=== PATIENT | male | born 1955 | race Caucasian/White ===

== ENCOUNTER → 2017-08-02 | Outpatient (CLI) | payer OTHER ==
[2017-08-02 16:18] LABS: HEMATOCRIT 41.9 % (42.0-52.0); HEMOGLOBIN 14.1 g/dl (13.5-17.5); RED BLOOD COUNT 4.32 10^6/uL (4.30-6.10); WHITE BLOOD COUNT 8.6 10^3/uL (4.0-10.0)
[2017-08-02 16:19] LABS: BASO # 0.1 10^3/uL (0.0-0.2); EOS # 0.2 10^3/uL (0.0-0.50); EOS % 2.7 % (0.0-3.0); IMMATURE GRANULOCYTE % 0.7 % (0-3.0); LYMPH # 2.7 10^3/uL (1.5-4.5); LYMPH % 31.4 % (24.0-44.0); MEAN CORPUSCULAR HEMOGLOBIN 32.6 pg (27.0-33.0); MEAN CORPUSCULAR HGB CONC 33.7 g/dl (32.0-36.5); MONO # 0.6 10^3/uL (0.0-0.8); MONO % 7.2 % (0.0-5.0); NEUTROPHILS # 4.9 10^3/uL (1.8-7.7); PLATELET COUNT, AUTOMATED 350 10^3/uL (150-450)
[2017-08-02 16:52] LABS: ERYTHROCYTE SEDIMENTATION RATE 66 mm/hr (0-20)
[2017-08-02 21:08] LABS: ALBUMIN 3.4 GM/DL (3.2-5.2); ALBUMIN/GLOBULIN RATIO 0.79 (1.00-1.93); ALKALINE PHOSPHATASE 103 U/L (45-117); ALT/SGPT 19 U/L (12-78); ANION GAP 6 MEQ/L (8-16); AST/SGOT 15 U/L (7-37); BILIRUBIN,TOTAL 0.2 MG/DL (0.2-1.0); BLOOD UREA NITROGEN 13 MG/DL (7-18); C REACTIVE PROTEIN QUANTITATIV 2.18 MG/DL (0.00-0.30); CALCIUM LEVEL 8.6 MG/DL (8.8-10.2); CARBON DIOXIDE LEVEL 27 MEQ/L (21-32); CHLORIDE LEVEL 102 MEQ/L (98-107); CREATININE FOR GFR 0.78 MG/DL (0.70-1.30); GLOMERULAR FILTRATION RATE > 60.0 (>49); GLUCOSE, FASTING 121 MG/DL (70-100); POTASSIUM SERUM 4.1 MEQ/L (3.5-5.1); SODIUM LEVEL 135 MEQ/L (136-145); TOTAL PROTEIN 7.7 GM/DL (6.4-8.2)
== END ==
LOC: M LAB 15:26
DX: T84.7XXD Infection and inflammatory reaction due to other internal orthopedic prosthetic devices, implants and grafts, subsequent encounter (principal); Y83.1 Surgical operation with implant of artificial internal device as the cause of abnormal reaction of the patient, or of later complication, without mention of misadventure at the time of the procedure
CPT/HCPCS: 86140

== ENCOUNTER → 2017-08-02 | Outpatient (CLI) | payer OTHER ==
[2017-08-02 16:48] LABS: ALBUMIN 3.3 GM/DL (3.2-5.2); ALBUMIN/GLOBULIN RATIO 0.77 (1.00-1.93); ALKALINE PHOSPHATASE 100 U/L (45-117); ALT/SGPT 22 U/L (12-78); ANION GAP 6 MEQ/L (8-16); AST/SGOT 15 U/L (7-37); BILIRUBIN,TOTAL 0.2 MG/DL (0.2-1.0); BLOOD UREA NITROGEN 13 MG/DL (7-18); CALCIUM LEVEL 8.6 MG/DL (8.8-10.2); CARBON DIOXIDE LEVEL 29 MEQ/L (21-32); CHLORIDE LEVEL 102 MEQ/L (98-107); CREATININE FOR GFR 0.75 MG/DL (0.70-1.30); FREE T4 0.88 NG/DL (0.76-1.46); GLOMERULAR FILTRATION RATE > 60.0 (>49); GLUCOSE, FASTING 118 MG/DL (70-100); SODIUM LEVEL 137 MEQ/L (136-145); TOTAL PROTEIN 7.6 GM/DL (6.4-8.2)
[2017-08-04 14:14] LABS: PSA TOTAL 2.6 ng/mL (0.0-4.0)
== END ==
LOC: M LAB 15:20
DX: F33.1 Major depressive disorder, recurrent, moderate (principal); R39.12 Poor urinary stream
CPT/HCPCS: 84443

== ENCOUNTER → 2017-09-06 | Outpatient (CLI) | payer OTHER ==
[2017-09-06 14:28] LABS: BASO # 0.1 10^3/uL (0.0-0.2); BASO % 0.6 % (0.0-1.0); EOS # 0.2 10^3/uL (0.0-0.50); EOS % 2.4 % (0.0-3.0); HEMATOCRIT 41.5 % (42.0-52.0); IMMATURE GRANULOCYTE % 0.2 % (0-3.0); LYMPH # 2.3 10^3/uL (1.5-4.5); LYMPH % 24.8 % (24.0-44.0); MEAN CORPUSCULAR HEMOGLOBIN 32.5 pg (27.0-33.0); MEAN CORPUSCULAR HGB CONC 33.7 g/dl (32.0-36.5); MEAN CORPUSCULAR VOLUME 96.3 fl (80.0-96.0); MONO # 0.9 10^3/uL (0.0-0.8); MONO % 9.2 % (0.0-5.0); NEUTROPHILS # 5.8 10^3/uL (1.8-7.7); NEUTROPHILS % 62.8 % (36.0-66.0); PLATELET COUNT, AUTOMATED 371 10^3/uL (150-450); RED BLOOD COUNT 4.31 10^6/uL (4.30-6.10); RED CELL DISTRIBUTION WIDTH 13.2 % (11.5-14.5); WHITE BLOOD COUNT 9.3 10^3/uL (4.0-10.0)
[2017-09-06 14:46] LABS: ALBUMIN 3.3 GM/DL (3.2-5.2); ALKALINE PHOSPHATASE 101 U/L (45-117); ALT/SGPT 18 U/L (12-78); ANION GAP 6 MEQ/L (8-16); AST/SGOT 12 U/L (7-37); BILIRUBIN,TOTAL 0.3 MG/DL (0.2-1.0); BLOOD UREA NITROGEN 15 MG/DL (7-18); C REACTIVE PROTEIN QUANTITATIV 1.74 MG/DL (0.00-0.30); CALCIUM LEVEL 8.8 MG/DL (8.8-10.2); CARBON DIOXIDE LEVEL 26 MEQ/L (21-32); CHLORIDE LEVEL 106 MEQ/L (98-107); CREATININE FOR GFR 0.72 MG/DL (0.70-1.30); GLOMERULAR FILTRATION RATE > 60.0 (>49); GLUCOSE, FASTING 100 MG/DL (70-100); POTASSIUM SERUM 4.7 MEQ/L (3.5-5.1); SODIUM LEVEL 138 MEQ/L (136-145); TOTAL PROTEIN 7.4 GM/DL (6.4-8.2)
[2017-09-06 21:37] LABS: ERYTHROCYTE SEDIMENTATION RATE 45 mm/hr (0-20)
== END ==
LOC: M LAB 13:26
DX: T81.4XXS Infection following a procedure, sequela (principal)
CPT/HCPCS: 80053

== ENCOUNTER → 2017-10-17 | Outpatient (CLI) | payer OTHER ==
[2017-10-17 17:26] LABS: BASO # 0.1 10^3/uL (0.0-0.2); BASO % 1.2 % (0.0-1.0); EOS # 0.2 10^3/uL (0.0-0.50); EOS % 1.8 % (0.0-3.0); HEMATOCRIT 41.2 % (42.0-52.0); HEMOGLOBIN 13.7 g/dl (13.5-17.5); IMMATURE GRANULOCYTE % 0.3 % (0-3.0); LYMPH # 2.4 10^3/uL (1.5-4.5); LYMPH % 24.8 % (24.0-44.0); MEAN CORPUSCULAR HEMOGLOBIN 32.2 pg (27.0-33.0); MEAN CORPUSCULAR HGB CONC 33.3 g/dl (32.0-36.5); MEAN CORPUSCULAR VOLUME 96.9 fl (80.0-96.0); MONO # 0.8 10^3/uL (0.0-0.8); MONO % 8.9 % (0.0-5.0); PLATELET COUNT, AUTOMATED 379 10^3/uL (150-450); RED BLOOD COUNT 4.25 10^6/uL (4.30-6.10); RED CELL DISTRIBUTION WIDTH 13.3 % (11.5-14.5); WHITE BLOOD COUNT 9.5 10^3/uL (4.0-10.0)
[2017-10-17 17:53] LABS: ERYTHROCYTE SEDIMENTATION RATE 45 mm/hr (0-20)
[2017-10-17 18:09] LABS: ALBUMIN 3.5 GM/DL (3.2-5.2); ALBUMIN/GLOBULIN RATIO 0.92 (1.00-1.93); ALKALINE PHOSPHATASE 111 U/L (45-117); ALT/SGPT 20 U/L (12-78); ANION GAP 7 MEQ/L (8-16); AST/SGOT 19 U/L (7-37); BILIRUBIN,TOTAL 0.4 MG/DL (0.2-1.0); BLOOD UREA NITROGEN 14 MG/DL (7-18); C REACTIVE PROTEIN QUANTITATIV 4.42 MG/DL (0.00-0.30); CALCIUM LEVEL 8.4 MG/DL (8.8-10.2); CARBON DIOXIDE LEVEL 29 MEQ/L (21-32); CHLORIDE LEVEL 107 MEQ/L (98-107); CREATININE FOR GFR 0.76 MG/DL (0.70-1.30); GLOMERULAR FILTRATION RATE > 60.0 (>49); GLUCOSE, FASTING 96 MG/DL (70-100); POTASSIUM SERUM 4.5 MEQ/L (3.5-5.1); SODIUM LEVEL 143 MEQ/L (136-145); TOTAL PROTEIN 7.3 GM/DL (6.4-8.2)
== END ==
LOC: M LAB 15:40
DX: T81.4XXS Infection following a procedure, sequela (principal); Y83.9 Surgical procedure, unspecified as the cause of abnormal reaction of the patient, or of later complication, without mention of misadventure at the time of the procedure
CPT/HCPCS: 80053

== ENCOUNTER → 2017-10-25 | Outpatient (CLI) | payer OTHER ==
[2017-10-25 18:55] LABS: BASO # 0.1 10^3/uL (0.0-0.2); BASO % 0.5 % (0.0-1.0); CPK CREATINE PHOSPHOKINASE 213 U/L (39-308); EOS # 0.1 10^3/uL (0.0-0.50); HEMATOCRIT 39.3 % (42.0-52.0); HEMOGLOBIN 12.8 g/dl (13.5-17.5); IMMATURE GRANULOCYTE % 0.4 % (0-3.0); LYMPH # 1.5 10^3/uL (1.5-4.5); MEAN CORPUSCULAR HEMOGLOBIN 32.2 pg (27.0-33.0); MEAN CORPUSCULAR HGB CONC 32.6 g/dl (32.0-36.5); MEAN CORPUSCULAR VOLUME 98.7 fl (80.0-96.0); MONO # 1.3 10^3/uL (0.0-0.8); MONO % 11.5 % (0.0-5.0); NEUTROPHILS # 8.2 10^3/uL (1.8-7.7); NEUTROPHILS % 73.6 % (36.0-66.0); PLATELET COUNT, AUTOMATED 335 10^3/uL (150-450); RED BLOOD COUNT 3.98 10^6/uL (4.30-6.10); RED CELL DISTRIBUTION WIDTH 13.8 % (11.5-14.5); TROPONIN I < 0.02 NG/ML (< 0.10); WHITE BLOOD COUNT 11.2 10^3/uL (4.0-10.0)
[2017-10-25 18:56] LABS: CK-MB VALUE MASS 3.4 NG/ML (<3.6); MB/CK RELATIVE INDEX 1.59 (< OR =4)
[2017-10-25 19:04] LABS: D-DIMER QUANT 816.7 ng/ml (<500)
[2017-10-25 20:23] LABS: ERYTHROCYTE SEDIMENTATION RATE 56 mm/hr (0-20)
== END ==
LOC: M SMT 12:23
DX: R07.9 Chest pain, unspecified (principal)
CPT/HCPCS: 82553

== ENCOUNTER → 2017-11-16 | Outpatient (CLI) | payer OTHER ==
[2017-11-16 14:54] LABS: BASO # 0.1 10^3/uL (0.0-0.2); EOS # 0.2 10^3/uL (0.0-0.50); EOS % 2.3 % (0.0-3.0); HEMATOCRIT 42.3 % (42.0-52.0); HEMOGLOBIN 13.9 g/dl (13.5-17.5); IMMATURE GRANULOCYTE % 0.5 % (0-3.0); LYMPH # 2.3 10^3/uL (1.5-4.5); MEAN CORPUSCULAR HEMOGLOBIN 31.6 pg (27.0-33.0); MEAN CORPUSCULAR HGB CONC 32.9 g/dl (32.0-36.5); MEAN CORPUSCULAR VOLUME 96.1 fl (80.0-96.0); MONO # 0.8 10^3/uL (0.0-0.8); MONO % 9.2 % (0.0-5.0); NEUTROPHILS # 5.3 10^3/uL (1.8-7.7); PLATELET COUNT, AUTOMATED 419 10^3/uL (150-450); RED CELL DISTRIBUTION WIDTH 13.6 % (11.5-14.5); WHITE BLOOD COUNT 8.7 10^3/uL (4.0-10.0)
[2017-11-16 14:57] LABS: ALBUMIN 3.4 GM/DL (3.2-5.2); ALBUMIN/GLOBULIN RATIO 0.79 (1.00-1.93); ALKALINE PHOSPHATASE 115 U/L (45-117); ALT/SGPT 25 U/L (12-78); ANION GAP 5 MEQ/L (8-16); AST/SGOT 21 U/L (7-37); BILIRUBIN,TOTAL 0.3 MG/DL (0.2-1.0); BLOOD UREA NITROGEN 14 MG/DL (7-18); C REACTIVE PROTEIN QUANTITATIV 1.63 MG/DL (0.00-0.30); CALCIUM LEVEL 8.8 MG/DL (8.8-10.2); CARBON DIOXIDE LEVEL 30 MEQ/L (21-32); CHLORIDE LEVEL 105 MEQ/L (98-107); CREATININE FOR GFR 0.66 MG/DL (0.70-1.30); GLOMERULAR FILTRATION RATE > 60.0 (>49); GLUCOSE, FASTING 134 MG/DL (70-100); POTASSIUM SERUM 4.7 MEQ/L (3.5-5.1); SODIUM LEVEL 140 MEQ/L (136-145); TOTAL PROTEIN 7.7 GM/DL (6.4-8.2)
[2017-11-16 15:38] LABS: ERYTHROCYTE SEDIMENTATION RATE 47 mm/hr (0-20)
== END ==
LOC: M LAB 13:16
DX: T81.4XXS Infection following a procedure, sequela (principal); Y83.9 Surgical procedure, unspecified as the cause of abnormal reaction of the patient, or of later complication, without mention of misadventure at the time of the procedure
CPT/HCPCS: 80053

== ENCOUNTER → 2017-11-16 | Outpatient (CLI) | payer OTHER ==
[2017-11-16 14:54] LABS: ESTIMATED AVERAGE GLUCOSE 131 MG/DL (60-110); HEMOGLOBIN A1c 6.2 %
[2017-11-16 15:05] LABS: ALBUMIN 3.3 GM/DL (3.2-5.2); ALBUMIN/GLOBULIN RATIO 0.77 (1.00-1.93); ALKALINE PHOSPHATASE 116 U/L (45-117); ALT/SGPT 25 U/L (12-78); ANION GAP 6 MEQ/L (8-16); AST/SGOT 19 U/L (7-37); BILIRUBIN,TOTAL 0.3 MG/DL (0.2-1.0); BLOOD UREA NITROGEN 14 MG/DL (7-18); CALCIUM LEVEL 8.7 MG/DL (8.8-10.2); CARBON DIOXIDE LEVEL 30 MEQ/L (21-32); CHLORIDE LEVEL 105 MEQ/L (98-107); CHOLESTEROL LEVEL 179 MG/DL (<200); CHOLESTEROL RISK RATIO 4.068 (<5); CREATININE FOR GFR 0.71 MG/DL (0.70-1.30); FREE T4 1.06 NG/DL (0.76-1.46); GLOMERULAR FILTRATION RATE > 60.0 (>49); GLUCOSE, FASTING 131 MG/DL (70-100); HDL CHOLESTEROL 44 MG/DL (>40); LDL CHOLESTEROL 104.8 MG/DL (<100); NON-HDL-C 135 MG/DL; POTASSIUM SERUM 4.6 MEQ/L (3.5-5.1); SODIUM LEVEL 141 MEQ/L (136-145); TOTAL PROTEIN 7.6 GM/DL (6.4-8.2); TRIGLYCERIDES LEVEL 151 MG/DL (<150)
== END ==
LOC: M LAB 13:18
DX: Z13.220 Encounter for screening for lipoid disorders (principal)

== ENCOUNTER → 2017-11-23 | Outpatient (CLI) | payer OTHER | LOC: M RAD 15:00 | DX: M54.6 Pain in thoracic spine (principal); Z98.1 Arthrodesis status | CPT/HCPCS: 72072 ==

== ENCOUNTER → 2017-12-12 | Outpatient (CLI) | payer OTHER ==
[2017-12-12 15:34] LABS: BASO # 0.1 10^3/uL (0.0-0.2); BASO % 1.2 % (0.0-1.0); EOS # 0.2 10^3/uL (0.0-0.50); EOS % 2.3 % (0.0-3.0); HEMATOCRIT 41.1 % (42.0-52.0); HEMOGLOBIN 13.6 g/dl (13.5-17.5); IMMATURE GRANULOCYTE % 0.5 % (0-3.0); LYMPH # 2.9 10^3/uL (1.5-4.5); LYMPH % 31.1 % (24.0-44.0); MEAN CORPUSCULAR HEMOGLOBIN 31.8 pg (27.0-33.0); MEAN CORPUSCULAR HGB CONC 33.1 g/dl (32.0-36.5); MONO # 0.8 10^3/uL (0.0-0.8); MONO % 8.4 % (0.0-5.0); NEUTROPHILS # 5.2 10^3/uL (1.8-7.7); NEUTROPHILS % 56.5 % (36.0-66.0); PLATELET COUNT, AUTOMATED 350 10^3/uL (150-450); RED BLOOD COUNT 4.28 10^6/uL (4.30-6.10); RED CELL DISTRIBUTION WIDTH 14.7 % (11.5-14.5); WHITE BLOOD COUNT 9.2 10^3/uL (4.0-10.0)
[2017-12-12 16:01] LABS: ALBUMIN 3.5 GM/DL (3.2-5.2); ALBUMIN/GLOBULIN RATIO 0.88 (1.00-1.93); ALKALINE PHOSPHATASE 114 U/L (45-117); ALT/SGPT 25 U/L (12-78); ANION GAP 7 MEQ/L (8-16); AST/SGOT 20 U/L (7-37); BILIRUBIN,TOTAL 0.4 MG/DL (0.2-1.0); BLOOD UREA NITROGEN 11 MG/DL (7-18); C REACTIVE PROTEIN QUANTITATIV 0.89 MG/DL (0.00-0.30); CALCIUM LEVEL 8.4 MG/DL (8.8-10.2); CARBON DIOXIDE LEVEL 29 MEQ/L (21-32); CHLORIDE LEVEL 105 MEQ/L (98-107); CREATININE FOR GFR 0.72 MG/DL (0.70-1.30); GLOMERULAR FILTRATION RATE > 60.0 (>49); GLUCOSE, FASTING 123 MG/DL (70-100); POTASSIUM SERUM 4.2 MEQ/L (3.5-5.1); SODIUM LEVEL 141 MEQ/L (136-145); TOTAL PROTEIN 7.5 GM/DL (6.4-8.2)
[2017-12-12 17:19] LABS: ERYTHROCYTE SEDIMENTATION RATE 6 mm/hr (0-20)
== END ==
LOC: M LAB 15:17
DX: T81.4XXS Infection following a procedure, sequela (principal)
CPT/HCPCS: 80053

== ENCOUNTER → 2018-01-11 | Outpatient (CLI) | payer OTHER ==
[2018-01-11 15:18] LABS: BASO # 0.1 10^3/uL (0.0-0.2); BASO % 1.2 % (0.0-1.0); EOS # 0.2 10^3/uL (0.0-0.50); HEMATOCRIT 41.4 % (42.0-52.0); IMMATURE GRANULOCYTE % 0.3 % (0-3.0); LYMPH # 2.7 10^3/uL (1.5-4.5); LYMPH % 27.9 % (24.0-44.0); MEAN CORPUSCULAR HGB CONC 33.8 g/dl (32.0-36.5); MEAN CORPUSCULAR VOLUME 94.5 fl (80.0-96.0); MONO # 0.9 10^3/uL (0.0-0.8); MONO % 9.5 % (0.0-5.0); NEUTROPHILS # 5.6 10^3/uL (1.8-7.7); NEUTROPHILS % 59.1 % (36.0-66.0); PLATELET COUNT, AUTOMATED 334 10^3/uL (150-450); RED BLOOD COUNT 4.38 10^6/uL (4.30-6.10); RED CELL DISTRIBUTION WIDTH 14.4 % (11.5-14.5); WHITE BLOOD COUNT 9.5 10^3/uL (4.0-10.0)
[2018-01-11 15:42] LABS: ERYTHROCYTE SEDIMENTATION RATE 41 mm/hr (0-20)
[2018-01-11 15:59] LABS: ALBUMIN 3.5 GM/DL (3.2-5.2); ALBUMIN/GLOBULIN RATIO 0.81 (1.00-1.93); ALKALINE PHOSPHATASE 113 U/L (45-117); ALT/SGPT 44 U/L (12-78); ANION GAP 5 MEQ/L (8-16); AST/SGOT 42 U/L (7-37); BILIRUBIN,TOTAL 0.3 MG/DL (0.2-1.0); BLOOD UREA NITROGEN 11 MG/DL (7-18); C REACTIVE PROTEIN QUANTITATIV 2.62 MG/DL (0.00-0.30); CALCIUM LEVEL 8.8 MG/DL (8.8-10.2); CARBON DIOXIDE LEVEL 29 MEQ/L (21-32); CHLORIDE LEVEL 105 MEQ/L (98-107); CREATININE FOR GFR 0.72 MG/DL (0.70-1.30); GLOMERULAR FILTRATION RATE > 60.0 (>49); GLUCOSE, FASTING 116 MG/DL (70-100); POTASSIUM SERUM 4.3 MEQ/L (3.5-5.1); SODIUM LEVEL 139 MEQ/L (136-145); TOTAL PROTEIN 7.8 GM/DL (6.4-8.2)
== END ==
LOC: M LAB 14:45
DX: T81.4XXS Infection following a procedure, sequela (principal); Y83.9 Surgical procedure, unspecified as the cause of abnormal reaction of the patient, or of later complication, without mention of misadventure at the time of the procedure

== ENCOUNTER → 2018-01-29 | Outpatient (CLI) | payer OTHER ==
[2018-01-29 12:41] LABS: BASO # 0.1 10^3/uL (0.0-0.2); EOS # 0.2 10^3/uL (0.0-0.50); EOS % 2.6 % (0.0-3.0); HEMOGLOBIN 13.7 g/dl (13.5-17.5); IMMATURE GRANULOCYTE % 0.5 % (0-3.0); LYMPH # 2.3 10^3/uL (1.5-4.5); LYMPH % 24.4 % (24.0-44.0); MEAN CORPUSCULAR HEMOGLOBIN 32.5 pg (27.0-33.0); MEAN CORPUSCULAR HGB CONC 33.4 g/dl (32.0-36.5); MEAN CORPUSCULAR VOLUME 97.2 fl (80.0-96.0); MONO # 0.9 10^3/uL (0.0-0.8); MONO % 9.2 % (0.0-5.0); NEUTROPHILS # 5.9 10^3/uL (1.8-7.7); NEUTROPHILS % 62.3 % (36.0-66.0); PLATELET COUNT, AUTOMATED 371 10^3/uL (150-450); RED BLOOD COUNT 4.22 10^6/uL (4.30-6.10); RED CELL DISTRIBUTION WIDTH 14.9 % (11.5-14.5); WHITE BLOOD COUNT 9.4 10^3/uL (4.0-10.0)
[2018-01-29 13:31] LABS: ALBUMIN 3.4 GM/DL (3.2-5.2); ALBUMIN/GLOBULIN RATIO 0.77 (1.00-1.93); ALKALINE PHOSPHATASE 129 U/L (45-117); ALT/SGPT 31 U/L (12-78); ANION GAP 6 MEQ/L (8-16); AST/SGOT 20 U/L (7-37); BILIRUBIN,TOTAL 0.2 MG/DL (0.2-1.0); BLOOD UREA NITROGEN 7 MG/DL (7-18); C REACTIVE PROTEIN QUANTITATIV 1.87 MG/DL (0.00-0.30); CALCIUM LEVEL 8.2 MG/DL (8.8-10.2); CARBON DIOXIDE LEVEL 28 MEQ/L (21-32); CHLORIDE LEVEL 106 MEQ/L (98-107); CREATININE FOR GFR 0.67 MG/DL (0.70-1.30); GLOMERULAR FILTRATION RATE > 60.0 (>49); GLUCOSE, FASTING 119 MG/DL (70-100); POTASSIUM SERUM 4.9 MEQ/L (3.5-5.1); SODIUM LEVEL 140 MEQ/L (136-145); TOTAL PROTEIN 7.8 GM/DL (6.4-8.2)
[2018-01-29 13:41] LABS: ERYTHROCYTE SEDIMENTATION RATE 45 mm/hr (0-20)
== END ==
LOC: M LAB 12:08
DX: T81.40XA Infection following a procedure, unspecified, initial encounter (principal)

== ENCOUNTER → 2018-03-01 | Outpatient (CLI) | payer OTHER ==
[2018-03-01 17:57] LABS: CHOLESTEROL LEVEL 175 MG/DL (<200); CHOLESTEROL RISK RATIO 4.069 (<5); FREE T4 1.08 NG/DL (0.76-1.46); HDL CHOLESTEROL 43 MG/DL (>40); LDL CHOLESTEROL 109 MG/DL (<100); NON-HDL-C 132 MG/DL; TRIGLYCERIDES LEVEL 117 MG/DL (<150)
== END ==
LOC: M LAB 16:46
DX: Z13.220 Encounter for screening for lipoid disorders (principal)
CPT/HCPCS: 84443

== ENCOUNTER → 2018-03-01 | Outpatient (CLI) | payer OTHER ==
[2018-03-01 17:28] LABS: BASO # 0.1 10^3/uL (0.0-0.2); BASO % 0.8 % (0.0-1.0); EOS # 0.2 10^3/uL (0.0-0.50); EOS % 1.8 % (0.0-3.0); HEMATOCRIT 40.8 % (42.0-52.0); HEMOGLOBIN 13.7 g/dl (13.5-17.5); IMMATURE GRANULOCYTE % 0.3 % (0-3.0); LYMPH # 2.4 10^3/uL (1.5-4.5); LYMPH % 25.6 % (24.0-44.0); MEAN CORPUSCULAR HEMOGLOBIN 32.2 pg (27.0-33.0); MEAN CORPUSCULAR HGB CONC 33.6 g/dl (32.0-36.5); MONO # 0.8 10^3/uL (0.0-0.8); MONO % 8.1 % (0.0-5.0); NEUTROPHILS % 63.4 % (36.0-66.0); PLATELET COUNT, AUTOMATED 380 10^3/uL (150-450); RED BLOOD COUNT 4.25 10^6/uL (4.30-6.10); RED CELL DISTRIBUTION WIDTH 13.9 % (11.5-14.5); WHITE BLOOD COUNT 9.5 10^3/uL (4.0-10.0)
[2018-03-01 17:50] LABS: ALBUMIN 3.5 GM/DL (3.2-5.2); ALBUMIN/GLOBULIN RATIO 0.83 (1.00-1.93); ALKALINE PHOSPHATASE 113 U/L (45-117); ALT/SGPT 23 U/L (12-78); ANION GAP 3 MEQ/L (8-16); AST/SGOT 21 U/L (7-37); BILIRUBIN,TOTAL 0.3 MG/DL (0.2-1.0); BLOOD UREA NITROGEN 10 MG/DL (7-18); CALCIUM LEVEL 9.2 MG/DL (8.8-10.2); CARBON DIOXIDE LEVEL 30 MEQ/L (21-32); CHLORIDE LEVEL 103 MEQ/L (98-107); CREATININE FOR GFR 0.68 MG/DL (0.70-1.30); GLOMERULAR FILTRATION RATE > 60.0 (>49); GLUCOSE, FASTING 111 MG/DL (70-100); POTASSIUM SERUM 4.8 MEQ/L (3.5-5.1); SODIUM LEVEL 136 MEQ/L (136-145); TOTAL PROTEIN 7.7 GM/DL (6.4-8.2)
[2018-03-01 18:07] LABS: ERYTHROCYTE SEDIMENTATION RATE 53 mm/hr (0-20)
== END ==
LOC: M LAB 16:55
DX: Z13.220 Encounter for screening for lipoid disorders (principal); Z13.29 Encounter for screening for other suspected endocrine disorder
CPT/HCPCS: 80053

== ENCOUNTER → 2018-04-20 | Outpatient (CLI) | payer OTHER ==
[~2018-04-20] MED LIST: /WARF25TA OR; ACET650S RE; ACET65TA OR; ANEXIA OR; BABY81CH OR; OXYC10TA97 OR; PERC7.5T8 OR; XANA1TAB2 OR
[2018-04-20 16:39] LABS: BASO # 0.1 10^3/uL (0.0-0.2); BASO % 0.9 % (0.0-1.0); EOS # 0.2 10^3/uL (0.0-0.50); EOS % 2.2 % (0.0-3.0); HEMATOCRIT 39.8 % (42.0-52.0); HEMOGLOBIN 13.3 g/dl (13.5-17.5); LYMPH # 3.2 10^3/uL (1.5-4.5); MEAN CORPUSCULAR HEMOGLOBIN 32.8 pg (27.0-33.0); MEAN CORPUSCULAR HGB CONC 33.4 g/dl (32.0-36.5); MONO % 9.9 % (0.0-5.0); NEUTROPHILS # 5.3 10^3/uL (1.8-7.7); NEUTROPHILS % 53.5 % (36.0-66.0); PLATELET COUNT, AUTOMATED 316 10^3/uL (150-450); RED BLOOD COUNT 4.06 10^6/uL (4.30-6.10); WHITE BLOOD COUNT 9.8 10^3/uL (4.0-10.0)
[2018-04-20 17:02] LABS: ALBUMIN 3.5 GM/DL (3.2-5.2); ALT/SGPT 25 U/L (12-78); BILIRUBIN,TOTAL 0.3 MG/DL (0.2-1.0); BLOOD UREA NITROGEN 13 MG/DL (7-18); C REACTIVE PROTEIN QUANTITATIV 1.88 MG/DL (0.00-0.30); CALCIUM LEVEL 8.8 MG/DL (8.8-10.2); CARBON DIOXIDE LEVEL 31 MEQ/L (21-32); CHLORIDE LEVEL 103 MEQ/L (98-107); CREATININE FOR GFR 0.78 MG/DL (0.70-1.30); GLOMERULAR FILTRATION RATE > 60.0 (>49); GLUCOSE, FASTING 144 MG/DL (70-100); POTASSIUM SERUM 4.8 MEQ/L (3.5-5.1); SODIUM LEVEL 138 MEQ/L (136-145); TOTAL PROTEIN 7.1 GM/DL (6.4-8.2)
[2018-04-20 17:57] LABS: ERYTHROCYTE SEDIMENTATION RATE 36 mm/hr (0-20)
== END ==
LOC: M LAB 16:06
PROVIDERS: ATTEND Physician Assistant
DX: Z13.220 Encounter for screening for lipoid disorders (principal)

== ENCOUNTER → 2018-05-16 | Outpatient (CLI) | payer OTHER ==
[2018-05-16 16:39] LABS: BASO # 0.1 10^3/uL (0.0-0.2); BASO % 1.1 % (0.0-1.0); EOS # 0.2 10^3/uL (0.0-0.50); EOS % 2.2 % (0.0-3.0); HEMATOCRIT 43.1 % (42.0-52.0); HEMOGLOBIN 14.3 g/dl (13.5-17.5); LYMPH # 2.8 10^3/uL (1.5-4.5); MEAN CORPUSCULAR HEMOGLOBIN 32.4 pg (27.0-33.0); MEAN CORPUSCULAR HGB CONC 33.2 g/dl (32.0-36.5); MEAN CORPUSCULAR VOLUME 97.7 fl (80.0-96.0); MONO # 0.8 10^3/uL (0.0-0.8); MONO % 8.6 % (0.0-5.0); NEUTROPHILS # 5.1 10^3/uL (1.8-7.7); NEUTROPHILS % 56.7 % (36.0-66.0); PLATELET COUNT, AUTOMATED 340 10^3/uL (150-450); RED BLOOD COUNT 4.41 10^6/uL (4.30-6.10); WHITE BLOOD COUNT 9.1 10^3/uL (4.0-10.0)
[2018-05-16 16:58] LABS: ALBUMIN 3.5 GM/DL (3.2-5.2); ALT/SGPT 24 U/L (12-78); BILIRUBIN,TOTAL 0.3 MG/DL (0.2-1.0); BLOOD UREA NITROGEN 12 MG/DL (7-18); C REACTIVE PROTEIN QUANTITATIV 2.22 MG/DL (0.00-0.30); CALCIUM LEVEL 8.7 MG/DL (8.8-10.2); CARBON DIOXIDE LEVEL 32 MEQ/L (21-32); CHLORIDE LEVEL 103 MEQ/L (98-107); CREATININE FOR GFR 0.69 MG/DL (0.70-1.30); GLOMERULAR FILTRATION RATE > 60.0 (>49); GLUCOSE, FASTING 89 MG/DL (70-100); POTASSIUM SERUM 4.4 MEQ/L (3.5-5.1); SODIUM LEVEL 140 MEQ/L (136-145); TOTAL PROTEIN 7.5 GM/DL (6.4-8.2)
[2018-05-16 17:35] LABS: ERYTHROCYTE SEDIMENTATION RATE 37 mm/hr (0-20)
== END ==
LOC: M LAB 16:02
PROVIDERS: ATTEND Physician Assistant
DX: T81.49XS Infection following a procedure, other surgical site, sequela (principal)

== ENCOUNTER → 2018-06-22 | Outpatient (CLI) | payer OTHER ==
[2018-06-22 16:42] LABS: BASO # 0.1 10^3/uL (0.0-0.2); BASO % 1.1 % (0.0-1.0); EOS # 0.2 10^3/uL (0.0-0.50); EOS % 2.2 % (0.0-3.0); HEMATOCRIT 41.1 % (42.0-52.0); HEMOGLOBIN 13.7 g/dl (13.5-17.5); LYMPH # 3.2 10^3/uL (1.5-4.5); LYMPH % 33.3 % (24.0-44.0); MEAN CORPUSCULAR HEMOGLOBIN 32.2 pg (27.0-33.0); MEAN CORPUSCULAR HGB CONC 33.3 g/dl (32.0-36.5); MEAN CORPUSCULAR VOLUME 96.5 fl (80.0-96.0); MONO # 1.1 10^3/uL (0.0-0.8); MONO % 11.7 % (0.0-5.0); NEUTROPHILS # 4.8 10^3/uL (1.8-7.7); NEUTROPHILS % 50.7 % (36.0-66.0); PLATELET COUNT, AUTOMATED 362 10^3/uL (150-450); RED BLOOD COUNT 4.26 10^6/uL (4.30-6.10); WHITE BLOOD COUNT 9.5 10^3/uL (4.0-10.0)
[2018-06-22 17:03] LABS: ERYTHROCYTE SEDIMENTATION RATE 45 mm/hr (0-20)
[2018-06-22 17:07] LABS: ALBUMIN 3.6 GM/DL (3.2-5.2); ALT/SGPT 27 U/L (12-78); BILIRUBIN,TOTAL 0.4 MG/DL (0.2-1.0); BLOOD UREA NITROGEN 16 MG/DL (7-18); C REACTIVE PROTEIN QUANTITATIV 1.03 MG/DL (0.00-0.30); CALCIUM LEVEL 8.6 MG/DL (8.8-10.2); CARBON DIOXIDE LEVEL 28 MEQ/L (21-32); CHLORIDE LEVEL 105 MEQ/L (98-107); CREATININE FOR GFR 0.68 MG/DL (0.70-1.30); GLOMERULAR FILTRATION RATE > 60.0 (>49); GLUCOSE, FASTING 89 MG/DL (70-100); POTASSIUM SERUM 4.6 MEQ/L (3.5-5.1); SODIUM LEVEL 140 MEQ/L (136-145); TOTAL PROTEIN 7.8 GM/DL (6.4-8.2)
== END ==
LOC: M LAB 16:02
PROVIDERS: ATTEND Physician Assistant
DX: T81.40XA Infection following a procedure, unspecified, initial encounter (principal); X58.XXXA Exposure to other specified factors, initial encounter; Y92.89 Other specified places as the place of occurrence of the external cause

== ENCOUNTER → 2018-06-29 | Outpatient (CLI) | payer OTHER ==
--- NOTE | 2018-06-29 16:20 | REP ---
Clinical: Subacute left shoulder pain. Technique: Internal rotation, external rotation, and Y view of the left shoulder. Findings: Moderate cortical irregularity and spurring along the inferior margin of the acromioclavicular joint is appreciated along with mild blunting to the ossified glenoid rim. No acute fracture dislocation. Proximal humerus is intact and normal. Surrounding soft tissues are unremarkable. Subacromial space is normal. No periarticular calcifications or loose bodies identified. Impression: Mild arthritic changes primarily involving the acromioclavicular joint. Electronically Signed by Joseph Gant MD 06/29/2018 04:12 P
== END ==
LOC: M RAD 15:36
PROVIDERS: ATTEND Physician Assistant
DX: M25.512 Pain in left shoulder (principal); M19.012 Primary osteoarthritis, left shoulder

== ENCOUNTER → 2018-08-09 | Outpatient (CLI) | payer OTHER ==
[~2018-08-09] MED LIST changes: -/WARF25TA OR; +COUM1TAB18 OR
[2018-08-09 15:07] LABS: BASO # 0.1 10^3/uL (0.0-0.2); BASO % 1.1 % (0.0-1.0); EOS # 0.1 10^3/uL (0.0-0.50); HEMATOCRIT 40.9 % (42.0-52.0); HEMOGLOBIN 13.8 g/dl (13.5-17.5); LYMPH # 2.7 10^3/uL (1.5-4.5); LYMPH % 26.4 % (24.0-44.0); MEAN CORPUSCULAR HEMOGLOBIN 32.5 pg (27.0-33.0); MEAN CORPUSCULAR HGB CONC 33.7 g/dl (32.0-36.5); MEAN CORPUSCULAR VOLUME 96.5 fl (80.0-96.0); MONO # 0.9 10^3/uL (0.0-0.8); MONO % 8.3 % (0.0-5.0); NEUTROPHILS # 6.4 10^3/uL (1.8-7.7); NEUTROPHILS % 62.8 % (36.0-66.0); PLATELET COUNT, AUTOMATED 373 10^3/uL (150-450); RED BLOOD COUNT 4.24 10^6/uL (4.30-6.10); WHITE BLOOD COUNT 10.2 10^3/uL (4.0-10.0)
[2018-08-09 15:28] LABS: ALBUMIN 3.6 GM/DL (3.2-5.2); ALT/SGPT 22 U/L (12-78); BILIRUBIN,TOTAL 0.3 MG/DL (0.2-1.0); BLOOD UREA NITROGEN 14 MG/DL (7-18); C REACTIVE PROTEIN QUANTITATIV 1.67 MG/DL (0.00-0.30); CALCIUM LEVEL 8.7 MG/DL (8.8-10.2); CARBON DIOXIDE LEVEL 26 MEQ/L (21-32); CHLORIDE LEVEL 106 MEQ/L (98-107); CREATININE FOR GFR 0.66 MG/DL (0.70-1.30); GLOMERULAR FILTRATION RATE > 60.0 (>49); GLUCOSE, FASTING 131 MG/DL (70-100); POTASSIUM SERUM 4.2 MEQ/L (3.5-5.1); SODIUM LEVEL 137 MEQ/L (136-145); TOTAL PROTEIN 7.5 GM/DL (6.4-8.2)
[2018-08-09 16:01] LABS: ERYTHROCYTE SEDIMENTATION RATE 41 mm/hr (0-20)
== END ==
LOC: M LAB 14:34
PROVIDERS: ATTEND Physician Assistant
DX: T81.40XS Infection following a procedure, unspecified, sequela (principal); Y83.8 Other surgical procedures as the cause of abnormal reaction of the patient, or of later complication, without mention of misadventure at the time of the procedure

== ENCOUNTER → 2018-11-06 | Outpatient (CLI) | payer OTHER ==
[2018-11-06 18:49] LABS: BASO # 0.1 10^3/uL (0.0-0.2); BASO % 1.1 % (0.0-1.0); EOS # 0.2 10^3/uL (0.0-0.50); EOS % 2.5 % (0.0-3.0); HEMATOCRIT 39.3 % (42.0-52.0); HEMOGLOBIN 13.2 g/dl (13.5-17.5); LYMPH # 2.7 10^3/uL (1.5-4.5); LYMPH % 30.9 % (24.0-44.0); MEAN CORPUSCULAR HEMOGLOBIN 33.5 pg (27.0-33.0); MEAN CORPUSCULAR HGB CONC 33.6 g/dl (32.0-36.5); MEAN CORPUSCULAR VOLUME 99.7 fl (80.0-96.0); MONO # 0.9 10^3/uL (0.0-0.8); MONO % 10.5 % (0.0-5.0); NEUTROPHILS # 4.7 10^3/uL (1.8-7.7); NEUTROPHILS % 54.4 % (36.0-66.0); PLATELET COUNT, AUTOMATED 351 10^3/uL (150-450); RED BLOOD COUNT 3.94 10^6/uL (4.30-6.10); WHITE BLOOD COUNT 8.7 10^3/uL (4.0-10.0)
[2018-11-06 19:01] LABS: ALBUMIN 3.6 GM/DL (3.2-5.2); ALT/SGPT 31 U/L (12-78); BILIRUBIN,TOTAL 0.2 MG/DL (0.2-1.0); BLOOD UREA NITROGEN 13 MG/DL (7-18); C REACTIVE PROTEIN QUANTITATIV 1.82 MG/DL (0.00-0.30); CALCIUM LEVEL 8.9 MG/DL (8.8-10.2); CARBON DIOXIDE LEVEL 31 MEQ/L (21-32); CHLORIDE LEVEL 104 MEQ/L (98-107); CREATININE FOR GFR 0.89 MG/DL (0.70-1.30); GLOMERULAR FILTRATION RATE > 60.0 (>49); GLUCOSE, FASTING 79 MG/DL (70-100); POTASSIUM SERUM 4.3 MEQ/L (3.5-5.1); SODIUM LEVEL 142 MEQ/L (136-145); TOTAL PROTEIN 7.5 GM/DL (6.4-8.2)
[2018-11-06 19:21] LABS: ERYTHROCYTE SEDIMENTATION RATE 39 mm/hr (0-20)
== END ==
LOC: M LAB 16:02
PROVIDERS: ATTEND Internal Medicine
DX: Z98.890 Other specified postprocedural states (principal); T14.8XXD Other injury of unspecified body region, subsequent encounter; Z79.2 Long term (current) use of antibiotics; Z96.9 Presence of functional implant, unspecified; A49.01 Methicillin susceptible Staphylococcus aureus infection, unspecified site

== ENCOUNTER → 2019-03-06 | Outpatient (CLI) | payer OTHER ==
[2019-03-06 16:30] LABS: BASO # 0.1 10^3/uL (0.0-0.2); BASO % 0.9 % (0.0-1.0); EOS # 0.3 10^3/uL (0.0-0.5); EOS % 2.7 % (0.0-3.0); HEMATOCRIT 44.6 % (42.0-52.0); HEMOGLOBIN 14.9 g/dl (13.5-17.5); LYMPH # 2.7 10^3/uL (1.5-5.0); LYMPH % 26.7 % (24.0-44.0); MEAN CORPUSCULAR HEMOGLOBIN 34.1 pg (27.0-33.0); MEAN CORPUSCULAR HGB CONC 33.4 g/dl (32.0-36.5); MEAN CORPUSCULAR VOLUME 102.1 fl (80.0-96.0); MONO # 1.1 10^3/uL (0.0-0.8); MONO % 10.7 % (0.0-5.0); NEUTROPHILS % 58.6 % (36.0-66.0); PLATELET COUNT, AUTOMATED 353 10^3/uL (150-450); RED BLOOD COUNT 4.37 10^6/uL (4.30-6.10); WHITE BLOOD COUNT 10.3 10^3/uL (4.0-10.0)
[2019-03-06 16:52] LABS: ERYTHROCYTE SEDIMENTATION RATE 21 mm/hr (0-20)
[2019-03-06 16:54] LABS: ALBUMIN 3.8 GM/DL (3.2-5.2); ALT/SGPT 36 U/L (12-78); BILIRUBIN,TOTAL 0.5 MG/DL (0.2-1.0); BLOOD UREA NITROGEN 18 MG/DL (7-18); C REACTIVE PROTEIN QUANTITATIV 1.29 MG/DL (0.00-0.30); CALCIUM LEVEL 9.2 MG/DL (8.8-10.2); CARBON DIOXIDE LEVEL 31 MEQ/L (21-32); CHLORIDE LEVEL 103 MEQ/L (98-107); CREATININE FOR GFR 0.89 MG/DL (0.70-1.30); GLOMERULAR FILTRATION RATE > 60.0 (>49); GLUCOSE, FASTING 97 MG/DL (70-100); POTASSIUM SERUM 4.2 MEQ/L (3.5-5.1); SODIUM LEVEL 138 MEQ/L (136-145); TOTAL PROTEIN 8.2 GM/DL (6.4-8.2)
== END ==
LOC: M LAB 15:37
PROVIDERS: ATTEND Internal Medicine
DX: A49.01 Methicillin susceptible Staphylococcus aureus infection, unspecified site (principal); T14.8XXA Other injury of unspecified body region, initial encounter; Z98.890 Other specified postprocedural states; Z79.2 Long term (current) use of antibiotics; Z96.9 Presence of functional implant, unspecified

== ENCOUNTER → 2019-06-18 | Outpatient (CLI) | payer OTHER ==
[2019-06-18 17:33] LABS: BASO # 0.1 10^3/uL (0.0-0.2); BASO % 1.1 % (0.0-1.0); EOS # 0.2 10^3/uL (0.0-0.5); EOS % 2.4 % (0.0-3.0); HEMATOCRIT 41.9 % (42.0-52.0); HEMOGLOBIN 13.7 g/dl (13.5-17.5); LYMPH # 2.3 10^3/uL (1.5-5.0); LYMPH % 26.9 % (24.0-44.0); MEAN CORPUSCULAR HEMOGLOBIN 33.3 pg (27.0-33.0); MEAN CORPUSCULAR HGB CONC 32.7 g/dl (32.0-36.5); MEAN CORPUSCULAR VOLUME 101.9 fl (80.0-96.0); MONO # 0.9 10^3/uL (0.0-0.8); MONO % 10.9 % (0.0-5.0); NEUTROPHILS # 4.9 10^3/uL (1.5-8.5); NEUTROPHILS % 58.3 % (36.0-66.0); PLATELET COUNT, AUTOMATED 341 10^3/uL (150-450); RED BLOOD COUNT 4.11 10^6/uL (4.30-6.10); WHITE BLOOD COUNT 8.5 10^3/uL (4.0-10.0)
[2019-06-18 17:52] LABS: ALBUMIN 3.5 GM/DL (3.2-5.2); ALT/SGPT 28 U/L (12-78); BILIRUBIN,TOTAL 0.2 MG/DL (0.2-1.0); BLOOD UREA NITROGEN 14 MG/DL (7-18); C REACTIVE PROTEIN QUANTITATIV 4.52 MG/DL (0.00-0.30); CALCIUM LEVEL 8.7 MG/DL (8.8-10.2); CARBON DIOXIDE LEVEL 30 MEQ/L (21-32); CHLORIDE LEVEL 104 MEQ/L (98-107); CREATININE FOR GFR 0.75 MG/DL (0.70-1.30); GLOMERULAR FILTRATION RATE > 60.0 (>49); GLUCOSE, FASTING 125 MG/DL (70-100); POTASSIUM SERUM 3.9 MEQ/L (3.5-5.1); SODIUM LEVEL 139 MEQ/L (136-145); TOTAL PROTEIN 7.4 GM/DL (6.4-8.2)
[2019-06-18 20:51] LABS: ERYTHROCYTE SEDIMENTATION RATE 32 mm/hr (0-20)
== END ==
LOC: M LAB 16:40
PROVIDERS: ATTEND Internal Medicine
DX: T14.8XXA Other injury of unspecified body region, initial encounter (principal); Z79.2 Long term (current) use of antibiotics; Z96.9 Presence of functional implant, unspecified; A49.01 Methicillin susceptible Staphylococcus aureus infection, unspecified site; Z98.890 Other specified postprocedural states

== ENCOUNTER → 2019-09-11 | Outpatient (CLI) | payer OTHER ==
[2019-09-11 13:17] LABS: BASO # 0.1 10^3/uL (0.0-0.2); BASO % 1.1 % (0.0-1.0); EOS # 0.2 10^3/uL (0.0-0.5); EOS % 1.9 % (0.0-3.0); HEMATOCRIT 42.5 % (42.0-52.0); HEMOGLOBIN 14.1 g/dl (13.5-17.5); LYMPH # 2.4 10^3/uL (1.5-5.0); LYMPH % 28.1 % (24.0-44.0); MEAN CORPUSCULAR HEMOGLOBIN 33.5 pg (27.0-33.0); MEAN CORPUSCULAR HGB CONC 33.2 g/dl (32.0-36.5); MONO # 0.9 10^3/uL (0.0-0.8); MONO % 11.1 % (0.0-5.0); NEUTROPHILS # 4.9 10^3/uL (1.5-8.5); NEUTROPHILS % 57.4 % (36.0-66.0); PLATELET COUNT, AUTOMATED 353 10^3/uL (150-450); RED BLOOD COUNT 4.21 10^6/uL (4.30-6.10); WHITE BLOOD COUNT 8.5 10^3/uL (4.0-10.0)
[2019-09-11 13:44] LABS: ALBUMIN 3.7 GM/DL (3.2-5.2); ALT/SGPT 47 U/L (12-78); BILIRUBIN,TOTAL 0.5 MG/DL (0.2-1.0); BLOOD UREA NITROGEN 14 MG/DL (7-18); C REACTIVE PROTEIN QUANTITATIV 0.57 MG/DL (0.00-0.30); CALCIUM LEVEL 9.4 MG/DL (8.8-10.2); CARBON DIOXIDE LEVEL 30 MEQ/L (21-32); CHLORIDE LEVEL 102 MEQ/L (98-107); CREATININE FOR GFR 0.84 MG/DL (0.70-1.30); GLOMERULAR FILTRATION RATE > 60.0 (>49); GLUCOSE, FASTING 136 MG/DL (70-100); POTASSIUM SERUM 4.2 MEQ/L (3.5-5.1); SODIUM LEVEL 137 MEQ/L (136-145); TOTAL PROTEIN 7.5 GM/DL (6.4-8.2)
[2019-09-11 14:05] LABS: ERYTHROCYTE SEDIMENTATION RATE 4 mm/hr (0-20)
== END ==
LOC: M LAB 12:33
PROVIDERS: ATTEND Internal Medicine
DX: T14.8XXA Other injury of unspecified body region, initial encounter (principal); Y92.89 Other specified places as the place of occurrence of the external cause; Z98.890 Other specified postprocedural states; Z79.2 Long term (current) use of antibiotics; Z96.9 Presence of functional implant, unspecified; A49.01 Methicillin susceptible Staphylococcus aureus infection, unspecified site

== ENCOUNTER → 2019-11-27 | Outpatient (CLI) | payer OTHER ==
[2019-12-23 16:05] LABS: BASO # 0.1 10^3/uL (0.0-0.2); EOS # 0.2 10^3/uL (0.0-0.5); EOS % 2.6 % (0.0-3.0); HEMATOCRIT 42.3 % (42.0-52.0); HEMOGLOBIN 14.4 g/dl (13.5-17.5); LYMPH # 1.8 10^3/uL (1.5-5.0); LYMPH % 28.7 % (24.0-44.0); MEAN CORPUSCULAR HEMOGLOBIN 34.1 pg (27.0-33.0); MEAN CORPUSCULAR VOLUME 100.2 fl (80.0-96.0); MONO # 0.7 10^3/uL (0.0-0.8); MONO % 11.2 % (0.0-5.0); NEUTROPHILS # 3.5 10^3/uL (1.5-8.5); PLATELET COUNT, AUTOMATED 314 10^3/uL (150-450); RED BLOOD COUNT 4.22 10^6/uL (4.30-6.10); WHITE BLOOD COUNT 6.2 10^3/uL (4.0-10.0)
[2019-12-23 16:06] LABS: ERYTHROCYTE SEDIMENTATION RATE 23 mm/hr (0-20)
== END ==
LOC: M LAB 13:02
PROVIDERS: ATTEND Internal Medicine
DX: Z98.890 Other specified postprocedural states (principal); A49.01 Methicillin susceptible Staphylococcus aureus infection, unspecified site; Z96.9 Presence of functional implant, unspecified; Z79.2 Long term (current) use of antibiotics; T14.8XXA Other injury of unspecified body region, initial encounter

== ENCOUNTER → 2020-03-16 | Outpatient (CLI) | payer OTHER ==
[2020-03-16 16:15] LABS: BASO # 0.1 10^3/uL (0.0-0.2); EOS # 0.1 10^3/uL (0.0-0.5); EOS % 1.7 % (0.0-3.0); HEMATOCRIT 43.6 % (42.0-52.0); HEMOGLOBIN 14.1 g/dl (13.5-17.5); LYMPH % 27.9 % (24.0-44.0); MEAN CORPUSCULAR HEMOGLOBIN 32.6 pg (27.0-33.0); MEAN CORPUSCULAR HGB CONC 32.3 g/dl (32.0-36.5); MEAN CORPUSCULAR VOLUME 100.7 fl (80.0-96.0); MONO # 0.6 10^3/uL (0.0-0.8); MONO % 8.9 % (0.0-5.0); NEUTROPHILS # 4.3 10^3/uL (1.5-8.5); NEUTROPHILS % 59.8 % (36.0-66.0); PLATELET COUNT, AUTOMATED 351 10^3/uL (150-450); RED BLOOD COUNT 4.33 10^6/uL (4.30-6.10); WHITE BLOOD COUNT 7.2 10^3/uL (4.0-10.0)
[2020-03-16 16:37] LABS: ALBUMIN 3.7 GM/DL (3.2-5.2); ALT/SGPT 33 U/L (12-78); BILIRUBIN,TOTAL 0.4 MG/DL (0.2-1.0); BLOOD UREA NITROGEN 7 MG/DL (7-18); C REACTIVE PROTEIN QUANTITATIV 1.07 MG/DL (0.00-0.30); CARBON DIOXIDE LEVEL 29 MEQ/L (21-32); CHLORIDE LEVEL 106 MEQ/L (98-107); CREATININE FOR GFR 0.79 MG/DL (0.70-1.30); GLOMERULAR FILTRATION RATE > 60.0 (>49); GLUCOSE, FASTING 117 MG/DL (70-100); POTASSIUM SERUM 3.9 MEQ/L (3.5-5.1); SODIUM LEVEL 140 MEQ/L (136-145); TOTAL PROTEIN 7.9 GM/DL (6.4-8.2)
[2020-03-16 17:24] LABS: ERYTHROCYTE SEDIMENTATION RATE 30 mm/hr (0-20)
== END ==
LOC: M LAB 15:43
PROVIDERS: ATTEND Internal Medicine
DX: T14.8XXA Other injury of unspecified body region, initial encounter (principal); Y92.89 Other specified places as the place of occurrence of the external cause; A49.01 Methicillin susceptible Staphylococcus aureus infection, unspecified site; Z98.890 Other specified postprocedural states; Z79.2 Long term (current) use of antibiotics; Z96.9 Presence of functional implant, unspecified

== ENCOUNTER → 2020-06-15 | Outpatient (CLI) | payer MEDICARE, OTHER ==
[2020-06-15 18:25] LABS: ALBUMIN 3.5 GM/DL (3.2-5.2); ALT/SGPT 27 U/L (12-78); BILIRUBIN,TOTAL 0.3 MG/DL (0.2-1.0); BLOOD UREA NITROGEN 19 MG/DL (7-18); C REACTIVE PROTEIN QUANTITATIV 1.63 MG/DL (0.00-0.30); CARBON DIOXIDE LEVEL 29 MEQ/L (21-32); CHLORIDE LEVEL 105 MEQ/L (98-107); CREATININE FOR GFR 0.82 MG/DL (0.70-1.30); GLOMERULAR FILTRATION RATE > 60.0 (>49); GLUCOSE, FASTING 113 MG/DL (70-100); POTASSIUM SERUM 4.7 MEQ/L (3.5-5.1); SODIUM LEVEL 140 MEQ/L (136-145); TOTAL PROTEIN 7.2 GM/DL (6.4-8.2)
[2020-06-15 18:45] LABS: BASO # 0.1 10^3/uL (0.0-0.2); BASO % 0.9 % (0.0-1.0); EOS # 0.1 10^3/uL (0.0-0.5); EOS % 1.6 % (0.0-3.0); HEMATOCRIT 41.6 % (42.0-52.0); HEMOGLOBIN 13.8 g/dl (13.5-17.5); LYMPH # 2.5 10^3/uL (1.5-5.0); LYMPH % 32.2 % (24.0-44.0); MEAN CORPUSCULAR HEMOGLOBIN 34.1 pg (27.0-33.0); MEAN CORPUSCULAR HGB CONC 33.2 g/dl (32.0-36.5); MEAN CORPUSCULAR VOLUME 102.7 fl (80.0-96.0); MONO # 0.8 10^3/uL (0.0-0.8); MONO % 10.7 % (0.0-8.0); NEUTROPHILS # 4.2 10^3/uL (1.5-8.5); NEUTROPHILS % 54.3 % (36.0-66.0); PLATELET COUNT, AUTOMATED 283 10^3/uL (150-450); RED BLOOD COUNT 4.05 10^6/uL (4.30-6.10); WHITE BLOOD COUNT 7.7 10^3/uL (4.0-10.0)
[2020-06-15 20:05] LABS: ERYTHROCYTE SEDIMENTATION RATE 25 mm/hr (0-20)
== END ==
LOC: M LAB 16:16
PROVIDERS: ATTEND Internal Medicine
DX: A49.01 Methicillin susceptible Staphylococcus aureus infection, unspecified site (principal); Z98.890 Other specified postprocedural states; Z79.2 Long term (current) use of antibiotics; Z95.9 Presence of cardiac and vascular implant and graft, unspecified

== ENCOUNTER → 2020-09-03 | Outpatient (CLI) | payer MEDICARE, OTHER ==
[2020-09-03 16:26] LABS: BASO # 0.1 10^3/uL (0.0-0.2); BASO % 1.1 % (0.0-1.0); EOS # 0.1 10^3/uL (0.0-0.5); EOS % 1.3 % (0.0-3.0); HEMATOCRIT 41.6 % (42.0-52.0); HEMOGLOBIN 13.8 g/dl (13.5-17.5); LYMPH % 23.5 % (24.0-44.0); MEAN CORPUSCULAR HEMOGLOBIN 33.8 pg (27.0-33.0); MEAN CORPUSCULAR HGB CONC 33.2 g/dl (32.0-36.5); MONO # 0.7 10^3/uL (0.0-0.8); MONO % 8.2 % (2.0-8.0); NEUTROPHILS # 5.5 10^3/uL (1.5-8.5); NEUTROPHILS % 65.5 % (36.0-66.0); PLATELET COUNT, AUTOMATED 317 10^3/uL (150-450); RED BLOOD COUNT 4.08 10^6/uL (4.30-6.10); WHITE BLOOD COUNT 8.4 10^3/uL (4.0-10.0)
[2020-09-03 16:59] LABS: ALBUMIN 3.7 GM/DL (3.2-5.2); ALT/SGPT 29 U/L (12-78); BILIRUBIN,TOTAL 0.5 MG/DL (0.2-1.0); BLOOD UREA NITROGEN 13 MG/DL (7-18); C REACTIVE PROTEIN QUANTITATIV 1.09 MG/DL (0.00-0.30); CALCIUM LEVEL 9.2 MG/DL (8.8-10.2); CARBON DIOXIDE LEVEL 31 MEQ/L (21-32); CHLORIDE LEVEL 103 MEQ/L (98-107); CREATININE FOR GFR 0.63 MG/DL (0.70-1.30); GLOMERULAR FILTRATION RATE > 60.0 (>49); GLUCOSE, FASTING 105 MG/DL (70-100); POTASSIUM SERUM 4.5 MEQ/L (3.5-5.1); SODIUM LEVEL 137 MEQ/L (136-145); TOTAL PROTEIN 7.5 GM/DL (6.4-8.2)
== END ==
LOC: M LAB 15:24
PROVIDERS: ATTEND Internal Medicine
DX: T14.8XXA Other injury of unspecified body region, initial encounter (principal); A49.01 Methicillin susceptible Staphylococcus aureus infection, unspecified site; Z98.890 Other specified postprocedural states; Z79.2 Long term (current) use of antibiotics; Z96.9 Presence of functional implant, unspecified

== ENCOUNTER → 2020-09-03 | Outpatient (CLI) | payer MEDICARE, OTHER ==
[2020-09-03 17:03] LABS: CHOLESTEROL RISK RATIO 3.214 (<5); FREE T4 1.07 NG/DL (0.76-1.46); THYROID STIMULATING HORMONE 1.07 uIU/ML (0.358-3.740)
[2020-09-03 17:04] LABS: TOTAL 25(OH) VITAMIN D 9.5 NG/ML (30.0-100.0)
[2020-09-06 07:09] LABS: PSA TOTAL 0.9 ng/mL (0.0-4.0)
== END ==
LOC: M LAB 15:18
PROVIDERS: ATTEND Physician Assistant
DX: E78.5 Hyperlipidemia, unspecified (principal); F33.1 Major depressive disorder, recurrent, moderate; Z12.5 Encounter for screening for malignant neoplasm of prostate; T14.8XXA Other injury of unspecified body region, initial encounter; A49.01 Methicillin susceptible Staphylococcus aureus infection, unspecified site; Z98.890 Other specified postprocedural states; Z79.2 Long term (current) use of antibiotics; Z96.9 Presence of functional implant, unspecified; Z79.899 Other long term (current) drug therapy

== ENCOUNTER → 2020-12-03 | Outpatient (CLI) | payer MEDICARE, OTHER ==
[2020-12-03 16:10] LABS: BASO # 0.1 10^3/uL (0.0-0.2); BASO % 1.1 % (0.0-1.0); EOS # 0.1 10^3/uL (0.0-0.5); HEMATOCRIT 42.4 % (42.0-52.0); HEMOGLOBIN 14.1 g/dl (13.5-17.5); LYMPH % 24.9 % (24.0-44.0); MEAN CORPUSCULAR HEMOGLOBIN 33.1 pg (27.0-33.0); MEAN CORPUSCULAR HGB CONC 33.3 g/dl (32.0-36.5); MEAN CORPUSCULAR VOLUME 99.5 fl (80.0-96.0); MONO # 0.8 10^3/uL (0.0-0.8); MONO % 9.8 % (2.0-8.0); NEUTROPHILS # 5.1 10^3/uL (1.5-8.5); NEUTROPHILS % 62.8 % (36.0-66.0); PLATELET COUNT, AUTOMATED 326 10^3/uL (150-450); RED BLOOD COUNT 4.26 10^6/uL (4.30-6.10); WHITE BLOOD COUNT 8.1 10^3/uL (4.0-10.0)
[2020-12-03 16:29] LABS: ALBUMIN 3.5 GM/DL (3.2-5.2); ALT/SGPT 30 U/L (12-78); BILIRUBIN,TOTAL 0.5 MG/DL (0.2-1.0); BLOOD UREA NITROGEN 11 MG/DL (7-18); CALCIUM LEVEL 8.7 MG/DL (8.8-10.2); CARBON DIOXIDE LEVEL 28 MEQ/L (21-32); CHLORIDE LEVEL 104 MEQ/L (98-107); CREATININE FOR GFR 0.68 MG/DL (0.70-1.30); GLOMERULAR FILTRATION RATE > 60.0 (>49); GLUCOSE, FASTING 97 MG/DL (70-100); POTASSIUM SERUM 4.8 MEQ/L (3.5-5.1); SODIUM LEVEL 137 MEQ/L (136-145); TOTAL PROTEIN 7.6 GM/DL (6.4-8.2)
[2020-12-03 16:33] LABS: ERYTHROCYTE SEDIMENTATION RATE 31 mm/hr (0-20)
== END ==
LOC: M LAB 14:17
PROVIDERS: ATTEND Physician Assistant
DX: A49.01 Methicillin susceptible Staphylococcus aureus infection, unspecified site (principal); Z96.9 Presence of functional implant, unspecified

== ENCOUNTER → 2021-01-06 | Outpatient (CLI) | payer MEDICARE, OTHER ==
[2021-01-06 17:56] LABS: BASO # 0.1 10^3/uL (0.0-0.2); BASO % 0.8 % (0.0-1.0); EOS # 0.2 10^3/uL (0.0-0.5); EOS % 2.1 % (0.0-3.0); HEMATOCRIT 40.6 % (42.0-52.0); HEMOGLOBIN 13.5 g/dl (13.5-17.5); LYMPH # 2.2 10^3/uL (1.5-5.0); LYMPH % 31.2 % (24.0-44.0); MEAN CORPUSCULAR HEMOGLOBIN 33.2 pg (27.0-33.0); MEAN CORPUSCULAR HGB CONC 33.3 g/dl (32.0-36.5); MEAN CORPUSCULAR VOLUME 99.8 fl (80.0-96.0); MONO # 0.6 10^3/uL (0.0-0.8); MONO % 9.1 % (2.0-8.0); NEUTROPHILS % 56.4 % (36.0-66.0); PLATELET COUNT, AUTOMATED 283 10^3/uL (150-450); RED BLOOD COUNT 4.07 10^6/uL (4.30-6.10); WHITE BLOOD COUNT 7.1 10^3/uL (4.0-10.0)
[2021-01-06 18:26] LABS: ALBUMIN 3.4 GM/DL (3.2-5.2); ALT/SGPT 43 U/L (12-78); BILIRUBIN,TOTAL 0.4 MG/DL (0.2-1.0); BLOOD UREA NITROGEN 12 MG/DL (7-18); C REACTIVE PROTEIN QUANTITATIV 1.45 MG/DL (0.00-0.30); CARBON DIOXIDE LEVEL 30 MEQ/L (21-32); CHLORIDE LEVEL 106 MEQ/L (98-107); CREATININE FOR GFR 0.66 MG/DL (0.70-1.30); ERYTHROCYTE SEDIMENTATION RATE 35 mm/hr (0-20); GLOMERULAR FILTRATION RATE > 60.0 (>49); GLUCOSE, FASTING 127 MG/DL (70-100); POTASSIUM SERUM 4.3 MEQ/L (3.5-5.1); SODIUM LEVEL 140 MEQ/L (136-145); TOTAL PROTEIN 7.2 GM/DL (6.4-8.2)
== END ==
LOC: M LAB 16:22
PROVIDERS: ATTEND Physician Assistant
DX: A49.01 Methicillin susceptible Staphylococcus aureus infection, unspecified site (principal); Z96.9 Presence of functional implant, unspecified

== ENCOUNTER → 2021-01-23 | Outpatient (CLI) | payer MEDICARE, OTHER ==
[2021-01-23 12:11] LABS: BASO # 0.1 10^3/uL (0.0-0.2); BASO % 1.1 % (0.0-1.0); EOS # 0.3 10^3/uL (0.0-0.5); EOS % 3.3 % (0.0-3.0); HEMATOCRIT 42.2 % (42.0-52.0); HEMOGLOBIN 13.9 g/dl (13.5-17.5); LYMPH # 1.9 10^3/uL (1.5-5.0); LYMPH % 24.5 % (24.0-44.0); MEAN CORPUSCULAR HEMOGLOBIN 32.9 pg (27.0-33.0); MEAN CORPUSCULAR HGB CONC 32.9 g/dl (32.0-36.5); MONO # 0.7 10^3/uL (0.0-0.8); MONO % 9.7 % (2.0-8.0); NEUTROPHILS # 4.6 10^3/uL (1.5-8.5); NEUTROPHILS % 60.7 % (36.0-66.0); PLATELET COUNT, AUTOMATED 303 10^3/uL (150-450); RED BLOOD COUNT 4.22 10^6/uL (4.30-6.10); WHITE BLOOD COUNT 7.6 10^3/uL (4.0-10.0)
[2021-01-23 12:32] LABS: ERYTHROCYTE SEDIMENTATION RATE 19 mm/hr (0-20)
[2021-01-23 12:44] LABS: ALBUMIN 3.3 GM/DL (3.2-5.2); ALT/SGPT 28 U/L (12-78); BILIRUBIN,TOTAL 0.3 MG/DL (0.2-1.0); BLOOD UREA NITROGEN 12 MG/DL (7-18); C REACTIVE PROTEIN QUANTITATIV 0.63 MG/DL (0.00-0.30); CARBON DIOXIDE LEVEL 30 MEQ/L (21-32); CHLORIDE LEVEL 105 MEQ/L (98-107); CREATININE FOR GFR 0.77 MG/DL (0.70-1.30); GLOMERULAR FILTRATION RATE > 60.0 (>49); GLUCOSE, FASTING 92 MG/DL (70-100); POTASSIUM SERUM 4.3 MEQ/L (3.5-5.1); SODIUM LEVEL 139 MEQ/L (136-145); TOTAL PROTEIN 7.4 GM/DL (6.4-8.2)
== END ==
LOC: M LAB 11:51
PROVIDERS: ATTEND Physician Assistant
DX: Z96.9 Presence of functional implant, unspecified (principal); Z86.14 Personal history of Methicillin resistant Staphylococcus aureus infection

== ENCOUNTER → 2021-02-10 | Outpatient (CLI) | payer MEDICARE, OTHER ==
[2021-02-10 16:22] LABS: BASO # 0.1 10^3/uL (0.0-0.2); BASO % 0.7 % (0.0-1.0); EOS # 0.2 10^3/uL (0.0-0.5); EOS % 2.5 % (0.0-3.0); HEMATOCRIT 41.5 % (42.0-52.0); HEMOGLOBIN 13.8 g/dl (13.5-17.5); LYMPH # 2.3 10^3/uL (1.5-5.0); LYMPH % 28.2 % (24.0-44.0); MEAN CORPUSCULAR HEMOGLOBIN 33.6 pg (27.0-33.0); MEAN CORPUSCULAR HGB CONC 33.3 g/dl (32.0-36.5); MONO # 0.7 10^3/uL (0.0-0.8); MONO % 8.9 % (2.0-8.0); NEUTROPHILS # 4.8 10^3/uL (1.5-8.5); NEUTROPHILS % 59.2 % (36.0-66.0); PLATELET COUNT, AUTOMATED 306 10^3/uL (150-450); RED BLOOD COUNT 4.11 10^6/uL (4.30-6.10); WHITE BLOOD COUNT 8.1 10^3/uL (4.0-10.0)
[2021-02-10 16:45] LABS: ALBUMIN 3.4 GM/DL (3.2-5.2); ALT/SGPT 34 U/L (12-78); BILIRUBIN,TOTAL 0.3 MG/DL (0.2-1.0); BLOOD UREA NITROGEN 12 MG/DL (7-18); CALCIUM LEVEL 9.1 MG/DL (8.8-10.2); CARBON DIOXIDE LEVEL 34 MEQ/L (21-32); CHLORIDE LEVEL 102 MEQ/L (98-107); CREATININE FOR GFR 0.78 MG/DL (0.70-1.30); GLOMERULAR FILTRATION RATE > 60.0 (>49); GLUCOSE, FASTING 158 MG/DL (70-100); POTASSIUM SERUM 4.3 MEQ/L (3.5-5.1); SODIUM LEVEL 138 MEQ/L (136-145); TOTAL PROTEIN 7.3 GM/DL (6.4-8.2)
[2021-02-10 17:21] LABS: ERYTHROCYTE SEDIMENTATION RATE 29 mm/hr (0-20)
== END ==
LOC: M LAB 15:48
PROVIDERS: ATTEND Physician Assistant
DX: A49.01 Methicillin susceptible Staphylococcus aureus infection, unspecified site (principal); Z96.9 Presence of functional implant, unspecified

== ENCOUNTER 2021-02-27 00:06 | Emergency (ER) | payer MEDICARE, OTHER ==
[~2021-02-27] VITALS: Ht 190.5 cm; Wt 91.0 kg
[2021-02-27 00:08] VITALS: BP 154/83
--- OUTSIDE RECORDS SUMMARY | 2021-02-27 00:15 | CCD | Continuity of Care Document ---
Author Author Joseph CORREA Organization Unknown Address [address] [place] [address] Phone [phone] Care Team Providers Care Product Safety Compliance Leader Name Role Phone Adrianna Correa D.O. [facility] [phone] Problems Active Problems Provider Date Generalized anxiety disorder [place]N [place]l Onset: Osteomyelitis SEBASTI[place]N [place]l Onset: 07/21/2016 Attention deficit hyperactivity disorder Nancy Chilel Onset: 07/21/2016 Moderate recurrent major depression Michael Shi Onset: 03/28/2017 Poor stream of urine Adrianna Correa D.O. Onset: 03/28 Cervical disc disorder Adrianna Correa D.O. Onset: Vitamin D deficiency [place]STI[place]N [place]l Onset: 09/06/2020 Social History Type Date Description Comments Sex Unknown Tobacco Use Start: Unknown Light tobacco smoker (10 or fewe r cigarettes/day) ETOH Use Denies alcohol use Recreational Drug Use Denies Drug Use Tobacco Use Start: Unknown End: Patient is a former smoker Smoking Status Reviewed: 11/11/20 Patient is a former smoker Exercise Type/Frequency Does not exercise Sun Exposure Does not use sunscreen Seat Belt/Car Seat Always uses seat belt Allergies and adverse reactions Description No Known Drug Allergies Medications Active Medications SIG Qnty Indications Ordering Provide r Date Vitamin D (Ergocalciferol) 1.25mg (55896 Ut) Capsules 1 capsule weekly for 12 weeks 12caps Adrianna Delgado D.O. 09/06/[address] H[address] Villalba 1 by mouth every day with 60mg dose to equal 90mg 90caps F33.1 Michael ShiOCarlin 08/25/2020 Duloxetine HCL 60mg Caps DR Villalba take 1 capsule daily 90caps F33.1 Josefina Shi.O. 02/17 Amphetamine-Dextroamphetamine 30mg Tablets take one tablet by mouth every morning a nd 1 tablet in the afternoon istop: [id number] 60tabs F90.1 Michael ShiOCarlin 12/25 Fentanyl 12mcg/HR Patches 72HR patch transdermally with 25mcg patch to 37mcg q72 hours istop: [id number] 10units M46.20 Michael ShiOCarlin 07/17/2019 Cyclobenzaprine HCL 5mg Tablets 1 tab by mouth every 12 hours as needed 60tabs Michael OrellanaOCarlin 07/26/2017 Fentanyl 25mcg/HR Patches 72HR 1 patch transdermally with 12 mcg to equal 37 mcg every 3 days pain istop: [id number] 10units M46.20 Michael ShiOCarlin 08/10/2016 Meloxicam 15mg Tablets take one table by mouth daily as needed 30tabs Michael ShiOCarlin 08/02/2016 Alprazolam 1mg Tablets one tablet by mouth twice daily as needed istop: reference #: [id number] 60tabs F41.1 Michael GrahamOCarlin 07/21/2016 Lidocaine 5% Patches apply 1 patch topically once daily leave on for 12 hours off for 12 h 30units Adrianna Pelaez D.O. Keflex 250mg Capsules 1 tab by mouth bid Unknown Tamsulosin HCL 0.4mg Capsules 1 by mouth every day 90caps Michael ShiOCarlin Immunizations Description No Information Available Vital Signs Date Vital Result Comment 11/11/2020 11:10am BP Systolic 126 mmHg BP Diastolic 72 mmHg Height 71.6 inches 5'11.60" Weight 195.38 lb BMI (Body Mass Index) 26.8 kg/m2 Heart Rate 113 /min Respiratory Rate 18 /min Body Temperature 99.1 F O2 % BldC Oximetry 96 % [place] Body Weight 172 lb 08/25/2020 11:11am BP Systolic 130 mmHg BP Diastolic 70 mmHg Height 71.6 inches 5'11.60" Weight 201.00 lb BMI (Body Mass Index) 27.6 kg/m2 Heart Rate 83 /min Respiratory Rate 14 /min Body Temperature 97.8 F O2 % BldC Oximetry 97 % [place] Body Weight 172 lb Results Test Acquired Date Facility Test Result H/L Range Note Comprehensive Metabolic Profil 02/10/2021 [facility] Outpa tient Testing (Registration) [address] [place] [address] [phone] Glucose, Fasting 158 mg/dL High 70-100 Blood Urea Nitrogen 12 mg/dL Normal 7-18 Creatinine For GFR 0.78 mg/dL Normal 0.70-1.30 Glomerular Filtration Rate > 60.0 Normal >49 1 Sodium Level 138 mEq/L Normal 136-145 Potassium Serum 4.3 mEq/L Normal 3.5-5.1 Chloride Level 102 mEq/L Normal 98-107 Carbon Dioxide Level 34 mEq/L High 21-32 Anion Gap 2 mEq/L Low 8-16 Calcium Level 9.1 mg/dL Normal 8.8-10.2 Ast/Sgot 30 U/L Normal 7-37 Alt/SGPT 34 U/L Normal 12-78 Alkaline Phosphatase 122 U/L High 45-117 Bilirubin,Total 0.3 mg/dL Normal 0.2-1.0 Total Protein 7.3 GM/DL Normal 6.4-8.2 Albumin 3.4 GM/DL Normal 3.2-5.2 Albumin/Globulin Ratio 0.9 Normal Laboratory test finding 02/10/2021 [facility] Outpatient T esting (Registration) [address] [place] [address] [phone] C Reactive Protein Quantitativ 0.70 mg/dL High 0 .00-0.30 CBC With Differential 02/10/2021 [facility] Outpatient Maricarmen ting (Registration) [address] [place] [address] [phone] White Blood Count 8.1 10 Normal 4.0-10.0 Red Blood Count 4.11 10 Low 4.30-6.10 Hemoglobin 13.8 g/dL Normal 13.5-17.5 Hematocrit 41.5 % Low 42.0-52.0 Mean Corpuscular Volume 101.0 fl High 80.0-96.0 Mean Corpuscular Hemoglobin 33.6 pg High 27.0-33.0 Mean Corpuscular HGB Conc 33.3 g/dL Normal 32.0-36.5 Red Cell Distribution Width 13.3 % Normal 11.5-14.5 Platelet Count, Automated 306 10 Normal 150-450 Neutrophils % 59.2 % Normal 36.0-66.0 Lymph % 28.2 % Normal 24.0-44.0 [place] % 8.9 % High 2.0-8.0 Eos % 2.5 % Normal 0.0-3.0 Baso % 0.7 % Normal 0.0-1.0 Immature Granulocyte % 0.5 % Normal 0-3.0 Nucleated Red Blood Cell % 0.0 % Normal 0-0 Neutrophils # 4.8 10 Normal 1.5-8.5 Lymph # 2.3 10 Normal 1.5-5.0 [place] # 0.7 10 Normal 0.0-0.8 Eos # 0.2 10 Normal 0.0-0.5 Baso # 0.1 10 Normal 0.0-0.2 Laboratory test finding 02/10/2021 [facility] Outpatient T esting (Registration) [address] [place] [address] [phone] Erythrocyte Sedimentation Rate 29 mm/hr High 0 -20 Comprehensive Metabolic Profil 01/06/2021 [facility] Outpa tient Testing (Registration) [address] [place] [address] [phone] Glucose, Fasting 127 mg/dL High 70-100 Blood Urea Nitrogen 12 mg/dL Normal 7-18 Creatinine For GFR 0.66 mg/dL Low 0.70-1.30 Glomerular Filtration Rate > 60.0 Normal >49 2 Sodium Level 140 mEq/L Normal 136-145 Potassium Serum 4.3 mEq/L Normal 3.5-5.1 Chloride Level 106 mEq/L Normal 98-107 Carbon Dioxide Level 30 mEq/L Normal 21-32 Anion Gap 4 mEq/L Low 8-16 Calcium Level 9.0 mg/dL Normal 8.8-10.2 Ast/Sgot 32 U/L Normal 7-37 Alt/SGPT 43 U/L Normal 12-78 Alkaline Phosphatase 110 U/L Normal 45-117 Bilirubin,Total 0.4 mg/dL Normal 0.2-1.0 Total Protein 7.2 GM/DL Normal 6.4-8.2 Albumin 3.4 GM/DL Normal 3.2-5.2 Albumin/Globulin Ratio 0.9 Normal Laboratory test finding 01/06/2021 [facility] Outpatient T bonging (Registration) [address] [place] [address] [phone] C Reactive Protein Quantitativ 1.45 mg/dL High 0 .00-0.30 CBC With Differential 01/06/2021 [facility] Outpatient Maricarmen eve (Registration) [address] [place] [address] [phone] White Blood Count 7.1 10 Normal 4.0-10.0 Red Blood Count 4.07 10 Low 4.30-6.10 Hemoglobin 13.5 g/dL Normal 13.5-17.5 Hematocrit 40.6 % Low 42.0-52.0 Mean Corpuscular Volume 99.8 fl High 80.0-96.0 Mean Corpuscular Hemoglobin 33.2 pg High 27.0-33.0 Mean Corpuscular HGB Conc 33.3 g/dL Normal 32.0-36.5 Red Cell Distribution Width 13.2 % Normal 11.5-14.5 Platelet Count, Automated 283 10 Normal 150-450 Neutrophils % 56.4 % Normal 36.0-66.0 Lymph % 31.2 % Normal 24.0-44.0 [place] % 9.1 % High 2.0-8.0 Eos % 2.1 % Normal 0.0-3.0 Baso % 0.8 % Normal 0.0-1.0 Immature Granulocyte % 0.4 % Normal 0-3.0 Nucleated Red Blood Cell % 0.0 % Normal 0-0 Neutrophils # 4.0 10 Normal 1.5-8.5 Lymph # 2.2 10 Normal 1.5-5.0 [place] # 0.6 10 Normal 0.0-0.8 Eos # 0.2 10 Normal 0.0-0.5 Baso # 0.1 10 Normal 0.0-0.2 Laboratory test finding 01/06/2021 [facility] Outpatient T esting (Registration) [address] [place] [address] [phone] Erythrocyte Sedimentation Rate 35 mm/hr High 0 -20 Order 11/11/2020 In House Orders EKG see results CBC With Differential 09/03/2020 [facility] Outpatient Maricarmen ting (Registration) [address] [place] [address] [phone] White Blood Count 8.4 10 Normal 4.0-10.0 Red Blood Count 4.08 10 Low 4.30-6.10 Hemoglobin 13.8 g/dL Normal 13.5-17.5 Hematocrit 41.6 % Low 42.0-52.0 Mean Corpuscular Volume 102.0 fl High 80.0-96.0 Mean Corpuscular Hemoglobin 33.8 pg High 27.0-33.0 Mean Corpuscular HGB Conc 33.2 g/dL Normal 32.0-36.5 Red Cell Distribution Width 13.3 % Normal 11.5-14.5 Platelet Count, Automated 317 10 Normal 150-450 Neutrophils % 65.5 % Normal 36.0-66.0 Lymph % 23.5 % Low 24.0-44.0 [place] % 8.2 % High 2.0-8.0 Eos % 1.3 % Normal 0.0-3.0 Baso % 1.1 % High 0.0-1.0 Immature Granulocyte % 0.4 % Normal 0-3.0 Nucleated Red Blood Cell % 0.0 % Normal 0-0 Neutrophils # 5.5 10 Normal 1.5-8.5 Lymph # 2.0 10 Normal 1.5-5.0 [place] # 0.7 10 Normal 0.0-0.8 Eos # 0.1 10 Normal 0.0-0.5 Baso # 0.1 10 Normal 0.0-0.2 Comprehensive Metabolic Profil 09/03/2020 [facility] Outpa tient Testing (Registration) [address] [place] [address] [phone] Glucose, Fasting 105 mg/dL High 70-100 Blood Urea Nitrogen 13 mg/dL Normal 7-18 Creatinine For GFR 0.63 mg/dL Low 0.70-1.30 Glomerular Filtration Rate > 60.0 Normal >49 3 Sodium Level 137 mEq/L Normal 136-145 Potassium Serum 4.5 mEq/L Normal 3.5-5.1 Chloride Level 103 mEq/L Normal 98-107 Carbon Dioxide Level 31 mEq/L Normal 21-32 Anion Gap 3 mEq/L Low 8-16 Calcium Level 9.2 mg/dL Normal 8.8-10.2 Ast/Sgot 22 U/L Normal 7-37 Alt/SGPT 29 U/L Normal 12-78 Alkaline Phosphatase 101 U/L Normal 45-117 Bilirubin,Total 0.5 mg/dL Normal 0.2-1.0 Total Protein 7.5 GM/DL Normal 6.4-8.2 Albumin 3.7 GM/DL Normal 3.2-5.2 Albumin/Globulin Ratio 1.0 Normal Laboratory test finding 09/03/2020 [facility] Outpatient T esting (Registration) [address] [place] [address] [phone] C Reactive Protein Quantitativ 1.09 mg/dL High 0 .00-0.30 Lipid Panel 09/03/2020 [facility] Outpatient Testi ng (Registration) [address] [place] [address] [phone] Triglycerides Level 179 mg/dL High <150 Cholesterol Level 180 mg/dL Normal <200 HDL Cholesterol 56 mg/dL Normal >40 LDL Cholesterol 88 mg/dL Normal <100 Non-HDL-C 124 mg/dL Normal Cholesterol Risk Ratio 3.214 Normal <5 FT4&TSH Panel 09/03/2020 [facility] Outpatient Testi ng (Registration) [address] [place] [address] [phone] Thyroid Stimulating Hormone 1.070 uIU/ML Normal 0. 358-3.740 Free T4 1.07 ng/dL Normal 0.76-1.46 PSA Free & Total 09/03/2020 [facility] Outpatient Testi ng (Registration) [address] [place] [address] [phone] PSA Total 0.9 ng/mL Normal 0.0-4.0 4 PSA Comment (SEE NOTE) Normal . 5 Laboratory test finding 09/03/2020 [facility] Outpatient T esting (Registration) [address] [place] [address] [phone] Total 25(Oh) Vitamin D 9.5 NG/ML Low 30.0-100. 0 1 Units are mL/min/1.73 m2 Chronic Kidney Disease Staging per NKF: Stage I & II GFR >=60 Normal to Mildly Decreased Stage III GFR 30-59 Moderately Decreased Stage IV GFR 15-29 Severely Decreased Stage V GFR <15 Very Little GFR Left ESRD GFR <15 on SEALER DRY CELL 2 Units are mL/min/1.73 m2 Chronic Kidney Disease Staging per NKF: Stage I & II GFR >=60 Normal to Mildly Decreased Stage III GFR 30-59 Moderately Decreased Stage IV GFR 15-29 Severely Decreased Stage V GFR <15 Very Little GFR Left ESRD GFR <15 on SEALER DRY CELL 3 Units are mL/min/1.73 m2 Chronic Kidney Disease Staging per NKF: Stage I & II GFR >=60 Normal to Mildly Decreased Stage III GFR 30-59 Moderately Decreased Stage IV GFR 15-29 Severely Decreased Stage V GFR <15 Very Little GFR Left ESRD GFR <15 on SEALER DRY CELL 4 Mel ECLIA methodology. . According to the [place] [employer], Serum PSA should decrease and remain at undetectable levels after radical prostatectomy. The AUA defines biochemical recurrence as an initial PSA value 0.2 ng/mL or greater followed by a subsequent confirmatory PSA value 0.2 ng/mL or greater. Values obtained with different assay methods or kits cannot be used interchangeably. Results cannot be interpreted as absolute evidence of the presence or absence of malignant disease. 5 . The percent free PSA is performed on a reflex basis only when the total PSA is between 4.0 and 10.0 ng/mL. Performed at: RN - [facility] [address] [id number] [employer] Developer: Erika Van MD, Phone: [phone] Procedures Date Code Description Status 11/11/2020 42712 Brief Emotional/Beha v Assessment W/ Scoring Doc Per Standard Inst Completed 08/25/2020 81463 Office/Outpatient Established Mo d MDM 30-39 Min Completed Medical Devices Description No Information Available Encounters Type Date Location Provider Dx Diagnosis Office Visit 11/11/2020 11:00a [facility] SE[place]STI[place]N Vallecillo Z00.00 Encntr for general adult med ical exam w/o abnormal findings F33.1 Major depressive disorder, r ecurrent, moderate M46.20 Osteomyelitis of vertebra, s ite unspecified F90.1 Attn-defct hyperactivity dis order, predom hyperactive type M50.90 Cervical disc disorder, unsp , unspecified cervical region R01.1 Cardiac murmur, unspecified Office Visit 08/25/2020 11:00a [facility] [place]BASTI[place]N [place]l R45.4 Irritability and anger F33.1 Major depressive disorder, r ecurrent, moderate M46.20 Osteomyelitis of vertebra, s ite unspecified E78.5 Hyperlipidemia, unspecified F90.1 Attn-defct hyperactivity dis order, predom hyperactive type R01.1 Cardiac murmur, unspecified M50.90 Cervical disc disorder, unsp , unspecified cervical region Assessments Date Code Description Provider 11/11/2020 Z00.00 Encounter for genera l adult medical examination without abnormal findings SEBASTI[place]N [place]l 11/11/2020 F33.1 Major depressive disorder, recur rent, moderate Sánchez Sen, [place]N 11/11/2020 M46.20 Osteomyelitis of vertebra, site unspecified [place]STI[place]N [place]l 11/11/2020 F90.1 Attention-deficit hy peractivity disorder, predominantly hyperactive type [place]STI[place]N [place]l 11/11/2020 M50.90 Cervical disc disorder, unspecif ied, unspecified cervical re Sánchez Sen, [place]N 11/11/2020 R01.1 Cardiac murmur, unspecified Royer Sen, PA 08/25/2020 R45.4 Irritability and anger [place]BASTI[place]N [place]l 08/25/2020 F33.1 Major depressive disorder, recur rent, moderate Sánchez Sen, SEBASTI[place]N 08/25/2020 M46.20 Osteomyelitis of vertebra, site unspecified Sánchez Sen, SEBASTIÁN 08/25/2020 E78.5 Hyperlipidemia, unspecified Royer Sen, PA 08/25/2020 F90.1 Attention-deficit hy peractivity disorder, predominantly hyperactive type [place]STI[place]N [place]l 08/25/2020 R01.1 Cardiac murmur, unspecified SEBASTIÁN Miller 08/25/2020 M50.90 Cervical disc disorder, unspecif ied, unspecified cervical re [place]STI[place]N [place]l Plan of Treatment Future Appointment(s):* 02/15/2021 11:00 am - [place]l at [facility] Functional Status Description No Information Available Mental Status Description No Information Available Referrals Description No Information Available
--- OUTSIDE RECORDS SUMMARY | 2021-02-27 00:15 | CCD | Continuity of Care Document ---
Author Author Joseph CORREA Organization Unknown Address [id number] [place] [address] Phone [phone] Care Team Providers Care Bilingual Operator Name Role Phone Adrianna Correa D.O. [facility] [phone] Problems Active Problems Provider Date Generalized anxiety [...] Seat Belt/Car Seat Always uses seat belt Allergies, Adverse Reactions, Alerts Description No Known Drug Allergies Medications Active Medications SIG Qnty Indications Ordering Provide r Date Vitamin D (Ergocalciferol) 1.25mg (32691 Ut) Capsules 1 capsule weekly for 12 weeks 12caps Michael RichardsonOCarlin 09/06/2020 Dulox[address] HCL 30mg C[address] DR Villalba 1 by mouth every day with 60mg dose to equal 90mg 90caps F33.1 Michael ShiOCarlin 08/25/2020 Duloxetine HCL 60mg Caps DR Villalba take 1 capsule daily 90caps F33.1 Michael ShiO. 02/17 Amphetamine-Dextroamphetamine 30mg Tablets take one tablet by mouth every morning a nd 1 tablet in the afternoon istop: [id number] 60tabs F90.1 Michael ShiOCarlin 12/25 Fentanyl 12mcg/HR Patches 72HR patch transdermally with 25mcg patch to 37mcg q72 hours istop: [id number] 10units M46.20 Michael ShiOCarlin 07/17/2019 Cyclobenzaprine HCL 5mg Tablets 1 tab by mouth every 12 hours as needed 60tabs Michael OrellanaOCarlin 07/26/2017 Fentanyl 25mcg/HR Patches 72HR 1 patch transdermally with 12 mcg to equal 37 mcg every 3 days pain istop: [id number] 10units M46.20 Adrianna Correa D.O. 08/10/2016 Meloxicam 15mg Tablets take one table by mouth daily as needed 30tabs Michael ShiOCarlin 08/02/2016 Alprazolam 1mg Tablets one tablet by mouth twice daily as needed istop: reference #: [id number] 60tabs F41.1 Michael GrahamOCarlin 07/21/2016 Lidocaine 5% Patches apply 1 patch topically once daily leave on for 12 hours off for 12 h 30units Michael GrahamOCarlin Keflex 250mg Capsules 1 tab by mouth [...] F O2 % BldC Oximetry 96 % [place] Body Weight 172 lb 08/25/2020 11:11am BP Systolic 130 mmHg BP Diastolic 70 mmHg Height 71.6 inches 5'11.60" Weight 201.00 lb BMI (Body Mass Index) 27.6 kg/m2 Heart Rate 83 /min Respiratory Rate 14 /min Body Temperature 97.8 F O2 % BldC Oximetry 97 % [place] Body Weight 172 lb Results Test Acquired Date Facility Test Result H/L Range Note Comprehensive Metabolic Profil 01/06/2021 [facility] Outpa tient Testing (Registration) [address] [place] [address] [phone] Glucose, Fasting 127 mg/dL High 70-100 Blood Urea Nitrogen 12 mg/dL Normal 7-18 Creatinine For GFR 0.66 mg/dL Low 0.70-1.30 Glomerular Filtration Rate > 60.0 Normal >49 1 Sodium Level 140 mEq/L Normal 136-145 Potassium [...] Ratio 0.9 Normal Laboratory test finding 01/06/2021 [facility] Outpatient T esting (Registration) [address] [place] [address] [phone] C Reactive Protein Quantitativ 1.45 mg/dL High 0 .00-0.30 CBC With Differential 01/06/2021 [facility] Outpatient Maricarmen ting (Registration) [address] [place] [address] [phone] White Blood Count 7.1 10 Normal 4.0-10.0 [...] 36.0-66.0 Lymph % 31.2 % Normal 24.0-44.0 [place] % 9.1 % High 2.0-8.0 Eos % 2.1 % Normal 0.0-3.0 Baso % 0.8 % Normal 0.0-1.0 Immature Granulocyte % 0.4 % Normal 0-3.0 Nucleated Red Blood Cell % 0.0 % Normal 0-0 Neutrophils # 4.0 10 Normal 1.5-8.5 Lymph # 2.2 10 Normal 1.5-5.0 [place] # 0.6 10 Normal 0.0-0.8 Eos # 0.2 10 Normal 0.0-0.5 Baso # 0.1 10 Normal 0.0-0.2 Laboratory test finding 01/06/2021 [facility] Outpatient T esting (Registration) [address] [place] [address] [phone] Erythrocyte Sedimentation Rate 35 mm/hr High 0 -20 Order 11/11/2020 In House Orders EKG see results CBC With Differential 09/03/2020 [facility] Outpatient Maricarmen ting (Registration) [address] [place] [address] [phone] White Blood Count 8.4 10 Normal 4.0-10.0 [...] 36.0-66.0 Lymph % 23.5 % Low 24.0-44.0 [place] % 8.2 % High 2.0-8.0 Eos % 1.3 % Normal 0.0-3.0 Baso % 1.1 % High 0.0-1.0 Immature Granulocyte % 0.4 % Normal 0-3.0 Nucleated Red Blood Cell % 0.0 % Normal 0-0 Neutrophils # 5.5 10 Normal 1.5-8.5 Lymph # 2.0 10 Normal 1.5-5.0 [place] # 0.7 10 Normal 0.0-0.8 Eos # 0.1 10 Normal 0.0-0.5 Baso # 0.1 10 Normal 0.0-0.2 Comprehensive Metabolic Profil 09/03/2020 [facility] Outpa tient Testing (Registration) [address] [place] [address] [phone] Glucose, Fasting 105 mg/dL High 70-100 Blood Urea Nitrogen 13 mg/dL Normal 7-18 Creatinine For GFR 0.63 mg/dL Low 0.70-1.30 Glomerular Filtration Rate > 60.0 Normal >49 2 Sodium Level 137 mEq/L Normal 136-145 Potassium [...] Ratio 1.0 Normal Laboratory test finding 09/03/2020 [facility] Outpatient T esting (Registration) [address] [place] [address] [phone] C Reactive Protein Quantitativ 1.09 mg/dL High 0 .00-0.30 Lipid Panel 09/03/2020 [facility] Outpatient Testi ng (Registration) [address] [place] [address] [phone] Triglycerides Level 179 mg/dL High <150 Cholesterol Level 180 mg/dL Normal <200 HDL Cholesterol 56 mg/dL Normal >40 LDL Cholesterol 88 mg/dL Normal <100 Non-HDL-C 124 mg/dL Normal Cholesterol Risk Ratio 3.214 Normal <5 FT4&TSH Panel 09/03/2020 [facility] Outpatient Testi ng (Registration) [address] [place] [address] [phone] Thyroid Stimulating Hormone 1.070 uIU/ML Normal 0. 358-3.740 Free T4 1.07 ng/dL Normal 0.76-1.46 PSA Free & Total 09/03/2020 [facility] Outpatient Testi ng (Registration) [address] [place] [address] [phone] PSA Total 0.9 ng/mL Normal 0.0-4.0 3 PSA Comment (SEE NOTE) Normal . 4 Laboratory test finding 09/03/2020 [facility] Outpatient T esting (Registration) [address] [place] [address] [phone] Total 25(Oh) Vitamin D 9.5 NG/ML Low 30.0-100. 0 1 Units are mL/min/1.73 m2 Chronic Kidney Disease Staging per NKF: Stage I & II GFR >=60 Normal to Mildly Decreased Stage III GFR 30-59 Moderately Decreased Stage IV GFR 15-29 Severely Decreased Stage V GFR <15 Very Little GFR Left ESRD GFR <15 on DIGITAL MARKETING CONSULTANT 2 Units are mL/min/1.73 m2 Chronic Kidney Disease Staging per NKF: Stage I & II GFR >=60 Normal to Mildly Decreased Stage III GFR 30-59 Moderately Decreased Stage IV GFR 15-29 Severely Decreased Stage V GFR <15 Very Little GFR Left ESRD GFR <15 on DIGITAL MARKETING CONSULTANT 3 Mel ECLIA methodology. . According to the [place] [employer], Serum PSA should decrease and [...] the presence or absence of malignant disease. 4 . The percent free PSA is performed on a reflex basis only when the total PSA is between 4.0 and 10.0 ng/mL. Performed at: RN - [facility] [address] [id number] Cosmetic Assembler: Erika Van MD, Phone: [phone] Procedures Date Code Description Status 11/11/2020 12721 Brief Emotional/Beha v Assessment W/ Scoring Doc Per Standard Inst Completed 08/25/2020 39350 Office/Outpatient Established Mo d MDM 30-39 Min Completed Medical Devices Description No Information Available Encounters Type Date Location Provider Dx Diagnosis Office Visit 11/11/2020 11:00a [facility] [place]N Vallecillo Z00.00 Encntr for general adult med ical exam w/o abnormal findings F33.1 Major depressive disorder, r ecurrent, moderate M46.20 Osteomyelitis of vertebra, s ite unspecified F90.1 Attn-defct hyperactivity dis order, predom hyperactive type M50.90 Cervical disc disorder, unsp , unspecified cervical region R01.1 Cardiac murmur, unspecified Office Visit 08/25/2020 11:00a [facility] [place]N Vallecillo R45.4 Irritability and anger F33.1 Major depressive [...] F33.1 Major depressive disorder, recur rent, moderate [place] 11/11/2020 M46.20 Osteomyelitis of vertebra, site unspecified [place] 11/11/2020 F90.1 Attention-deficit hy peractivity disorder, predominantly hyperactive type [place] 11/11/2020 M50.90 Cervical disc disorder, unspecif ied, unspecified cervical re [place] 11/11/2020 R01.1 Cardiac murmur, unspecified [place] 08/25/2020 R45.4 Irritability and anger [place] 08/25/2020 F33.1 Major depressive disorder, recur rent, moderate [place] 08/25/2020 M46.20 Osteomyelitis of vertebra, site unspecified [place] 08/25/2020 E78.5 Hyperlipidemia, unspecified [place] 08/25/2020 F90.1 Attention-deficit hy peractivity disorder, predominantly hyperactive type [place] 08/25/2020 R01.1 Cardiac murmur, unspecified [place] 08/25/2020 M50.90 Cervical disc disorder, unspecif ied, unspecified cervical re [place] Plan of Treatment Future Appointment(s):* 02/15/2021 11:00 am - [place] at [facility] Functional Status Description No Information Available Mental Status Description No Information Available Referrals Description No Information Available
--- OUTSIDE RECORDS SUMMARY | 2021-02-27 00:15 | CCD | Summary of Care ---
Author Author [facility] Organization 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 Name Role Phone RoshanDannyKobeneel BRIGHT PCP Reason for Visit * Reason Comments Follow-up Encounter Details Care Team Description Date Type Department Benito Gracia PA [address] [place] [address] Retained orthopedic hardware (Primary Dx ); MSSA (methicillin susceptible Staphylococcus aureus) infection 11/30/2020 Office Visit [facility] [address] [place] [address] Allergies No Known Active Allergiesdocumented as of this encounter (statuses as of 11/30/2020) Medications End Date Status Medication Sig Dispensed Refills Start Date Active alprazolam (XANAX) 1 MG Take 1 mg by 0 tablet mouth Three times daily as needed for Sleep. Active amphetamine-dextroampheta Take 20 mg by 0 mine (ADDERALL XR) 10 MG mouth every 24 hr capsule morning. Active gabapentin (NEURONTIN) Take 1 90 capsule 3 300 MG capsule capsule by 6 mouth Three times daily. Active buPROPion (WELLBUTRIN SR) TAKE ONE 0 01/29 150 MG 12 hr tablet TABLET BY 6 MOUTH TWICE A DAY Active fentaNYL (DURAGESIC) 25 APPLY 1 PATCH 0 MCG/HR TOPICALLY 7 EVERY 72 HOURS MAX OF 1 PATCH EVERY 3 DAYS Active cyclobenzaprine TAKE ONE 0 (FLEXERIL) 10 MG tablet TABLET BY 7 MOUTH EVERY 6 HOURS NEEDED FOR SPASMS Active meloxicam (MOBIC) 15 MG TAKE ONE 3 tablet TABLET BY 7 MOUTH EVERY DAY NEEDED Active amphetamine-dextroampheta TAKE ONE 0 01/29 mine (ADDERALL) 20 MG TABLET BY 8 tablet MOUTH EVERY MORNING AND 1 TABLET IN THE AFTERNOON MAXIMUM DAILY DOSE 2 Active DULoxetine (CYMBALTA) 60 Take 60 mg by 5 10/02 MG capsule mouth daily 8 Active tamsulosin (FLOMAX) 0.4 Take 0.4 mg 1 MG capsule by mouth 8 daily Active CHANTIX STARTING MONTH See Admin 0 01 JAMIN 0.5 MG X 11 & 1 MG X Instructions 9 42 tablet Active Lidocaine 5 % External 0 Patch (LIDODERM) 9 02/28/2021 Active Cefadroxil 500 MG Oral Take 1 180 capsule 0 Capsule (DURICEF) capsule by 1 mouth Two Times Daily 02/28/2021 Active Cefadroxil 500 MG Oral Take 1 180 capsule 1 Capsule (DURICEF) capsule by 1 mouth Two Times Daily 11/30/2020 Discontinued (Therapy comple jack) rifAMPin (RIFADIN) 300 MG Take 1 60 capsule 5 capsule capsule by 7 mouth Two Times Daily 11/30/2020 Discontinued (Therapy comple jack) Doxycycline Hyclate 100 0 MG Oral Capsule 0 (VIBRAMYCIN) 11/30/2020 Discontinued (Reorder) Cefadroxil 500 MG Oral Take 1 180 capsule 1 Capsule (DURICEF) capsule by 1 mouth Two Times Daily documented as of this encounter (statuses as of 11/30/2020) Active Problems Problem Noted Date Cervical radiculopathy at C5 08/01/2014 Alcohol abuse 07/31/2014 Polyneuropathy 07/31/2014 Vitamin B12 deficiency 07/31/2014 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 documented as of this encounter Last Filed Vital Signs Reading Time Taken Comments Vital Sign 131/74 11/30/2020 2:06 PM EDT Blood Pressure 118 11/30/2020 2:06 PM EDT Pulse 36.6 C (97.9 F) 11/30/2020 2:06 PM EDT Temperature 16 11/30/2020 2:06 PM EDT Respiratory Rate 97% 11/30/2020 2:06 PM EDT Oxygen Saturation - - Inhaled Oxygen Concentration 87.5 kg (193 lb) 11/30/2020 2:06 PM EDT Weight 182.9 cm (6') 11/30/2020 2:06 PM EDT Height 26.18 11/30/2020 2:06 PM EDT Body Mass Index documented in this encounter Patient Instructions * Patient Instructions* Benito Gracia PA - 11/30/2020 2:00 PM EDT [facility] [address] [place] [id number] Claudia Lucero [id number] 65 y.o. year old male :30 PM Summary of Office Visit with Benito Gracia MSABDIELC: Lines: No lines Follow-up Labs or imaging: Cbc crp esr cmp q3mo and prn Additional Instructions: Antibiotics: stop po keflex, begin PO Cefadroxil 500 mg bid F/u 6 months with an attending, pt was supposed to see attending last 3 visits a nd per his request wants to see attending documented in this encounter Progress Notes * Benito Gracia PA - 11/30/2020 2:00 PM EDT [facility] Claudia Lucero [facility] [id number] [facility] [address] [place] [address] 64 y.o.years old [address] [place], [facility] History of Present Illness: 65 year old man with history of s/p decompression and fusion with hardware place ment to lowercervical and upper thoracic spine for cervical spinal stenosis. Zeynep hicks's post operative course was complicated by MSSA bacteremia and endocarditis of MV. Patient had completed 6 week course of parental antibiotic therapy follo wed by chronic oral suppressive therapy. Patient remains of oral suppressive the rapy consisting of Doxycycline 100 mg bid. since 08/02/16. Pt denies that he ever had IE. Abx changed on 07/12/19 to low dose Keflex for suppression therapy which he state s he stopped taking 3 month ago as it was "causing excessive sweating". REVIEW OF SYSTEMS: Review of Systems All other systems reviewed and are negative. Patient Active Problem List Diagnosis Ataxia Alcohol abuse Polyneuropathy Vitamin B12 deficiency Neurologic gait dysfunction Cervical radiculopathy at C5 ALLERGIES: No Known Allergies Home Medications: Home Medications Medication Sig alprazolam (XANAX) 1 MG tablet Take 1 mg by mouth Three times daily as needed fo r Sleep. amphetamine-dextroamphetamine (ADDERALL XR) 10 MG 24 hr capsule Take 20 mg by mo uth every morning. amphetamine-dextroamphetamine (ADDERALL) 20 MG tablet TAKE ONE TABLET BY MOUTH E VERY MORNING AND 1 TABLET IN THE AFTERNOON MAXIMUM DAILY DOSE 2 buPROPion (WELLBUTRIN SR) 150 MG 12 hr tablet TAKE ONE TABLET BY MOUTH TWICE A D AY CHANTIX STARTING MONTH JAMIN 0.5 MG X 11 & 1 MG X 42 tablet See Admin Instructions cyclobenzaprine (FLEXERIL) 10 MG tablet TAKE ONE TABLET BY MOUTH EVERY 6 HOURS A S NEEDED FOR SPASMS Doxycycline Hyclate 100 MG Oral Capsule (VIBRAMYCIN) DULoxetine (CYMBALTA) 60 MG capsule Take 60 mg by mouth daily fentaNYL (DURAGESIC) 25 MCG/HR APPLY 1 PATCH TOPICALLY EVERY 72 HOURS MAX OF 1 PATCH EVERY 3 DAYS gabapentin (NEURONTIN) 300 MG capsule Take 1 capsule by mouth Three times daily. Lidocaine 5 % External Patch (LIDODERM) meloxicam (MOBIC) 15 MG tablet TAKE ONE TABLET BY MOUTH EVERY DAY NEEDED rifAMPin (RIFADIN) 300 MG capsule Take 1 capsule by mouth Two Times Daily Patient not taking: Reported on 07/12/2019 tamsulosin (FLOMAX) 0.4 MG capsule Take 0.4 mg by mouth daily PERTINENT LABS: CBC: Lab Results Component Value Date WBC 8.40 09/03/2020 RBC 4.50 (L) 02/08/2017 HGB 13.8 09/03/2020 HCT 41.6 09/03/2020 PLT 317 09/03/2020 CMP: Lab Results Component Value Date NA 137 09/03/2020 K 4.5 09/03/2020 CL 99 02/08/2017 BICARBONATE 26 02/08/2017 CALCIUM 8.9 02/08/2017 GLUCOSE 117 (H) 02/08/2017 BUN 13 09/03/2020 BCR 17 02/08/2017 PROT 7.5 02/08/2017 ALBUMIN 4.3 02/08/2017 TBILI 0.3 02/08/2017 ALKPHOS 101 09/03/2020 AST 22 09/03/2020 ALT 29 09/03/2020 AGRATIO 1.3 02/08/2017 GFRAA >90 02/08/2017 GFRNONAA >90 02/08/2017 Results for CLAUDIA LUCERO ( ) as of 11/30/2020 14:06 Ref. Range 03/16/2020 00:00 06/15/2020 00:00 09/03/2020 00:00 Sed Rate - ESR Unknown 30 25 C Reactive Protein Unknown 1.07 1.63 1.09 Vital signs: Vitals - 1 value per visit 09/11/2018 07/12/2019 10/11/2019 SYSTOLIC 142 147 128 DIASTOLIC 90 87 79 PULSE 98 108 110 TEMPERATURE 98 97.4 97.5 RESPIRATIONS 17 16 16 Weight (kg) 89.812 kg 97.977 kg 94.348 kg HEIGHT 188 cm 188 cm 190.5 cm SPO2 96 97 98 BODY MASS INDEX 25.42 kg/m2 27.73 kg/m2 26 kg/m2 PAIN SCALE - SCORE - - 5 PAIN SCALE - LOCATION - - NECK PHYSICAL EXAMINATION Physical Exam Constitutional: He isoriented to person, place, and time.No distress. HENT: Head:Normocephalicand atraumatic. Eyes:Pupils are equal, round, and reactive to light.Conjunctivaeand EOMare normal. Neck:Normal range of motion.Neck supple. Cardiovascular:Normal rateand regular rhythm. Pulmonary/Chest:Effort normaland breath sounds normal. Nostridor. No respiratory distress. Abdominal:Soft. He exhibitsno distension. Musculoskeletal: General: Deformity(well healed thoracic wound, no open wounds, d rainage, fluctuance)present. Neurological: He isalertand oriented to person, place, and time. Skin: Skin iswarmand dry. He isnot diaphoretic. Noerythema. Psychiatric: Some flight if ideas, tangential thoughts, hard to keep on track Nursing noteand vitalsreviewed. IMPRESSION/PLAN: 65 year old male with MSSA spinal hardware infection, pt not tolerating Keflex, willing to try cefadroxil. Cbc crp esr cmp q3mo and prn. F/u 6 mos Patient seen. Plan of care discussed with patient, verbalized understanding. Rojelio masterson spent preparing to see pt including reviewing pertinent labs, tests and imagin g, obtaining and/or reviewing separately obtained history including chart review , performing medically appropriate examination and/or evaluation, counseling and educating pt, ordering medications/appropriate testing, communicating with other health patient centered care specialist lasted 40 minutes. Benito Gracia MS, PA-C documented in this encounter Nursing Notes * Orin Kelly - 11/30/2020 2:00 PM EDT Pt denies fever, chills, night sweats, NV and diarrhea. documented in this encounter Plan of Treatment Care Team Description Date Type Specialty Onel Mondragon MD [address] [facility] [address] [place] [address] 06/02/2021 Office Visit Infectious Diseases Order Schedule Name Type Priority Associated Diag noses 12 Occurrences starting 11/30/2020 until 06/02/2021 CBC and Differential Lab Routine Retained orthopedic hardware MSSA (methicillin susceptible Staphylococcus aureus) infection 12 Occurrences starting 11/30/2020 until 06/02/2021 Inflammatory C-Reactive Lab Routine Retain ed orthopedic Protein (CRP) hardware MSSA (methicillin susceptible Staphylococcus aureus) infection 12 Occurrences starting 11/30/2020 until 06/02/2021 Comprehensive Metabolic Lab Routine Retain ed orthopedic Panel hardware MSSA (methicillin susceptible Staphylococcus aureus) infection 12 Occurrences starting 11/30/2020 until 06/02/2021 Sedimentation rate, Lab Routine Retained o rthopedic automated hardware MSSA (methicillin susceptible Staphylococcus aureus) infection Health Maintenance Due Date Last Done Comments Hepatitis C Screening (B. 1955 3080-9342) MMR Vaccines (1 of 1 - 11/25/1956 Standard series) Varicella Vaccines (1 of 11/25/1956 2 - 2-dose childhood series) Pneumococcal Vaccine: 65+ 1960 Years (1 of 2 - PPSV23) Pneumococcal Vaccine: 1961 Pediatrics (0 to 5 Years) and At-Risk Patients (6 to 64 Years) (1 of 2 - PPSV23) Colon Cancer Screening 10 2004 yrs Zoster Vaccines (1 of 2) 2004 DTaP,Tdap,and Td Vaccines 05/26/2011 04/28/2011 (2 - Td or Tdap) Influenza Vaccine 01/29/2021 HIB Vaccines Aged Out No longer eligible based on patient's age to complete this topic Hepatitis A Vaccines Aged Out No longer eligibl e based on patient's age to complete this topic Hepatitis B Vaccines Aged Out No longer eligibl e based on patient's age to complete this topic IPV Vaccines Aged Out No longer eligible based on patient's age to complete this topic documented as of this encounter Results Not on filedocumented in this encounter Visit Diagnoses Diagnosis Retained orthopedic hardware - Primary MSSA (methicillin susceptible Staphyloc occus aureus) infection Methicillin susceptible Staphylococcus aureus in conditions classified elsewhere and of unspecified site documented in this encounter
[2021-02-27] MEDS ORDERED: FENT1DIS34 TOP (00:16)
--- OUTSIDE RECORDS SUMMARY | 2021-02-27 00:16 | CCD ---
Author Author [facility] Organization [facility] Address Unknown Phone Unavailable Care Team Providers Care Recycling Tech Name Role Phone MIKAEL TAMAYO PA-C Unavailable Unavailable BELKISMIKAELC Unavailable Unavailable BELKISMIKAELC Unavailable Unavailable BELKIS, MIKAEL MEADOWSC Unavailable Unavailable BELKISMIKAEL-C Unavailable Unavailable BELKISMIKAELC Unavailable Unavailable BELKISMIKAELC Unavailable Unavailable BELKISMIKAEL-C Unavailable Unavailable BELKISMIKAEL-C Unavailable Unavailable BELKIS, MIKAEL PA-C Unavailable Unavailable BELKIS, MIKAEL PA-C Unavailable Unavailable BELKIS, MIKAEL PA-C Unavailable Unavailable BELKIS, MIKAEL LOWERY-C Unavailable Unavailable BELKISMIKAEL PA-C Unavailable Unavailable BELKIS, MIKAEL PA-C Unavailable Unavailable BELKIS, MIKAEL PA-C Unavailable Unavailable BELKIS, MIKAEL PA-C Unavailable Unavailable BELKIS, MIKAEL PA-C Unavailable Unavailable BELKIS, MIKAEL PA-C Unavailable Unavailable BELKIS, MIKAEL PA-C Unavailable Unavailable BELKIS, MIKAEL PA-C Unavailable Unavailable BELKIS, MIKAEL PA-C Unavailable Unavailable BELKIS, MIKAEL PA-C Unavailable Unavailable BELKIS, MIKAEL PA-C Unavailable Unavailable BELKIS, MIKAEL PA-C Unavailable Unavailable BELKIS, MIKAEL PA-C Unavailable Unavailable BELKIS, MIKAEL PA-C Unavailable Unavailable BELKIS, MIKAEL PA-C Unavailable Unavailable BELKIS, MIKAEL PA-C Unavailable Unavailable BELKIS, MIKAEL PA-C Unavailable Unavailable BELKIS, MIKAEL PA-C Unavailable Unavailable BELKIS, MIKAEL PA-C Unavailable Unavailable BELKIS, MIKAEL PA-C Unavailable Unavailable BELKIS, MIKAEL PA-C Unavailable Unavailable BELKIS, MIKAEL PA-C Unavailable Unavailable Cayward, Rena PA Unavailable Unavailable Cayward, Rena PA Unavailable Unavailable Cayward, Rena PA Unavailable Unavailable Cayward, Rena PA Unavailable Unavailable Cayward, Rena PA Unavailable Unavailable Cayward, Rena PA Unavailable Unavailable Cayward, Rena PA Unavailable Unavailable Cayward, Rena PA Unavailable Unavailable Cayward, Rena PA Unavailable Unavailable Cayward, Rena PA Unavailable Unavailable Cayward, Rena PA Unavailable Unavailable Cayward, Rena PA Unavailable Unavailable Cayward, Rena PA Unavailable Unavailable Cayward, Rena PA Unavailable Unavailable Cayward, Rena PA Unavailable Unavailable Cayward, Rena PA Unavailable Unavailable Cayward, Rena PA Unavailable Unavailable Cayward, Rena PA Unavailable Unavailable Cayward, Rena PA Unavailable Unavailable Cayward, Rena PA Unavailable Unavailable Cayward, Rena PA Unavailable Unavailable Cayward, Rena PA Unavailable Unavailable Cayward, Rena PA Unavailable Unavailable Cayward, Rena PA Unavailable Unavailable Cayward, Rena PA Unavailable Unavailable Cayward, Rena PA Unavailable Unavailable Cayward, Rena PA Unavailable Unavailable Cayward, Rena PA Unavailable Unavailable Cayward, Rena PA Unavailable Unavailable Cayward, Rena PA Unavailable Unavailable Cayward, Rena PA Unavailable Unavailable Cayward, Rena PA Unavailable Unavailable Cayward, Rena PA Unavailable Unavailable Cayward, Rena PA Unavailable Unavailable Cayward, Rena PA Unavailable Unavailable Cayward, Rena PA Unavailable Unavailable Cayward, Rena PA Unavailable Unavailable Cayward, Rena PA Unavailable Unavailable Cayward, Rena PA Unavailable Unavailable Mckinley, Sánchez PA Unavailable Unavailable Mckinley, Sánchez PA Unavailable Unavailable Mckinley, Sánchez PA Unavailable Unavailable Mckinley, Sánchez PA Unavailable Unavailable Mckinley, Sánchez PA Unavailable Unavailable Mckinley, Sánchez PA Unavailable Unavailable Mckinley, Sánchez PA Unavailable Unavailable Mckinley, Sánchez PA Unavailable Unavailable Mckinley, Sánchez PA Unavailable Unavailable Mckinley, Sánchez PA Unavailable Unavailable Mckinley, Sánchez PA Unavailable Unavailable Mckinley, Sánchez PA Unavailable Unavailable Mckinley, Sánchez PA Unavailable Unavailable Mckinley, Sánchez PA Unavailable Unavailable Mckinley, Sánchez PA Unavailable Unavailable Mckinley, Sánchez PA Unavailable Unavailable Mckinley, Sánchez PA Unavailable Unavailable Mckinley, Sánchez PA Unavailable Unavailable Mckinley, Sánchez PA Unavailable Unavailable Mckinley, Sánchez PA Unavailable Unavailable Mckinley, Sánchez PA Unavailable Unavailable Mckinley, Sánchez PA Unavailable Unavailable Mckinley, Sánchez PA Unavailable Unavailable Mckinley, Sánchez PA Unavailable Unavailable Mckinley, Sánchez PA Unavailable Unavailable Mckinley, Sánchez PA Unavailable Unavailable Mckinley, Sánchez PA Unavailable Unavailable Mckinley, Sánchez PA Unavailable Unavailable Mckinley, Sánchez PA Unavailable Unavailable Mckinley, Sánchez PA Unavailable Unavailable Mckinley, Sánchez PA Unavailable Unavailable Mckinley, Sánchez PA Unavailable Unavailable Mckinley, Sánchez PA Unavailable Unavailable Mckinley, Sánchez PA Unavailable Unavailable Mckinley, Sánchez PA Unavailable Unavailable Mckinley, Sánchez PA Unavailable Unavailable Mckinley, Sánchez PA Unavailable Unavailable Mckinley, Sánchez PA Unavailable Unavailable Mckinley, Sánchez PA Unavailable Unavailable Mckinley, Sánchez PA Unavailable Unavailable Mckinley, Sánchez PA Unavailable Unavailable Mckinley, Sánchez PA Unavailable Unavailable Mckinley, Sánchez PA Unavailable Unavailable Mckinley, Sánchez PA Unavailable Unavailable Mckinley, Sánchez PA Unavailable Unavailable Mckinley, Sánchez PA Unavailable Unavailable Mckinley, Sánchez PA Unavailable Unavailable Mckinley, Sánchez PA Unavailable Unavailable Mckinley, Sánchez PA Unavailable Unavailable Mckinley, Sánchez PA Unavailable Unavailable Mckinley, Sánchez PA Unavailable Unavailable Mckinley, Sánchez PA Unavailable Unavailable Mckinley, Sánchez PA Unavailable Unavailable Mckinley, Sánchez PA Unavailable Unavailable Aditya, L Ave AGER TENDER Unavailable Unavailable Aditya, L Ave AGER TENDER Unavailable Unavailable Aditya, L Ave AGER TENDER Unavailable Unavailable Aditya, L Ave AGER TENDER Unavailable Unavailable Aditya, L Ave AGER TENDER Unavailable Unavailable Aditya, L Ave AGER TENDER Unavailable Unavailable Aditya, L Ave AGER TENDER Unavailable Unavailable Aditya, L Ave AGER TENDER Unavailable Unavailable Aditya, L Ave AGER TENDER Unavailable Unavailable Aditya, L Ave AGER TENDER Unavailable Unavailable Aditya, L Ave AGER TENDER Unavailable Unavailable Aditya, L Ave AGER TENDER Unavailable Unavailable Aditya, L Ave AGER TENDER Unavailable Unavailable Aditya, L Ave AGER TENDER Unavailable Unavailable Aditya, L Ave AGER TENDER Unavailable Unavailable Aditya, L Ave AGER TENDER Unavailable Unavailable Aditya, L Ave AGER TENDER Unavailable Unavailable Aditya, L Ave AGER TENDER Unavailable Unavailable Aditya, L Ave AGER TENDER Unavailable Unavailable Aditya, L Ave AGER TENDER Unavailable Unavailable Aditya, L Ave AGER TENDER Unavailable Unavailable Aditya, L Ave AGER TENDER Unavailable Unavailable Aditya, L Ave AGER TENDER Unavailable Unavailable Aditya, L Ave AGER TENDER Unavailable Unavailable Aditya, L Ave AGER TENDER Unavailable Unavailable Aditya, L Ave AGER TENDER Unavailable Unavailable Aditya, L Ave AGER TENDER Unavailable Unavailable Aditya, L Ave AGER TENDER Unavailable Unavailable Aditya, L Ave AGER TENDER Unavailable Unavailable Aditya, L Ave AGER TENDER Unavailable Unavailable Aditya, L Ave AGER TENDER Unavailable Unavailable Aditya, L Ave AGER TENDER Unavailable Unavailable Aditya, L Ave AGER TENDER Unavailable Unavailable Aditya, L Ave AGER TENDER Unavailable Unavailable Aditya, L Ave AGER TENDER Unavailable Unavailable Aditya, L Ave AGER TENDER Unavailable Unavailable Aditya, L Ave AGER TENDER Unavailable Unavailable Aditya, L Ave AGER TENDER Unavailable Unavailable Aditya, L Ave AGER TENDER Unavailable Unavailable Aditya, L Ave AGER TENDER Unavailable Unavailable Aditya, L Ave AGER TENDER Unavailable Unavailable Aditya, L Ave AGER TENDER Unavailable Unavailable Chauncey Barker MD Unavailable Unavailable Chauncey Barker MD Unavailable Unavailable Chauncey Barker MD Unavailable Unavailable Chauncey Barker MD Unavailable Unavailable Chauncey Barker MD Unavailable Unavailable Chauncey Barker MD Unavailable Unavailable Chauncey Barker MD Unavailable Unavailable Chauncey Barker MD Unavailable Unavailable Chauncey Barker MD Unavailable Unavailable Chauncey Barker MD Unavailable Unavailable Chauncey Barker MD Unavailable Unavailable Chuancey Barker MD Unavailable Unavailable Chauncey Barker MD Unavailable Unavailable ERIN DIAZ MD Unavailable Unavailable ERIN DIAZ MD Unavailable Unavailable ERIN DIAZ MD Unavailable Unavailable ERIN DIAZ MD Unavailable Unavailable JOE, KHAN MD Unavailable Unavailable JOE, KHAN MD Unavailable Unavailable JOE, KHAN MD Unavailable Unavailable JOE, KHAN MD Unavailable Unavailable JOE, KHAN MD Unavailable Unavailable JOE, KHAN MD Unavailable Unavailable JOE, KHAN MD Unavailable Unavailable JOE, KHAN MD Unavailable Unavailable JOE, KHAN MD Unavailable Unavailable JOE, KHAN MD Unavailable Unavailable JOE, KHAN MD Unavailable Unavailable JOE, KHAN MD Unavailable Unavailable JOE, KHAN MD Unavailable Unavailable JOE, KHAN MD Unavailable Unavailable JOE, KHAN MD Unavailable Unavailable JOE, KHAN MD Unavailable Unavailable JOE, KHAN MD Unavailable Unavailable JOE, KHAN MD Unavailable Unavailable JOE, KHAN MD Unavailable Unavailable JOE, KHAN MD Unavailable Unavailable JOE, KHAN MD Unavailable Unavailable JOE, KHAN MD Unavailable Unavailable JOE, KHAN MD Unavailable Unavailable JOE, KHAN MD Unavailable Unavailable Re-disclosure Warning The records that you are about to access may contain information from federally-assisted alcohol or drug abuse programs. If such information is present, then the following federally mandated warning applies: This information has been disclosed to you from records protected by federal confidentiality rules (42 CFR part 2). The federal rules prohibit you from making any further disclosure of this information unless further disclosure is expressly permitted by the written consent of the person to whom it pertains or as otherwise permitted by 42 CFR part 2. A general authorization for the release of medical or other information is NOT sufficient for this purpose. The Federal rules restrict any use of the information to criminally investigate or prosecute any alcohol or drug abuse patient.The records that you are about to access may contain highly sensitive health information, the redisclosure of which is protected by Article 27-F of the [facility] Public Health law. If you continue you may have access to information: Regarding HIV / AIDS; Provided by facilities licensed or operated by the [facility] Office of Mental Health; or Provided by the [facility] Office for People With Developmental Disabilities. If such information is present, then the following [facility] mandated warning applies: This information has been disclosed to you from confidential records which are protected by state law. State law prohibits you from making any further disclosure of this information without the specific written consent of the person to whom it pertains, or as otherwise permitted by law. Any unauthorized further disclosure in violation of state law may result in a fine or alf sentence or both. A general authorization for the release of medical or other information is NOT sufficient authorization for further disc losure. Family History Family Member Name Family Member Gender Family Member Status Date o f Status Description Data Source(s) Unknown Male Problem [facility] ([facility]) Unknown Male Problem [facility] [place] Female Problem [facility] ([facility]) Unknown Female Problem MEDENT ([facility]) Encounters Encounter Providers Location Date Indications Data Source(s ) Outpatient Attender: ERIN DIAZ MD 06/02/2021 12:00:00 AM [facility] Outpatient Attender: MIKAEL Charltonferrer: Marin mccrary MD [id number] 11/30/2020 12:00:00 AM EDT - 11/30/2020 02:39:56 PM [facility] Outpatient Attender: MIKAEL TAMAYO PA-C 11/27/2020 12:00 :00 AM [facility] Office Visit Attender: Sánchez LOWERY [facility] 11/11/2020 11:00:00 AM EDT [facility] ([facility]) Outpatient Attender: Sánchez LOWERY [facility] 08/25/2020 11:00:00 AM EDT [facility] ([facility]) Outpatient Attender: MIKAEL TAMAYO PA-C 06/26/2020 12:00 :00 AM [facility] Outpatient Attender: Sánchez LOWERY [facility] 05/06/2020 09:20:00 AM EST [facility] ([facility]) Outpatient Attender: Ave Burgess NPReferrer: Marin najera MD 04/14/2020 12:00:00 AM [facility] Outpatient Attender: MIKAEL Charltonferrer: Marin mccrary MD 02/07/2020 12:00:00 AM [facility] Outpatient Attender: Sánchez LOWERY [facility] 01/29/2020 11:00:00 AM EDT MED[facility] ([facility]) Outpatient Attender: Rena LOWERY 10/02/2015 12:00:0 0 AM EDT [facility] Immunizations Vaccine Date Status Description Data Source(s) COVID-19 VACCINE [facility] 09/16/2020 12:00:00 AM EDT completed [facility] Complete: YESThis Data wa s Submitted to [facility] Via [facility]. COVID-19 VACCINE Pfizer 08/26/2020 12:00:00 AM EDT completed [facility] Vaccine Series Complete: NOThis Data was Submitted to [facility] Via [employer]. Medications Medication Brand Name Start Date Product Form Dose Route Admi nistrative Instructions Pharmacy Instructions Status Indications Reaction Description Data Source(s) 72 HR Fentanyl 0.025 MG/HR Transdermal System FENTANYL 02/10/2021 12:00:00 AM EDT patch 72 hour 10 APPLY ONE PATCH EVERY 72 HOURS ALONG WITH A 12 MCG PATCH TO EQUAL 37MCG EVERY 3 DAYS - MAXIMUM DAILY DOSE = 1 PATCH/3DAYS APPLY ONE PATCH EVERY 72 HOURS ALONG WITH A 12 MCG PATCH TO EQUAL 37MCG EVERY 3 DAYS - MAXIMUM DAILY DOSE = 1 PATCH/3DAYS SOLD: 02/10/2021 [facility] Amphetamine aspartate 7.5 MG / Amphetami ne Sulfate 7.5 MG / Dextroamphetamine saccharate 7.5 MG / Dextroamphetamine Sulfate 7.5 MG Oral Tablet 30 mg DEXTROAMPHETAMINE/AMPHETAMINE 02/10/2021 12:00:00 AM EDT tablet 60 TAKE ONE TABLET BY MOUTH TWICE A DAY - EVERY MORNING AND EVERY AFTERNOON MAXIMUM DAILY DOSE = 2 TAKE ONE TABLET BY MOUTH TWICE A DAY - E VERY MORNING AND EVERY AFTERNOON MAXIMUM DAILY DOSE = 2 SOLD: 02/10/2021 [facility] 12 mcg/hr 02/10/2021 12:00:00 AM EDT patch 72 hour 10 APPLY ONE PATCH EVERY 72 HOURS ALONG WITH A 25MCG PATCH - MAXIMUM DAILY DOSE = 1 EVERY 3 DAYS APPLY ONE PATCH EVERY 72 HOURS ALONG WITH A 25MCG PATCH - MAXIMUM DAILY DOSE = 1 EVERY 3 DAYS SOLD: 02/10/2021 [facility] 1 mg 02/10/2021 12:00:00 AM EDT tablet 60 TAKE ONE TABLET BY MOUTH TWICE A DAY NEEDED - MAXIMUM DAILY DOSE = 2 TABLETS TAKE ONE TABLET BY MOUTH TWICE A DAY NEEDED - MAXIMUM DAILY DOSE = 2 TABLETS SOLD: 02/10/2021 [facility] 72 HR Fentanyl 0.025 MG/HR Transdermal System FENTANYL 01/08/2021 12:00:00 AM EDT patch 72 hour 10 APPLY ONE PATCH TO THE SKIN EVERY 3 DAYS WITH 12 MCG PATCH MAXIMUM DAILY DOSE = 1 PATCH EVERY 3 DAYS APPLY ONE PATCH TO THE SKIN EVERY 3 DAYS WITH 12 MCG PATCH MAXIMUM DAILY DOSE = 1 PATCH EVERY 3 DAYS SOLD: 01/08/2021 [facility] Amphetamine aspartate 7.5 MG / Amphetami ne Sulfate 7.5 MG / Dextroamphetamine saccharate 7.5 MG / Dextroamphetamine Sulfate 7.5 MG Oral Tablet 30 mg DEXTROAMPHETAMINE/AMPHETAMINE 01/08/2021 12:00:00 AM EDT tablet 60 TAKE ONE TABLET BY MOUTH EVERY MORNING AND ONE TABLET IN THE AFTERNOON MAXIMUM DAILY DOSE = 2 TAKE ONE TABLET BY MOUTH EVERY MORNING A ND ONE TABLET IN THE AFTERNOON MAXIMUM DAILY DOSE = 2 SOLD: 01/08/2021 [facility] 30 mg 01/08/2021 12:00:00 AM EDT capsule,delayed release (DR/EC) 30 TAKE ONE CAPSULE BY MOUTH EVERY DAY WITH 60MG DOSE TAKE ONE CAPSULE BY MOUTH EVERY DAY WITH 60MG DOSE SOLD: 01/08/2021 [facility] 15 mg 01/08/2021 12:00:00 AM EDT tablet 30 TAKE ONE TABLET BY MOUTH EVERY DAY NEEDED TAKE ONE TABLET BY MOUTH EVERY DAY NEEDED SOLD: 02/10/2021 [facility] 12 mcg/hr 01/08/2021 12:00:00 AM EDT patch 72 hour 10 APPLY ONE PATCH TO THE SKIN EVERY 72 HOURS WITH 25 MCG PATCH MAXIMUM DAILY DOSE = 1 PATCH EVERY 3 DAYS APPLY ONE PATCH TO THE SKIN EVERY 72 HOURS WITH 25 MCG PATCH MAXIMUM DAILY DOSE = 1 PATCH EVERY 3 DAYS SOLD: 01/08/2021 [facility] 1 mg 01/08/2021 12:00:00 AM EDT tablet 60 TAKE ONE TABLET BY MOUTH TWICE A DAY NEEDED MAXIMUM DAILY DOSE = 2 TAKE ONE TABLET BY MOUTH TWICE A DAY NEEDED MAXIMUM DAILY DOSE = 2 SOLD: 01/08/2021 [facility] 15 mg 01/08/2021 12:00:00 AM EDT tablet 30 TAKE ONE TABLET BY MOUTH EVERY DAY NEEDED TAKE ONE TABLET BY MOUTH EVERY DAY NEEDED SOLD: 01/08/2021 [facility] 30 mg 12/04/2020 12:00:00 AM EDT capsule,delayed release (DR/EC) 30 TAKE ONE CAPSULE BY MOUTH EVERY DAY WITH 60MG CAPSULE TAKE ONE CAPSULE BY MOUTH EVERY DAY WITH 60MG CAPSULE SOLD: 12/04/2020 [facility] 12 mcg/hr 12/04/2020 12:00:00 AM EDT patch 72 hour 10 APPLY 1 PATCH WITH 25MCG EVERY 72 HOURS, MAXIMUM DAILY DOSE = 37MCG EVERY 3 DAYS APPLY 1 PATCH WITH 25MCG EVERY 72 HOURS, MAXIMUM DAILY DOSE = 37MCG EVERY 3 DAYS SOLD: 12/04/2020 [facility] Cefadroxil 500 MG Oral Capsule Cefadroxil 500 MG Oral Capsule (DURICEF) Cefadroxil 500 MG Oral Capsule (DURICEF) 11/30/2020 12:00:00 AM EDT 500 mg Oral active Take [address] [facility] Two Times Daily [facility] Cefadroxil 500 MG Oral Capsule Cefadroxil 500 MG Oral Capsule (DURICEF) Cefadroxil 500 MG Oral Capsule (DURICEF) 11/30/2020 12:00:00 AM EDT 500 mg Oral active Take [address] [facility] Two Times Daily [facility] Cefadroxil 500 MG Oral Capsule Cefadroxil 500 MG Oral Capsule (DURICEF) Cefadroxil 500 MG Oral Capsule (DURICEF) 11/30/2020 12:00:00 AM EDT 500 mg Oral aborted Take [address] [facility] Two Times Daily [facility] 25 mcg/hr 11/27/2020 12:00:00 AM EDT patch 72 hour 10 APPLY 1 PATCH WITH 12MCG EVERY 72 HOURS, MAXIMUM DAILY DOSE = 37MCG EVERY 3 DAYS APPLY 1 PATCH WITH 12MCG EVERY 72 HOURS, MAXIMUM DAILY DOSE = 37MCG EVERY 3 DAYS SOLD: 11/28/2020 [facility] 1 mg 11/27/2020 12:00:00 AM EDT tablet 60 TAKE ONE TABLET BY MOUTH TWICE A DAY NEEDED, MAXIMUM DAILY DOSE = 2 TAKE ONE TABLET BY MOUTH TWICE A DAY NEEDED, MAXIMUM DAILY DOSE = 2 SOLD: 11/28/2020 [facility] 30 mg 11/27/2020 12:00:00 AM EDT tablet 60 TAKE ONE TABLET BY MOUTH EVERY MORNING AND ONE IN THE AFTERNOON, MAXIMUM DAILY DOSE = 2 TAKE ONE TABLET BY MOUTH EVERY MORNING AND ONE IN THE AFTERNOON, MAXIMUM DAILY DOSE = 2 SOLD: 11/28/2020 [facility] 1,250 mcg (50,000 unit) 11/11/2020 12:00:00 AM EDT capsule 4 TAKE ONE CAPSULE BY MOUTH EVERY WEEK FOR 12 WEEKS TAKE ONE CAPSULE BY MOUTH EVERY WEEK FOR 12 WEEKS SOLD: 11/17/2020 [facility] 25 mcg/hr 10/30/2020 12:00:00 AM EDT patch 72 hour 10 APPLY 1 PATCH TO CLEAN, DRY SKIN FOR 72 HOURS THEN REMOVE, DISPOSE OF PROPERLY AND APPLY A NEW PATCH ON A DIFFERENT, CLEAN DRY SKIN SITE MAXIMUM DAILY DOSE = 1 PATCH EVERY 3 DAYS APPLY 1 PATCH TO CLEAN, DRY SKIN FOR 72 HOURS THEN REMOVE, DISPOSE OF PROPERLY AND APPLY A NEW PATCH ON A DIFFERENT, CLEAN DRY SKIN SITE MAXIMUM DAILY DOSE = 1 PATCH EVERY 3 DAYS SOLD: 11/06/2020 [facility] 1 mg 10/23/2020 12:00:00 AM EDT tablet 60 TAKE ONE TABLET BY MOUTH TWICE A DAY NEEDED MAXIMUM DAILY DOSE = 2 TAKE ONE TABLET BY MOUTH TWICE A DAY NEEDED MAXIMUM DAILY DOSE = 2 SOLD: 11/06/2020 [facility] 30 mg 10/21/2020 12:00:00 AM EDT tablet 60 TAKE ONE TABLET BY MOUTH EVERY MORNING AND 1 EVERY AFTERNOON MAXIMUM DAILY DOSE = 2 TAKE ONE TABLET BY MOUTH EVERY MORNING AND 1 EVERY AFTERNOON MAXIMUM DAILY DOSE = 2 SOLD: 10/21/2020 [facility] 12 mcg/hr 10/21/2020 12:00:00 AM EDT patch 72 hour 10 APPLY 1 PATCH TO CLEAN, DRY SKIN FOR 72 HOURS THEN REMOVE, DISPOSE OF PROPERLY AND APPLY A NEW PATCH ON A DIFFERENT, CLEAN DRY SKIN SITE MAXIMUM DAILY DOSE = 1 PATCH EVERY 3 DAYS APPLY 1 PATCH TO CLEAN, DRY SKIN FOR 72 HOURS THEN REMOVE, DISPOSE OF PROPERLY AND APPLY A NEW PATCH ON A DIFFERENT, CLEAN DRY SKIN SITE MAXIMUM DAILY DOSE = 1 PATCH EVERY 3 DAYS SOLD: 10/21/2020 [facility] 25 mcg/hr 09/30/2020 12:00:00 AM EDT patch 72 hour 10 APPLY 1 PATCH TO CLEAN, DRY SKIN FOR 72 HOURS THEN REMOVE, DISPOSE OF PROPERLY AND APPLY A NEW PATCH ON A DIFFERENT, CLEAN DRY SKIN SITE MAXIMUM DAILY DOSE = 1 PATCH EVERY 3 DAYS APPLY 1 PATCH TO CLEAN, DRY SKIN FOR 72 HOURS THEN REMOVE, DISPOSE OF PROPERLY AND APPLY A NEW PATCH ON A DIFFERENT, CLEAN DRY SKIN SITE MAXIMUM DAILY DOSE = 1 PATCH EVERY 3 DAYS SOLD: 10/01/2020 [facility] 12 mcg/hr 09/21/2020 12:00:00 AM EDT patch 72 hour 10 APPLY 1 PATCH TO CLEAN, DRY SKIN FOR 72 HOURS THEN REMOVE, DISPOSE OF PROPERLY AND APPLY A NEW PATCH ON A DIFFERENT, CLEAN DRY SKIN SITE MAXIMUM DAILY DOSE = 1 PATCH EVERY 3 DAYS APPLY 1 PATCH TO CLEAN, DRY SKIN FOR 72 HOURS THEN REMOVE, DISPOSE OF PROPERLY AND APPLY A NEW PATCH ON A DIFFERENT, CLEAN DRY SKIN SITE MAXIMUM DAILY DOSE = 1 PATCH EVERY 3 DAYS SOLD: 09/21/2020 [facility] 30 mg 09/18/2020 12:00:00 AM EDT tablet 60 TAKE ONE TABLET BY MOUTH EVERY MORNING AND 1 EVERY AFTERNOON MAXIMUM DAILY DOSE = 2 TAKE ONE TABLET BY MOUTH EVERY MORNING AND 1 EVERY AFTERNOON MAXIMUM DAILY DOSE = 2 SOLD: 09/19/2020 [facility] 1 mg 09/18/2020 12:00:00 AM EDT tablet 60 TAKE ONE TABLET BY MOUTH TWICE A DAY MAXIMUM DAILY DOSE = 2 TAKE ONE TABLET BY MOUTH TWICE A DAY MAX IMUM DAILY DOSE = 2 SOLD: 09/19/2020 [facility] 1,250 mcg (50,000 unit) 09/07/2020 12:00:00 AM EDT capsule 4 TAKE 1 CAPSULE BY MOUTH ONCE EACH WEEK TAKE 1 CAPSULE BY MOUTH ONCE EACH WEEK SOLD: 09/08/2020 [facility] Ergocalciferol 97757 UNT Oral Capsule Vitamin D (Ergocalcife rol) 09/06/2020 12:00:00 AM EDT active M EDENT ([facility]) 12 mcg/hr 08/26/2020 12:00:00 AM EDT patch 72 hour 10 APPLY 1 PATCH TOPICALLY AND CHANGE EVERY 72 HOURS MAXIMUM DAILY DOSE = 1 PATCH PER 3 DAYS APPLY 1 PATCH TOPICALLY AND CHANGE EVERY 72 HOURS MAXIMUM DAILY DOSE = 1 PATCH PER 3 DAYS SOLD: 08/27/2020 [facility] duloxetine 30 MG Delayed Release Oral Capsule Duloxetine HCL 08/25/2020 12:00:00 AM EDT ORAL active MED[facility] ([facility]) 30 mg 08/25/2020 12:00:00 AM EDT capsule,delayed release (DR/EC) 30 TAKE ONE CAPSULE BY MOUTH EVERY DAY WITH 60 MG DOSE TAKE ONE CAPSULE BY MOUTH EVERY DAY WITH 60 MG DOSE SOLD: 08/27/2020 [facility] 30 mg 08/17/2020 12:00:00 AM EDT tablet 60 TAKE ONE TABLET BY MOUTH EVERY MORNING AND 1 EVERY AFTERNOON MAXIMUM DAILY DOSE = 2 TAKE ONE TABLET BY MOUTH EVERY MORNING AND 1 EVERY AFTERNOON MAXIMUM DAILY DOSE = 2 SOLD: 08/18/2020 [facility] 1 mg 08/17/2020 12:00:00 AM EDT tablet 60 TAKE ONE TABLET BY MOUTH TWICE A DAY NEEDED MAXIMUM DAILY DOSE = 2 TAKE ONE TABLET BY MOUTH TWICE A DAY NEEDED MAXIMUM DAILY DOSE = 2 SOLD: 08/18/2020 [facility] 25 mcg/hr 08/17/2020 12:00:00 AM EDT patch 72 hour 10 APPLY 1 PATCH TOPICALLY AND CHANGE EVERY 72 HOURS MAXIMUM DAILY DOSE = 1 PATCH PER 3 DAYS APPLY 1 PATCH TOPICALLY AND CHANGE EVERY 72 HOURS MAXIMUM DAILY DOSE = 1 PATCH PER 3 DAYS SOLD: 08/18/2020 [facility] 12 mcg/hr 07/17/2020 12:00:00 AM EDT patch 72 hour 10 APPLY 1 PATCH TO CLEAN, DRY SKIN FOR 72 HOURS THEN REMOVE, DISPOSE OF PROPERLY AND APPLY A NEW PATCH ON A DIFFERENT, CLEAN DRY SKIN SITE MAXIMUM DAILY DOSE = 1 PATCH EVERY 3 DAYS APPLY 1 PATCH TO CLEAN, DRY SKIN FOR 72 HOURS THEN REMOVE, DISPOSE OF PROPERLY AND APPLY A NEW PATCH ON A DIFFERENT, CLEAN DRY SKIN SITE MAXIMUM DAILY DOSE = 1 PATCH EVERY 3 DAYS SOLD: 07/27/2020 [facility] 1 mg 07/08/2020 12:00:00 AM EST tablet 60 TAKE ONE TABLET BY MOUTH TWICE A DAY MAXIMUM DAILY DOSE = 2 TAKE ONE TABLET BY MOUTH TWICE A DAY MAX IMUM DAILY DOSE = 2 SOLD: 07/15/2020 [facility] 25 mcg/hr 07/08/2020 12:00:00 AM EST patch 72 hour 10 APPLY 1 PATCH TOPICALLY EVERY 3 DAYS WITH 12 MCG PATCH FOR PAIN MAXIMUM DAILY DOSE = 1 PATCH EVERY 3 DAYS APPLY 1 PATCH TOPICALLY EVERY 3 DAYS WIT H 12 MCG PATCH FOR PAIN MAXIMUM DAILY DOSE = 1 PATCH EVERY 3 DAYS SOLD: 07/15/2020 [facility] 30 mg 07/08/2020 12:00:00 AM EST tablet 60 TAKE ONE TABLET BY MOUTH EVERY MORNING AND 1 EVERY AFTERNOON MAXIMUM DAILY DOSE = 2 TAKE ONE TABLET BY MOUTH EVERY MORNING AND 1 EVERY AFTERNOON MAXIMUM DAILY DOSE = 2 SOLD: 07/15/2020 [facility] 12 mcg/hr 06/22/2020 12:00:00 AM EST patch 72 hour 10 APPLY ONE PATCH TO THE SKIN WITH 25 MCG PATCH TO EQUAL 37 MCG EVERY 72 HOURS MAXIMUM DAILY DOSE = 37 MCG APPLY ONE PATCH TO THE SKIN WITH 25 MCG PATCH TO EQUAL 37 MCG EVERY 72 HOURS MAXIMUM DAILY DOSE = 37 MCG SOLD: 07/03/2020 [facility] 25 mcg/hr 06/12/2020 12:00:00 AM EST patch 72 hour 10 APPLY ONE PATCH TO THE SKIN WITH 12 MCG TO EQUAL 37 MCG EVERY 3 DAYS MAXIMUM DAILY DOSE = 25 MCG APPLY ONE PATCH TO THE SKIN WITH 12 MCG TO EQUAL 37 MCG EVERY 3 DAYS MAXIMUM DAILY DOSE = 25 MCG SOLD: 06/12/2020 [facility] 1 mg 06/06/2020 12:00:00 AM EST tablet 60 TAKE ONE TABLET BY MOUTH TWICE A DAY NEEDED MAXIMUM DAILY DOSE = 2 TAKE ONE TABLET BY MOUTH TWICE A DAY NEEDED MAXIMUM DAILY DOSE = 2 SOLD: 06/12/2020 [facility] 30 mg 06/06/2020 12:00:00 AM EST tablet 60 TAKE ONE TABLET BY MOUTH EVERY MORNING AND TAKE ONE TABLET BY MOUTH EVERYAFTERNOON MAXIMUM DAILY DOSE = 2 TAKE ONE TABLET BY MOUTH EVERY MORNING AND TAKE ONE TABLET BY MOUTH EVERYAFTERNOON MAXIMUM DAILY DOSE = 2 SOLD: 06/12/2020 [facility] 12 mcg/hr 05/18/2020 12:00:00 AM EST patch 72 hour 10 APPLY 1 PATCH TO CLEAN, DRY SKIN FOR 72 HOURS THEN REMOVE, DISPOSE OF PROPERLY AND APPLY A NEW PATCH ON A DIFFERENT, CLEAN DRY SKIN SITE MAXIMUM DAILY DOSE = 1 PATCH EVERY 3 DAYS APPLY 1 PATCH TO CLEAN, DRY SKIN FOR 72 HOURS THEN REMOVE, DISPOSE OF PROPERLY AND APPLY A NEW PATCH ON A DIFFERENT, CLEAN DRY SKIN SITE MAXIMUM DAILY DOSE = 1 PATCH EVERY 3 DAYS SOLD: 05/24/2020 [facility] 15 mg 05/06/2020 12:00:00 AM EST tablet 30 TAKE ONE TABLET BY MOUTH EVERY DAY NEEDED TAKE ONE TABLET BY MOUTH EVERY DAY NEEDED SOLD: 11/28/2020 [facility] 15 mg 05/06/2020 12:00:00 AM EST tablet 30 TAKE ONE TABLET BY MOUTH EVERY DAY NEEDED TAKE ONE TABLET BY MOUTH EVERY DAY NEEDED SOLD: 10/21/2020 [facility] 15 mg 05/06/2020 12:00:00 AM EST tablet 30 TAKE ONE TABLET BY MOUTH EVERY DAY NEEDED TAKE ONE TABLET BY MOUTH EVERY DAY NEEDED SOLD: 05/08/2020 [facility] 15 mg 05/06/2020 12:00:00 AM EST tablet 30 TAKE ONE TABLET BY MOUTH EVERY DAY NEEDED TAKE ONE TABLET BY MOUTH EVERY DAY NEEDED SOLD: 08/27/2020 [facility] 25 mcg/hr 04/30/2020 12:00:00 AM EST patch 72 hour 10 APPLY 1 PATCH EVERY 3 DAYS WITH 12MCG PATCH MAXIMUM DAILY DOSE = 1 PATCH EVERY 3 DAYS APPLY 1 PATCH EVERY 3 DAYS WITH 12MCG PATCH MAXIMUM DAILY DOSE = 1 PATCH EVERY 3 DAYS SOLD: 05/08/2020 [facility] 1 mg 04/30/2020 12:00:00 AM EST tablet 60 TAKE ONE TABLET BY MOUTH TWICE A DAY NEEDED MAXIMUM DAILY DOSE = 2 TAKE ONE TABLET BY MOUTH TWICE A DAY NEEDED MAXIMUM DAILY DOSE = 2 SOLD: 05/08/2020 [facility] 30 mg 04/30/2020 12:00:00 AM EST tablet 60 TAKE ONE TABLET BY MOUTH EVERY MORNING AND 1 IN THE AFTERNOON MAXIMUM DAILY DOSE = 2 TAKE ONE TABLET BY MOUTH EVERY MORNING AND 1 IN THE AFTERNOON MAXIMUM DAILY DOSE = 2 SOLD: 05/08/2020 [facility] 12 mcg/hr 04/01/2020 12:00:00 AM EST patch 72 hour 10 APPLY ONE PATCH TO THE SKIN EVERY 72 HOURS WITH 25MCG PATCH MAXIMUM DAILY DOSE = 1 EVERY 3 DAYS APPLY ONE PATCH TO THE SKIN EVERY 72 HOURS WITH 25MCG PATCH MAXIMUM DAILY DOSE = 1 EVERY 3 DAYS SOLD: 04/02/2020 [facility] 30 mg 04/01/2020 12:00:00 AM EST tablet 60 TAKE ONE TABLET BY MOUTH EVERY MORNING AND ONE TABLET IN THE AFTERNOON MAXIMUM DAILY DOSE = 2 TAKE ONE TABLET BY MOUTH EVERY MORNING AND ONE TABLET IN THE AFTERNOON MAXIMUM DAILY DOSE = 2 SOLD: 04/02/2020 [facility] 5 % 04/01/2020 12:00:00 AM EST adhesive patch,medicate d 30 APPLY ONE PATCH TO THE SKIN ONCE DAILY - ON FOR 12 HOURS, OFF FOR 12 HOURS APPLY ONE PATCH TO THE SKIN ONCE DAILY - ON FOR 12 HOURS, OFF FOR 12 HOURS SOLD: 04/02/2020 [facility] 1 mg 04/01/2020 12:00:00 AM EST tablet 60 TAKE ONE TABLET BY MOUTH TWICE A DAY NEEDED MAXIMUM DAILY DOSE = 2 TAKE ONE TABLET BY MOUTH TWICE A DAY NEEDED MAXIMUM DAILY DOSE = 2 SOLD: 04/02/2020 [facility] 25 mcg/hr 04/01/2020 12:00:00 AM EST patch 72 hour 10 APPLY ONE PATCH TO THE SKIN EVERY 72 HOUR WITH 12 MCG PATCH MAXIMUM DAILY DOSE = 1 EVERY 3 DAYS APPLY ONE PATCH TO THE SKIN EVERY 72 HOUR WITH 12 MCG PATCH MAXIMUM DAILY DOSE = 1 EVERY 3 DAYS SOLD: 04/02/2020 [facility] 250 mg 03/18/2020 12:00:00 AM EST capsule 60 TAKE ONE CAPSULE BY MOUTH TWICE A DAY TAKE ONE CAPSULE BY MOUTH TWICE A DAY SOLD: 03/19/2020 [facility] duloxetine 60 MG Delayed Release Oral Capsule Duloxetine HCL 02/18/2020 12:00:00 AM EDT active [facility] ([facility]) 25 mcg/hr 01/31/2020 12:00:00 AM EDT patch 72 hour 10 APPLY TOPICALLY ONE PATCH WITH 12MCG PATCH EVERY 3 DAYS MAXIMUM DAILY DOSE = 25 MCG APPLY TOPICALLY ONE PATCH WITH 12MCG PATCH EVERY 3 DAYS MAXIMUM DAILY DOSE = 25 MCG SOLD: 02/03/2020 [facility] 30 mg 01/29/2020 12:00:00 AM EDT tablet 60 TAKE ONE TABLET BY MOUTH EVERY MORNING AND TAKE ONE TABLET BY MOUTH IN THE AFTERNOON MAXIMUM DAILY DOSE = 2 TAKE ONE TABLET BY MOUTH EVERY MORNING AND TAKE ONE TABLET BY MOUTH IN THE AFTERNOON MAXIMUM DAILY DOSE = 2 SOLD: 02/03/2020 [facility] 12 mcg/hr 01/29/2020 12:00:00 AM EDT patch 72 hour 10 APPLY ONE PATCH TOPICALLY WITH 25MCG PATCH EVERY 72 HOURS MAXIMUM DAILY DOSE = 37 MCG APPLY ONE PATCH TOPICALLY WITH 25MCG PATCH EVERY 72 HOURS MAXIMUM DAILY DOSE = 37 MCG SOLD: 02/03/2020 [facility] 1 mg 01/29/2020 12:00:00 AM EDT tablet 60 TAKE ONE TABLET BY MOUTH TWICE A DAY NEEDED MAXIMUM DAILY DOSE = 2 TAKE ONE TABLET BY MOUTH TWICE A DAY NEEDED MAXIMUM DAILY DOSE = 2 SOLD: 02/03/2020 [facility] 12 mcg/hr 12/31/2019 12:00:00 AM EDT patch 72 hour 10 APPLY 1 PATCH TOPICALLY WITH 25 MCG PATCH EVERY 72 HOURS MAXIMUM DAILY DOSE = 1 PATCH EVERY 72 HOURS APPLY 1 PATCH TOPICALLY WITH 25 MCG PATC H EVERY 72 HOURS MAXIMUM DAILY DOSE = 1 PATCH EVERY 72 HOURS SOLD: 12/31/2019 [facility] 25 mcg/hr 12/31/2019 12:00:00 AM EDT patch 72 hour 10 APPLY 1 PATCH TOPICALLY WITH 12 MCG PATCH EVERY 3 DAYS MAXIMUM DAILY DOSE = 1 PATCH EVERY 3 DAYS APPLY 1 PATCH TOPICALLY WITH 12 MCG PATC H EVERY 3 DAYS MAXIMUM DAILY DOSE = 1 PATCH EVERY 3 DAYS SOLD: 12/31/2019 [facility] 1 mg 12/28/2019 12:00:00 AM EDT tablet 60 TAKE ONE TABLET BY MOUTH TWICE A DAY NEEDED MAXIMUM DAILY DOSE = 2 TAKE ONE TABLET BY MOUTH TWICE A DAY NEEDED MAXIMUM DAILY DOSE = 2 SOLD: 12/31/2019 [facility] 15 mg 12/27/2019 12:00:00 AM EDT tablet 30 TAKE ONE TABLET BY MOUTH EVERY DAY NEEDED TAKE ONE TABLET BY MOUTH EVERY DAY NEEDED SOLD: 12/31/2019 [facility] 30 mg 12/26/2019 12:00:00 AM EDT tablet 60 TAKE ONE TABLET BY MOUTH EVERY MORNING AND 1 EVERY AFTERNOON MAXIMUM DAILY DOSE = 2 TAKE ONE TABLET BY MOUTH EVERY MORNING AND 1 EVERY AFTERNOON MAXIMUM DAILY DOSE = 2 SOLD: 12/31/2019 [facility] duloxetine 60 MG Delayed Release Oral Capsule [Cymbalta] [facility] 11/28/2019 12:00:00 AM EDT ORAL completed [facility] ([facility]) doxycycline hyclate 100 MG Oral Capsule Doxycycline Hyclate 100 MG Oral Capsule (VIBRAMYCIN) Doxycycline Hyclate 100 MG Oral Capsule (VIBRAMYCIN) 0 06/20/2019 12:00:00 AM EST aborted [facility] Rifampin 300 MG Oral Capsule rifAMPin (RIFADIN) 300 MG capsule rifAMPin (RIFADIN) 300 MG capsule 02/08/2017 12:00:00 AM EDT 300 mg Oral aborted Take 1 capsule by mouth Two Times Daily [facility] Insurance Providers Payer name Policy type / Coverage type Policy ID Covered constitution party ID Covered constitution party's relationship to waldrop Policy [employer] Plan Information Special Funds Workers Compensation [id number] Self MVP Preferred (Hmo) Health Maintenance Organization (HMO) [id number] Self [id number] [facility] Health Plan Commercial [id number] Self [facility] () Workers Compensation [id number] Self [id number] [facility] () Workers Compensation [id number] Self [id number] [facility] [id number] SP [id number] [facility] H [id number] Self [id number] [employer] [id number] SP [id number] [facility] HEALTH CARE [id number] SP [id number] [employer] () Workers Compensation [id number] Self [id number] [employer] () Workers Compensation [id number] Self 0 [id number] [employer] () Workers Compensation [id number] Self [id number] [employer] () Workers Compensation [id number] Self 0 [id number] [employer] () Workers Compensation [id number] Self [id number] [facility] () Workers Compensation [id number] Self 0 [id number] [place] [employer] () Workers Compensation [id number] Self 0 [id number] [place] [employer] () Workers Compensation [id number] Self [id number] [employer] () Workers Compensation [id number] Self [id number] [employer] () Workers Compensation [id number] Self [id number] [employer] () Workers Compensation [id number] Self [id number] MVP (pr) Commercial [id number] Self [id number] MVP SELECT [id number] SP [id number] [employer] Healthcare F [id number] SELF [id number] [facility] HEALTH CARE [id number] SP [id number] SELF PAY MVP SELECT [id number] SP [id number] MVP HEALTH PLAN O [id number] S [id number] MVP HEALTH PLAN O [id number] S [id number] MVP SELECT [id number] SP [id number] MVP SELECT UNAVAILABLE UNAVAIL ABLE SULA CLAIM SERVICES P [id number] S [id number] MEDICARE [id number] SP [id number] SELF PAY UNAVAILABLE UNAVAILA BLE NO FAULT NAHOMI [id number] P HEALTH CARE HEA [id number] S [id number] MVP Commercial [id number] Self [id number] [employer] () Workers Compensation [id number] Self [id number] [employer] () Workers Compensation [id number] Self [id number] MVP Commercial [id number] Self [id number] MVP Commercial [id number] Self [id number] [facility] HEALTH CARE O [id number] S [id number] MVP Commercial [id number] Self [id number] MVP Commercial [id number] [id number] Self [id number] MVP/Preferred Care Commercial [id number] Self [id number] MVP Commercial [id number] Self [id number] MVP Commercial [id number] Self [id number] MVP Commercial [id number] Self [id number] MVP Commercial [id number] [id number] Self [id number] MVP SELECT [id number] SP [id number] MVP Commercial [id number] Self [id number] MVP/Preferred Care Commercial [id number] Self VALUE OPTIONS [id number] SP [id number] VAL[employer] OPTIONS [id number] SP [id number] MVP SELECT [id number] SP [id number] MVP HEALTH PLAN O [id number] S [id number] Problems, Conditions, and Diagnoses Code Display Name Description Problem Type Effective Dates Data Source(s) [id number] Vitamin D deficiency Vitamin D deficiency Problem 09/06/2020 12:00:00 AM EDT [facility] ([facility]) Surgeries/Procedures Procedure Description Date Indications Data Source(s) Brief Emotional/Behav Assessment W/ Scoring Doc Per Standard Inst 11/11/2020 12:00:00 AM EDT [facility] ([facility]) OFFICE OUTPATIENT VISIT 25 MINUTES 08/25/2020 12:00:00 AM EDT [facility] ([facility]) Results ID Date Data Source [id number] 02/10/2021 04:02:00 PM EDT [facility] ([facility]) Name Value Range Interpretation Code Description Data Roseanne rce(s) Supporting Document(s) Erythrocyte sedimentation rate by Westergren method 29 mm/hr 0-20 Above high normal [facility] ([facility]) ID Date Data Source [id number] 02/10/2021 04:02:00 PM EDT [facility] ([facility]) Name Value Range Interpretation Code Description Data Roseanne rce(s) Supporting Document(s) White Blood Count 8.1 10 4.0-10.0 Normal (applies to non-numeri c results) [facility] ([facility]) Hematocrit 41.5 % 42.0-52.0 Below low normal [facility] ( [facility]) Red Blood Count 4.11 10 4.30-6.10 Below low normal [facility] ([facility]) Hemoglobin 13.8 g/dL 13.5-17.5 Normal (applies to non-numeric resul ts) [facility] ([facility]) Mean Corpuscular Hemoglobin 33.6 pg 27.0-33.0 Above high normal [facility] ([facility]) Mean Corpuscular Volume 101.0 fl 80.0-96.0 Above high normal [facility] Mean Corpuscular HGB Conc 33.3 g/dL 32.0-36.5 Normal (applies to non-numeric results) [facility] ([facility]) Red Cell Distribution Width 13.3 % 11.5-14.5 Norm al (applies to non-numeric results) [facility] ([facility]) Neutrophils % 59.2 % 36.0-66.0 Normal (applies to non-numeric re sults) [facility] ([facility]) Platelet Count, Automated 306 10 150-450 Normal (applies to non-numeric results) [facility] ([facility]) Lymph % 28.2 % 24.0-44.0 Normal (applies to non-numeric resul ts) [facility] ([facility]) [facility] % 8.9 % 2.0-8.0 Above high normal [facility] ([facility]) Eos % 2.5 % 0.0-3.0 Normal (applies to non-numeric resul ts) [facility] ([facility]) Baso % 0.7 % 0.0-1.0 Normal (applies to non-numeric resul ts) [facility] ([facility]) Immature Granulocyte % 0.5 % 0-3.0 Normal (applies to non-n umeric results) [facility] ([facility]) Neutrophils # 4.8 10 1.5-8.5 Normal (applies to non-numeric re sults) [facility] ([facility]) Nucleated Red Blood Cell % 0.0 % 0-0 Normal (applies to n on-numeric results) [facility] ([facility]) Lymph # 2.3 10 1.5-5.0 Normal (applies to non-numeric resul ts) [facility] ([facility]) Eos # 0.2 10 0.0-0.5 Normal (applies to non-numeric resul ts) [facility] ([facility]) [facility] # 0.7 10 0.0-0.8 Normal (applies to non-numeric resul ts) [facility] ([facility]) Baso # 0.1 10 0.0-0.2 Normal (applies to non-numeric resul ts) [facility] ([facility]) ID Date Data Source [id number] 02/10/2021 04:02:00 PM EDT [facility]) Name Value Range Interpretation Code Description Data Roseanne rce(s) Supporting Document(s) C reactive protein [Mass/volume] in Serum or Plasma by High sensitivity method 0.70 mg/dL 0.00-0.30 Above high normal [facility] ([facility]) ID Date Data Source [id number] 02/10/2021 04:02:00 PM EDT [facility] ([facility]) Name Value Range Interpretation Code Description Data Roseanne rce(s) Supporting Document(s) Blood Urea Nitrogen 12 mg/dL 7-18 Normal (applies to non-nume eleno results) [facility] ([facility]) Glucose, Fasting 158 mg/dL 70-100 Above high normal [facility] ([facility]) Sodium Level 138 meq/L 136-145 Normal (applies to non-numeric res ults) [facility] ([facility]) Creatinine For GFR 0.78 mg/dL 0.70-1.30 Normal (applies to non -numeric results) [facility] ([facility]) Glomerular Filtration Rate Laboratory test result Normal (applies to non- numeric results) [facility] ([facility]) <content>Units are mL/min/1.73 m2</content>
<content></content>
<content>Chronic Kidney Disease Staging per NKF:</content>
<content></content>
<content>Stage I & II GFR >=60 Normal to Mildly Decreased</content>
<content>Stage III GFR 30- 59 Moderately Decreased</content>
<content>Stage IV GFR 15-29 Severely Decreased</content>
<content>Stage V GFR <15 Very Little GFR Left</content>
<content>ESRD GFR <15 on DIRECTOR OF SCOUT WORK</content>
<content></content> Chloride Level 102 meq/L 98-107 Normal (applies to non-numeric r esults) [facility] ([facility]) Potassium Serum 4.3 meq/L 3.5-5.1 Normal (applies to non-numeric results) [facility] ([facility]) Anion Gap 2 meq/L 8-16 Below low normal [facility] ( [facility]) Calcium Level 9.1 mg/dL 8.8-10.2 Normal (applies to non-numeric re sults) [facility] ([facility]) Carbon Dioxide Level 34 meq/L 21-32 Above high normal [facility] Ast/Sgot 30 U/L 7-37 Normal (applies to non-numeric resul ts) [facility] ([facility]) Alt/SGPT 34 U/L 12-78 Normal (applies to non-numeric resul ts) [facility] ([facility]) Bilirubin,Total 0.3 mg/dL 0.2-1.0 Normal (applies to non-numeric results) [facility] ([facility]) Alkaline Phosphatase 122 U/L 45-117 Above high normal [facility] ([facility]) Total Protein 7.3 GM/DL 6.4-8.2 Normal (applies to non-numeric re sults) [facility] ([facility]) Albumin 3.4 GM/DL 3.2-5.2 Normal (applies to non-numeric resul ts) [facility] ([facility]) Albumin/Globulin Ratio 0.9 Normal (applies to non-n umeric results) [facility] ([facility]) ID Date Data Source [id number] 01/06/2021 04:49:00 PM EDT [facility] ([facility]) Name Value Range Interpretation Code Description Data Roseanne rce(s) Supporting Document(s) Erythrocyte sedimentation rate by Westergren method 35 mm/hr 0-20 Above high normal [facility] ([facility]) ID Date Data Source [id number] 01/06/2021 04:49:00 PM EDT [facility] ([facility]) Name Value Range Interpretation Code Description Data Roseanne rce(s) Supporting Document(s) White Blood Count 7.1 10 4.0-10.0 Normal (applies to non-numeri c results) [facility] ([facility]) Red Blood Count 4.07 10 4.30-6.10 Below low normal [facility] ([facility]) Hemoglobin 13.5 g/dL 13.5-17.5 Normal (applies to non-numeric resul ts) [facility] ([facility]) Mean Corpuscular Volume 99.8 fl 80.0-96.0 Above high normal [facility] Hematocrit 40.6 % 42.0-52.0 Below low normal [facility] ( [facility]) Mean Corpuscular HGB Conc 33.3 g/dL 32.0-36.5 Normal (applies to non-numeric results) [facility] ([facility]) Mean Corpuscular Hemoglobin 33.2 pg 27.0-33.0 Above high normal [facility] ([facility]) Red Cell Distribution Width 13.2 % 11.5-14.5 Norm al (applies to non-numeric results) [facility] ([facility]) Platelet Count, Automated 283 10 150-450 Normal (applies to non-numeric results) [facility] ([facility]) Neutrophils % 56.4 % 36.0-66.0 Normal (applies to non-numeric re sults) [facility] ([facility]) Lymph % 31.2 % 24.0-44.0 Normal (applies to non-numeric resul ts) [facility] ([facility]) [facility] % 9.1 % 2.0-8.0 Above high normal [facility] ([facility]) Eos % 2.1 % 0.0-3.0 Normal (applies to non-numeric resul ts) [facility] ([facility]) Baso % 0.8 % 0.0-1.0 Normal (applies to non-numeric resul ts) [facility] ([facility]) Immature Granulocyte % 0.4 % 0-3.0 Normal (applies to non-n umeric results) [facility] ([facility]) Nucleated Red Blood Cell % 0.0 % 0-0 Normal (applies to n on-numeric results) [facility] ([facility]) Lymph # 2.2 10 1.5-5.0 Normal (applies to non-numeric resul ts) [facility] ([facility]) Neutrophils # 4.0 10 1.5-8.5 Normal (applies to non-numeric re sults) [facility] ([facility]) Eos # 0.2 10 0.0-0.5 Normal (applies to non-numeric resul ts) [facility] ([facility]) [facility] # 0.6 10 0.0-0.8 Normal (applies to non-numeric resul ts) [facility] ([facility]) Baso # 0.1 10 0.0-0.2 Normal (applies to non-numeric resul ts) [facility] ([facility]) ID Date Data Source [id number] 01/06/2021 04:49:00 PM EDT [facility] [place] [place] Name Value Range Interpretation Code Description Data Roseanne rce(s) Supporting Document(s) C reactive protein [Mass/volume] in Serum or Plasma by High sensitivity method 1.45 mg/dL 0.00-0.30 Above high normal [facility] ([facility]) ID Date Data Source [id number] 01/06/2021 04:49:00 PM EDT [facility] ([facility]) Name Value Range Interpretation Code Description Data Roseanne rce(s) Supporting Document(s) Blood Urea Nitrogen 12 mg/dL 7-18 Normal (applies to non-nume eleno results) [facility] ([facility]) Glucose, Fasting 127 mg/dL 70-100 Above high normal [facility] ([facility]) Glomerular Filtration Rate Laboratory test result Normal (applies to non- numeric results) [facility] ([facility]) <content>Units are mL/min/1.73 m2</content>
<content></content>
<content>Chronic Kidney Disease Staging per NKF:</content>
<content></content>
<content>Stage I & II GFR >=60 Normal to Mildly Decreased</content>
<content>Stage III GFR 30- 59 Moderately Decreased</content>
<content>Stage IV GFR 15-29 Severely Decreased</content>
<content>Stage V GFR <15 Very Little GFR Left</content>
<content>ESRD GFR <15 on DIRECTOR OF SCOUT WORK</content>
<content></content> Creatinine For GFR 0.66 mg/dL 0.70-1.30 Below low normal [facility] Sodium Level 140 meq/L 136-145 Normal (applies to non-numeric res ults) [facility] ([facility]) Potassium Serum 4.3 meq/L 3.5-5.1 Normal (applies to non-numeric results) [facility] ([facility]) Carbon Dioxide Level 30 meq/L 21-32 Normal (applies to non-num antonette results) [facility] ([facility]) Chloride Level 106 meq/L 98-107 Normal (applies to non-numeric r esults) [facility] ([facility]) Ast/Sgot 32 U/L 7-37 Normal (applies to non-numeric resul ts) [facility] ([facility]) Anion Gap 4 meq/L 8-16 Below low normal [facility] ( [facility]) Calcium Level 9.0 mg/dL 8.8-10.2 Normal (applies to non-numeric re sults) [facility] ([facility]) Alt/SGPT 43 U/L 12-78 Normal (applies to non-numeric resul ts) [facility] ([facility]) Alkaline Phosphatase 110 U/L 45-117 Normal (applies to non-num [place] results) [facility] ([facility]) Albumin 3.4 GM/DL 3.2-5.2 Normal (applies to non-numeric resul ts) [facility] ([facility]) Bilirubin,Total 0.4 mg/dL 0.2-1.0 Normal (applies to non-numeric results) [facility] ([facility]) Total Protein 7.2 GM/DL 6.4-8.2 Normal (applies to non-numeric re sults) [facility] ([facility]) Albumin/Globulin Ratio 0.9 Normal (applies to non-n umeric results) [facility] ([facility]) ID Date Data Source [id number] 11/30/2020 02:45:27 PM EDT [facility] Name Value Range Interpretation Code Description Data Roseanne rce(s) Supporting Document(s) Progress Note [facility] KDLKWf2gBxHWKmQq88/SVTrgQDOwl2ZeGMfnXPf9PNolVVChJ7OyQIE4wM9fRRL7XPnTQrEhMaOmARJz lbm [file] ICAgICAgICAgICAgICAgICAgICAgICAgICAgICAgIC AgICAgICAgICAgICAgICAgICAgICAgICAgICAgICAgICANCiAgICAgICAgICAgICAgICAgICAgICAgIC AgICAgICAgICAgICAgICAgICAgICAgICAgICAgICAgICAgICAgICAgICAgICAgICAgICAgICAgICAgIC AgICAgICAgICAgICAgICANCiAgICAgICAgICAgICAg ICAgICAgICAgICAgICAgICAgICAgICAgICAgICAgICAgICAgICAgICAgICAgICAgICAgICAgICAgICAg ICAgICAgICAgICAgICAgICAgICAgICAgICANCiAgICAgICAgICAgICAgICAgICAgICAgICAgICAgICAg ICAgICAgICAgICAgICAgICAgICAgICAgICAgICAgIC AgICAgICAgICAgICAgICAgICAgICAgICAgICAgICAgICAgICANCiAgICAgICAgICAgICAgICAgICAgIC AgICAgICAgICAgICAgICAgICAgICAgICAgICAgICAgICAgICAgICAgICAgICAgICAgICAgICAgICAgIC AgICAgICAgICAgICAgICAgICANCiAgICAgICAgICAg ICAgICAgICAgICAgICAgICAgICAgICAgICAgICAgICAgICAgICAgICAgICAgICAgICAgICAgICAgICAg ICAgICAgICAgICAgICAgICAgICAgICAgICAgICANCiAgICAgICAgICAgICAgICAgICAgICAgICAgICAg ICAgICAgICAgICAgICAgICAgICAgICAgICAgICAgIC AgICAgICAgICAgICAgICAgICAgICAgICAgICAgICAgICAgICAgICANCiAgICAgICAgICAgICAgICAgIC AgICAgICAgICAgICAgICAgICAgICAgICAgICAgICAgICAgICAgICAgICAgICAgICAgICAgICAgICAgIC AgICAgICAgICAgICAgICAgICAgICANCiAgICAgICAg ICAgICAgICAgICAgICAgICAgICAgICAgICAgICAgICAgICAgICAgICAgICAgICAgICAgICAgICAgICAg ICAgICAgICAgICAgICAgICAgICAgICAgICAgICAgICANCiAgICAgICAgICAgICAgICAgICAgICAgICAg ICAgICAgICAgICAgICAgICAgICAgICAgICAgICAgIC AgICAgICAgICAgICAgICAgICAgICAgICAgICAgICAgICAgICAgICAgICANCjw/kSVwL2hpcZIcosE5X7 uzRi4OWt0WBE2sm4XsNVDsYPjukfYsUfbEUePiDHJzEveBFur1PFivRN5NaMMqK7VfE4YwRVmqLL9MYL KqHNOgpFYgFHKhICXuTkV9CQFqDYveCO7JyJOvSVyc FJBsXAMrPuDqTNIbCNOkLMSvNTLlOLXNSA4WRkFrI2ZqaQ85CIORJr2+XFjcdoXzXqqNUxU2QOQhi9Za OVg3PZ2FJYCyKdwvf4EaHlnnLQNBHMeiUA6GHBB4TLN5DKPlFc8LASAwK241uvFfKE8GFl0OTgHfNZ4q fz0NZroeGNPlHjvHGdm5JZahOS9BxLLrZBfKfz6rsz YitlUKa4TlsyPhhTSTr92zpIwisvQOBUQxfdwcplbnHFDjEZJcZT0sWhWpUyUcLDQ7RWXqVV7wJIpgMK 5AXEQ3MQglGMIbYGTdD7oDJcIpNAUaESChuKtgCK0CNcLpG0JbhfEjhSSlDPOzEZJCJq9+DQplbmRvYm nXGgSlMGSxc0KhLYb3WE7LJDJhTTgfFH9AYFOblC1s SDioQL5BEdMwZoOqQRVNEfQjG53wlSTnOYp5Z3BkJxUlRBSnTfvqTWAiDJlyJcUkQKUdVyYaRFmgIL1+ ID4+FOxaBT4AROlaxnKnVRQzNb3GMMThUPPgFC1cPPWjOJTmH0S5nMyeNSKWEaUqI4xqzcjfHP2nIPPh J212tHhiuyCxCBU4BVOsVh6NFJKbWWN1IULbdRLtAg mmTUAKPAxbRW9NwXOvIIP6mX9wJZeeSRTtXCGkR5tMRcAzyKmrXX04lHakgwZyaEUnNZq+Dr4ASV6sc2 SuODa2cjNeJJdqFCBlXRwsEXDlFUHxAFBkSLN5BVO0YWWCGvSvFOLpYHBqRMqaUQJeSGZake3RDEFvRK TdGpT8EKLyWAPaDSYcQAazNBZsPPO8TBTuYAPsWWDa KG9CAxJpQOKxPPEsTNlaJTSlTJJcux8OQPVcVMIjXpK0ZOPhMIMeNYOzXUckFYBpUXAuDnsbSVTgZDCp SC9HRzNaCINuSWI8ZgffOFQmBWLosl3RFFWtICBaKDv5UdFlUCYkKVBlHSofKYFeKKB0QYZjQTYjYXRz DL4PUhZdJEMnRAzlHYBgVWVcGFWoor3GLBVoWIXaRL aiOAWpTVGrSSNaOWdiAPTnHKOtOTRrPFCvBDSyEB3EWnCjUSXsXSG6DZClERMzPLJcmy3PGUEgQVXcWr P6CTMlTHXqXBWfNJsmVJTqOBYgDlBrZUVvJYIqTG9QSyTpJAHmTPByWdZaTHXfPFYtxt1LHMKyCMByRj BmSgPfGIRbQAPcJAtgSPGhHXGiSlItRBVmXDDwDQ5N ZzUcIVOsVpQmDLIlWMLeRRAqhc4ZHKWbSNNnYVR7VVXbKMRmZFXsLUfqOGGxZBB0THr6VNKeNDTiRO1E SiBrXKEbRhB6PaPuNLLcZWCmdb1IVKAuDDLrFTa3WTMyCBCrPBWrOXkqCQCgFMH0HVR2YYAjIWEgJE5N ClVrZKDqLomlAVBtPHWjFBJgau4PITHuCUPlVfC5Ph ZsRRXhTACpHJqaLMAeVKV1KlxgELNmLIVxPI4MUrFpZIQpFvsgTOYqPAKcVGUsyo2OEIToCKClGKMvNV BrGZJxBBIoVPviSGApICP5MrQbBTYwTDEmDU0KIcFdKXviIWHKLvw9NTrgZ8n6AUJtQL2UI9Yow6HdJb JuFVXDWTdcRL7xezJtOFUhEr8VX5sIYjusU9BnLZXq MuXqCXW0HWTfABS4ZcSfLFBhOjIjGwR7Sg1zPOF9VhM7VyWgFLVlSexlUiJaPRbeKaHpBPUuJHRdPDOe BqYhRS5BGk8LEtY0AIW3yTEiTe6PHth6KPECDjErDP1EMTu= ID Date Data Source [id number] 11/11/2020 12:51:00 PM EDT [facility] ([facility]) Name Value Range Interpretation Code Description Data Roseanne rce(s) Supporting Document(s) EKG Laboratory test result [facility] ([facility]) ID Date Data Source [id number] 09/03/2020 03:43:00 PM EDT [facility] ([facility]) Name Value Range Interpretation Code Description Data Roseanne rce(s) Supporting Document(s) C reactive protein [Mass/volume] in Serum or Plasma by High sensitivity method 1.09 mg/dL 0.00-0.30 Above high normal [facility] ([facility]) ID Date Data Source [id number] 09/03/2020 03:43:00 PM EDT [facility] ([facility]) Name Value Range Interpretation Code Description Data Roseanne rce(s) Supporting Document(s) Glucose, Fasting 105 mg/dL 70-100 Above high normal [facility]) Blood Urea Nitrogen 13 mg/dL 7-18 Normal (applies to non-nume eleno results) [facility] ([facility]) Glomerular Filtration Rate Laboratory test result Normal (applies to non- numeric results) [facility] ([facility]) <content>Units are mL/min/1.73 m2</content>
<content></content>
<content>Chronic Kidney Disease Staging per NKF:</content>
<content></content>
<content>Stage I & II GFR >=60 Normal to Mildly Decreased</content>
<content>Stage III GFR 30- 59 Moderately Decreased</content>
<content>Stage IV GFR 15-29 Severely Decreased</content>
<content>Stage V GFR <15 Very Little GFR Left</content>
<content>ESRD GFR <15 on DIRECTOR OF SCOUT WORK</content>
<content></content> Creatinine For GFR 0.63 mg/dL 0.70-1.30 Below low normal [facility] ([facility]) Sodium Level 137 meq/L 136-145 Normal (applies to non-numeric res ults) [facility] ([facility]) Potassium Serum 4.5 meq/L 3.5-5.1 Normal (applies to non-numeric results) [facility] ([facility]) Chloride Level 103 meq/L 98-107 Normal (applies to non-numeric r esults) [facility] ([facility]) Carbon Dioxide Level 31 meq/L 21-32 Normal (applies to non-num [place] results) [facility] ([facility]) Anion Gap 3 meq/L 8-16 Below low [facility] Ast/Sgot 22 U/L 7-37 Normal (applies to non-numeric resul ts) [facility] ([facility]) Calcium Level 9.2 mg/dL 8.8-10.2 Normal (applies to non-numeric re sults) [facility] ([facility]) Alt/SGPT 29 U/L 12-78 Normal (applies to non-numeric resul ts) [facility] ([facility]) Alkaline Phosphatase 101 U/L 45-117 Normal (applies to non-num [place] results) [facility] ([facility]) Bilirubin,Total 0.5 mg/dL 0.2-1.0 Normal (applies to non-numeric results) [facility] ([facility]) Total Protein 7.5 GM/DL 6.4-8.2 Normal (applies to non-numeric re sults) [facility] ([facility]) Albumin 3.7 GM/DL 3.2-5.2 Normal (applies to non-numeric resul ts) [facility] ([facility]) Albumin/Globulin Ratio 1.0 Normal (applies to non-n umeric results) [facility] ([facility]) ID Date Data Source [id number] 09/03/2020 03:43:00 PM EDT [facility] ([facility]) Name Value Range Interpretation Code Description Data Roseanne rce(s) Supporting Document(s) White Blood Count 8.4 10 4.0-10.0 Normal (applies to non-numeri c results) [facility] ([facility]) Red Blood Count 4.08 10 4.30-6.10 Below low normal [facility] ([facility]) Hemoglobin 13.8 g/dL 13.5-17.5 Normal (applies to non-numeric resul ts) [facility] ([facility]) Hematocrit 41.6 % 42.0-52.0 Below low normal [facility] ( [facility]) Mean Corpuscular Volume 102.0 fl 80.0-96.0 Above high normal [facility] ([facility]) Mean Corpuscular Hemoglobin 33.8 pg 27.0-33.0 Above high normal [facility] ([facility]) Red Cell Distribution Width 13.3 % 11.5-14.5 Norm al (applies to non-numeric results) [facility] ([facility]) Mean Corpuscular HGB Conc 33.2 g/dL 32.0-36.5 Normal (applies to non-numeric results) [facility] ([facility]) Lymph % 23.5 % 24.0-44.0 Below low normal [facility] ( [facility]) Platelet Count, Automated 317 10 150-450 Normal (applies to non-numeric results) [facility] ([facility]) Neutrophils % 65.5 % 36.0-66.0 Normal (applies to non-numeric re sults) [facility] ([facility]) Eos % 1.3 % 0.0-3.0 Normal (applies to non-numeric resul ts) [facility] ([facility]) [facility] % 8.2 % 2.0-8.0 Above high normal [facility] ([facility]) Immature Granulocyte % 0.4 % 0-3.0 Normal (applies to non-n umeric results) [facility] ([facility]) Baso % 1.1 % 0.0-1.0 Above high normal [facility] ([facility]) Lymph # 2.0 10 1.5-5.0 Normal (applies to non-numeric resul ts) [facility] ([facility]) Nucleated Red Blood Cell % 0.0 % 0-0 Normal (applies to n on-numeric results) [facility] ([facility]) Neutrophils # 5.5 10 1.5-8.5 Normal (applies to non-numeric re sults) [facility] ([facility]) Eos # 0.1 10 0.0-0.5 Normal (applies to non-numeric resul ts) [facility] ([facility]) [facility] # 0.7 10 0.0-0.8 Normal (applies to non-numeric resul ts) [facility] ([facility]) Baso # 0.1 10 0.0-0.2 Normal (applies to non-numeric resul ts) [facility] ([facility]) ID Date Data Source [id number] 09/03/2020 03:40:00 PM EDT [facility] ([facility]) Name Value Range Interpretation Code Description Data Roseanne rce(s) Supporting Document(s) Calcidiol [Mass/volume] in Serum or Plasma 9.5 ng/mL 30.0- 100.0 Below low normal [facility] ([facility]) ID Date Data Source [id number] 09/03/2020 03:40:00 PM EDT [facility] ([facility]) Name Value Range Interpretation Code Description Data Roseanne rce(s) Supporting Document(s) PSA Total 0.9 ng/mL 0.0-4.0 Normal (applies to non-numeric resul ts) [facility] ([facility]) Mel ECLIA methodology. . According to the [employer] [employer], Serum PSA should decrease and [...] the presence or absence of malignant disease. PSA Comment Laboratory test result Normal (applies to non- numeric results) [facility] ([facility]) . The percent free PSA is performed on a reflex basis only when the total PSA is between 4.0 and 10.0 ng/mL. Performed at: RN - [facility] [address] [id number] Carburetor Expert: Erika Van MD, Phone: [phone] ID Date Data Source [id number] 09/03/2020 03:40:00 PM EDT [facility] ([facility]) Name Value Range Interpretation Code Description Data Roseanne rce(s) Supporting Document(s) Free T4 1.07 ng/dL 0.76-1.46 Normal (applies to non-numeric resul ts) [facility] ([facility]) Thyroid Stimulating Hormone 1.070 uIU/ML 0.358-3.740 Norm al (applies to non- numeric results) [facility] ([facility]) ID Date Data Source [id number] 09/03/2020 03:40:00 PM EDT [facility] ([facility]) Name Value Range Interpretation Code Description Data Roseanne rce(s) Supporting Document(s) Triglycerides Level 179 mg/dL Above high normal [facility] ([facility]) Cholesterol Level 180 mg/dL Normal (applies to non-numeri c results) [facility] ([facility]) LDL Cholesterol 88 mg/dL Normal (applies to non-numeric results) [facility] ([facility]) Non-HDL-C 124 mg/dL Normal (applies to non-numeric resul ts) [facility] ([facility]) HDL Cholesterol 56 mg/dL Normal (applies to non-numeric results) [facility] ([facility]) Cholesterol Risk Ratio 3.214 Normal (applies to non-n umeric results) [facility] ([facility]) ID Date Data Source [id number] 06/15/2020 04:39:00 PM EST [facility] ([facility]) Name Value Range Interpretation Code Description Data Roseanne rce(s) Supporting Document(s) Erythrocyte sedimentation rate by Westergren method 25 mm/hr 0-20 Above high normal [facility] ([facility]) ID Date Data Source [id number] 06/15/2020 04:39:00 PM EST [facility] ([facility]) Name Value Range Interpretation Code Description Data Roseanne rce(s) Supporting Document(s) White Blood Count 7.7 10 4.0-10.0 Normal (applies to non-numeri c results) [facility] ([facility]) Red Blood Count 4.05 10 4.30-6.10 Below low normal [facility] ([facility]) Hemoglobin 13.8 g/dL 13.5-17.5 Normal (applies to non-numeric resul ts) [facility] ([facility]) Mean Corpuscular Volume 102.7 fl 80.0-96.0 Above high normal [facility] ([facility]) Hematocrit 41.6 % 42.0-52.0 Below low normal [facility] ( [facility]) Mean Corpuscular Hemoglobin 34.1 pg 27.0-33.0 Above high normal [facility] ([facility]) Red Cell Distribution Width 13.3 % 11.5-14.5 Norm al (applies to non-numeric results) [facility] ([facility]) Mean Corpuscular HGB Conc 33.2 g/dL 32.0-36.5 Normal (applies to non-numeric results) [facility] ([facility]) Lymph % 32.2 % 24.0-44.0 Normal (applies to non-numeric resul ts) [facility] ([facility]) Platelet Count, Automated 283 10 150-450 Normal (applies to non-numeric results) [facility] ([facility]) Neutrophils % 54.3 % 36.0-66.0 Normal (applies to non-numeric re sults) [facility] ([facility]) Eos % 1.6 % 0.0-3.0 Normal (applies to non-numeric resul ts) [facility] ([facility]) [facility] % 10.7 % 0.0-8.0 Above high normal [facility] ([facility]) Nucleated Red Blood Cell % 0.0 % 0-0 Normal (applies to n on-numeric results) [facility] ([facility]) Immature Granulocyte % 0.3 % 0-3.0 Normal (applies to non-n umeric results) [facility] ([facility]) Baso % 0.9 % 0.0-1.0 Normal (applies to non-numeric resul ts) [facility] ([facility]) Neutrophils # 4.2 10 1.5-8.5 Normal (applies to non-numeric re sults) [facility] ([facility]) Lymph # 2.5 10 1.5-5.0 Normal (applies to non-numeric resul ts) [facility] ([facility]) Eos # 0.1 10 0.0-0.5 Normal (applies to non-numeric resul ts) [facility] ([facility]) [facility] # 0.8 10 0.0-0.8 Normal (applies to non-numeric resul ts) [facility] ([facility]) Baso # 0.1 10 0.0-0.2 Normal (applies to non-numeric resul ts) [facility] ([facility]) ID Date Data Source [id number] 06/15/2020 04:39:00 PM EST [facility] ([facility]) Name Value Range Interpretation Code Description Data Roseanne rce(s) Supporting Document(s) C reactive protein [Mass/volume] in Serum or Plasma by High sensitivity method 1.63 mg/dL 0.00-0.30 Above high normal [facility] ([facility]) ID Date Data Source [id number] 06/15/2020 04:39:00 PM EST [facility] ([facility]) Name Value Range Interpretation Code Description Data Roseanne rce(s) Supporting Document(s) Glucose, Fasting 113 mg/dL 70-100 Above high normal [facility] ([facility]) Creatinine For GFR 0.82 mg/dL 0.70-1.30 Normal (applies to non -numeric results) [facility] ([facility]) Blood Urea Nitrogen 19 mg/dL 7-18 Above high normal [facility] Glomerular Filtration Rate Laboratory test result Normal (applies to non- numeric results) [facility] ([facility]) <content>Units are mL/min/1.73 m2</content>
<content></content>
<content>Chronic Kidney Disease Staging per NKF:</content>
<content></content>
<content>Stage I & II GFR >=60 Normal to Mildly Decreased</content>
<content>Stage III GFR 30- 59 Moderately Decreased</content>
<content>Stage IV GFR 15-29 Severely Decreased</content>
<content>Stage V GFR <15 Very Little GFR Left</content>
<content>ESRD GFR <15 on DIRECTOR OF SCOUT WORK</content>
<content></content> Sodium Level 140 meq/L 136-145 Normal (applies to non-numeric res ults) [facility] ([facility]) Chloride Level 105 meq/L 98-107 Normal (applies to non-numeric r esults) [facility] ([facility]) Potassium Serum 4.7 meq/L 3.5-5.1 Normal (applies to non-numeric results) [facility] ([facility]) Carbon Dioxide Level 29 meq/L 21-32 Normal (applies to non-num [place] results) [facility] Anion Gap 6 meq/L 8-16 Below low normal [facility]) Alt/SGPT 27 U/L 12-78 Normal (applies to non-numeric resul ts) [facility] ([facility]) Ast/Sgot 22 U/L 7-37 Normal (applies to non-numeric resul ts) [facility] ([facility]) Calcium Level 9.0 mg/dL 8.8-10.2 Normal (applies to non-numeric re sults) [facility] ([facility]) Bilirubin,Total 0.3 mg/dL 0.2-1.0 Normal (applies to non-numeric results) [facility] Alkaline Phosphatase 105 U/L 45-117 Normal (applies to non-num [place] results) [facility] ([facility]) Total Protein 7.2 GM/DL 6.4-8.2 Normal (applies to non-numeric re sults) [facility] ([facility]) Albumin/Globulin Ratio 0.9 Normal (applies to non-n umeric results) [facility] ([facility]) Albumin 3.5 GM/DL 3.2-5.2 Normal (applies to non-numeric resul ts) [facility] ([facility]) ID Date Data Source [id number] 03/16/2020 03:56:00 PM EST [facility] ([facility]) Name Value Range Interpretation Code Description Data Roseanne rce(s) Supporting Document(s) Erythrocyte sedimentation rate by Westergren method 30 mm/hr 0-20 Above high normal [facility] ([facility]) ID Date Data Source [id number] 03/16/2020 03:56:00 PM EST [facility] ([facility]) Name Value Range Interpretation Code Description Data Roseanne rce(s) Supporting Document(s) White Blood Count 7.2 10 4.0-10.0 Normal (applies to non-numeri c results) [facility] ([facility]) Red Blood Count 4.33 10 4.30-6.10 Normal (applies to non-numeric results) [facility] ([facility]) Hemoglobin 14.1 g/dL 13.5-17.5 Normal (applies to non-numeric resul ts) [facility] ([facility]) Hematocrit 43.6 % 42.0-52.0 Normal (applies to non-numeric resul ts) [facility] ([facility]) Mean Corpuscular Volume 100.7 fl 80.0-96.0 Above high normal [facility] ([facility]) Mean Corpuscular HGB Conc 32.3 g/dL 32.0-36.5 Normal (applies to non-numeric results) [facility] ([facility]) Mean Corpuscular Hemoglobin 32.6 pg 27.0-33.0 Norm al (applies to non-numeric results) [facility] ([facility]) Platelet Count, Automated 351 10 150-450 Normal (applies to non-numeric results) [facility] ([facility]) Red Cell Distribution Width 13.7 % 11.5-14.5 Norm al (applies to non-numeric results) [facility] ([facility]) Lymph % 27.9 % 24.0-44.0 Normal (applies to non-numeric resul ts) [facility] ([facility]) Neutrophils % 59.8 % 36.0-66.0 Normal (applies to non-numeric re sults) [facility] ([facility]) Eos % 1.7 % 0.0-3.0 Normal (applies to non-numeric resul ts) [facility] ([facility]) [facility] % 8.9 % 0.0-5.0 Above high normal [facility] ([facility]) Baso % 1.0 % 0.0-1.0 Normal (applies to non-numeric resul ts) [facility] ([facility]) Immature Granulocyte % 0.7 % 0-3.0 Normal (applies to non-n umeric results) [facility] ([facility]) Nucleated Red Blood Cell % 0.0 % 0-0 Normal (applies to n on-numeric results) [facility] ([facility]) Neutrophils # 4.3 10 1.5-8.5 Normal (applies to non-numeric re sults) [facility] ([facility]) [facility] # 0.6 10 0.0-0.8 Normal (applies to non-numeric resul ts) [facility] ([facility]) Lymph # 2.0 10 1.5-5.0 Normal (applies to non-numeric resul ts) [facility] ([facility]) Baso # 0.1 10 0.0-0.2 Normal (applies to non-numeric resul ts) [facility] ([facility]) Eos # 0.1 10 0.0-0.5 Normal (applies to non-numeric resul ts) [facility] ([facility]) ID Date Data Source [id number] 03/16/2020 03:56:00 PM EST [facility] [place] Name Value Range Interpretation Code Description Data Roseanne rce(s) Supporting Document(s) C reactive protein [Mass/volume] in Serum or Plasma by High sensitivity method 1.07 mg/dL 0.00-0.30 Above high normal [facility] ([facility]) ID Date Data Source [id number] 03/16/2020 03:56:00 PM EST [facility] [place] [place] Name Value Range Interpretation Code Description Data Roseanne rce(s) Supporting Document(s) Glucose, Fasting 117 mg/dL 70-100 Above high normal [facility] ([facility]) Creatinine For GFR 0.79 mg/dL 0.70-1.30 Normal (applies to non -numeric results) [facility] ([facility]) Blood Urea Nitrogen 7 mg/dL 7-18 Normal (applies to non-nume eleno results) [facility] ([facility]) Sodium Level 140 meq/L 136-145 Normal (applies to non-numeric res ults) [facility] ([facility]) Glomerular Filtration Rate Laboratory test result Normal (applies to non- numeric results) [facility] ([facility]) <content>Units are mL/min/1.73 m2</content>
<content></content>
<content>Chronic Kidney Disease Staging per NKF:</content>
<content></content>
<content>Stage I & II GFR >=60 Normal to Mildly Decreased</content>
<content>Stage III GFR 30- 59 Moderately Decreased</content>
<content>Stage IV GFR 15-29 Severely Decreased</content>
<content>Stage V GFR <15 Very Little GFR Left</content>
<content>ESRD GFR <15 on DIRECTOR OF SCOUT WORK</content>
<content></content> Chloride Level 106 meq/L 98-107 Normal (applies to non-numeric r esults) [facility] ([facility]) Potassium Serum 3.9 meq/L 3.5-5.1 Normal (applies to non-numeric results) [facility] ([facility]) Anion Gap 5 meq/L 8-16 Below low normal [facility] ( [facility]) Carbon Dioxide Level 29 meq/L 21-32 Normal (applies to non-num [place] results) [facility] ([facility]) Calcium Level 9.0 mg/dL 8.8-10.2 Normal (applies to non-numeric re sults) [facility] ([facility]) Ast/Sgot 27 U/L 7-37 Normal (applies to non-numeric resul ts) [facility] ([facility]) Alt/SGPT 33 U/L 12-78 Normal (applies to non-numeric resul ts) [facility] ([facility]) Alkaline Phosphatase 123 U/L 45-117 Above high normal [facility] ([facility]) Bilirubin,Total 0.4 mg/dL 0.2-1.0 Normal (applies to non-numeric results) [facility] ([facility]) Albumin 3.7 GM/DL 3.2-5.2 Normal (applies to non-numeric resul ts) [facility] ([facility]) Total Protein 7.9 GM/DL 6.4-8.2 Normal (applies to non-numeric re sults) [facility] ([facility]) Albumin/Globulin Ratio 0.9 Normal (applies to non-n umeric results) [facility] ([facility]) Procedure Social History Code Duration Value Status Description Data Source(s ) Alcohol intake 11/30/2020 12:00:00 AM EDT Current drinker of al cohol (finding) completed Current drinker of alcohol (finding) [facility] Tobacco use and exposure 11/30/2020 12:00:00 AM EDT Never used co mpleted Never used [place] [facility] C[facility]-years 11/30/2020 12:00:00 AM EDT UNK [facility] Cigarettes smoked current (pack per day) - Reported 12/01/19 12:00:00 AM EDT UNK completed [facility] Smoking 11/30/2020 12:00:00 AM EDT Former smoker completed Former smoker [facility] Smoking 11/11/2020 12:00:00 AM EDT - 09/30/2018 12:00:00 AM EDT Patient is a former smoker completed Patient is a former smoker [facility] ([facility]) Vital Signs ID Date Data Source UNK Name Value Range Interpretation Code Description Data Source(s) Diastolic blood pressure 72 mm[Hg] 72 mm[Hg] [facility]) Systolic blood pressure 126 mm[Hg] 126 mm[Hg] M [facility] ([facility]) Body mass index (BMI) [Ratio] 26.8 kg/m2 26.8 k g/m2 [facility] ([facility]) Heart rate 113 /min 113 /min [facility] ([facility]) Respiratory rate 18 /min 18 /min [facility] ( [facility]) Body temperature 99.1 [degF] 99.1 [degF] [facility] ([facility]) Body height 71.6 [in_i] 71.6 [in_i] [facility] ([facility]) " Body weight 195.38 [lb_av] 195.38 [lb_av] [facility] T ([facility]) Oxygen saturation in Arterial blood by Pulse oximetry 96 % 96 % [facility] ([facility]) [place] body weight 172 [lb_av] 172 [lb_av] [facility] T ([facility]) Body temperature 97.8 [degF] 97.8 [degF] [facility] ([facility]) Systolic blood pressure 130 mm[Hg] 130 mm[Hg] [facility] ([facility]) Diastolic blood pressure 70 mm[Hg] 70 mm[Hg] [facility] ([facility]) Body height 71.6 [in_i] 71.6 [in_i] [facility] ([facility]) " Body weight 201.00 [lb_av] 201.00 [lb_av] [facility] T ([facility]) Heart rate 83 /min 83 /min [facility] ([facility]) Respiratory rate 14 /min 14 /min [facility] ( [facility]) Oxygen saturation in Arterial blood by Pulse oximetry 97 % 97 % [facility]) [place] body weight 172 [lb_av] 172 [lb_av] [facility] ([facility]) Body mass index (BMI) [Ratio] 27.6 kg/m2 27.6 k g/m2 [facility] ([facility]) Systolic blood pressure 132 mm[Hg] 132 mm[Hg] M [facility] ([facility]) Diastolic blood pressure 74 mm[Hg] 74 mm[Hg] [facility] ([facility]) Body temperature 96.5 [degF] 96.5 [degF] [facility] ([facility]) Oxygen saturation in Arterial blood by Pulse oximetry 99 % 99 % [facility] ([facility]) [place] body weight 172 [lb_av] 172 [lb_av] [facility] T ([facility]) Body height 71.6 [in_i] 71.6 [in_i] [facility] ([facility]) 5'11.60" Body weight 216.12 [lb_av] 216.12 [lb_av] [facility] ([facility]) Body mass index (BMI) [Ratio] 29.6 kg/m2 29.6 k g/m2 [facility] ([facility]) Heart rate 95 /min 95 /min [facility] ([facility]) Respiratory rate 20 /min 20 /min [facility] ( [facility]) Respiratory rate 16 /min 16 /min [facility] ( [facility]) Body weight 200.38 [lb_av] 200.38 [lb_av] [facility] T ([facility]) Systolic blood pressure 118 mm[Hg] 118 mm[Hg] M [facility] ([facility]) Body temperature 96.7 [degF] 96.7 [degF] [facility] ([facility]) Diastolic blood pressure 78 mm[Hg] 78 mm[Hg] [facility]) Body height 71.6 [in_i] 71.6 [in_i] [facility] ([facility]) 5'11.60" Heart rate 104 /min 104 /min [facility] ([facility]) Body mass index (BMI) [Ratio] 27.5 kg/m2 27.5 k g/m2 [facility] ([facility]) Oxygen saturation in Arterial blood by Pulse oximetry 97 % 97 % [facility] ([facility]) [place] body weight 172 [lb_av] 172 [lb_av] [facility] T ([facility]) Patient Treatment Plan of Care Planned Activity Planned Date Details Description Data Source (s) Cefadroxil 500 MG Oral Capsule 11/30/2020 12:00:00 AM [facility] Cefadroxil 500 MG Oral Capsule 11/30/2020 12:00:00 AM [facility] Cefadroxil 500 MG Oral Capsule 11/30/2020 12:00:00 AM [facility] doxycycline hyclate 100 MG Oral Capsule 06/20/2019 12:00:00 AM [facility] Rifampin 300 MG Oral Capsule 02/08/2017 12:00:00 AM [facility]
--- OUTSIDE RECORDS SUMMARY | 2021-02-27 02:26 | CCD ---
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 Name Role Phone MIKAEL TAMAYOC Unavailable Unavailable BELKISMIKAEL-C Unavailable Unavailable BELKIS, MIKAEL LOWERY-C Unavailable Unavailable BELKIS, MIKAEL LOWERY-C Unavailable Unavailable BELKISMIKAEL-C Unavailable Unavailable BELKIS, MIKAEL LOWERY-C Unavailable Unavailable BELKISMIKAEL-C Unavailable Unavailable BELKIS, MIKAEL [...] Sánchez PA Unavailable Unavailable Aditya, L Ave RADIO DIRECTOR Unavailable Unavailable Aditya, L Ave RADIO DIRECTOR Unavailable Unavailable Aditya, L Ave RADIO DIRECTOR Unavailable Unavailable Aditya, L Ave RADIO DIRECTOR Unavailable Unavailable Aditya, L Ave RADIO DIRECTOR Unavailable Unavailable Aditya, L Ave RADIO DIRECTOR Unavailable Unavailable Aditya, L Ave RADIO DIRECTOR Unavailable Unavailable Aditya, L Ave RADIO DIRECTOR Unavailable Unavailable Aditya, L Ave RADIO DIRECTOR Unavailable Unavailable Aditya, L Ave RADIO DIRECTOR Unavailable Unavailable Aditya, L Ave RADIO DIRECTOR Unavailable Unavailable Aditya, L Ave RADIO DIRECTOR Unavailable Unavailable Aditya, L Ave RADIO DIRECTOR Unavailable Unavailable Aditya, L Ave RADIO DIRECTOR Unavailable Unavailable Aditya, L Ave RADIO DIRECTOR Unavailable Unavailable Aditya, L Ave RADIO DIRECTOR Unavailable Unavailable Aditya, L Ave RADIO DIRECTOR Unavailable Unavailable Aditya, L Ave RADIO DIRECTOR Unavailable Unavailable Aditya, L Ave RADIO DIRECTOR Unavailable Unavailable Aditya, L Ave RADIO DIRECTOR Unavailable Unavailable Aditya, L Ave RADIO DIRECTOR Unavailable Unavailable Aditya, L Ave RADIO DIRECTOR Unavailable Unavailable Aditya, L Ave RADIO DIRECTOR Unavailable Unavailable Aditya, L Ave RADIO DIRECTOR Unavailable Unavailable Aditya, L Ave RADIO DIRECTOR Unavailable Unavailable Aditya, L Ave RADIO DIRECTOR Unavailable Unavailable Aditya, L Ave RADIO DIRECTOR Unavailable Unavailable Aditya, L Ave RADIO DIRECTOR Unavailable Unavailable Aditya, L Ave RADIO DIRECTOR Unavailable Unavailable Aditya, L Ave RADIO DIRECTOR Unavailable Unavailable Aditya, L Ave RADIO DIRECTOR Unavailable Unavailable Aditya, L Ave RADIO DIRECTOR Unavailable Unavailable Aditya, L Ave RADIO DIRECTOR Unavailable Unavailable Aditya, L Ave RADIO DIRECTOR Unavailable Unavailable Aditya, L Ave RADIO DIRECTOR Unavailable Unavailable Aditya, L Ave RADIO DIRECTOR Unavailable Unavailable Aditya, L Ave RADIO DIRECTOR Unavailable Unavailable Aditya, L Ave RADIO DIRECTOR Unavailable Unavailable Aditya, L Ave RADIO DIRECTOR Unavailable Unavailable Aditya, L Ave RADIO DIRECTOR Unavailable Unavailable Aditya, L Ave RADIO DIRECTOR Unavailable Unavailable Aditya, L Ave RADIO DIRECTOR Unavailable Unavailable Chauncey Barker MD Unavailable Unavailable [...] is protected by Article 27-F of the [facility] Public Health law. If you continue you may have access to information: Regarding HIV / AIDS; Provided by facilities licensed or operated by the [facility] Office of Mental Health; or Provided by the [facility] Office for People With Developmental Disabilities. If such information is present, then the following [facility] mandated warning applies: This information has been [...] law may result in a fine or nursing home sentence or both. A general authorization for the release of medical or other information is NOT sufficient authorization for further disc losure. Family History Family Member Name Family Member Gender Family Member Status Date o f Status Description Data Source(s) Unknown Male Problem [facility] ([facility]) Unknown Male Problem [facility] ([facility]) Unknown Female Problem [facility] ([facility]) Unknown Female Problem [facility] ([facility]) Encounters Encounter Providers Location Date Indications Data Source(s ) Outpatient Attender: ERIN DIAZ MD 06/02/2021 12:00:00 AM [facility] Outpatient Attender: MIKAEL Charltonferrer: Marin mccrary MD [id number] 11/30/2020 12:00:00 AM EDT - 11/30/2020 02:39:56 PM [facility] Outpatient Attender: MIKAEL TAMAYO PA-C 11/27/2020 12:00 :00 AM [facility] Office Visit Attender: Sánchez LOWERY [facility] 11/11/2020 11:00:00 AM [facility] Outpatient Attender: Sánchez LOWERY [facility] 08/25/2020 11:00:00 AM EDT [facility] Outpatient Attender: MIKAEL TAMAYO PA-C 06/26/2020 12:00 :00 AM [facility] Outpatient Attender: Sánchez LOWERY [facility] 05/06/2020 09:20:00 AM EST [facility] Outpatient Attender: Ave Burgess NPReferrer: Marin najera MD 04/14/2020 12:00:00 AM [facility] Outpatient Attender: MIKAEL Charltonferrer: Marin mccrary MD 02/07/2020 12:00:00 AM [facility] Outpatient Attender: Sánchez LOWERY [facility] 01/29/2020 11:00:00 AM EDT [facility] ([facility]) Outpatient Attender: Rena LOWERY 10/02/2015 12:00:0 0 AM EDT [facility] Immunizations Vaccine Date Status Description Data Source(s) COVID-19 VACCINE B[facility] 09/16/2020 12:00:00 AM EDT completed MOSIIS Vaccine Series Complete: YESThis Data wa s Submitted to [facility] Via [facility]. COVID-19 VACCINE Pfizer 08/26/2020 12:00:00 AM EDT completed NYSIIS Vaccine Series Complete: NOThis Data was Submitted to [facility] [employer]. Medications Medication Brand Name Start Date Product [...] DAILY DOSE = 1 PATCH/3DAYS SOLD: 02/10/2021 [facility] Amphetamine aspartate 7.5 MG / Amphetami [...] = 1 EVERY 3 DAYS SOLD: 02/10/2021 [facility] 1 mg 02/10/2021 12:00:00 AM EDT tablet 60 TAKE ONE TABLET BY MOUTH TWICE A DAY NEEDED - MAXIMUM DAILY DOSE = 2 TABLETS TAKE ONE TABLET BY MOUTH TWICE A DAY NEEDED - MAXIMUM DAILY DOSE = 2 TABLETS SOLD: 02/10/2021 [facility] 72 HR Fentanyl 0.025 MG/HR Transdermal System [...] mg Oral active Take 1 capsule by [facility] [employer] [facility] Cefadroxil 500 MG Oral Capsule Cefadroxil 500 MG Oral Capsule (DURICEF) Cefadroxil 500 MG Oral Capsule (DURICEF) 11/30/2020 12:00:00 AM EDT 500 mg Oral active Take 1 capsule by [facility] Cefadroxil 500 MG Oral Capsule Cefadroxil 500 MG Oral Capsule (DURICEF) Cefadroxil 500 MG Oral Capsule (DURICEF) 11/30/2020 12:00:00 AM EDT 500 mg Oral aborted Take 1 capsule by [facility] [employer] [facility] 25 mcg/hr 11/27/2020 12:00:00 AM EDT patch [...] 1 PATCH EVERY 3 DAYS SOLD: 09/21/2020 [facility] 30 mg 09/18/2020 12:00:00 AM EDT tablet 60 TAKE ONE TABLET BY MOUTH EVERY MORNING AND 1 EVERY AFTERNOON MAXIMUM DAILY DOSE = 2 TAKE ONE TABLET BY MOUTH EVERY MORNING AND 1 EVERY AFTERNOON MAXIMUM DAILY DOSE = 2 SOLD: 09/19/2020 [facility] 1 mg 09/18/2020 12:00:00 AM EDT tablet 60 TAKE ONE TABLET BY MOUTH TWICE A DAY MAXIMUM DAILY DOSE = 2 TAKE ONE TABLET BY MOUTH TWICE A DAY MAX IMUM DAILY DOSE = 2 SOLD: 09/19/2020 [facility] 1,250 mcg (50,000 unit) 09/07/2020 12:00:00 AM EDT capsule 4 TAKE 1 CAPSULE BY MOUTH ONCE EACH WEEK TAKE 1 CAPSULE BY MOUTH ONCE EACH WEEK SOLD: 09/08/2020 [facility] Ergocalciferol 85327 UNT Oral Capsule Vitamin D (Ergocalcife rol) 09/06/2020 12:00:00 AM EDT active M [facility] ([facility]) 12 mcg/hr 08/26/2020 12:00:00 AM EDT patch 72 hour 10 APPLY 1 PATCH TOPICALLY AND CHANGE EVERY 72 HOURS MAXIMUM DAILY DOSE = 1 PATCH PER 3 DAYS APPLY 1 PATCH TOPICALLY AND CHANGE EVERY 72 HOURS MAXIMUM DAILY DOSE = 1 PATCH PER 3 DAYS SOLD: 08/27/2020 [facility] duloxetine 30 MG Delayed Release Oral Capsule Duloxetine HCL 08/25/2020 12:00:00 AM EDT ORAL active [facility] ([facility]) 30 mg 08/25/2020 12:00:00 AM EDT capsule,delayed release (DR/EC) 30 TAKE ONE CAPSULE BY MOUTH EVERY DAY WITH 60 MG DOSE TAKE ONE CAPSULE BY MOUTH EVERY DAY WITH 60 MG DOSE SOLD: 08/27/2020 [facility] 30 mg 08/17/2020 12:00:00 AM [...] MAXIMUM DAILY DOSE = 2 SOLD: 06/12/2020 [facility] 30 mg 06/06/2020 12:00:00 AM EST [...] HCL 02/18/2020 12:00:00 AM EDT active [facility] ([facility]) 25 mcg/hr 01/31/2020 12:00:00 AM EDT patch [...] 11/28/2019 12:00:00 AM EDT ORAL completed [facility] ([facility]) doxycycline hyclate 100 MG Oral Capsule Doxycycline Hyclate 100 MG Oral Capsule (VIBRAMYCIN) Doxycycline Hyclate 100 MG Oral Capsule (VIBRAMYCIN) 0 06/20/2019 12:00:00 AM EST aborted [facility] Rifampin 300 MG Oral Capsule rifAMPin (RIFADIN) 300 MG capsule rifAMPin (RIFADIN) 300 MG capsule 02/08/2017 12:00:00 AM EDT 300 mg Oral aborted Take 1 capsule by mouth Two Times Daily [facility] Insurance Providers Payer name Policy type / Coverage type Policy ID Covered green party ID Covered green party's relationship to waldrop Policy [employer] Plan Information Special Funds Workers Compensation [id number] Self MVP Preferred (Hmo) Health Maintenance Organization (HMO) [id number] Self [id number] [facility] Health Plan Commercial [id number] Self [facility] () Workers Compensation [id number] Self [id number] [employer] () Workers Compensation [id number] Self [id number] [facility] [id number] SP [id number] [facility] H [id number] Self [id number] 200 [employer]UE OPTIONS [id number] SP [id number] [facility] HEALTH CARE [id number] SP [id number] [employer] () Workers Compensation [id number] Self [id number] [employer] [facility]) Workers Compensation [id number] Self [id number] [employer] () Workers Compensation [id number] Self [id number] [employer] () Workers Compensation [id number] Self 0 [id number] [employer] () Workers Compensation [id number] Self [id number] [facility] () Workers Compensation [id number] Self 0 [id number] [employer] () Workers Compensation [id number] Self 0 [id number] [employer] () Workers Compensation [id number] Self [id number] [employer] () Workers Compensation [id number] Self [id number] [employer] () Workers Compensation [id number] Self [id number] [employer] () Workers Compensation [id number] Self [id number] MVP (pr) Commercial [id number] Self [id number] MVP SELECT [id number] SP [id number] MVP Healthcare F [id number] SELF [id number] MVP HEALTH CARE [id number] SP [id number] SELF PAY MVP SELECT [id number] SP [id number] MVP HEALTH PLAN O [id number] S [id number] MVP HEALTH PLAN O [id number] S [id number] MVP SELECT [id number] SP [id number] MVP SELECT UNAVAILABLE UNAVAIL ABLE JENN[employer]ER CLAIM SERVICES P [id number] S [id number] MEDICARE [id number] SP [id number] SELF PAY UNAVAILABLE UNAVAILA BLE NO FAULT NAHOMI [id number] MVP HEALTH CARE HEA [id number] S [id number] MVP Commercial [id number] Self [id number] [employer] () Workers Compensation [id number] Self [id number] [employer] () Workers Compensation [id number] Self [id number] MVP Commercial [id number] Self [id number] MVP Commercial [id number] [id number] Self [id number] [facility] HE[facility] CARE O [id number] S [id number] MVP Commercial [id number] [id number] Self [id number] MVP Commercial [id number] [id number] Self [id number] MVP/Preferred Care Commercial [id number] [id number] Self [id number] MVP Commercial [id number] [id number] Self [id number] MVP Commercial [id number] Self [id number] MVP Commercial [id number] [id number] Self [id number] MVP Commercial [id number] Self [id number] MVP SELECT [id number] SP [id number] MVP Commercial [id number] Self [id number] MVP/Preferred Care Commercial [id number] Self VALUE OPTIONS [id number] SP [id number] VALUE OPTIONS [id number] SP [id number] MVP SELECT [id number] SP [id number] MVP HEALTH PLAN O [id number] S [id number] Problems, Conditions, and Diagnoses Code Display Name Description Problem Type Effective Dates Data Source(s) 00630312 Vitamin D deficiency Vitamin D deficiency Problem 09/06/2020 12:00:00 AM EDT [facility] Surgeries/Procedures Procedure Description Date Indications Data Source(s) Brief Emotional/Behav Assessment W/ Scoring Doc Per Standard Inst 11/11/2020 12:00:00 AM EDT [facility] ([facility]) OFFICE OUTPATIENT VISIT 25 MINUTES 08/25/2020 12:00:00 AM EDT [facility] ([facility]) Results ID Date Data Source [id number] 02/10/2021 04:02:00 PM EDT [facility] ([facility]) Name Value Range Interpretation Code Description Data Roseanne rce(s) Supporting Document(s) Erythrocyte sedimentation rate by Westergren method 29 mm/hr 0-20 Above high normal [facility] ([facility]) ID Date Data Source [id number] 02/10/2021 04:02:00 PM EDT [facility] ([facility]) Name Value Range Interpretation Code Description Data Roseanne rce(s) Supporting Document(s) White Blood Count 8.1 10 4.0-10.0 Normal (applies to non-numeri c results) [facility] ([facility]) Hematocrit 41.5 % 42.0-52.0 Below low normal [facility] ( [facility]) Red Blood Count 4.11 10 4.30-6.10 Below low normal [facility] ([facility]) Hemoglobin 13.8 g/dL 13.5-17.5 Normal (applies to non-numeric resul ts) [facility] ([facility]) Mean Corpuscular Hemoglobin 33.6 pg 27.0-33.0 Above high normal [facility] ([facility]) Mean Corpuscular Volume 101.0 fl 80.0-96.0 Above high normal [facility] Mean Corpuscular HGB Conc 33.3 g/dL 32.0-36.5 Normal (applies to non-numeric results) [facility] ([facility]) Red Cell Distribution Width 13.3 % 11.5-14.5 Norm al (applies to non-numeric results) [facility] ([facility]) Neutrophils % 59.2 % 36.0-66.0 Normal (applies to non-numeric re sults) [facility] ([facility]) Platelet Count, Automated 306 10 150-450 Normal (applies to non-numeric results) [facility] ([facility]) Lymph % 28.2 % 24.0-44.0 Normal (applies to non-numeric resul ts) [facility] ([facility]) Weld % 8.9 % 2.0-8.0 Above high normal [facility] ([facility]) Eos % 2.5 % 0.0-3.0 Normal (applies to non-numeric resul ts) [facility] ([facility]) Baso % 0.7 % 0.0-1.0 Normal (applies to non-numeric resul ts) [facility] ([facility]) Immature Granulocyte % 0.5 % 0-3.0 Normal (applies to non-n umeric results) [facility] ([facility]) Neutrophils # 4.8 10 1.5-8.5 Normal (applies to non-numeric re sults) [facility] ([facility]) Nucleated Red Blood Cell % 0.0 % 0-0 Normal (applies to n on-numeric results) [facility] ([facility]) Lymph # 2.3 10 1.5-5.0 Normal (applies to non-numeric resul ts) [facility] ([facility]) Eos # 0.2 10 0.0-0.5 Normal (applies to non-numeric resul ts) [facility] ([facility]) Weld # 0.7 10 0.0-0.8 Normal (applies to non-numeric resul ts) [facility] ([facility]) Baso # 0.1 10 0.0-0.2 Normal (applies to non-numeric resul ts) [facility] ([facility]) ID Date Data Source [id number] 02/10/2021 04:02:00 PM EDT [facility] Name Value Range Interpretation Code Description Data Roseanne rce(s) Supporting Document(s) C reactive protein [Mass/volume] in Serum or Plasma by High sensitivity method 0.70 mg/dL 0.00-0.30 Above high normal [facility] ([facility]) ID Date Data Source [id number] 02/10/2021 04:02:00 PM EDT [facility] ([facility]) Name Value Range Interpretation Code Description Data Roseanne rce(s) Supporting Document(s) Blood Urea Nitrogen 12 mg/dL 7-18 Normal (applies to non-nume eleno results) [facility] ([facility]) Glucose, Fasting 158 mg/dL 70-100 Above high normal [facility] ([facility]) Sodium Level 138 meq/L 136-145 Normal (applies to non-numeric res ults) [facility] Creatinine For GFR 0.78 mg/dL 0.70-1.30 Normal (applies to non -numeric results) [facility] Glomerular Filtration Rate Laboratory test result Normal (applies to non- numeric results) [facility] ([facility]) <content>Units are mL/min/1.73 m2</content>
<content></content>
<content>Chronic Kidney Disease Staging per NKF:</content>
<content></content>
<content>Stage I & II GFR >=60 Normal to Mildly Decreased</content>
<content>Stage III GFR 30- 59 Moderately Decreased</content>
<content>Stage IV GFR 15-29 Severely Decreased</content>
<content>Stage V GFR <15 Very Little GFR Left</content>
<content>ESRD GFR <15 on ASSURANCE ASSISTANT</content>
<content></content> Chloride Level 102 meq/L 98-107 Normal (applies to non-numeric r esults) [facility] ([facility]) Potassium Serum 4.3 meq/L 3.5-5.1 Normal (applies to non-numeric results) [facility] ([facility]) Anion Gap 2 meq/L 8-16 Below low normal [facility] ( [facility]) Calcium Level 9.1 mg/dL 8.8-10.2 Normal (applies to non-numeric re sults) [facility] ([facility]) Carbon Dioxide Level 34 meq/L 21-32 Above high normal [facility] ([facility]) Ast/Sgot 30 U/L 7-37 Normal (applies to non-numeric resul ts) [facility] ([facility]) Alt/SGPT 34 U/L 12-78 Normal (applies to non-numeric resul ts) [facility] ([facility]) Bilirubin,Total 0.3 mg/dL 0.2-1.0 Normal (applies to non-numeric results) [facility] ([facility]) Alkaline Phosphatase 122 U/L 45-117 Above high normal [facility] ([facility]) Total Protein 7.3 GM/DL 6.4-8.2 Normal (applies to non-numeric re sults) [facility] ([facility]) Albumin 3.4 GM/DL 3.2-5.2 Normal (applies to non-numeric resul ts) [facility] ([facility]) Albumin/Globulin Ratio 0.9 Normal (applies to non-n umeric results) [facility] ([facility]) ID Date Data Source [id number] 01/06/2021 04:49:00 PM EDT [facility] ([facility]) Name Value Range Interpretation Code Description Data Roseanne rce(s) Supporting Document(s) Erythrocyte sedimentation rate by Westergren method 35 mm/hr 0-20 Above high normal [facility] ID Date Data Source [id number] 01/06/2021 04:49:00 PM EDT [facility] ([facility]) Name Value Range Interpretation Code Description Data Roseanne rce(s) Supporting Document(s) White Blood Count 7.1 10 4.0-10.0 Normal (applies to non-numeri c results) [facility] ([facility]) Red Blood Count 4.07 10 4.30-6.10 Below low normal [facility] ([facility]) Hemoglobin 13.5 g/dL 13.5-17.5 Normal (applies to non-numeric resul ts) [facility] ([facility]) Mean Corpuscular Volume 99.8 fl 80.0-96.0 Above high normal [facility] ([facility]) Hematocrit 40.6 % 42.0-52.0 Below low normal [facility] ( [facility]) Mean Corpuscular HGB Conc 33.3 g/dL 32.0-36.5 Normal (applies to non-numeric results) [facility] ([facility]) Mean Corpuscular Hemoglobin 33.2 pg 27.0-33.0 Above high normal [facility] ([facility]) Red Cell Distribution Width 13.2 % 11.5-14.5 Norm al (applies to non-numeric results) [facility] Platelet Count, Automated 283 10 150-450 Normal (applies to non-numeric results) [facility] Neutrophils % 56.4 % 36.0-66.0 Normal (applies to non-numeric re sults) [facility] ([facility]) Lymph % 31.2 % 24.0-44.0 Normal (applies to non-numeric resul ts) [facility] ([facility]) Weld % 9.1 % 2.0-8.0 Above high normal [facility] ([facility]) Eos % 2.1 % 0.0-3.0 Normal (applies to non-numeric resul ts) [facility] ([facility]) Baso % 0.8 % 0.0-1.0 Normal (applies to non-numeric resul ts) [facility] ([facility]) Immature Granulocyte % 0.4 % 0-3.0 Normal (applies to non-n umeric results) [facility] ([facility]) Nucleated Red Blood Cell % 0.0 % 0-0 Normal (applies to n on-numeric results) [facility] ([facility]) Lymph # 2.2 10 1.5-5.0 Normal (applies to non-numeric resul ts) [facility] ([facility]) Neutrophils # 4.0 10 1.5-8.5 Normal (applies to non-numeric re sults) [facility] ([facility]) Eos # 0.2 10 0.0-0.5 Normal (applies to non-numeric resul ts) [facility] ([facility]) Weld # 0.6 10 0.0-0.8 Normal (applies to non-numeric resul ts) [facility] ([facility]) Baso # 0.1 10 0.0-0.2 Normal (applies to non-numeric resul ts) [facility] ([facility]) ID Date Data Source [id number] 01/06/2021 04:49:00 PM EDT [facility] Name Value Range Interpretation Code Description Data Roseanne rce(s) Supporting Document(s) C reactive protein [Mass/volume] in Serum or Plasma by High sensitivity method 1.45 mg/dL 0.00-0.30 Above high normal [facility] ([facility]) ID Date Data Source [id number] 01/06/2021 04:49:00 PM EDT [facility] ([facility]) Name Value Range Interpretation Code Description Data Roseanne rce(s) Supporting Document(s) Blood Urea Nitrogen 12 mg/dL 7-18 Normal (applies to non-nume eleno results) [facility] ([facility]) Glucose, Fasting 127 mg/dL 70-100 Above high normal [facility] Glomerular Filtration Rate Laboratory test result Normal (applies to non- numeric results) [facility] ([facility]) <content>Units are mL/min/1.73 m2</content>
<content></content>
<content>Chronic Kidney Disease Staging per NKF:</content>
<content></content>
<content>Stage I & II GFR >=60 Normal to Mildly Decreased</content>
<content>Stage III GFR 30- 59 Moderately Decreased</content>
<content>Stage IV GFR 15-29 Severely Decreased</content>
<content>Stage V GFR <15 Very Little GFR Left</content>
<content>ESRD GFR <15 on ASSURANCE ASSISTANT</content>
<content></content> Creatinine For GFR 0.66 mg/dL 0.70-1.30 Below low normal [facility] Sodium Level 140 meq/L 136-145 Normal (applies to non-numeric res ults) [facility] ([facility]) Potassium Serum 4.3 meq/L 3.5-5.1 Normal (applies to non-numeric results) [facility] ([facility]) Carbon Dioxide Level 30 meq/L 21-32 Normal (applies to non-num antonette results) [facility] ([facility]) Chloride Level 106 meq/L 98-107 Normal (applies to non-numeric r esults) [facility] ([facility]) Ast/Sgot 32 U/L 7-37 Normal (applies to non-numeric resul ts) [facility] Anion Gap 4 meq/L 8-16 Below low normal [facility] ( [facility]) Calcium Level 9.0 mg/dL 8.8-10.2 Normal (applies to non-numeric re sults) [facility] ([facility]) Alt/SGPT 43 U/L 12-78 Normal (applies to non-numeric resul ts) [facility] ([facility]) Alkaline Phosphatase 110 U/L 45-117 Normal (applies to non-num antonette results) [facility] ([facility]) Albumin 3.4 GM/DL 3.2-5.2 Normal (applies to non-numeric resul ts) [facility] ([facility]) Bilirubin,Total 0.4 mg/dL 0.2-1.0 Normal (applies to non-numeric results) [facility] ([facility]) Total Protein 7.2 GM/DL 6.4-8.2 Normal (applies to non-numeric re sults) [facility] ([facility]) Albumin/Globulin Ratio 0.9 Normal (applies to non-n umeric results) [facility] ([facility]) ID Date Data Source [id number] 11/30/2020 02:45:27 PM EDT [facility] Name Value Range Interpretation Code Description Data Roseanne rce(s) Supporting Document(s) Progress Note [facility] TJEZXt2qUqLZNiHb22/FBAfnKPMkc4EmGTqaQUs7FYpbDXZbV3PgVQM6nQ4vVHS0CXzUSfAjMdCmLEIb lbm [file] ICAgICAgICAgICAgICAgICAgICAgICAgICAgICAgIC AgICAgICAgICAgICAgICAgICAgICAgICAgICAgICAgICANCiAgICAgICAgICAgICAgICAgICAgICAgIC AgICAgICAgICAgICAgICAgICAgICAgICAgICAgICAgICAgICAgICAgICAgICAgICAgICAgICAgICAgIC AgICAgICAgICAgICAgICANCiAgICAgICAgICAgICAg ICAgICAgICAgICAgICAgICAgICAgICAgICAgICAgICAgICAgICAgICAgICAgICAgICAgICAgICAgICAg ICAgICAgICAgICAgICAgICAgICAgICAgICANCiAgICAgICAgICAgICAgICAgICAgICAgICAgICAgICAg ICAgICAgICAgICAgICAgICAgICAgICAgICAgICAgIC AgICAgICAgICAgICAgICAgICAgICAgICAgICAgICAgICAgICANCiAgICAgICAgICAgICAgICAgICAgIC AgICAgICAgICAgICAgICAgICAgICAgICAgICAgICAgICAgICAgICAgICAgICAgICAgICAgICAgICAgIC AgICAgICAgICAgICAgICAgICANCiAgICAgICAgICAg ICAgICAgICAgICAgICAgICAgICAgICAgICAgICAgICAgICAgICAgICAgICAgICAgICAgICAgICAgICAg ICAgICAgICAgICAgICAgICAgICAgICAgICAgICANCiAgICAgICAgICAgICAgICAgICAgICAgICAgICAg ICAgICAgICAgICAgICAgICAgICAgICAgICAgICAgIC AgICAgICAgICAgICAgICAgICAgICAgICAgICAgICAgICAgICAgICANCiAgICAgICAgICAgICAgICAgIC AgICAgICAgICAgICAgICAgICAgICAgICAgICAgICAgICAgICAgICAgICAgICAgICAgICAgICAgICAgIC AgICAgICAgICAgICAgICAgICAgICANCiAgICAgICAg ICAgICAgICAgICAgICAgICAgICAgICAgICAgICAgICAgICAgICAgICAgICAgICAgICAgICAgICAgICAg ICAgICAgICAgICAgICAgICAgICAgICAgICAgICAgICANCiAgICAgICAgICAgICAgICAgICAgICAgICAg ICAgICAgICAgICAgICAgICAgICAgICAgICAgICAgIC AgICAgICAgICAgICAgICAgICAgICAgICAgICAgICAgICAgICAgICAgICANCjw/hBIjQ3ndhJUmxxN5I3 chBh4MIv4LGN2zn3RyZYSsJHznthBwYagSYlYfEWWbAwgHWnu3NTbjLB7OeQSgB7IrC2QxOGuxHJ8LKS YuBLDxrKKqVZYpBMVwBtH7ROKfIUoaBO8EhIBwOBrq TNCoEUKbDvNgIWEmDUNgNCSfCRAuMIGPQL9JEbMqI7EniZ52PJOOTj5+ZXwwfsOlKqdEHpT1OVMhp4Ib IKq2PZ6QZIXrSdpqz5DcMyyrTODMXNzyAQ5SDGZ8FXS0NPWeKv7DKDCjV249inMnBI8AEc8KJkIhNO1h ly2CZwozGDQbDxqVDpu2SOwfNR2UkBYuHQzHvb6aeu ZhaoEFu8LejxTorZYYz71klJibzxVSJDSmtuyscpteNENzMRAsZV1oXzZuXkCnONS3OZTxTJ4uUQemFX 9FJPP2AGipNYHxETMvQ3iCNfHeHFCrNHMewDheLL2ADwGrD5MjpeZrvGWbASVpVNRPZb5+DQplbmRvYm iJUdErTQYfo1SkXXz1ZP1PMBAjNGpbVZ6WDSJelC2k QQuoVJ8DRiLzRfWpBRQWCoReK35zfAHhFEu1K4QoJoZrLNVjKflxGXCsKOwaXdIwYCXoWfYnVTzkEG8+ ID4+FFqeXZ5EHLcizyMyAPSfDh3VUGRgLJVjYB3jKVHwSRUjI8S1gKozBNXSZbSwF4oqkbeyDV0sXQEd E926zEldhyUlFFR5PSMnIj1AMXFrYRI1JOIcaZEdPl pqJBZHWBtsFC9TaJGzWMK8qO3tCDsoPHIcXWRmI0oXImFwzNhjNV29qYvuhsQwgJGuVCv+Ox8CAL8dr1 UtJNb0iyKpAOflKWXkVCoaGHNnGJPnLFBrSQY1VEO1RECEBvRtKUZySHHfYKqvNIJgGRDnpu1HQRAbKU CcZuY0NEHwTKRkTBWgIDfpOUBhAPS8YHTmMSUaTGBf QW4TEtPpMZRfBDFiHHyqCIAyRZMmxu9JAVUyVNNxLzZ6LGBfDOVlIYTpRZvqGEHsHSYuAaxvJVCjSYLv UZ6NOlYwVVTbUUJ7ZmvrBUYoSHDhbr3LQMJkOMRsZLs2TcNbHCMdKRXiHXgqZNBvEHF9OAHaKNVqZLMl FJ7XLdJzJFDhBLlbYIHsDFRkZWYskl4XQPBaSHXwJU idIFYdEXNgBIEtQGtyLMYlCDItTHFeJUOzYDPvSN3ADnKdWHXeVNK9WRYgOESaXKHzdi7WOEXbMIQmCj I5FHLyYRTwMJHgQGetRVOtJRKmLfWaHSZrYXZeOR8RShFgRGWjOYLeIeBdXHVfNINiog2OUDFpKGNgYr FvKjHpXOBoUAIkWIpkYUYtOQQvQmKrYIRsYWRqHP8X MrEbYCNkXqTtSSYkDBGuSQVbgh3DJDDqFWRwCFR6YPQoBCLjDEQhEQcuDUMnXKC5CKp6NDImIEEhPE7U UaHmKOZlWfB8DdIiEXAfPDKyfu0WYFWrKBZhKZw0KQKoROEoNFWcPBibXKXyOKZ6CVQ9OWRlZERrOG8A NrSiEZZbVitaYBImHKMsLFAqlu0RQSBpJIWnXaE8Te FsLODwVIJiXVhhEJJoPNO4ZlllVROxLWRzEL1OTcCsSEGyTkkvKZXyYINyEASxop1EJVYmEQCgDXRgCW XeXAScSJRtPTxjCTQlJMD6ZpNjHDHfBKKeHW2PTmQaAYxbZSYMUjy0SZbpY7m3DZLpSP6IP0Smw9KxFi ItWEUVDPtiQN5wurWpYEOtPx3ZR4fAXqadZ1SmHBMo WoFpUVI4PMCeCIY9PxRtHZGfMfHwUuR1Gx9fWTO4GjA5MeNvGMGlOpkrVcAkRQdqDpHpMPCnPEXqKNJc TeAtLJ9HDh9GXiC0ETD8xHIuLp6NBha8IZINEaKvXA9SNCs= ID Date Data Source [id number] 11/11/2020 12:51:00 PM EDT [facility] ([facility]) Name Value Range Interpretation Code Description Data Roseanne rce(s) Supporting Document(s) EKG Laboratory test result [facility] ([facility]) ID Date Data Source [id number] 09/03/2020 03:43:00 PM EDT [facility] ([facility]) Name Value Range Interpretation Code Description Data Roseanne rce(s) Supporting Document(s) C reactive protein [Mass/volume] in Serum or Plasma by High sensitivity method 1.09 mg/dL 0.00-0.30 Above high normal [facility] ([facility]) ID Date Data Source [id number] 09/03/2020 03:43:00 PM EDT [facility] Name Value Range Interpretation Code Description Data Roseanne rce(s) Supporting Document(s) Glucose, Fasting 105 mg/dL 70-100 Above high normal [facility] Blood Urea Nitrogen 13 mg/dL 7-18 Normal (applies to non-nume eleno results) [facility] ([facility]) Glomerular Filtration Rate Laboratory test result Normal (applies to non- numeric results) [facility] ([facility]) <content>Units are mL/min/1.73 m2</content>
<content></content>
<content>Chronic Kidney Disease Staging per NKF:</content>
<content></content>
<content>Stage I & II GFR >=60 Normal to Mildly Decreased</content>
<content>Stage III GFR 30- 59 Moderately Decreased</content>
<content>Stage IV GFR 15-29 Severely Decreased</content>
<content>Stage V GFR <15 Very Little GFR Left</content>
<content>ESRD GFR <15 on ASSURANCE ASSISTANT</content>
<content></content> Creatinine For GFR 0.63 mg/dL 0.70-1.30 Below low normal [facility] ([facility]) Sodium Level 137 meq/L 136-145 Normal (applies to non-numeric res ults) [facility] ([facility]) Potassium Serum 4.5 meq/L 3.5-5.1 Normal (applies to non-numeric results) [facility] ([facility]) Chloride Level 103 meq/L 98-107 Normal (applies to non-numeric r esults) [facility] ([facility]) Carbon Dioxide Level 31 meq/L 21-32 Normal (applies to non-num antonette results) [facility] ([facility]) Anion Gap 3 meq/L 8-16 Below low normal [facility] Ast/Sgot 22 U/L 7-37 Normal (applies to non-numeric resul ts) [facility] Calcium Level 9.2 mg/dL 8.8-10.2 Normal (applies to non-numeric re sults) [facility] Alt/SGPT 29 U/L 12-78 Normal (applies to non-numeric resul ts) [facility] ([facility]) Alkaline Phosphatase 101 U/L 45-117 Normal (applies to non-num antonette results) [facility] ([facility]) Bilirubin,Total 0.5 mg/dL 0.2-1.0 Normal (applies to non-numeric results) [facility] ([facility]) Total Protein 7.5 GM/DL 6.4-8.2 Normal (applies to non-numeric re sults) [facility] Albumin 3.7 GM/DL 3.2-5.2 Normal (applies to non-numeric resul ts) [facility] ([facility]) Albumin/Globulin Ratio 1.0 Normal (applies to non-n umeric results) [facility] ([facility]) ID Date Data Source [id number] 09/03/2020 03:43:00 PM EDT [facility] ([facility]) Name Value Range Interpretation Code Description Data Roseanne rce(s) Supporting Document(s) White Blood Count 8.4 10 4.0-10.0 Normal (applies to non-numeri c results) [facility] ([facility]) Red Blood Count 4.08 10 4.30-6.10 Below low normal [facility] ([facility]) Hemoglobin 13.8 g/dL 13.5-17.5 Normal (applies to non-numeric resul ts) [facility] ([facility]) Hematocrit 41.6 % 42.0-52.0 Below low normal [facility] ( [facility]) Mean Corpuscular Volume 102.0 fl 80.0-96.0 Above high normal [facility] ([facility]) Mean Corpuscular Hemoglobin 33.8 pg 27.0-33.0 Above high normal [facility] ([facility]) Red Cell Distribution Width 13.3 % 11.5-14.5 Norm al (applies to non-numeric results) [facility] ([facility]) Mean Corpuscular HGB Conc 33.2 g/dL 32.0-36.5 Normal (applies to non-numeric results) [facility] ([facility]) Lymph % 23.5 % 24.0-44.0 Below low normal [facility] ( [facility]) Platelet Count, Automated 317 10 150-450 Normal (applies to non-numeric results) [facility] ([facility]) Neutrophils % 65.5 % 36.0-66.0 Normal (applies to non-numeric re sults) [facility] ([facility]) Eos % 1.3 % 0.0-3.0 Normal (applies to non-numeric resul ts) [facility] ([facility]) Weld % 8.2 % 2.0-8.0 Above high normal [facility] ([facility]) Immature Granulocyte % 0.4 % 0-3.0 Normal (applies to non-n umeric results) [facility] ([facility]) Baso % 1.1 % 0.0-1.0 Above high normal [facility] ([facility]) Lymph # 2.0 10 1.5-5.0 Normal (applies to non-numeric resul ts) [facility] ([facility]) Nucleated Red Blood Cell % 0.0 % 0-0 Normal (applies to n on-numeric results) [facility] ([facility]) Neutrophils # 5.5 10 1.5-8.5 Normal (applies to non-numeric re sults) [facility] ([facility]) Eos # 0.1 10 0.0-0.5 Normal (applies to non-numeric resul ts) [facility] ([facility]) Weld # 0.7 10 0.0-0.8 Normal (applies to non-numeric resul ts) [facility] ([facility]) Baso # 0.1 10 0.0-0.2 Normal (applies to non-numeric resul ts) [facility] ([facility]) ID Date Data Source [id number] 09/03/2020 03:40:00 PM EDT [facility] ([facility]) Name Value Range Interpretation Code Description Data Roseanne rce(s) Supporting Document(s) Calcidiol [Mass/volume] in Serum or Plasma 9.5 ng/mL 30.0- 100.0 Below low normal [facility] ([facility]) ID Date Data Source [id number] 09/03/2020 03:40:00 PM EDT [facility] ([facility]) Name Value Range Interpretation Code Description Data Roseanne rce(s) Supporting Document(s) PSA Total 0.9 ng/mL 0.0-4.0 Normal (applies to non-numeric resul ts) [facility] ([facility]) Mel ECLIA methodology. . According to the [place] [employer], Serum PSA should decrease and [...] result Normal (applies to non- numeric results) [facility]) . The percent free PSA is performed on a reflex basis only when the total PSA is between 4.0 and 10.0 ng/mL. Performed at: - [facility] [address] [id number] Coil Strapper: Erika Van MD, Phone: [phone] ID Date Data Source [id number] 09/03/2020 03:40:00 PM EDT [facility] ([facility]) Name Value Range Interpretation Code Description Data Roseanne rce(s) Supporting Document(s) Free T4 1.07 ng/dL 0.76-1.46 Normal (applies to non-numeric resul ts) [facility] ([facility]) Thyroid Stimulating Hormone 1.070 uIU/ML 0.358-3.740 Norm al (applies to non- numeric results) [facility] ([facility]) ID Date Data Source [id number] 09/03/2020 03:40:00 PM EDT [facility] ([facility]) Name Value Range Interpretation Code Description Data Roseanne rce(s) Supporting Document(s) Triglycerides Level 179 mg/dL Above high normal [facility] ([facility]) Cholesterol Level 180 mg/dL Normal (applies to non-numeri c results) [facility] LDL Cholesterol 88 mg/dL Normal (applies to non-numeric results) [facility] Non-HDL-C 124 mg/dL Normal (applies to non-numeric resul ts) [facility] HDL Cholesterol 56 mg/dL Normal (applies to non-numeric results) [facility] ([facility]) Cholesterol Risk Ratio 3.214 Normal (applies to non-n umeric results) [facility] ([facility]) ID Date Data Source [id number] 06/15/2020 04:39:00 PM EST [facility] ([facility]) Name Value Range Interpretation Code Description Data Roseanne rce(s) Supporting Document(s) Erythrocyte sedimentation rate by Westergren method 25 mm/hr 0-20 Above high normal [facility] ([facility]) ID Date Data Source [id number] 06/15/2020 04:39:00 PM EST [facility] ([facility]) Name Value Range Interpretation Code Description Data Roseanne rce(s) Supporting Document(s) White Blood Count 7.7 10 4.0-10.0 Normal (applies to non-numeri c results) [facility] ([facility]) Red Blood Count 4.05 10 4.30-6.10 Below low normal [facility] ([facility]) Hemoglobin 13.8 g/dL 13.5-17.5 Normal (applies to non-numeric resul ts) [facility] ([facility]) Mean Corpuscular Volume 102.7 fl 80.0-96.0 Above high normal [facility] ([facility]) Hematocrit 41.6 % 42.0-52.0 Below low normal [facility] ( [facility]) Mean Corpuscular Hemoglobin 34.1 pg 27.0-33.0 Above high normal [facility] ([facility]) Red Cell Distribution Width 13.3 % 11.5-14.5 Norm al (applies to non-numeric results) [facility] ([facility]) Mean Corpuscular HGB Conc 33.2 g/dL 32.0-36.5 Normal (applies to non-numeric results) [facility] ([facility]) Lymph % 32.2 % 24.0-44.0 Normal (applies to non-numeric resul ts) [facility] ([facility]) Platelet Count, Automated 283 10 150-450 Normal (applies to non-numeric results) [facility] ([facility]) Neutrophils % 54.3 % 36.0-66.0 Normal (applies to non-numeric re sults) [facility] ([facility]) Eos % 1.6 % 0.0-3.0 Normal (applies to non-numeric resul ts) [facility] ([facility]) Weld % 10.7 % 0.0-8.0 Above high normal [facility] ([facility]) Nucleated Red Blood Cell % 0.0 % 0-0 Normal (applies to n on-numeric results) [facility] ([facility]) Immature Granulocyte % 0.3 % 0-3.0 Normal (applies to non-n umeric results) [facility] ([facility]) Baso % 0.9 % 0.0-1.0 Normal (applies to non-numeric resul ts) [facility] ([facility]) Neutrophils # 4.2 10 1.5-8.5 Normal (applies to non-numeric re sults) [facility] ([facility]) Lymph # 2.5 10 1.5-5.0 Normal (applies to non-numeric resul ts) [facility] ([facility]) Eos # 0.1 10 0.0-0.5 Normal (applies to non-numeric resul ts) [facility] ([facility]) Weld # 0.8 10 0.0-0.8 Normal (applies to non-numeric resul ts) [facility] ([facility]) Baso # 0.1 10 0.0-0.2 Normal (applies to non-numeric resul ts) [facility] ([facility]) ID Date Data Source [id number] 06/15/2020 04:39:00 PM EST [facility] ([facility]) Name Value Range Interpretation Code Description Data Roseanne rce(s) Supporting Document(s) C reactive protein [Mass/volume] in Serum or Plasma by High sensitivity method 1.63 mg/dL 0.00-0.30 Above high normal [facility] ([facility]) ID Date Data Source [id number] 06/15/2020 04:39:00 PM EST [facility] ([facility]) Name Value Range Interpretation Code Description Data Roseanne rce(s) Supporting Document(s) Glucose, Fasting 113 mg/dL 70-100 Above high normal [facility] ([facility]) Creatinine For GFR 0.82 mg/dL 0.70-1.30 Normal (applies to non -numeric results) [facility] Blood Urea Nitrogen 19 mg/dL 7-18 Above high normal [facility] Glomerular Filtration Rate Laboratory test result Normal (applies to non- numeric results) [facility] ([facility]) <content>Units are mL/min/1.73 m2</content>
<content></content>
<content>Chronic Kidney Disease Staging per NKF:</content>
<content></content>
<content>Stage I & II GFR >=60 Normal to Mildly Decreased</content>
<content>Stage III GFR 30- 59 Moderately Decreased</content>
<content>Stage IV GFR 15-29 Severely Decreased</content>
<content>Stage V GFR <15 Very Little GFR Left</content>
<content>ESRD GFR <15 on ASSURANCE ASSISTANT</content>
<content></content> Sodium Level 140 meq/L 136-145 Normal (applies to non-numeric res ults) [facility] ([facility]) Chloride Level 105 meq/L 98-107 Normal (applies to non-numeric r esults) [facility] Potassium Serum 4.7 meq/L 3.5-5.1 Normal (applies to non-numeric results) [facility] ([facility]) Carbon Dioxide Level 29 meq/L 21-32 Normal (applies to non-num antonette results) [facility] Anion Gap 6 meq/L 8-16 Below low normal [facility] Alt/SGPT 27 U/L 12-78 Normal (applies to non-numeric resul ts) [facility] ([facility]) Ast/Sgot 22 U/L 7-37 Normal (applies to non-numeric resul ts) [facility] ([facility]) Calcium Level 9.0 mg/dL 8.8-10.2 Normal (applies to non-numeric re sults) [facility] Bilirubin,Total 0.3 mg/dL 0.2-1.0 Normal (applies to non-numeric results) [facility] ([facility]) Alkaline Phosphatase 105 U/L 45-117 Normal (applies to non-num antonette results) [facility] ([facility]) Total Protein 7.2 GM/DL 6.4-8.2 Normal (applies to non-numeric re sults) [facility] ([facility]) Albumin/Globulin Ratio 0.9 Normal (applies to non-n umeric results) [facility] ([facility]) Albumin 3.5 GM/DL 3.2-5.2 Normal (applies to non-numeric resul ts) [facility] ([facility]) ID Date Data Source [id number] 03/16/2020 03:56:00 PM EST [facility] ([facility]) Name Value Range Interpretation Code Description Data Roseanne rce(s) Supporting Document(s) Erythrocyte sedimentation rate by Westergren method 30 mm/hr 0-20 Above high normal [facility] ([facility]) ID Date Data Source [id number] 03/16/2020 03:56:00 PM EST [facility] ([facility]) Name Value Range Interpretation Code Description Data Roseanne rce(s) Supporting Document(s) White Blood Count 7.2 10 4.0-10.0 Normal (applies to non-numeri c results) [facility] ([facility]) Red Blood Count 4.33 10 4.30-6.10 Normal (applies to non-numeric results) [facility] ([facility]) Hemoglobin 14.1 g/dL 13.5-17.5 Normal (applies to non-numeric resul ts) [facility] ([facility]) Hematocrit 43.6 % 42.0-52.0 Normal (applies to non-numeric resul ts) [facility] Mean Corpuscular Volume 100.7 fl 80.0-96.0 Above high normal [facility] ([facility]) Mean Corpuscular HGB Conc 32.3 g/dL 32.0-36.5 Normal (applies to non-numeric results) [facility] ([facility]) Mean Corpuscular Hemoglobin 32.6 pg 27.0-33.0 Norm al (applies to non-numeric results) [facility] ([facility]) Platelet Count, Automated 351 10 150-450 Normal (applies to non-numeric results) [facility]) Red Cell Distribution Width 13.7 % 11.5-14.5 Norm al (applies to non-numeric results) [facility] ([facility]) Lymph % 27.9 % 24.0-44.0 Normal (applies to non-numeric resul ts) [facility] ([facility]) Neutrophils % 59.8 % 36.0-66.0 Normal (applies to non-numeric re sults) [facility] ([facility]) Eos % 1.7 % 0.0-3.0 Normal (applies to non-numeric resul ts) [facility] ([facility]) Weld % 8.9 % 0.0-5.0 Above high normal [facility] ([facility]) Baso % 1.0 % 0.0-1.0 Normal (applies to non-numeric resul ts) [facility] ([facility]) Immature Granulocyte % 0.7 % 0-3.0 Normal (applies to non-n umeric results) [facility] ([facility]) Nucleated Red Blood Cell % 0.0 % 0-0 Normal (applies to n on-numeric results) [facility] ([facility]) Neutrophils # 4.3 10 1.5-8.5 Normal (applies to non-numeric re sults) [facility] ([facility]) Weld # 0.6 10 0.0-0.8 Normal (applies to non-numeric resul ts) [facility] ([facility]) Lymph # 2.0 10 1.5-5.0 Normal (applies to non-numeric resul ts) [facility] ([facility]) Baso # 0.1 10 0.0-0.2 Normal (applies to non-numeric resul ts) [facility] ([facility]) Eos # 0.1 10 0.0-0.5 Normal (applies to non-numeric resul ts) [facility] ([facility]) ID Date Data Source [id number] 03/16/2020 03:56:00 PM EST [facility] ([facility]) Name Value Range Interpretation Code Description Data Roseanne rce(s) Supporting Document(s) C reactive protein [Mass/volume] in Serum or Plasma by High sensitivity method 1.07 mg/dL 0.00-0.30 Above high normal [facility] ([facility]) ID Date Data Source [id number] 03/16/2020 03:56:00 PM EST [facility] ([facility]) Name Value Range Interpretation Code Description Data Roseanne rce(s) Supporting Document(s) Glucose, Fasting 117 mg/dL 70-100 Above high normal [facility] ([facility]) Creatinine For GFR 0.79 mg/dL 0.70-1.30 Normal (applies to non -numeric results) [facility] ([facility]) Blood Urea Nitrogen 7 mg/dL 7-18 Normal (applies to non-nume eleno results) [facility] ([facility]) Sodium Level 140 meq/L 136-145 Normal (applies to non-numeric res ults) [facility] ([facility]) Glomerular Filtration Rate Laboratory test result Normal (applies to non- numeric results) [facility] ([facility]) <content>Units are mL/min/1.73 m2</content>
<content></content>
<content>Chronic Kidney Disease Staging per NKF:</content>
<content></content>
<content>Stage I & II GFR >=60 Normal to Mildly Decreased</content>
<content>Stage III GFR 30- 59 Moderately Decreased</content>
<content>Stage IV GFR 15-29 Severely Decreased</content>
<content>Stage V GFR <15 Very Little GFR Left</content>
<content>ESRD GFR <15 on ASSURANCE ASSISTANT</content>
<content></content> Chloride Level 106 meq/L 98-107 Normal (applies to non-numeric r esults) [facility] ([facility]) Potassium Serum 3.9 meq/L 3.5-5.1 Normal (applies to non-numeric results) [facility] ([facility]) Anion Gap 5 meq/L 8-16 Below low normal [facility] Carbon Dioxide Level 29 meq/L 21-32 Normal (applies to non-num [place] results) [facility] ([facility]) Calcium Level 9.0 mg/dL 8.8-10.2 Normal (applies to non-numeric re sults) [facility] ([facility]) Ast/Sgot 27 U/L 7-37 Normal (applies to non-numeric resul ts) [facility] ([facility]) Alt/SGPT 33 U/L 12-78 Normal (applies to non-numeric resul ts) [facility] ([facility]) Alkaline Phosphatase 123 U/L 45-117 Above high normal [facility] ([facility]) Bilirubin,Total 0.4 mg/dL 0.2-1.0 Normal (applies to non-numeric results) [facility] ([facility]) Albumin 3.7 GM/DL 3.2-5.2 Normal (applies to non-numeric resul ts) [facility] ([facility]) Total Protein 7.9 GM/DL 6.4-8.2 Normal (applies to non-numeric re sults) [facility] ([facility]) Albumin/Globulin Ratio 0.9 Normal (applies to non-n umeric results) [facility]) Procedure Social History Code Duration Value Status Description Data Source(s ) Alcohol intake 11/30/2020 12:00:00 AM EDT Current drinker of al cohol (finding) completed Current drinker of alcohol (finding) [facility] Tobacco use and exposure 11/30/2020 12:00:00 AM EDT Never used co mpleted Never used [facility] Cigarette pack-years 11/30/2020 12:00:00 AM EDT UNK [facility] Cigarettes smoked current (pack per day) - Reported 12/01/19 12:00:00 AM EDT UNK [facility] Smoking 11/30/2020 12:00:00 AM EDT Former smoker completed Former smoker [facility] Smoking 11/11/2020 12:00:00 AM EDT - 09/30/2018 12:00:00 AM EDT Patient is a former smoker completed Patient is a former smoker [facility] ([facility]) Vital Signs ID Date Data Source UNK Name Value Range Interpretation Code Description Data Source(s) Diastolic blood pressure 72 mm[Hg] 72 mm[Hg] [facility] ([facility]) Systolic blood pressure 126 mm[Hg] 126 mm[Hg] [facility] ([facility]) Heart rate 113 /min 113 /min [facility] ([facility]) Body mass index (BMI) [Ratio] 26.8 kg/m2 26.8 k g/m2 [facility] ([facility]) Respiratory rate 18 /min 18 /min [facility] ( [facility]) Body temperature 99.1 [degF] 99.1 [degF] [facility] ([facility]) Body height 71.6 [in_i] 71.6 [in_i] [facility] ([facility]) " Body weight 195.38 [lb_av] 195.38 [lb_av] [facility] ([facility]) Oxygen saturation in Arterial blood by Pulse oximetry 96 % 96 % [facility] ([facility]) [place] body weight 172 [lb_av] 172 [lb_av] [facility] ([facility]) Body temperature 97.8 [degF] 97.8 [degF] [facility] ([facility]) Systolic blood pressure 130 mm[Hg] 130 mm[Hg] [facility] ([facility]) Diastolic blood pressure 70 mm[Hg] 70 mm[Hg] [facility] ([facility]) Body height 71.6 [in_i] 71.6 [in_i] [facility] ([facility]) " Body weight 201.00 [lb_av] 201.00 [lb_av] [facility] ([facility]) Heart rate 83 /min 83 /min [facility] ([facility]) Respiratory rate 14 /min 14 /min [facility] ( [facility]) Oxygen saturation in Arterial blood by Pulse oximetry 97 % 97 % [facility] ([facility]) [place] body weight 172 [lb_av] 172 [lb_av] [facility] ([facility]) Body mass index (BMI) [Ratio] 27.6 kg/m2 27.6 k g/m2 [facility] ([facility]) Systolic blood pressure 132 mm[Hg] 132 mm[Hg] [facility] ([facility]) Diastolic blood pressure 74 mm[Hg] 74 mm[Hg] [facility] ([facility]) Body height 71.6 [in_i] 71.6 [in_i] [facility] ([facility]) 5'11.60" Body weight 216.12 [lb_av] 216.12 [lb_av] [facility] ([facility]) Body mass index (BMI) [Ratio] 29.6 kg/m2 29.6 k g/m2 [facility] ([facility]) Heart rate 95 /min 95 /min [facility] ([facility]) Respiratory rate 20 /min 20 /min [facility] ( [facility]) Body temperature 96.5 [degF] 96.5 [degF] [facility] ([facility]) Oxygen saturation in Arterial blood by Pulse oximetry 99 % 99 % [facility] ([facility]) [place] body weight 172 [lb_av] 172 [lb_av] [facility] ([facility]) Systolic blood pressure 118 mm[Hg] 118 mm[Hg] [facility] ([facility]) Respiratory rate 16 /min 16 /min [facility] ( [facility]) Body weight 200.38 [lb_av] 200.38 [lb_av] [facility] ([facility]) Body mass index (BMI) [Ratio] 27.5 kg/m2 27.5 k g/m2 [facility] ([facility]) Diastolic blood pressure 78 mm[Hg] 78 mm[Hg] [facility] ([facility]) Body temperature 96.7 [degF] 96.7 [degF] [facility] ([facility]) Oxygen saturation in Arterial blood by Pulse oximetry 97 % 97 % [facility] ([facility]) [place] body weight 172 [lb_av] 172 [lb_av] [facility] ([facility]) Body height 71.6 [in_i] 71.6 [in_i] [facility] ([facility]) 5'11.60" Heart rate 104 /min 104 /min [facility] ([facility]) Patient Treatment Plan of Care Planned Activity Planned Date Details Description Data Source (s) Cefadroxil 500 MG Oral Capsule 11/30/2020 12:00:00 AM [facility] Cefadroxil 500 MG Oral Capsule 11/30/2020 12:00:00 AM [facility] Cefadroxil 500 MG Oral Capsule 11/30/2020 12:00:00 AM [facility] doxycycline hyclate 100 MG Oral Capsule 06/20/2019 12:00:00 AM [facility] Rifampin 300 MG Oral Capsule 02/08/2017 12:00:00 AM [facility]
[2021-02-27] MEDS ORDERED: ADDE30CA3 PO (11:44)
== END 2021-02-27 02:30 | disposition left against medical advice (07) ==
LOC: M ED 00:06
DX: Z53.29 Procedure and treatment not carried out because of patient's decision for other reasons (principal)

== ENCOUNTER 2021-02-27 11:34 | Emergency (ER) | payer MEDICARE, OTHER ==
[~2021-02-27] VITALS: Ht 190.5 cm; Wt 90.0 kg
[~2021-02-27 11:34] MED LIST changes: +FENT1DIS34 TOP
[2021-02-27 11:35] VITALS: BP 135/67
[2021-02-27] MEDS ORDERED: ADDE30CA3 PO (11:44)
--- OUTSIDE RECORDS SUMMARY | 2021-02-27 11:44 | CCD ---
Author Author [facility] Address Unknown Phone Unavailable Care Team Providers Care Chemical Handler Name Role Phone MIKAEL TAMAYO PA-C Unavailable Unavailable BELKISMIKAELC Unavailable Unavailable BELKISMIKAEL-C Unavailable Unavailable BELKIS, MIKAEL LOWERY-C Unavailable Unavailable BELKIS, MIKAEL LOWERY-C Unavailable Unavailable BELKIS, MIKAEL MEADOWSC Unavailable Unavailable BELKIS, MIKAEL LOWERY-C Unavailable Unavailable BELKIS, MIKAEL PA-C Unavailable Unavailable [...] Unavailable Unavailable Mckinley, Sánchez PA Unavailable Unavailable Mkcinley, Sánchez PA Unavailable Unavailable Mckinley, Sánchez PA [...] Sánchez PA Unavailable Unavailable Aditya, L Ave ACTIVITIES MANAGER Unavailable Unavailable Aditya, L Ave ACTIVITIES MANAGER Unavailable Unavailable Aditya, L Ave ACTIVITIES MANAGER Unavailable Unavailable Aditya, L Ave ACTIVITIES MANAGER Unavailable Unavailable Aditya, L Ave ACTIVITIES MANAGER Unavailable Unavailable Aditya, L Ave ACTIVITIES MANAGER Unavailable Unavailable Aditya, L Ave ACTIVITIES MANAGER Unavailable Unavailable Aditya, L Ave ACTIVITIES MANAGER Unavailable Unavailable Aditya, L Ave ACTIVITIES MANAGER Unavailable Unavailable Aditya, L Ave ACTIVITIES MANAGER Unavailable Unavailable Aditya, L Ave ACTIVITIES MANAGER Unavailable Unavailable Aditya, L Ave ACTIVITIES MANAGER Unavailable Unavailable Aditya, L Ave ACTIVITIES MANAGER Unavailable Unavailable Aditya, L Ave ACTIVITIES MANAGER Unavailable Unavailable Aditya, L Ave ACTIVITIES MANAGER Unavailable Unavailable Aditya, L Ave ACTIVITIES MANAGER Unavailable Unavailable Aditya, L Ave ACTIVITIES MANAGER Unavailable Unavailable Aditya, L Ave ACTIVITIES MANAGER Unavailable Unavailable Aditya, L Ave ACTIVITIES MANAGER Unavailable Unavailable Aditya, L Ave ACTIVITIES MANAGER Unavailable Unavailable Aditya, L Ave ACTIVITIES MANAGER Unavailable Unavailable Aditya, L Ave ACTIVITIES MANAGER Unavailable Unavailable Aditya, L Ave ACTIVITIES MANAGER Unavailable Unavailable Aditya, L Ave ACTIVITIES MANAGER Unavailable Unavailable Aditya, L Ave ACTIVITIES MANAGER Unavailable Unavailable Aditya, L Ave ACTIVITIES MANAGER Unavailable Unavailable Aditya, L Ave ACTIVITIES MANAGER Unavailable Unavailable Aditya, L Ave ACTIVITIES MANAGER Unavailable Unavailable Aditya, L Ave ACTIVITIES MANAGER Unavailable Unavailable Aditya, L Ave ACTIVITIES MANAGER Unavailable Unavailable Aditya, L Ave ACTIVITIES MANAGER Unavailable Unavailable Aditya, L Ave ACTIVITIES MANAGER Unavailable Unavailable Aditya, L Ave ACTIVITIES MANAGER Unavailable Unavailable Aditya, L Ave ACTIVITIES MANAGER Unavailable Unavailable Aditya, L Ave ACTIVITIES MANAGER Unavailable Unavailable Aditya, L Ave ACTIVITIES MANAGER Unavailable Unavailable Aditya, L Ave ACTIVITIES MANAGER Unavailable Unavailable Aditya, L Ave ACTIVITIES MANAGER Unavailable Unavailable Aditya, L Ave ACTIVITIES MANAGER Unavailable Unavailable Aditya, L Ave ACTIVITIES MANAGER Unavailable Unavailable Aditya, L Ave ACTIVITIES MANAGER Unavailable Unavailable Aditya, L Ave ACTIVITIES MANAGER Unavailable Unavailable Chauncey Barker MD Unavailable Unavailable Chauncey Barker MD Unavailable Unavailable Chauncey Barker MD Unavailable Unavailable Chauncey Barker MD Unavailable Unavailable Chauncey Barker MD Unavailable Unavailable Chaunecy Barker MD Unavailable Unavailable Chauncey Barker MD [...] Unavailable Unavailable JOE, KHAN MD Unavailable Unavailable OJE, KHAN MD Unavailable Unavailable JOE, KHAN MD [...] is protected by Article 27-F of the [facility] Public Health law. If you continue you may have access to information: Regarding HIV / AIDS; Provided by facilities licensed or operated by the [facility] Office of Mental Health; or Provided by the [facility] Office for People With Developmental Disabilities. If such information is present, then the following [facility] mandated warning applies: This information has [...] law may result in a fine or halfway sentence or both. A general authorization for the release of medical or other information is NOT sufficient authorization for further disc losure. Family History Family Member Name Family Member Gender Family Member Status Date o f Status Description Data Source(s) Unknown Male Problem [facility] ([facility]) Unknown Male Problem [facility] ([facility]) Unknown Female Problem [facility] ([facility]) Unknown Female Problem [facility] ([facility]) Encounters Encounter Providers Location Date Indications Data Source(s ) Outpatient Attender: ERIN DIAZ MD 06/02/2021 12:00:00 AM [facility] Outpatient Attender: MIKAEL Charltonferrer: Marin mccrary MD [id number] 11/30/2020 12:00:00 AM EDT - 11/30/2020 02:39:56 PM [facility] Outpatient Attender: MIKAEL TAMAYO PA-C 11/27/2020 12:00 :00 AM [facility] Office Visit Attender: Sánchez LOWERY [facility] 11/11/2020 11:00:00 AM EDT [facility] ([facility]) Outpatient Attender: Sánchez LOWERY [facility] 08/25/2020 11:00:00 AM EDT [facility] ([facility]) Outpatient Attender: MIKAEL TAMAYO PA-C 06/26/2020 12:00 :00 AM [facility] Outpatient Attender: Sánchez LOWERY [facility] 05/06/2020 09:20:00 AM EST [facility] ([facility]) Outpatient Attender: Ave Burgess NPReferrer: Marin najera MD 04/14/2020 12:00:00 AM [facility] Outpatient Attender: MIKAEL Charltonferrer: Marin mccrary MD 02/07/2020 12:00:00 AM [facility] Outpatient Attender: Sánchez LOWERY [facility] 01/29/2020 11:00:00 AM EDT [facility] ([facility]) Outpatient Attender: Rena LOWERY 10/02/2015 12:00:0 0 AM EDT [facility] Immunizations Vaccine Date Status Description Data Source(s) COVID-19 VACCINE Pfizer 09/16/2020 12:00:00 AM EDT completed [facility] Vaccine Series Complete: YESThis Data wa s Submitted to [facility] Via Robert Applebaum MD. COVID-19 VACCINE Pfizer 08/26/2020 12:00:00 AM EDT completed [facility] Vaccine Series Complete: NOThis Data was Submitted to [facility] Via Robert Applebaum MD. Medications Medication Brand Name Start Date Product [...] DAILY DOSE = 1 PATCH/3DAYS SOLD: 02/10/2021 [facility] Amphetamine aspartate 7.5 MG / Amphetami [...] = 1 EVERY 3 DAYS SOLD: 02/10/2021 [facility] 1 mg 02/10/2021 12:00:00 AM EDT tablet 60 TAKE ONE TABLET BY MOUTH TWICE A DAY NEEDED - MAXIMUM DAILY DOSE = 2 TABLETS TAKE ONE TABLET BY MOUTH TWICE A DAY NEEDED - MAXIMUM DAILY DOSE = 2 TABLETS SOLD: 02/10/2021 [facility] 72 HR Fentanyl 0.025 MG/HR Transdermal [...] DAILY DOSE = 2 SOLD: 01/08/2021 [facility] 30 mg 01/08/2021 12:00:00 AM EDT capsule,delayed release (DR/EC) 30 TAKE ONE CAPSULE BY MOUTH EVERY DAY WITH 60MG DOSE TAKE ONE CAPSULE BY MOUTH EVERY DAY WITH 60MG DOSE SOLD: 01/08/[address] [facility] 15 mg 01/08/2021 12:00:00 AM EDT [...] DAILY DOSE = 2 SOLD: 01/08/2021 [facility] 15 mg 01/08/2021 12:00:00 AM EDT tablet 30 TAKE ONE TABLET BY MOUTH EVERY DAY NEEDED TAKE ONE TABLET BY MOUTH EVERY DAY NEEDED SOLD: 01/08/2021 [facility] 30 mg 12/04/2020 12:00:00 AM EDT capsule,delayed [...] mg Oral active Take 1 capsule by [facility] Cefadroxil 500 MG Oral Capsule Cefadroxil 500 MG Oral Capsule (DURICEF) Cefadroxil 500 MG Oral Capsule (DURICEF) 11/30/2020 12:00:00 AM EDT 500 mg Oral active Take 1 capsule by [facility] Two Times Daily [facility] Cefadroxil 500 MG Oral Capsule Cefadroxil 500 MG Oral Capsule (DURICEF) Cefadroxil 500 MG Oral Capsule (DURICEF) 11/30/2020 12:00:00 AM EDT 500 mg Oral aborted Take 1 capsule by [facility] Two Times Daily [facility] 25 mcg/hr 11/27/2020 12:00:00 AM EDT [...] 1 PATCH EVERY 3 DAYS SOLD: 09/21/2020 [facility] 30 mg 09/18/2020 12:00:00 AM EDT tablet 60 TAKE ONE TABLET BY MOUTH EVERY MORNING AND 1 EVERY AFTERNOON MAXIMUM DAILY DOSE = 2 TAKE ONE TABLET BY MOUTH EVERY MORNING AND 1 EVERY AFTERNOON MAXIMUM DAILY DOSE = 2 SOLD: 09/19/2020 [facility] 1 mg 09/18/2020 12:00:00 AM EDT tablet 60 TAKE ONE TABLET BY MOUTH TWICE A DAY MAXIMUM DAILY DOSE = 2 TAKE ONE TABLET BY MOUTH TWICE A DAY MAX IMUM DAILY DOSE = 2 SOLD: 09/19/2020 [facility] 1,250 mcg (50,000 unit) 09/07/2020 12:00:00 AM EDT capsule 4 TAKE 1 CAPSULE BY MOUTH ONCE EACH WEEK TAKE 1 CAPSULE BY MOUTH ONCE EACH WEEK SOLD: 09/08/2020 [facility] Ergocalciferol 13102 UNT Oral Capsule Vitamin D (Ergocalcife rol) 09/06/2020 12:00:00 AM EDT active M EDENT ([facility]) 12 mcg/hr 08/26/2020 12:00:00 AM EDT patch [...] 08/25/2020 12:00:00 AM EDT ORAL active [facility] ([facility] 30 mg 08/25/2020 12:00:00 AM EDT capsule,delayed [...] DOSE = 25 MCG SOLD: 06/12/2020 [facility] 1 mg 06/06/2020 12:00:00 AM EST [...] MAXIMUM DAILY DOSE = 2 SOLD: 06/12/2020 [facility] 12 mcg/hr 05/18/2020 12:00:00 AM EST [...] HCL 02/18/2020 12:00:00 AM EDT active [facility] ([facility] 25 mcg/hr 01/31/2020 12:00:00 AM EDT patch [...] 11/28/2019 12:00:00 AM EDT ORAL completed [facility] ([facility]) doxycycline hyclate 100 MG Oral Capsule Doxycycline Hyclate 100 MG Oral Capsule (VIBRAMYCIN) Doxycycline Hyclate 100 MG Oral Capsule (VIBRAMYCIN) 0 06/20/2019 12:00:00 AM EST aborted [facility] Rifampin 300 MG Oral Capsule rifAMPin (RIFADIN) 300 MG capsule rifAMPin (RIFADIN) 300 MG capsule 02/08/2017 12:00:00 AM EDT 300 mg Oral aborted Take 1 capsule by mouth Two Times Daily [facility] Insurance Providers Payer name Policy type / Coverage type Policy ID Covered alliance party ID Covered alliance party's relationship to waldrop Policy [employer] Plan Information Special Funds Workers Compensation [id number] Self MVP Preferred (Hmo) Health Maintenance Organization (HMO) [id number] Self [id number] [facility] Health Plan Commercial [id number] Self [facility] Workers Compensation [id number] Self [id number] [facility] Workers Compensation [id number] Self [id number] [facility] [id number] SP [id number] [facility] H [id number] Self [id number] 200 VALUE OPTIONS [id number] SP [id number] [facility] HEALTH CARE [id number] SP [id number] [employer] () Workers Compensation [id number] Self [id number] [employer] () Workers Compensation [id number] Self 0 [id number] [employer] () Workers Compensation [id number] Self [id number] [employer] () Workers Compensation [id number] Self 0 [id number] [employer] () Workers Compensation [id number] Self [id number] [facility] () Workers Compensation [id number] Self 0 [id number] [place] [employer] () Workers Compensation [id number] Self 0 [id number] [employer] () Workers Compensation [id number] Self [id number] [facility] () Workers Compensation [id number] Self [id number] [place] [employer] () Workers Compensation [id number] Self [id number] [employer] () Workers Compensation [id number] Self [id number] MVP (pr) Commercial [id number] Self [id number] MVP SELECT [id number] SP [id number] MVP Healthcare F [id number] SELF [id number] MVP HEALTH CARE [id number] SP [id number] SELF PAY MVP SELECT [id number] SP [id number] MVP HEALTH PLAN O [id number] S [id number] MVP HEALTH PLAN O [id number] S [id number] MVP SELECT [id number] SP [id number] MVP SELECT UNAVAILABLE UNAVAIL ABLE TOWNSEND CLAIM SERVICES P [id number] S [id number] MEDICARE [id number] SP [id number] SELF PAY UNAVAILABLE UNAVAILA BLE NO FAULT NAHOMI [id number] MVP HEALTH CARE HEA [id number] S [id number] MVP Commercial [id number] Self [id number] [employer] () Workers Compensation [id number] Self [id number] [employer] () Workers Compensation [id number] Self [id number] MVP Commercial [id number] [id number] Self [id number] MVP Commercial [id number] [id number] Self [id number] [facility] HEALTH CARE O [id number] S [id number] MVP Commercial [id number] [id number] Self [id number] MVP Commercial [id number] [id number] Self [id number] MVP/Preferred Care Commercial [id number] [id number] Self [id number] MVP Commercial [id number] [id number] Self [id number] MVP Commercial [id number] [id number] Self [id number] MVP Commercial [id number] [id number] Self [id number] MVP Commercial [id number] [id number] Self [id number] MVP SELECT [id number] SP [id number] MVP Commercial [id number] Self [id number] MVP/Preferred Care Commercial [id number] Self VALUE OPTIONS [id number] SP [id number] VALUE OPTIONS [id number] SP [id number] MVP SELECT [id number] SP [id number] MVP HEALTH PLAN O [id number] S [id number] Problems, Conditions, and Diagnoses Code Display Name Description Problem Type Effective Dates Data Source(s) [id number] Vitamin D deficiency Vitamin D deficiency Problem 09/06/2020 12:00:00 AM [facility]/Procedures Procedure Description Date Indications Data Source(s) Brief Emotional/Behav Assessment W/ Scoring Doc Per Standard Inst 11/11/2020 12:00:00 AM EDT [facility] OFFICE OUTPATIENT VISIT 25 MINUTES 08/25/2020 12:00:00 AM EDT [facility] Results ID Date Data Source [id number] 02/10/2021 04:02:00 PM EDT [facility] Name Value Range Interpretation Code Description Data Roseanne rce(s) Supporting Document(s) Erythrocyte sedimentation rate by Westergren method 29 mm/hr 0-20 Above high normal [facility] ID Date Data Source [id number] 02/10/2021 04:02:00 PM EDT [facility] ([facility]) Name Value Range Interpretation Code Description Data Roseanne rce(s) Supporting Document(s) White Blood Count 8.1 10 4.0-10.0 Normal (applies to non-numeri c results) [facility] ([facility]) Hematocrit 41.5 % 42.0-52.0 Below low normal [facility] ( [facility]) Red Blood Count 4.11 10 4.30-6.10 Below low normal [facility] ([facility]) Hemoglobin 13.8 g/dL 13.5-17.5 Normal (applies to non-numeric resul ts) [facility] ([facility]) Mean Corpuscular Hemoglobin 33.6 pg 27.0-33.0 Above high normal [facility] ([facility]) Mean Corpuscular Volume 101.0 fl 80.0-96.0 Above high [facility] Mean Corpuscular HGB Conc 33.3 g/dL 32.0-36.5 Normal (applies to non-numeric results) [facility] ([facility]) Red Cell Distribution Width 13.3 % 11.5-14.5 Norm al (applies to non-numeric results) [facility] ([facility]) Neutrophils % 59.2 % 36.0-66.0 Normal (applies to non-numeric re sults) [facility] ([facility]) Platelet Count, Automated 306 10 150-450 Normal (applies to non-numeric results) [facility] ([facility]) Lymph % 28.2 % 24.0-44.0 Normal (applies to non-numeric resul ts) [facility] ([facility]) Todd % 8.9 % 2.0-8.0 Above high normal [facility] ([facility]) Eos % 2.5 % 0.0-3.0 Normal (applies to non-numeric resul ts) [facility] ([facility]) Baso % 0.7 % 0.0-1.0 Normal (applies to non-numeric resul ts) [facility] ([facility]) Immature Granulocyte % 0.5 % 0-3.0 Normal (applies to non-n umeric results) [facility] ([facility]) Neutrophils # 4.8 10 1.5-8.5 Normal (applies to non-numeric re sults) [facility] ([facility]) Nucleated Red Blood Cell % 0.0 % 0-0 Normal (applies to n on-numeric results) [facility] ([facility]) Lymph # 2.3 10 1.5-5.0 Normal (applies to non-numeric resul ts) [facility] ([facility]) Eos # 0.2 10 0.0-0.5 Normal (applies to non-numeric resul ts) [facility] ([facility]) Todd # 0.7 10 0.0-0.8 Normal (applies to non-numeric resul ts) [facility] ([facility]) Baso # 0.1 10 0.0-0.2 Normal (applies to non-numeric resul ts) [facility] ([facility]) ID Date Data Source [id number] 02/10/2021 04:02:00 PM EDT [facility] Name Value Range Interpretation Code Description Data Roseanne rce(s) Supporting Document(s) C reactive protein [Mass/volume] in Serum or Plasma by High sensitivity method 0.70 mg/dL 0.00-0.30 Above high normal [facility] ([facility]) ID Date Data Source [id number] 02/10/2021 04:02:00 PM EDT [facility] Name Value Range Interpretation Code Description Data Roseanne rce(s) Supporting Document(s) Blood Urea Nitrogen 12 mg/dL 7-18 Normal (applies to non-nume eleno results) [facility] Glucose, Fasting 158 mg/dL 70-100 Above high normal [facility] Sodium Level 138 meq/L 136-145 Normal (applies to non-numeric res ults) [facility] Creatinine For GFR 0.78 mg/dL 0.70-1.30 Normal (applies to non -numeric results) [facility] ([facility]) Glomerular Filtration Rate Laboratory test result Normal (applies to non- numeric results) [facility] ([facility]) <content>Units are mL/min/1.73 m2</content>
<content></content>
<content>Chronic Kidney Disease Staging per NKF:</content>
<content></content>
<content>Stage I & II GFR >=60 Normal to Mildly Decreased</content>
<content>Stage III GFR 30- 59 Moderately Decreased</content>
<content>Stage IV GFR 15-29 Severely Decreased</content>
<content>Stage V GFR <15 Very Little GFR Left</content>
<content>ESRD GFR <15 on TERRAZZO LAYER</content>
<content></content> Chloride Level 102 meq/L 98-107 Normal (applies to non-numeric r esults) [facility] ([facility]) Potassium Serum 4.3 meq/L 3.5-5.1 Normal (applies to non-numeric results) [facility] ([facility]) Anion Gap 2 meq/L 8-16 Below low normal [facility] ( [facility]) Calcium Level 9.1 mg/dL 8.8-10.2 Normal (applies to non-numeric re sults) [facility] ([facility]) Carbon Dioxide Level 34 meq/L 21-32 Above high normal [facility] ([facility]) Ast/Sgot 30 U/L 7-37 Normal (applies to non-numeric resul ts) [facility] ([facility]) Alt/SGPT 34 U/L 12-78 Normal (applies to non-numeric resul ts) [facility] ([facility]) Bilirubin,Total 0.3 mg/dL 0.2-1.0 Normal (applies to non-numeric results) [facility] ([facility]) Alkaline Phosphatase 122 U/L 45-117 Above high normal [facility] ([facility]) Total Protein 7.3 GM/DL 6.4-8.2 Normal (applies to non-numeric re sults) [facility] ([facility]) Albumin 3.4 GM/DL 3.2-5.2 Normal (applies to non-numeric resul ts) [facility] ([facility]) Albumin/Globulin Ratio 0.9 Normal (applies to non-n umeric results) [facility] ([facility]) ID Date Data Source [id number] 01/06/2021 04:49:00 PM EDT [facility] ([facility]) Name Value Range Interpretation Code Description Data Roseanne rce(s) Supporting Document(s) Erythrocyte sedimentation rate by Westergren method 35 mm/hr 0-20 Above high normal [facility] ([facility]) ID Date Data Source [id number] 01/06/2021 04:49:00 PM EDT [facility] ([facility]) Name Value Range Interpretation Code Description Data Roseanne rce(s) Supporting Document(s) White Blood Count 7.1 10 4.0-10.0 Normal (applies to non-numeri c results) [facility] ([facility]) Red Blood Count 4.07 10 4.30-6.10 Below low normal [facility] ([facility]) Hemoglobin 13.5 g/dL 13.5-17.5 Normal (applies to non-numeric resul ts) [facility] ([facility]) Mean Corpuscular Volume 99.8 fl 80.0-96.0 Above high normal [facility] ([facility]) Hematocrit 40.6 % 42.0-52.0 Below low normal [facility] ( [facility]) Mean Corpuscular HGB Conc 33.3 g/dL 32.0-36.5 Normal (applies to non-numeric results) [facility] ([facility]) Mean Corpuscular Hemoglobin 33.2 pg 27.0-33.0 Above high normal [facility] Red Cell Distribution Width 13.2 % 11.5-14.5 Norm al (applies to non-numeric results) [facility] ([facility]) Platelet Count, Automated 283 10 150-450 Normal (applies to non-numeric results) [facility] ([facility]) Neutrophils % 56.4 % 36.0-66.0 Normal (applies to non-numeric re sults) [facility] ([facility]) Lymph % 31.2 % 24.0-44.0 Normal (applies to non-numeric resul ts) [facility] ([facility]) Todd % 9.1 % 2.0-8.0 Above high normal [facility] ([facility]) Eos % 2.1 % 0.0-3.0 Normal (applies to non-numeric resul ts) [facility] ([facility]) Baso % 0.8 % 0.0-1.0 Normal (applies to non-numeric resul ts) [facility] ([facility]) Immature Granulocyte % 0.4 % 0-3.0 Normal (applies to non-n umeric results) [facility] ([facility]) Nucleated Red Blood Cell % 0.0 % 0-0 Normal (applies to n on-numeric results) [facility] ([facility]) Lymph # 2.2 10 1.5-5.0 Normal (applies to non-numeric resul ts) [facility] ([facility]) Neutrophils # 4.0 10 1.5-8.5 Normal (applies to non-numeric re sults) [facility] ([facility]) Eos # 0.2 10 0.0-0.5 Normal (applies to non-numeric resul ts) [facility] ([facility]) Todd # 0.6 10 0.0-0.8 Normal (applies to non-numeric resul ts) [facility] ([facility]) Baso # 0.1 10 0.0-0.2 Normal (applies to non-numeric resul ts) [facility] ([facility]) ID Date Data Source [id number] 01/06/2021 04:49:00 PM EDT [facility] ([facility]) Name Value Range Interpretation Code Description Data Roseanne rce(s) Supporting Document(s) C reactive protein [Mass/volume] in Serum or Plasma by High sensitivity method 1.45 mg/dL 0.00-0.30 Above high normal [facility] ([facility]) ID Date Data Source [id number] 01/06/2021 04:49:00 PM EDT [facility]) Name Value Range Interpretation Code Description Data Roseanne rce(s) Supporting Document(s) Blood Urea Nitrogen 12 mg/dL 7-18 Normal (applies to non-nume eleno results) [facility] ([facility]) Glucose, Fasting 127 mg/dL 70-100 Above [facility] normal [facility] Glomerular Filtration Rate Laboratory test result Normal (applies to non- numeric results) [facility] ([facility]) <content>Units are mL/min/1.73 m2</content>
<content></content>
<content>Chronic Kidney Disease Staging per NKF:</content>
<content></content>
<content>Stage I & II GFR >=60 Normal to Mildly Decreased</content>
<content>Stage III GFR 30- 59 Moderately Decreased</content>
<content>Stage IV GFR 15-29 Severely Decreased</content>
<content>Stage V GFR <15 Very Little GFR Left</content>
<content>ESRD GFR <15 on TERRAZZO LAYER</content>
<content></content> Creatinine For GFR 0.66 mg/dL 0.70-1.30 Below [facility] Sodium Level 140 meq/L 136-145 Normal (applies to non-numeric res ults) [facility] ([facility]) Potassium Serum 4.3 meq/L 3.5-5.1 Normal (applies to non-numeric results) [facility] ([facility]) Carbon Dioxide Level 30 meq/L 21-32 Normal (applies to non-num [place] results) [facility] ([facility]) Chloride Level 106 meq/L 98-107 Normal (applies to non-numeric r esults) [facility] ([facility]) Ast/Sgot 32 U/L 7-37 Normal (applies to non-numeric resul ts) [facility] ([facility]) Anion Gap 4 meq/L 8-16 Below low normal [facility] ( [facility]) Calcium Level 9.0 mg/dL 8.8-10.2 Normal (applies to non-numeric re sults) [facility] ([facility]) Alt/SGPT 43 U/L 12-78 Normal (applies to non-numeric resul ts) [facility] ([facility]) Alkaline Phosphatase 110 U/L 45-117 Normal (applies to non-num [place] results) [facility] ([facility]) Albumin 3.4 GM/DL 3.2-5.2 Normal (applies to non-numeric resul ts) [facility] ([facility]) Bilirubin,Total 0.4 mg/dL 0.2-1.0 Normal (applies to non-numeric results) [facility] ([facility]) Total Protein 7.2 GM/DL 6.4-8.2 Normal (applies to non-numeric re sults) [facility] ([facility]) Albumin/Globulin Ratio 0.9 Normal (applies to non-n umeric results) [facility] ([facility]) ID Date Data Source [id number] 11/30/2020 02:45:27 PM EDT [facility] Name Value Range Interpretation Code Description Data Roseanne rce(s) Supporting Document(s) Progress Note [facility] AZGPZz2jZdMUIjYp11/VNYayQBXmd9NiBNquJJp8RDskMZQwI1NbMSA6aC9jGRG3YRxNOlDnNuCcNVAq lbm [file] ICAgICAgICAgICAgICAgICAgICAgICAgICAgICAgIC AgICAgICAgICAgICAgICAgICAgICAgICAgICAgICAgICANCiAgICAgICAgICAgICAgICAgICAgICAgIC AgICAgICAgICAgICAgICAgICAgICAgICAgICAgICAgICAgICAgICAgICAgICAgICAgICAgICAgICAgIC AgICAgICAgICAgICAgICANCiAgICAgICAgICAgICAg ICAgICAgICAgICAgICAgICAgICAgICAgICAgICAgICAgICAgICAgICAgICAgICAgICAgICAgICAgICAg ICAgICAgICAgICAgICAgICAgICAgICAgICANCiAgICAgICAgICAgICAgICAgICAgICAgICAgICAgICAg ICAgICAgICAgICAgICAgICAgICAgICAgICAgICAgIC AgICAgICAgICAgICAgICAgICAgICAgICAgICAgICAgICAgICANCiAgICAgICAgICAgICAgICAgICAgIC AgICAgICAgICAgICAgICAgICAgICAgICAgICAgICAgICAgICAgICAgICAgICAgICAgICAgICAgICAgIC AgICAgICAgICAgICAgICAgICANCiAgICAgICAgICAg ICAgICAgICAgICAgICAgICAgICAgICAgICAgICAgICAgICAgICAgICAgICAgICAgICAgICAgICAgICAg ICAgICAgICAgICAgICAgICAgICAgICAgICAgICANCiAgICAgICAgICAgICAgICAgICAgICAgICAgICAg ICAgICAgICAgICAgICAgICAgICAgICAgICAgICAgIC AgICAgICAgICAgICAgICAgICAgICAgICAgICAgICAgICAgICAgICANCiAgICAgICAgICAgICAgICAgIC AgICAgICAgICAgICAgICAgICAgICAgICAgICAgICAgICAgICAgICAgICAgICAgICAgICAgICAgICAgIC AgICAgICAgICAgICAgICAgICAgICANCiAgICAgICAg ICAgICAgICAgICAgICAgICAgICAgICAgICAgICAgICAgICAgICAgICAgICAgICAgICAgICAgICAgICAg ICAgICAgICAgICAgICAgICAgICAgICAgICAgICAgICANCiAgICAgICAgICAgICAgICAgICAgICAgICAg ICAgICAgICAgICAgICAgICAgICAgICAgICAgICAgIC AgICAgICAgICAgICAgICAgICAgICAgICAgICAgICAgICAgICAgICAgICANCjw/dARoL4wmfACdfcZ4P8 ylKz4AGs9ZDS6nw7YqXCDzMJlspnOrZyjUHaLqXPJyHkuCDuh4UGmbYF8FbIHqV1PoZ4BfYCbjUY0WWQ ChLOBziFZoBQDjBQVhInK3FQXbWXrwLW5JrVUpOHtu XRWwBZWxReGxDUZzXPWdLCQfMUGsNKDMPY4WEeVcW9BmjD40QDNOJw8+RWeejbLvLlvJLnL3WZXhu3Jh YIh2ER6TNVGwVnkkc3QnQaqkNBBHEFgoGZ9NDOT0IYF7GEZoFg7NBWOuF654xuWhLT6XPk4APzHmFK3a ey3HPgczLAVaFswTNcn9DEmnLN0VgSSkGZkPxs2cwi SuuhQZs8SoomOmxYDMi22orGweqtWZOCUcuqnhueywPNEaJZAuHO0rNaHdZeFgWWK0PNHuNI8hOUvkKP 6MDDG8LMpuOCLkVWEyX6uBXhUxXCZhVWVvfKitFP4NQxImY9YrjeIqxUNhJVRrRCUTLd1+DQplbmRvYm vGXuTuBZHcp5NnVCm3ZK2MVYYhGQwhWU1YJZTgcU6y BRqqKD0ZStKzPrAyXWZHPxAwU99spGSaQSx1L2TyDjLyMIJrEbmxHKAoFMigDwPqMLEwJpClUSqzRT2+ ID4+YTxjWW4PRKmmsfYcCDXdAj1ANVIjEOVoNO2yTKWcIEHyO0D8rYwdKQOPJzHtI9efwsvrLE1hWYMe G563yTjdukWwJSQ7TOJeSz7ANVWsBAJ3JQJajFJbDw qcSFVQWStuFY1HcZBdQTT6zX0lBPqfYLTnQBNgZ0sBLxGwoOpbSX19jJfqlgJskTInALk+Ro7WQH7cl7 YhMUw1ahHpLYkzFMCyXGtxBVZuMAShPXCjNRT5SYB4LJZHNkXuYPRkSXCoJJqfBGUtYYQbho4KUIShVJ CnSoB5FVKxGHMnOPMnLRkjNVTvFSA2LCJiPIChWNQr CT6XMfVoBFRsMSJlXVoaGDDoOOXouu9ZCXTnMTHuYjJ9RWTtVYGkRYAjNBwmCYTrTDFeEdriNZWmJTAk EH4VVeWaUDUwKSP5UfxgVIGgBOKmgx9DTJOvMZTkBQr5XfCvGKFxLIVbJUmuCBOqDQI8ELOxBOVvPYRj YV5HKaElRVSwYBjxJRUtAJSmPWHtzl2RMROhIMRnJD flDKTwELCtURUjIOchHMIdUVQjKXNrLVAqAMZoMC5VBdNsWRKuRWU1ULAgVIShEGGfrz5YRTRiQMIrYl B0DNElAHDaJGRcGUspRPRtZJJvAqCtZDEiXQKjEO2ICdDsXMQtXPMqAxUtEXGuSDScws9NUJKvHSOvBa OsNcFkRHKeYRUxKXdxYUTeWZFcGgYwBKWrSQTaLN4Y GtOcMIBfMaFzXDDlAJOxLQFnvl1UEHLbMNQzWYJ4SCNaEAQmBWCyYDieMTPrUGU8LXs7WQLbBVWeNJ3T OsSyGWRiCaH3FpGpGUEzBXKwpr2ZFSEsPCQmQOn3VVUoXLHhUTXrNDhcOKOtPJK4GSM5BGDaZYByLP6T WwYxMGAhOufjGIVgJRHaOMHpvw9LGZToTMSsJtT7On YtLZRaBNJdMZiiZVTcRAM9ChooSAUzCVIsCN6PXbVqPCGlEakkSNZjCKXuOWYmll2OMDDlISGsPUIzLU XeOTNkPTSjJTrmHBJyTOL5LpMsXSWkCOVfMX8JRfCyZSxfCVGQLkr6JFfjI2t8KLLtMZ5NP2Wtl1WhWa BzICYGVOuhOF1mrkYjIHIzSw1JI3gKHwoqV7SzZLQd QnKiKIM6QVVlASA8ElGpOHUfMaXhDnA2Yi3rLJA8NlK4VhJiTTExKehnLxZdXWgwFoQkYLEpAGEsYSVk HmBmAH7QSz9BNfG7VKV2xJYdCn0TRff5KGVVRzReXU0OSXz= ID Date Data Source [id number] 11/11/2020 12:51:00 PM EDT [facility] ([facility]) Name Value Range Interpretation Code Description Data Roseanne rce(s) Supporting Document(s) EKG Laboratory test result [facility] ([facility]) ID Date Data Source [id number] 09/03/2020 03:43:00 PM EDT [facility] ([facility]) Name Value Range Interpretation Code Description Data Roseanne rce(s) Supporting Document(s) C reactive protein [Mass/volume] in Serum or Plasma by High sensitivity method 1.09 mg/dL 0.00-0.30 Above high normal [facility] ([facility]) ID Date Data Source [id number] 09/03/2020 03:43:00 PM EDT [facility] ([facility]) Name Value Range Interpretation Code Description Data Roseanne rce(s) Supporting Document(s) Glucose, Fasting 105 mg/dL 70-100 Above high normal [facility] Blood Urea Nitrogen 13 mg/dL 7-18 Normal (applies to non-nume eleno results) [facility] ([facility]) Glomerular Filtration Rate Laboratory test result Normal (applies to non- numeric results) [facility] ([facility]) <content>Units are mL/min/1.73 m2</content>
<content></content>
<content>Chronic Kidney Disease Staging per NKF:</content>
<content></content>
<content>Stage I & II GFR >=60 Normal to Mildly Decreased</content>
<content>Stage III GFR 30- 59 Moderately Decreased</content>
<content>Stage IV GFR 15-29 Severely Decreased</content>
<content>Stage V GFR <15 Very Little GFR Left</content>
<content>ESRD GFR <15 on TERRAZZO LAYER</content>
<content></content> Creatinine For GFR 0.63 mg/dL 0.70-1.30 Below low normal [facility] ([facility]) Sodium Level 137 meq/L 136-145 Normal (applies to non-numeric res ults) [facility] ([facility]) Potassium Serum 4.5 meq/L 3.5-5.1 Normal (applies to non-numeric results) [facility] ([facility]) Chloride Level 103 meq/L 98-107 Normal (applies to non-numeric r esults) [facility] ([facility]) Carbon Dioxide Level 31 meq/L 21-32 Normal (applies to non-num [place] results) [facility] ([facility]) Anion Gap 3 meq/L 8-16 Below low normal [facility] ( [facility]) Ast/Sgot 22 U/L 7-37 Normal (applies to non-numeric resul ts) [facility] ([facility]) Calcium Level 9.2 mg/dL 8.8-10.2 Normal (applies to non-numeric re sults) [facility] ([facility]) Alt/SGPT 29 U/L 12-78 Normal (applies to non-numeric resul ts) [facility] ([facility]) Alkaline Phosphatase 101 U/L 45-117 Normal (applies to non-num [place] results) [facility] ([facility]) Bilirubin,Total 0.5 mg/dL 0.2-1.0 Normal (applies to non-numeric results) [facility] ([facility]) Total Protein 7.5 GM/DL 6.4-8.2 Normal (applies to non-numeric re sults) [facility] ([facility]) Albumin 3.7 GM/DL 3.2-5.2 Normal (applies to non-numeric resul ts) [facility] ([facility]) Albumin/Globulin Ratio 1.0 Normal (applies to non-n umeric results) [facility] ([facility]) ID Date Data Source [id number] 09/03/2020 03:43:00 PM EDT [facility] ([facility]) Name Value Range Interpretation Code Description Data Roseanne rce(s) Supporting Document(s) White Blood Count 8.4 10 4.0-10.0 Normal (applies to non-numeri c results) [facility] ([facility]) Red Blood Count 4.08 10 4.30-6.10 Below low normal [facility] ([facility]) Hemoglobin 13.8 g/dL 13.5-17.5 Normal (applies to non-numeric resul ts) [facility] ([facility]) Hematocrit 41.6 % 42.0-52.0 Below low normal [facility] ( [facility]) Mean Corpuscular Volume 102.0 fl 80.0-96.0 Above high normal [facility] ([facility]) Mean Corpuscular Hemoglobin 33.8 pg 27.0-33.0 Above high normal [facility] ([facility]) Red Cell Distribution Width 13.3 % 11.5-14.5 Norm al (applies to non-numeric results) [facility] ([facility]) Mean Corpuscular HGB Conc 33.2 g/dL 32.0-36.5 Normal (applies to non-numeric results) [facility] ([facility]) Lymph % 23.5 % 24.0-44.0 Below low normal [facility] ( [facility]) Platelet Count, Automated 317 10 150-450 Normal (applies to non-numeric results) [facility] ([facility]) Neutrophils % 65.5 % 36.0-66.0 Normal (applies to non-numeric re sults) [facility] ([facility]) Eos % 1.3 % 0.0-3.0 Normal (applies to non-numeric resul ts) [facility] ([facility]) Todd % 8.2 % 2.0-8.0 Above high normal [facility] ([facility]) Immature Granulocyte % 0.4 % 0-3.0 Normal (applies to non-n umeric results) [facility] ([facility]) Baso % 1.1 % 0.0-1.0 Above high normal [facility] ([facility]) Lymph # 2.0 10 1.5-5.0 Normal (applies to non-numeric resul ts) [facility] ([facility]) Nucleated Red Blood Cell % 0.0 % 0-0 Normal (applies to n on-numeric results) [facility] ([facility]) Neutrophils # 5.5 10 1.5-8.5 Normal (applies to non-numeric re sults) [facility] ([facility]) Eos # 0.1 10 0.0-0.5 Normal (applies to non-numeric resul ts) [facility] ([facility]) Todd # 0.7 10 0.0-0.8 Normal (applies to non-numeric resul ts) [facility] ([facility]) Baso # 0.1 10 0.0-0.2 Normal (applies to non-numeric resul ts) [facility] ([facility]) ID Date Data Source [id number] 09/03/2020 03:40:00 PM EDT [facility]) Name Value Range Interpretation Code Description Data Roseanne rce(s) Supporting Document(s) Calcidiol [Mass/volume] in Serum or Plasma 9.5 ng/mL 30.0- 100.0 Below low normal [facility] ([facility]) ID Date Data Source [id number] 09/03/2020 03:40:00 PM EDT [facility] ([facility]) Name Value Range Interpretation Code Description Data Roseanne rce(s) Supporting Document(s) PSA Total 0.9 ng/mL 0.0-4.0 Normal (applies to non-numeric resul ts) [facility] ([facility]) Mel ECLIA methodology. . According to the [employer], Serum PSA should decrease and [...] result Normal (applies to non- numeric results) [facility]) . The percent free PSA is performed on a reflex basis only when the total PSA is between 4.0 and 10.0 ng/mL. Performed at: - [facility] [address] [id number] Clinical Laboratory Manager: Erika Van MD, Phone: [phone] ID Date Data Source [id number] 09/03/2020 03:40:00 PM EDT [facility]) Name Value Range Interpretation Code Description Data Roseanne rce(s) Supporting Document(s) Free T4 1.07 ng/dL 0.76-1.46 Normal (applies to non-numeric resul ts) [facility] ([facility]) Thyroid Stimulating Hormone 1.070 uIU/ML 0.358-3.740 Norm al (applies to non- numeric results) [facility] ([facility]) ID Date Data Source [id number] 09/03/2020 03:40:00 PM EDT [facility] ([facility]) Name Value Range Interpretation Code Description Data Roseanne rce(s) Supporting Document(s) Triglycerides Level 179 mg/dL Above high normal [facility] ([facility]) Cholesterol Level 180 mg/dL Normal (applies to non-numeri c results) [facility] ([facility]) LDL Cholesterol 88 mg/dL Normal (applies to non-numeric results) [facility] ([facility]) Non-HDL-C 124 mg/dL Normal (applies to non-numeric resul ts) [facility] HDL Cholesterol 56 mg/dL Normal (applies to non-numeric results) [facility] ([facility]) Cholesterol Risk Ratio 3.214 Normal (applies to non-n umeric results) [facility]) ID Date Data Source [id number] 06/15/2020 04:39:00 PM EST [facility] ([facility]) Name Value Range Interpretation Code Description Data Roseanne rce(s) Supporting Document(s) Erythrocyte sedimentation rate by Westergren method 25 mm/hr 0-20 Above high normal [facility] ([facility]) ID Date Data Source [id number] 06/15/2020 04:39:00 PM EST [facility] ([facility]) Name Value Range Interpretation Code Description Data Roseanne rce(s) Supporting Document(s) White Blood Count 7.7 10 4.0-10.0 Normal (applies to non-numeri c results) [facility] ([facility]) Red Blood Count 4.05 10 4.30-6.10 Below low normal [facility] ([facility]) Hemoglobin 13.8 g/dL 13.5-17.5 Normal (applies to non-numeric resul ts) [facility] ([facility]) Mean Corpuscular Volume 102.7 fl 80.0-96.0 Above [facility] Hematocrit 41.6 % 42.0-52.0 Below low normal [facility] ( [facility]) Mean Corpuscular Hemoglobin 34.1 pg 27.0-33.0 Above high normal [facility] Red Cell Distribution Width 13.3 % 11.5-14.5 Norm al (applies to non-numeric results) [facility] ([facility]) Mean Corpuscular HGB Conc 33.2 g/dL 32.0-36.5 Normal (applies to non-numeric results) [facility] ([facility]) Lymph % 32.2 % 24.0-44.0 Normal (applies to non-numeric resul ts) [facility] ([facility]) Platelet Count, Automated 283 10 150-450 Normal (applies to non-numeric results) [facility] ([facility]) Neutrophils % 54.3 % 36.0-66.0 Normal (applies to non-numeric re sults) [facility] ([facility]) Eos % 1.6 % 0.0-3.0 Normal (applies to non-numeric resul ts) [facility] ([facility]) Todd % 10.7 % 0.0-8.0 Above high normal [facility] ([facility]) Nucleated Red Blood Cell % 0.0 % 0-0 Normal (applies to n on-numeric results) [facility] ([facility]) Immature Granulocyte % 0.3 % 0-3.0 Normal (applies to non-n umeric results) [facility] ([facility]) Baso % 0.9 % 0.0-1.0 Normal (applies to non-numeric resul ts) [facility] ([facility]) Neutrophils # 4.2 10 1.5-8.5 Normal (applies to non-numeric re sults) [facility] ([facility]) Lymph # 2.5 10 1.5-5.0 Normal (applies to non-numeric resul ts) [facility] ([facility]) Eos # 0.1 10 0.0-0.5 Normal (applies to non-numeric resul ts) [facility] ([facility]) Todd # 0.8 10 0.0-0.8 Normal (applies to non-numeric resul ts) [facility] ([facility]) Baso # 0.1 10 0.0-0.2 Normal (applies to non-numeric resul ts) [facility] ([facility]) ID Date Data Source [id number] 06/15/2020 04:39:00 PM EST [facility] ([facility]) Name Value Range Interpretation Code Description Data Roseanne rce(s) Supporting Document(s) C reactive protein [Mass/volume] in Serum or Plasma by High sensitivity method 1.63 mg/dL 0.00-0.30 Above high normal [facility] ([facility]) ID Date Data Source [id number] 06/15/2020 04:39:00 PM EST [facility] ([facility]) Name Value Range Interpretation Code Description Data Roseanne rce(s) Supporting Document(s) Glucose, Fasting 113 mg/dL 70-100 Above high normal [facility] ([facility]) Creatinine For GFR 0.82 mg/dL 0.70-1.30 Normal (applies to non -numeric results) [facility] ([facility]) Blood Urea Nitrogen 19 mg/dL 7-18 Above high normal [facility] ([facility]) Glomerular Filtration Rate Laboratory test result Normal (applies to non- numeric results) [facility] ([facility]) <content>Units are mL/min/1.73 m2</content>
<content></content>
<content>Chronic Kidney Disease Staging per NKF:</content>
<content></content>
<content>Stage I & II GFR >=60 Normal to Mildly Decreased</content>
<content>Stage III GFR 30- 59 Moderately Decreased</content>
<content>Stage IV GFR 15-29 Severely Decreased</content>
<content>Stage V GFR <15 Very Little GFR Left</content>
<content>ESRD GFR <15 on TERRAZZO LAYER</content>
<content></content> Sodium Level 140 meq/L 136-145 Normal (applies to non-numeric res ults) [facility] ([facility]) Chloride Level 105 meq/L 98-107 Normal (applies to non-numeric r esults) [facility] ([facility]) Potassium Serum 4.7 meq/L 3.5-5.1 Normal (applies to non-numeric results) [facility] ([facility]) Carbon Dioxide Level 29 meq/L 21-32 Normal (applies to non-num [place] results) [facility] Anion Gap 6 meq/L 8-16 Below low normal [facility] Alt/SGPT 27 U/L 12-78 Normal (applies to non-numeric resul ts) [facility] ([facility]) Ast/Sgot 22 U/L 7-37 Normal (applies to non-numeric resul ts) [facility] ([facility]) Calcium Level 9.0 mg/dL 8.8-10.2 Normal (applies to non-numeric re sults) [facility] ([facility]) Bilirubin,Total 0.3 mg/dL 0.2-1.0 Normal (applies to non-numeric results) [facility] ([facility]) Alkaline Phosphatase 105 U/L 45-117 Normal (applies to non-num [place] results) [facility] ([facility]) Total Protein 7.2 GM/DL 6.4-8.2 Normal (applies to non-numeric re sults) [facility] ([facility]) Albumin/Globulin Ratio 0.9 Normal (applies to non-n umeric results) [facility] ([facility]) Albumin 3.5 GM/DL 3.2-5.2 Normal (applies to non-numeric resul ts) [facility] ([facility]) ID Date Data Source [id number] 03/16/2020 03:56:00 PM EST [facility] ([facility]) Name Value Range Interpretation Code Description Data Roseanne rce(s) Supporting Document(s) Erythrocyte sedimentation rate by Westergren method 30 mm/hr 0-20 Above high normal [facility] ([facility]) ID Date Data Source [id number] 03/16/2020 03:56:00 PM EST [facility] ([facility]) Name Value Range Interpretation Code Description Data Roseanne rce(s) Supporting Document(s) White Blood Count 7.2 10 4.0-10.0 Normal (applies to non-numeri c results) [facility] ([facility]) Red Blood Count 4.33 10 4.30-6.10 Normal (applies to non-numeric results) [facility] ([facility]) Hemoglobin 14.1 g/dL 13.5-17.5 Normal (applies to non-numeric resul ts) [facility] ([facility]) Hematocrit 43.6 % 42.0-52.0 Normal (applies to non-numeric resul ts) [facility] ([facility]) Mean Corpuscular Volume 100.7 fl 80.0-96.0 Above high normal [facility] ([facility]) Mean Corpuscular HGB Conc 32.3 g/dL 32.0-36.5 Normal (applies to non-numeric results) [facility] ([facility]) Mean Corpuscular Hemoglobin 32.6 pg 27.0-33.0 Norm al (applies to non-numeric results) [facility] ([facility]) Platelet Count, Automated 351 10 150-450 Normal (applies to non-numeric results) [facility] ([facility]) Red Cell Distribution Width 13.7 % 11.5-14.5 Norm al (applies to non-numeric results) [facility] ([facility]) Lymph % 27.9 % 24.0-44.0 Normal (applies to non-numeric resul ts) [facility] ([facility]) Neutrophils % 59.8 % 36.0-66.0 Normal (applies to non-numeric re sults) [facility] ([facility]) Eos % 1.7 % 0.0-3.0 Normal (applies to non-numeric resul ts) [facility] ([facility]) Todd % 8.9 % 0.0-5.0 Above high normal [facility] ([facility]) Baso % 1.0 % 0.0-1.0 Normal (applies to non-numeric resul ts) [facility] ([facility]) Immature Granulocyte % 0.7 % 0-3.0 Normal (applies to non-n umeric results) [facility] ([facility]) Nucleated Red Blood Cell % 0.0 % 0-0 Normal (applies to n on-numeric results) [facility] ([facility]) Neutrophils # 4.3 10 1.5-8.5 Normal (applies to non-numeric re sults) [facility] ([facility]) Todd # 0.6 10 0.0-0.8 Normal (applies to non-numeric resul ts) [facility] ([facility]) Lymph # 2.0 10 1.5-5.0 Normal (applies to non-numeric resul ts) [facility] ([facility]) Baso # 0.1 10 0.0-0.2 Normal (applies to non-numeric resul ts) [facility] ([facility]) Eos # 0.1 10 0.0-0.5 Normal (applies to non-numeric resul ts) [facility] ([facility]) ID Date Data Source [id number] 03/16/2020 03:56:00 PM EST [facility] Name Value Range Interpretation Code Description Data Roseanne rce(s) Supporting Document(s) C reactive protein [Mass/volume] in Serum or Plasma by High sensitivity method 1.07 mg/dL 0.00-0.30 Above high normal [facility] ([facility]) ID Date Data Source [id number] 03/16/2020 03:56:00 PM EST [facility] ([facility]) Name Value Range Interpretation Code Description Data Roseanne rce(s) Supporting Document(s) Glucose, Fasting 117 mg/dL 70-100 Above high normal [facility] Creatinine For GFR 0.79 mg/dL 0.70-1.30 Normal (applies to non -numeric results) [facility] Blood Urea Nitrogen 7 mg/dL 7-18 Normal (applies to non-nume eleno results) [facility] ([facility]) Sodium Level 140 meq/L 136-145 Normal (applies to non-numeric res ults) [facility] ([facility]) Glomerular Filtration Rate Laboratory test result Normal (applies to non- numeric results) [facility] ([facility]) <content>Units are mL/min/1.73 m2</content>
<content></content>
<content>Chronic Kidney Disease Staging per NKF:</content>
<content></content>
<content>Stage I & II GFR >=60 Normal to Mildly Decreased</content>
<content>Stage III GFR 30- 59 Moderately Decreased</content>
<content>Stage IV GFR 15-29 Severely Decreased</content>
<content>Stage V GFR <15 Very Little GFR Left</content>
<content>ESRD GFR <15 on TERRAZZO LAYER</content>
<content></content> Chloride Level 106 meq/L 98-107 Normal (applies to non-numeric r esults) [facility] ([facility]) Potassium Serum 3.9 meq/L 3.5-5.1 Normal (applies to non-numeric results) [facility] ([facility]) Anion Gap 5 meq/L 8-16 Below low normal [facility] ( [facility]) Carbon Dioxide Level 29 meq/L 21-32 Normal (applies to non-num antonette results) [facility] ([facility]) Calcium Level 9.0 mg/dL 8.8-10.2 Normal (applies to non-numeric re sults) [facility] ([facility]) Ast/Sgot 27 U/L 7-37 Normal (applies to non-numeric resul ts) [facility] ([facility]) Alt/SGPT 33 U/L 12-78 Normal (applies to non-numeric resul ts) [facility] ([facility]) Alkaline Phosphatase 123 U/L 45-117 Above high normal [facility] ([facility]) Bilirubin,Total 0.4 mg/dL 0.2-1.0 Normal (applies to non-numeric results) [facility] Albumin 3.7 GM/DL 3.2-5.2 Normal (applies to non-numeric resul ts) [facility] ([facility]) Total Protein 7.9 GM/DL 6.4-8.2 Normal (applies to non-numeric re sults) [facility] Albumin/Globulin Ratio 0.9 Normal (applies to non-n umeric results) [facility] Procedure Social History Code Duration Value Status Description Data Source(s ) Alcohol intake 11/30/2020 12:00:00 AM EDT Current drinker of al cohol (finding) completed Current drinker of alcohol (finding) [facility] Tobacco use and exposure 11/30/2020 12:00:00 AM EDT Never used co mpleted Never used [facility] Cigarette pack-years 11/30/2020 12:00:00 AM EDT [facility] Cigarettes smoked current (pack per day) - Reported 12/01/19 12:00:00 AM EDT [facility] Smoking 11/30/2020 12:00:00 AM EDT Former smoker completed Former smoker [facility] Smoking 11/11/2020 12:00:00 AM EDT - 09/30/2018 12:00:00 AM EDT Patient is a former smoker completed Patient is a former smoker [facility] Vital Signs ID Date Data Source UNK Name Value Range Interpretation Code Description Data Source(s) Systolic blood pressure 126 mm[Hg] 126 mm[Hg] [facility] Body mass index (BMI) [Ratio] 26.8 kg/m2 26.8 k g/m2 [facility] ([facility]) Heart rate 113 /min 113 /min [facility] ([facility]) Respiratory rate 18 /min 18 /min [facility] ( [facility]) Body temperature 99.1 [degF] 99.1 [degF] [facility] ([facility]) Oxygen saturation in Arterial blood by Pulse oximetry 96 % 96 % [facility] Diastolic blood pressure 72 mm[Hg] 72 mm[Hg] [facility] ([facility]) Body height 71.6 [in_i] 71.6 [in_i] [facility] ([facility]) 5'.60" Body weight 195.38 [lb_av] 195.38 [lb_av] [facility] ([facility]) Amelia body weight 172 [lb_av] 172 [lb_av] [facility] ([facility]) Body temperature 97.8 [degF] 97.8 [degF] [facility] ([facility]) Systolic blood pressure 130 mm[Hg] 130 mm[Hg] [facility] ([facility]) Diastolic blood pressure 70 mm[Hg] 70 mm[Hg] [facility] ([facility]) Body height 71.6 [in_i] 71.6 [in_i] [facility] ([facility]) 5'11.60" Body weight 201.00 [lb_av] 201.00 [lb_av] [facility] ([facility]) Heart rate 83 /min 83 /min [facility] ([facility]) Respiratory rate 14 /min 14 /min [facility] Oxygen saturation in Arterial blood by Pulse oximetry 97 % 97 % [facility] Amelia body weight 172 [lb_av] 172 [lb_av] [facility] ([facility]) Body mass index (BMI) [Ratio] 27.6 kg/m2 27.6 k g/m2 [facility] ([facility]) Amelia body weight 172 [lb_av] 172 [lb_av] [facility] ([facility]) Systolic blood pressure 132 mm[Hg] 132 mm[Hg] M [facility] ([facility]) Diastolic blood pressure 74 mm[Hg] 74 mm[Hg] [facility] ([facility]) Body height 71.6 [in_i] 71.6 [in_i] [facility] ([facility]) 5'11.60" Body weight 216.12 [lb_av] 216.12 [lb_av] [facility] ([facility]) Body mass index (BMI) [Ratio] 29.6 kg/m2 29.6 k g/m2 [facility] ([facility]) Heart rate 95 /min 95 /min [facility] ([facility]) Respiratory rate 20 /min 20 /min [facility] ( [facility]) Body temperature 96.5 [degF] 96.5 [degF] [facility] ([facility]) Oxygen saturation in Arterial blood by Pulse oximetry 99 % 99 % [facility] ([facility]) Body weight 200.38 [lb_av] 200.38 [lb_av] [facility] ([facility]) Body mass index (BMI) [Ratio] 27.5 kg/m2 27.5 k g/m2 [facility] ([facility]) Respiratory rate 16 /min 16 /min [facility] ( [facility]) Body temperature 96.7 [degF] 96.7 [degF] [facility] ([facility]) Oxygen saturation in Arterial blood by Pulse oximetry 97 % 97 % [facility] ([facility]) Amelia body weight 172 [lb_av] 172 [lb_av] [facility] T ([facility]) Systolic blood pressure 118 mm[Hg] 118 mm[Hg] M [facility] ([facility]) Diastolic blood pressure 78 mm[Hg] 78 mm[Hg] [facility] ([facility]) Body height 71.6 [in_i] 71.6 [in_i] [facility] ([facility]) 5'11.60" Heart rate 104 /min 104 /min [facility] ([facility]) Patient Treatment Plan of Care Planned Activity Planned Date Details Description Data Source (s) Cefadroxil 500 MG Oral Capsule 11/30/2020 12:00:00 AM [facility] Cefadroxil 500 MG Oral Capsule 11/30/2020 12:00:00 AM [facility] Cefadroxil 500 MG Oral Capsule 11/30/2020 12:00:00 AM [facility] doxycycline hyclate 100 MG Oral Capsule 06/20/2019 12:00:00 AM [facility] Rifampin 300 MG Oral Capsule 02/08/2017 12:00:00 AM [facility]
--- OUTSIDE RECORDS SUMMARY | 2021-02-27 12:35 | CCD ---
Author Author [facility] Address Unknown Phone Unavailable Care Team Providers Care Senior Security Analyst Name Role Phone MIKAEL TAMAYO PA-C Unavailable [...] Sánchez PA Unavailable Unavailable Aditya, L Ave SPACE CONTROL SUPERVISOR Unavailable Unavailable Aditya, L Ave SPACE CONTROL SUPERVISOR Unavailable Unavailable Aditya, L Ave SPACE CONTROL SUPERVISOR Unavailable Unavailable Aditya, L Ave SPACE CONTROL SUPERVISOR Unavailable Unavailable Aditya, L Ave SPACE CONTROL SUPERVISOR Unavailable Unavailable Aditya, L Ave SPACE CONTROL SUPERVISOR Unavailable Unavailable Aditya, L Ave SPACE CONTROL SUPERVISOR Unavailable Unavailable Aditya, L Ave SPACE CONTROL SUPERVISOR Unavailable Unavailable Aditya, L Ave SPACE CONTROL SUPERVISOR Unavailable Unavailable Aditya, L Ave SPACE CONTROL SUPERVISOR Unavailable Unavailable Aditya, L Ave SPACE CONTROL SUPERVISOR Unavailable Unavailable Aditya, L Ave SPACE CONTROL SUPERVISOR Unavailable Unavailable Aditya, L Ave SPACE CONTROL SUPERVISOR Unavailable Unavailable Aditya, L Ave SPACE CONTROL SUPERVISOR Unavailable Unavailable Aditya, L Ave SPACE CONTROL SUPERVISOR Unavailable Unavailable Aditya, L Ave SPACE CONTROL SUPERVISOR Unavailable Unavailable Aditya, L Ave SPACE CONTROL SUPERVISOR Unavailable Unavailable Aditya, L Ave SPACE CONTROL SUPERVISOR Unavailable Unavailable Aditya, L Ave SPACE CONTROL SUPERVISOR Unavailable Unavailable Aditya, L Ave SPACE CONTROL SUPERVISOR Unavailable Unavailable Aditya, L Ave SPACE CONTROL SUPERVISOR Unavailable Unavailable Aditya, L Ave SPACE CONTROL SUPERVISOR Unavailable Unavailable Aditya, L Ave SPACE CONTROL SUPERVISOR Unavailable Unavailable Aditya, L Ave SPACE CONTROL SUPERVISOR Unavailable Unavailable Aditya, L Ave SPACE CONTROL SUPERVISOR Unavailable Unavailable Aditya, L Ave SPACE CONTROL SUPERVISOR Unavailable Unavailable Aditya, L Ave SPACE CONTROL SUPERVISOR Unavailable Unavailable Aditya, L Ave SPACE CONTROL SUPERVISOR Unavailable Unavailable Aditya, L Ave SPACE CONTROL SUPERVISOR Unavailable Unavailable Aditya, L Ave SPACE CONTROL SUPERVISOR Unavailable Unavailable Aditya, L Ave SPACE CONTROL SUPERVISOR Unavailable Unavailable Aditya, L Ave SPACE CONTROL SUPERVISOR Unavailable Unavailable Aditya, L Ave SPACE CONTROL SUPERVISOR Unavailable Unavailable Aditya, L Ave SPACE CONTROL SUPERVISOR Unavailable Unavailable Aditya, L Ave SPACE CONTROL SUPERVISOR Unavailable Unavailable Aditya, L Ave SPACE CONTROL SUPERVISOR Unavailable Unavailable Aditya, L Ave SPACE CONTROL SUPERVISOR Unavailable Unavailable Aditya, L Ave SPACE CONTROL SUPERVISOR Unavailable Unavailable Aditya, L Ave SPACE CONTROL SUPERVISOR Unavailable Unavailable Aditya, L Ave SPACE CONTROL SUPERVISOR Unavailable Unavailable Aditya, L Ave SPACE CONTROL SUPERVISOR Unavailable Unavailable Aditya, L Ave SPACE CONTROL SUPERVISOR Unavailable Unavailable Chauncey Barker MD Unavailable Unavailable [...] is protected by Article 27-F of the [facility] Public Health law. If you continue you may have access to information: Regarding HIV / AIDS; Provided by facilities licensed or operated by the [facility] Office of Mental Health; or Provided by the [facility] Office for People With Developmental Disabilities. If such information is present, then the following [facility] mandated warning applies: This information has been [...] law may result in a fine or senior care sentence or both. A general authorization for the release of medical or other information is NOT sufficient authorization for further disc losure. Family History Family Member Name Family Member Gender Family Member Status Date o f Status Description Data Source(s) Unknown Male Problem [facility] ([facility]) Unknown Male Problem [facility] ([facility]) Unknown Female Problem [facility] ([facility]) Unknown Female Problem [facility] ([facility]) Encounters Encounter Providers Location Date Indications Data Source(s ) Outpatient Attender: ERIN DIAZ MD 06/02/2021 12:00:00 AM [facility] Outpatient Attender: MIKAEL Charltonferrer: Marin mccrary MD [id number] 11/30/2020 12:00:00 AM EDT - 11/30/2020 02:39:56 PM [facility] Outpatient Attender: MIKAEL TAMAYO PA-C 11/27/2020 12:00 :00 AM [facility] Office Visit Attender: Sánchez LOWERY [facility] 11/11/2020 11:00:00 AM EDT [facility] ([facility]) Outpatient Attender: Sánchez LOWERY [facility] 08/25/2020 11:00:00 AM EDT [facility] ([facility]) Outpatient Attender: MIKAEL TAMAYO PA-C 06/26/2020 12:00 :00 AM [facility] Outpatient Attender: Sánchez LOWERY [facility] 05/06/2020 09:20:00 AM EST [facility] ([facility]) Outpatient Attender: Ave Burgess NPReferrer: Marin najera MD 04/14/2020 12:00:00 AM [facility] Outpatient Attender: MIKAEL Charltonferrer: Marin mccrary MD 02/07/2020 12:00:00 AM [facility] Outpatient Attender: Sánchez LOWERY [facility] 01/29/2020 11:00:00 AM EDT [facility] ([facility]) Outpatient Attender: Rena LOWERY 10/02/2015 12:00:0 0 AM EDT [facility] Immunizations Vaccine Date Status Description Data Source(s) COVID-19 VACCINE Pfizer 09/16/2020 12:00:00 AM EDT completed [facility] Vaccine Series Complete: YESThis Data wa s Submitted to [facility] Via [email or web address]. COVID-19 VACCINE Pfizer 08/26/2020 12:00:00 AM EDT completed [facility] Vaccine Series Complete: NOThis Data was Submitted to [facility] Via [email or web address]. Medications Medication Brand Name Start Date Product [...] DAILY DOSE = 1 PATCH/3DAYS SOLD: 02/10/2021 [facility] Amphetamine aspartate 7.5 MG / Amphetami [...] mg Oral active Take 1 capsule by [facility] Two Times Daily [facility] Cefadroxil 500 MG Oral Capsule Cefadroxil 500 MG Oral Capsule (DURICEF) Cefadroxil 500 MG Oral Capsule (DURICEF) 11/30/2020 12:00:00 AM EDT 500 mg Oral active Take 1 capsule by [facility] Two Times Daily [facility] Cefadroxil 500 MG Oral Capsule Cefadroxil 500 MG Oral Capsule (DURICEF) Cefadroxil 500 MG Oral Capsule (DURICEF) 11/30/2020 12:00:00 AM EDT 500 mg Oral aborted Take 1 capsule by [facility] Two Times Daily [facility] 25 mcg/hr 11/27/2020 12:00:00 AM EDT [...] IMUM DAILY DOSE = 2 SOLD: 09/19/2020 [facility] 1,250 mcg (50,000 unit) 09/07/2020 12:00:00 AM EDT capsule 4 TAKE 1 CAPSULE BY MOUTH ONCE EACH WEEK TAKE 1 CAPSULE BY MOUTH ONCE EACH WEEK SOLD: 09/08/2020 [facility] Ergocalciferol 40324 UNT Oral Capsule Vitamin D (Ergocalcife rol) 09/06/2020 12:00:00 AM EDT active M [facility] ([facility]) 12 mcg/hr 08/26/2020 12:00:00 AM EDT patch [...] 08/25/2020 12:00:00 AM EDT ORAL active [facility] ([facility]) 30 mg 08/25/2020 12:00:00 AM EDT [...] BY MOUTH EVERY DAY NEEDED SOLD: 11/28/2020 [facility] 15 mg 05/06/2020 12:00:00 AM EST [...] HCL 02/18/2020 12:00:00 AM EDT active [facility] ([facility]) 25 mcg/hr 01/31/2020 12:00:00 AM EDT [...] 11/28/2019 12:00:00 AM EDT ORAL completed [facility] ([facility]) doxycycline hyclate 100 MG Oral Capsule Doxycycline Hyclate 100 MG Oral Capsule (VIBRAMYCIN) Doxycycline Hyclate 100 MG Oral Capsule (VIBRAMYCIN) 0 06/20/2019 12:00:00 AM EST aborted [facility] Rifampin 300 MG Oral Capsule rifAMPin (RIFADIN) 300 MG capsule rifAMPin (RIFADIN) 300 MG capsule 02/08/2017 12:00:00 AM EDT 300 mg Oral aborted Take 1 capsule by mouth Two Times Daily [facility] Insurance Providers Payer name Policy type / Coverage type Policy ID Covered alliance party ID Covered alliance party's relationship to waldrop Policy [employer] Plan Information Special Funds Workers Compensation [id number] Self MVP Preferred (Hmo) Health Maintenance Organization (HMO) [id number] Self [id number] [facility] Health Plan Commercial [id number] Self [facility] Workers Compensation [id number] Self [id number] [facility] Workers Compensation [id number] Self [id number] [facility] [id number] SP [id number] [facility] H [id number] Self [id number] 200 VALUE OPTIONS [id number] SP [id number] [facility] HEALTH CARE [id number] SP [id number] [employer] () Workers Compensation [id number] Self [id number] [employer] () Workers Compensation [id number] Self 0 [id number] [employer] () Workers Compensation [id number] Self [id number] [employer] () Workers Compensation [id number] Self 0 [id number] [employer] () Workers Compensation [id number] Self [id number] [facility] Workers Compensation [id number] Self 0 [id number] [employer] () Workers Compensation [id number] Self 0 [id number] [employer] () Workers Compensation [id number] Self [id number] [facility] () Workers Compensation [id number] Self [id number] [employer] () Workers Compensation [id number] Self [id number] [employer] () Workers Compensation [id number] Self [id number] MVP (pr) Commercial [id number] Self [id number] MVP SELECT [id number] SP [id number] [employer] Healthcare F [id number] SELF [id number] [employer] HEALTH CARE [id number] SP [id number] SELF PAY MVP SELECT [id number] SP [id number] MVP HEALTH PLAN O [id number] S [id number] MVP HEALTH PLAN O [id number] S [id number] MVP SELECT [id number] SP [id number] MVP SELECT UNAVAILABLE UNAVAIL ABLE [place] CLAIM SERVICES P [id number] S [id number] MEDICARE [id number] SP [id number] SELF PAY UNAVAILABLE UNAVAILA BLE NO FAULT NAHOMI [id number] MVP HEALTH CARE HEA [id number] S [id number] MVP Commercial [id number] Self [id number] [employer] () Workers Compensation [id number] Self [id number] [employer] () Workers Compensation [id number] Self [id number] MVP Commercial [id number] Self [id number] MVP Commercial [id number] Self [id number] [facility] HEALTH CARE O [id number] S [id number] MVP Commercial [id number] [id number] Self [id number] MVP Commercial [id number] [id number] Self [id number] MVP/Preferred Care Commercial [id number] [id number] Self [id number] MVP Commercial [id number] Self [id number] MVP Commercial [id number] [id number] Self [id number] MVP Commercial [id number] [id number] Self [id number] MVP Commercial [id number] [id number] Self [id number] MVP SELECT [id number] SP [id number] MVP Commercial [id number] [id number] Self [id number] MVP/Preferred Care Commercial [id number] Self VALUE OPTIONS [id number] SP [id number] VALUE OPTIONS [id number] SP [id number] MVP SELECT [id number] SP [id number] MVP HEALTH PLAN O [id number] S [id number] Problems, Conditions, and Diagnoses Code Display Name Description Problem Type Effective Dates Data Source(s) [id number] Vitamin D deficiency Vitamin D deficiency Problem 09/06/2020 12:00:00 AM EDT [facility] ([facility]) Surgeries/Procedures Procedure Description Date Indications Data Source(s) Brief Emotional/Behav Assessment W/ Scoring Doc Per Standard Inst 11/11/2020 12:00:00 AM EDT [facility] ([facility]) OFFICE OUTPATIENT VISIT 25 MINUTES 08/25/2020 12:00:00 AM EDT [facility] ([facility]) Results ID Date Data Source [id number] 02/10/2021 04:02:00 PM EDT [facility] ([facility]) Name Value Range Interpretation Code Description Data Roseanne rce(s) Supporting Document(s) Erythrocyte sedimentation rate by Westergren method 29 mm/hr 0-20 Above high normal [facility] ([facility]) ID Date Data Source [id number] 02/10/2021 04:02:00 PM EDT [facility] ([facility]) Name Value Range Interpretation Code Description Data Roseanne rce(s) Supporting Document(s) White Blood Count 8.1 10 4.0-10.0 Normal (applies to non-numeri c results) [facility] ([facility]) Hematocrit 41.5 % 42.0-52.0 Below low normal [facility] ( [facility]) Red Blood Count 4.11 10 4.30-6.10 Below low normal [facility] ([facility]) Hemoglobin 13.8 g/dL 13.5-17.5 Normal (applies to non-numeric resul ts) [facility] ([facility]) Mean Corpuscular Hemoglobin 33.6 pg 27.0-33.0 Above high normal [facility] ([facility]) Mean Corpuscular Volume 101.0 fl 80.0-96.0 Above high normal [facility] Mean Corpuscular HGB Conc 33.3 g/dL 32.0-36.5 Normal (applies to non-numeric results) [facility] ([facility]) Red Cell Distribution Width 13.3 % 11.5-14.5 Norm al (applies to non-numeric results) [facility] ([facility]) Neutrophils % 59.2 % 36.0-66.0 Normal (applies to non-numeric re sults) [facility] ([facility]) Platelet Count, Automated 306 10 150-450 Normal (applies to non-numeric results) [facility] ([facility]) Lymph % 28.2 % 24.0-44.0 Normal (applies to non-numeric resul ts) [facility] ([facility]) Jones % 8.9 % 2.0-8.0 Above high normal [facility] ([facility]) Eos % 2.5 % 0.0-3.0 Normal (applies to non-numeric resul ts) [facility] ([facility]) Baso % 0.7 % 0.0-1.0 Normal (applies to non-numeric resul ts) [facility] ([facility]) Immature Granulocyte % 0.5 % 0-3.0 Normal (applies to non-n umeric results) [facility] ([facility]) Neutrophils # 4.8 10 1.5-8.5 Normal (applies to non-numeric re sults) [facility] ([facility]) Nucleated Red Blood Cell % 0.0 % 0-0 Normal (applies to n on-numeric results) [facility] ([facility]) Lymph # 2.3 10 1.5-5.0 Normal (applies to non-numeric resul ts) [facility] ([facility]) Eos # 0.2 10 0.0-0.5 Normal (applies to non-numeric resul ts) [facility] ([facility]) Jones # 0.7 10 0.0-0.8 Normal (applies to non-numeric resul ts) [facility] ([facility]) Baso # 0.1 10 0.0-0.2 Normal (applies to non-numeric resul ts) [facility] ([facility]) ID Date Data Source [id number] 02/10/2021 04:02:00 PM EDT [facility] ([facility]) Name Value Range Interpretation Code Description Data Roseanne rce(s) Supporting Document(s) C reactive protein [Mass/volume] in Serum or Plasma by High sensitivity method 0.70 mg/dL 0.00-0.30 Above high normal [facility] ([facility]) ID Date Data Source [id number] 02/10/2021 04:02:00 PM EDT [facility] ([facility]) Name Value Range Interpretation Code Description Data Roseanne rce(s) Supporting Document(s) Blood Urea Nitrogen 12 mg/dL 7-18 Normal (applies to non-nume eleno results) [facility] ([facility]) Glucose, Fasting 158 mg/dL 70-100 Above high normal [facility] Sodium Level 138 meq/L 136-145 Normal (applies to non-numeric res ults) [facility] ([facility]) Creatinine For GFR 0.78 mg/dL 0.70-1.30 Normal (applies to non -numeric results) [facility] ([facility]) Glomerular Filtration Rate Laboratory test result Normal (applies to non- numeric results) [facility] ([facility]) <content>Units are mL/min/1.73 m2</content>
<content></content>
<content>Chronic Kidney Disease Staging per NKF:</content>
<content></content>
<content>Stage I & II GFR >=60 Normal to Mildly Decreased</content>
<content>Stage III GFR 30- 59 Moderately Decreased</content>
<content>Stage IV GFR 15-29 Severely Decreased</content>
<content>Stage V GFR <15 Very Little GFR Left</content>
<content>ESRD GFR <15 on TECHNICAL BUSINESS ANALYST</content>
<content></content> Chloride Level 102 meq/L 98-107 Normal (applies to non-numeric r esults) [facility] ([facility]) Potassium Serum 4.3 meq/L 3.5-5.1 Normal (applies to non-numeric results) [facility] ([facility]) Anion Gap 2 meq/L 8-16 Below low normal [facility] ( [facility]) Calcium Level 9.1 mg/dL 8.8-10.2 Normal (applies to non-numeric re sults) [facility] ([facility]) Carbon Dioxide Level 34 meq/L 21-32 Above high normal [facility] ([facility]) Ast/Sgot 30 U/L 7-37 Normal (applies to non-numeric resul ts) [facility] ([facility]) Alt/SGPT 34 U/L 12-78 Normal (applies to non-numeric resul ts) [facility] ([facility]) Bilirubin,Total 0.3 mg/dL 0.2-1.0 Normal (applies to non-numeric results) [facility] ([facility]) Alkaline Phosphatase 122 U/L 45-117 Above high normal [facility] ([facility]) Total Protein 7.3 GM/DL 6.4-8.2 Normal (applies to non-numeric re sults) [facility] ([facility]) Albumin 3.4 GM/DL 3.2-5.2 Normal (applies to non-numeric resul ts) [facility] ([facility]) Albumin/Globulin Ratio 0.9 Normal (applies to non-n umeric results) [facility] ([facility]) ID Date Data Source [id number] 01/06/2021 04:49:00 PM EDT [facility] ([facility]) Name Value Range Interpretation Code Description Data Roseanne rce(s) Supporting Document(s) Erythrocyte sedimentation rate by Westergren method 35 mm/hr 0-20 Above high normal [facility] ([facility]) ID Date Data Source [id number] 01/06/2021 04:49:00 PM EDT [facility] ([facility]) Name Value Range Interpretation Code Description Data Roseanne rce(s) Supporting Document(s) White Blood Count 7.1 10 4.0-10.0 Normal (applies to non-numeri c results) [facility] ([facility]) Red Blood Count 4.07 10 4.30-6.10 Below low normal [facility] ([facility]) Hemoglobin 13.5 g/dL 13.5-17.5 Normal (applies to non-numeric resul ts) [facility] ([facility]) Mean Corpuscular Volume 99.8 fl 80.0-96.0 Above high normal [facility] ([facility]) Hematocrit 40.6 % 42.0-52.0 Below low normal [facility] ( [facility]) Mean Corpuscular HGB Conc 33.3 g/dL 32.0-36.5 Normal (applies to non-numeric results) [facility] ([facility]) Mean Corpuscular Hemoglobin 33.2 pg 27.0-33.0 Above high normal [facility] ([facility]) Red Cell Distribution Width 13.2 % 11.5-14.5 Norm al (applies to non-numeric results) [facility] ([facility]) Platelet Count, Automated 283 10 150-450 Normal (applies to non-numeric results) [facility] ([facility]) Neutrophils % 56.4 % 36.0-66.0 Normal (applies to non-numeric re sults) [facility] ([facility]) Lymph % 31.2 % 24.0-44.0 Normal (applies to non-numeric resul ts) [facility] ([facility]) Jones % 9.1 % 2.0-8.0 Above high normal [facility] ([facility]) Eos % 2.1 % 0.0-3.0 Normal (applies to non-numeric resul ts) [facility] ([facility]) Baso % 0.8 % 0.0-1.0 Normal (applies to non-numeric resul ts) [facility] ([facility]) Immature Granulocyte % 0.4 % 0-3.0 Normal (applies to non-n umeric results) [facility] ([facility]) Nucleated Red Blood Cell % 0.0 % 0-0 Normal (applies to n on-numeric results) [facility] ([facility]) Lymph # 2.2 10 1.5-5.0 Normal (applies to non-numeric resul ts) [facility] ([facility]) Neutrophils # 4.0 10 1.5-8.5 Normal (applies to non-numeric re sults) [facility] ([facility]) Eos # 0.2 10 0.0-0.5 Normal (applies to non-numeric resul ts) [facility] ([facility]) Jones # 0.6 10 0.0-0.8 Normal (applies to non-numeric resul ts) [facility] ([facility]) Baso # 0.1 10 0.0-0.2 Normal (applies to non-numeric resul ts) [facility] ([facility]) ID Date Data Source [id number] 01/06/2021 04:49:00 PM EDT [facility] ([facility]) Name Value Range Interpretation Code Description Data Roseanne rce(s) Supporting Document(s) C reactive protein [Mass/volume] in Serum or Plasma by High sensitivity method 1.45 mg/dL 0.00-0.30 Above high normal [facility] ([facility]) ID Date Data Source [id number] 01/06/2021 04:49:00 PM EDT [facility] ([facility]) Name Value Range Interpretation Code Description Data Roseanne rce(s) Supporting Document(s) Blood Urea Nitrogen 12 mg/dL 7-18 Normal (applies to non-nume eleno results) [facility] ([facility]) Glucose, Fasting 127 mg/dL 70-100 Above high normal [facility] Glomerular Filtration Rate Laboratory test result Normal (applies to non- numeric results) [facility] [place] <content>Units are mL/min/1.73 m2</content>
<content></content>
<content>Chronic Kidney Disease Staging per NKF:</content>
<content></content>
<content>Stage I & II GFR >=60 Normal to Mildly Decreased</content>
<content>Stage III GFR 30- 59 Moderately Decreased</content>
<content>Stage IV GFR 15-29 Severely Decreased</content>
<content>Stage V GFR <15 Very Little GFR Left</content>
<content>ESRD GFR <15 on TECHNICAL BUSINESS ANALYST</content>
<content></content> Creatinine For GFR 0.66 mg/dL 0.70-1.30 Below low normal [facility] [place] Sodium Level 140 meq/L 136-145 Normal (applies to non-numeric res ults) [facility] ([facility] [place]) Potassium Serum 4.3 meq/L 3.5-5.1 Normal (applies to non-numeric results) [facility] ([facility] [place]) Carbon Dioxide Level 30 meq/L 21-32 Normal (applies to non-num antonette results) [facility] ([facility] [place]) Chloride Level 106 meq/L 98-107 Normal (applies to non-numeric r esults) [facility] ([facility] [place]) Ast/Sgot 32 U/L 7-37 Normal (applies to non-numeric resul ts) [facility] ([facility] [place]) Anion Gap 4 meq/L 8-16 Below low normal [facility] ( [facility] [place]) Calcium Level 9.0 mg/dL 8.8-10.2 Normal (applies to non-numeric re sults) [facility] ([facility] [place]) Alt/SGPT 43 U/L 12-78 Normal (applies to non-numeric resul ts) [facility] ([facility] [place]) Alkaline Phosphatase 110 U/L 45-117 Normal (applies to non-num [place] results) [facility] ([facility] [place]) Albumin 3.4 GM/DL 3.2-5.2 Normal (applies to non-numeric resul ts) [facility] ([facility] [place]) Bilirubin,Total 0.4 mg/dL 0.2-1.0 Normal (applies to non-numeric results) [facility] ([facility] [place]) Total Protein 7.2 GM/DL 6.4-8.2 Normal (applies to non-numeric re sults) [facility] ([facility] [place]) Albumin/Globulin Ratio 0.9 Normal (applies to non-n umeric results) [facility] ([facility] [place]) ID Date Data Source [id number] 11/30/2020 02:45:27 PM EDT [facility] Name Value Range Interpretation Code Description Data Roseanne rce(s) Supporting Document(s) Progress Note [facility] VPDVSw5zDwNLThIm89/IRLbmJTNcu6JpKUstEJo6IHysRKOnK9KkIBH5lY9lJIY2YUaKRaYaPtXdPWPf lbm [file] ICAgICAgICAgICAgICAgICAgICAgICAgICAgICAgIC AgICAgICAgICAgICAgICAgICAgICAgICAgICAgICAgICANCiAgICAgICAgICAgICAgICAgICAgICAgIC AgICAgICAgICAgICAgICAgICAgICAgICAgICAgICAgICAgICAgICAgICAgICAgICAgICAgICAgICAgIC AgICAgICAgICAgICAgICANCiAgICAgICAgICAgICAg ICAgICAgICAgICAgICAgICAgICAgICAgICAgICAgICAgICAgICAgICAgICAgICAgICAgICAgICAgICAg ICAgICAgICAgICAgICAgICAgICAgICAgICANCiAgICAgICAgICAgICAgICAgICAgICAgICAgICAgICAg ICAgICAgICAgICAgICAgICAgICAgICAgICAgICAgIC AgICAgICAgICAgICAgICAgICAgICAgICAgICAgICAgICAgICANCiAgICAgICAgICAgICAgICAgICAgIC AgICAgICAgICAgICAgICAgICAgICAgICAgICAgICAgICAgICAgICAgICAgICAgICAgICAgICAgICAgIC AgICAgICAgICAgICAgICAgICANCiAgICAgICAgICAg ICAgICAgICAgICAgICAgICAgICAgICAgICAgICAgICAgICAgICAgICAgICAgICAgICAgICAgICAgICAg ICAgICAgICAgICAgICAgICAgICAgICAgICAgICANCiAgICAgICAgICAgICAgICAgICAgICAgICAgICAg ICAgICAgICAgICAgICAgICAgICAgICAgICAgICAgIC AgICAgICAgICAgICAgICAgICAgICAgICAgICAgICAgICAgICAgICANCiAgICAgICAgICAgICAgICAgIC AgICAgICAgICAgICAgICAgICAgICAgICAgICAgICAgICAgICAgICAgICAgICAgICAgICAgICAgICAgIC AgICAgICAgICAgICAgICAgICAgICANCiAgICAgICAg ICAgICAgICAgICAgICAgICAgICAgICAgICAgICAgICAgICAgICAgICAgICAgICAgICAgICAgICAgICAg ICAgICAgICAgICAgICAgICAgICAgICAgICAgICAgICANCiAgICAgICAgICAgICAgICAgICAgICAgICAg ICAgICAgICAgICAgICAgICAgICAgICAgICAgICAgIC AgICAgICAgICAgICAgICAgICAgICAgICAgICAgICAgICAgICAgICAgICANCjw/zSCnF9aglWBymhB6R3 bmUn0CKo9NIT1od7CfXGCmJLhirgGzLdiNRgXkLGKlZqaBFzz5JMgbOV9PuZSzD9KmS7PqSJqvSF5GTC EoWVYzcOHtKQPkSXFsGdM7WBKeKFzmRV1HbSNlMInb KFPqWJVoUaZgDEAbDUGgOMHrQOMmBVYIZC6IFwPcA1GdrN01VBQXMp2+XEqspzXlLvzEWiT3STKfe2Zq IPy7ZB0BZXUuTeilp1HyJehyGUFHQEigCP9KNXP1GFL2FMDrVd5FQRSuZ736ugRcTU2CDn7OBcCuOM6g re0NUsnzMPWzZnkEApv7LOdyQZ3UiNAmKIkQne1npx LoqzHLf8EvcaOygIEXq49dxQnslpOGRPGcfzkimnjjFFMhQDFwOF3kIhEjKxUtBTT0MFRsNX4dEEkpDE 5CKXP4QNioDKPkZTPpG7rOIxVnQRJaFLKrxXrfYP3FYdQzF7TroaNdxVTmJCKwFKFORo7+DQplbmRvYm pLEfZqEYOzt7HxMIf0GA7OFADiSLctUT7PJPEzbZ8a IEshSS4WLfTvMmBpMLJDAdMiW03quUMgCNb1X5IsLdVqONUuZnkzPCOdOYlwRrZkKHDdBeHhWItnUI7+ ID4+PHyyAF8OUKtuonPyOOOrNj9MBJNrRMCrHP7vKROkUBMrR4M1gPfsLWSNWhEtU4vjartkOS8hZUEv W084zZxqoyQdNAJ0YZAoCe9PCTQoWGH1JIVrwHYuQd ueHSOHOTejWV5IkQHjIBQ5jT9tJZnvBSKcVALeT0kCFjBalLvhSV99rIybjbDiuZEfLXn+Rk9LSL0xv9 AoHPu9jlAzVStdQBVhTQcsHRQdHAWpKJTqLPE3FTJ3XXIDFwAzVLTqRXXmVPeiXPLdYKWkeg3KWRAbOS EwUzS8NLQlZSPoFWNpYZkxVQIgCCD5ZQYhLFWkVKMf NQ5SWgMbALNwEVNyKYgtLBVnESLpec5AAIVzTNDzDdI4OWJzQAUbFRYhOGogKEOcDLDtMkvcZUZqAWTl IZ6XEfWfSBUaFOK1HzncTNVeTHJkya9MRBZzRYOaKHc3BiRbYRCvAAGcEFlpOUQxTJE5EOMnXWHtPOSe IA8GVpLpBKCtTQwxMMArWFVwFFNxpy9XQUYwMKLqJM eyOOZcVCUjOOStJRrrMNOlHCSnPVAqMXChAJTuZK3SKvVgETJpHXA7RKWnQANxAAHpys3KETRtWGArIh I7JHCbRMSeXIWrGNxgMPYtXCHlVmZrDPTiUBNaHP0PDjNeNZWqPYXtWvPePMVmTOJofv5QNIGkPWRiUe WpGdPoBHDfJVWeWDeiCRXwCXMxWzNeUSIyPZAaCW1A QuLpTZSrErRvDFMgGBBvNMTvyl3TYEBvHRUaLCT3FBJvAQWnSOAxKJkzEQThXTE5RJf4EWKsLCAnWL8P XtQfELVnIkT8VyIaUZCcPFKeup2ZEXCgINHyTAq5XSNgTVOwZQKkHYkbSQBmBAS9HEO3XLAaTGAbDY5E ZxAjEBGoKdfgIFRlLCTtXMHnvz3GWJHtMORsTqA9Ry DwWNZzXSKdUFgwKFOcHAV2VjdgYKGwBFJrGM8ZMqStCIXnIvttOZEnYIEwMZEmtw6WYQXhGLMkGJQeUV UtCQIqEDEqMGgeVREfTZH2SgPzXRIhNOAjSS4ZLoOuVHliWEVMMox4VKnkU7e2KOUiSA1AW1Akb6OzIa JpTXNLMRzlXY5byuGlPESkHd0ZO1oRFkltF9QqIVCq CbOpFIY3GBIuAJB3PfPyICMiMcVzBeK5No3wKRK4RfI9NlKrYBLwRdpuLhVyRZacIlRbMUYbOOSaXEDn SyUlUE8KEe6EOeL7JQG0iVAlHj1LTeo2SZFJAnQqPR2MPZv= ID Date Data Source [id number] 11/11/2020 12:51:00 PM EDT [facility] ([facility]) Name Value Range Interpretation Code Description Data Roseanne rce(s) Supporting Document(s) EKG Laboratory test result [facility] ([facility] [place]) ID Date Data Source [id number] 09/03/2020 03:43:00 PM EDT [facility] ([facility]) Name Value Range Interpretation Code Description Data Roseanne rce(s) Supporting Document(s) C reactive protein [Mass/volume] in Serum or Plasma by High sensitivity method 1.09 mg/dL 0.00-0.30 Above high normal [facility] ([facility] [place]) ID Date Data Source [id number] 09/03/2020 03:43:00 PM EDT [facility] ([facility]) Name Value Range Interpretation Code Description Data Roseanne rce(s) Supporting Document(s) Glucose, Fasting 105 mg/dL 70-100 Above high normal [facility] [place] Blood Urea Nitrogen 13 mg/dL 7-18 Normal (applies to non-nume eleno results) [facility] ([facility] [place]) Glomerular Filtration Rate Laboratory test result Normal (applies to non- numeric results) [facility] ([facility] [place]) <content>Units are mL/min/1.73 m2</content>
<content></content>
<content>Chronic Kidney Disease Staging per NKF:</content>
<content></content>
<content>Stage I & II GFR >=60 Normal to Mildly Decreased</content>
<content>Stage III GFR 30- 59 Moderately Decreased</content>
<content>Stage IV GFR 15-29 Severely Decreased</content>
<content>Stage V GFR <15 Very Little GFR Left</content>
<content>ESRD GFR <15 on TECHNICAL BUSINESS ANALYST</content>
<content></content> Creatinine For GFR 0.63 mg/dL 0.70-1.30 Below low normal [facility] ([facility] [place]) Sodium Level 137 meq/L 136-145 Normal (applies to non-numeric res ults) [facility] ([facility] [place]) Potassium Serum 4.5 meq/L 3.5-5.1 Normal (applies to non-numeric results) [facility] ([facility] [place]) Chloride Level 103 meq/L 98-107 Normal (applies to non-numeric r esults) [facility] ([facility] [place]) Carbon Dioxide Level 31 meq/L 21-32 Normal (applies to non-num [place] results) [facility] ([facility] [place]) Anion Gap 3 meq/L 8-16 Below low normal [facility] ( [facility] [place]) Ast/Sgot 22 U/L 7-37 Normal (applies to non-numeric resul ts) [facility] ([facility] [place]) Calcium Level 9.2 mg/dL 8.8-10.2 Normal (applies to non-numeric re sults) [facility] ([facility] [place]) Alt/SGPT 29 U/L 12-78 Normal (applies to non-numeric resul ts) [facility] ([facility] [place]) Alkaline Phosphatase 101 U/L 45-117 Normal (applies to non-num [place] results) [facility] ([facility] [place]) Bilirubin,Total 0.5 mg/dL 0.2-1.0 Normal (applies to non-numeric results) [facility] ([facility] [place]) Total Protein 7.5 GM/DL 6.4-8.2 Normal (applies to non-numeric re sults) [facility] ([facility] [place]) Albumin 3.7 GM/DL 3.2-5.2 Normal (applies to non-numeric resul ts) [facility] ([facility] [place]) Albumin/Globulin Ratio 1.0 Normal (applies to non-n umeric results) [facility] ([facility] [place]) ID Date Data Source [id number] 09/03/2020 03:43:00 PM EDT [facility] ([facility]) Name Value Range Interpretation Code Description Data Roseanne rce(s) Supporting Document(s) White Blood Count 8.4 10 4.0-10.0 Normal (applies to non-numeri c results) [facility] ([facility] [place]) Red Blood Count 4.08 10 4.30-6.10 Below low normal [facility] ([facility] [place]) Hemoglobin 13.8 g/dL 13.5-17.5 Normal (applies to non-numeric resul ts) [facility] ([facility] [place]) Hematocrit 41.6 % 42.0-52.0 Below low normal [facility] ( [facility] [place]) Mean Corpuscular Volume 102.0 fl 80.0-96.0 Above high normal [facility] ([facility] [place]) Mean Corpuscular Hemoglobin 33.8 pg 27.0-33.0 Above high normal [facility] ([facility] [place]) Red Cell Distribution Width 13.3 % 11.5-14.5 Norm al (applies to non-numeric results) [facility] ([facility] [place]) Mean Corpuscular HGB Conc 33.2 g/dL 32.0-36.5 Normal (applies to non-numeric results) [facility] ([facility] [place]) Lymph % 23.5 % 24.0-44.0 Below low normal [facility] ( [facility] [place]) Platelet Count, Automated 317 10 150-450 Normal (applies to non-numeric results) [facility] ([facility] [place]) Neutrophils % 65.5 % 36.0-66.0 Normal (applies to non-numeric re sults) [facility] ([facility] [place]) Eos % 1.3 % 0.0-3.0 Normal (applies to non-numeric resul ts) [facility] ([facility] [place]) Jones % 8.2 % 2.0-8.0 Above high normal [facility] ([facility] [place]) Immature Granulocyte % 0.4 % 0-3.0 Normal (applies to non-n umeric results) [facility] ([facility] [place]) Baso % 1.1 % 0.0-1.0 Above high normal [facility] ([facility] [place]) Lymph # 2.0 10 1.5-5.0 Normal (applies to non-numeric resul ts) [facility] ([facility] [place]) Nucleated Red Blood Cell % 0.0 % 0-0 Normal (applies to n on-numeric results) [facility] ([facility] [place]) Neutrophils # 5.5 10 1.5-8.5 Normal (applies to non-numeric re sults) [facility] ([facility] [place]) Eos # 0.1 10 0.0-0.5 Normal (applies to non-numeric resul ts) [facility] ([facility] [place]) Jones # 0.7 10 0.0-0.8 Normal (applies to non-numeric resul ts) [facility] ([facility] [place]) Baso # 0.1 10 0.0-0.2 Normal (applies to non-numeric resul ts) [facility] ([facility] [place]) ID Date Data Source [id number] 09/03/2020 03:40:00 PM EDT [facility] ([facility]) Name Value Range Interpretation Code Description Data Roseanne rce(s) Supporting Document(s) Calcidiol [Mass/volume] in Serum or Plasma 9.5 ng/mL 30.0- 100.0 Below low normal [facility] ([facility] [place]) ID Date Data Source [id number] 09/03/2020 03:40:00 PM EDT [facility] ([facility]) Name Value Range Interpretation Code Description Data Roseanne rce(s) Supporting Document(s) PSA Total 0.9 ng/mL 0.0-4.0 Normal (applies to non-numeric resul ts) [facility] ([facility] [place]) Mel ECLIA methodology. . According to the [place] [employer], Serum PSA should decrease and [...] result Normal (applies to non- numeric results) [facility]) . The percent free PSA is performed on a reflex basis only when the total PSA is between 4.0 and 10.0 ng/mL. Performed at: - [facility] [address] [id number] Theatre Professor: Erika Van MD, Phone: [phone] ID Date Data Source [id number] 09/03/2020 03:40:00 PM EDT [facility]) Name Value Range Interpretation Code Description Data Roseanne rce(s) Supporting Document(s) Free T4 1.07 ng/dL 0.76-1.46 Normal (applies to non-numeric resul ts) [facility] ([facility] [place]) Thyroid Stimulating Hormone 1.070 uIU/ML 0.358-3.740 Norm al (applies to non- numeric results) [facility] ([facility] [place]) ID Date Data Source [id number] 09/03/2020 03:40:00 PM EDT [facility] ([facility]) Name Value Range Interpretation Code Description Data Roseanne rce(s) Supporting Document(s) Triglycerides Level 179 mg/dL Above high normal [facility] ([facility] [place]) Cholesterol Level 180 mg/dL Normal (applies to non-numeri c results) [facility] ([facility] [place]) LDL Cholesterol 88 mg/dL Normal (applies to non-numeric results) [facility] ([facility] [place]) Non-HDL-C 124 mg/dL Normal (applies to non-numeric resul ts) [facility] [place] HDL Cholesterol 56 mg/dL Normal (applies to non-numeric results) [facility] ([facility] [place]) Cholesterol Risk Ratio 3.214 Normal (applies to non-n umeric results) [facility]) ID Date Data Source [id number] 06/15/2020 04:39:00 PM EST [facility] ([facility]) Name Value Range Interpretation Code Description Data Roseanne rce(s) Supporting Document(s) Erythrocyte sedimentation rate by Westergren method 25 mm/hr 0-20 Above high normal [facility] ([facility] [place]) ID Date Data Source [id number] 06/15/2020 04:39:00 PM EST [facility] ([facility]) Name Value Range Interpretation Code Description Data Roseanne rce(s) Supporting Document(s) White Blood Count 7.7 10 4.0-10.0 Normal (applies to non-numeri c results) [facility] ([facility] [place]) Red Blood Count 4.05 10 4.30-6.10 Below low normal [facility] ([facility] [place]) Hemoglobin 13.8 g/dL 13.5-17.5 Normal (applies to non-numeric resul ts) [facility] ([facility] [place]) Mean Corpuscular Volume 102.7 fl 80.0-96.0 Above high normal [facility] [place]) Hematocrit 41.6 % 42.0-52.0 Below low normal [facility] ( [facility] [place]) Mean Corpuscular Hemoglobin 34.1 pg 27.0-33.0 Above high normal [facility] [place]) Red Cell Distribution Width 13.3 % 11.5-14.5 Norm al (applies to non-numeric results) [facility] ([facility] [place]) Mean Corpuscular HGB Conc 33.2 g/dL 32.0-36.5 Normal (applies to non-numeric results) [facility] ([facility] [place]) Lymph % 32.2 % 24.0-44.0 Normal (applies to non-numeric resul ts) [facility] ([facility] [place]) Platelet Count, Automated 283 10 150-450 Normal (applies to non-numeric results) [facility] ([facility] [place]) Neutrophils % 54.3 % 36.0-66.0 Normal (applies to non-numeric re sults) [facility] ([facility] [place]) Eos % 1.6 % 0.0-3.0 Normal (applies to non-numeric resul ts) [facility] ([facility] [place]) Jones % 10.7 % 0.0-8.0 Above high normal [facility] ([facility] [place]) Nucleated Red Blood Cell % 0.0 % 0-0 Normal (applies to n on-numeric results) [facility] ([facility] [place]) Immature Granulocyte % 0.3 % 0-3.0 Normal (applies to non-n umeric results) [facility] ([facility] [place]) Baso % 0.9 % 0.0-1.0 Normal (applies to non-numeric resul ts) [facility] ([facility] [place]) Neutrophils # 4.2 10 1.5-8.5 Normal (applies to non-numeric re sults) [facility] ([facility] [place]) Lymph # 2.5 10 1.5-5.0 Normal (applies to non-numeric resul ts) [facility] ([facility] [place]) Eos # 0.1 10 0.0-0.5 Normal (applies to non-numeric resul ts) [facility] ([facility] [place]) Jones # 0.8 10 0.0-0.8 Normal (applies to non-numeric resul ts) [facility] ([facility] [place]) Baso # 0.1 10 0.0-0.2 Normal (applies to non-numeric resul ts) [facility] ([facility] [place]) ID Date Data Source [id number] 06/15/2020 04:39:00 PM EST [facility] ([facility]) Name Value Range Interpretation Code Description Data Roseanne rce(s) Supporting Document(s) C reactive protein [Mass/volume] in Serum or Plasma by High sensitivity method 1.63 mg/dL 0.00-0.30 Above high normal [facility] ([facility] [place]) ID Date Data Source [id number] 06/15/2020 04:39:00 PM EST [facility] ([facility]) Name Value Range Interpretation Code Description Data Roseanne rce(s) Supporting Document(s) Glucose, Fasting 113 mg/dL 70-100 Above high normal [facility] ([facility] [place]) Creatinine For GFR 0.82 mg/dL 0.70-1.30 Normal (applies to non -numeric results) [facility] ([facility] [place]) Blood Urea Nitrogen 19 mg/dL 7-18 Above high normal [facility] ([facility] [place]) Glomerular Filtration Rate Laboratory test result Normal (applies to non- numeric results) [facility] ([facility] [place]) <content>Units are mL/min/1.73 m2</content>
<content></content>
<content>Chronic Kidney Disease Staging per NKF:</content>
<content></content>
<content>Stage I & II GFR >=60 Normal to Mildly Decreased</content>
<content>Stage III GFR 30- 59 Moderately Decreased</content>
<content>Stage IV GFR 15-29 Severely Decreased</content>
<content>Stage V GFR <15 Very Little GFR Left</content>
<content>ESRD GFR <15 on TECHNICAL BUSINESS ANALYST</content>
<content></content> Sodium Level 140 meq/L 136-145 Normal (applies to non-numeric res ults) [facility] ([facility] [place]) Chloride Level 105 meq/L 98-107 Normal (applies to non-numeric r esults) [facility] ([facility] [place]) Potassium Serum 4.7 meq/L 3.5-5.1 Normal (applies to non-numeric results) [facility] ([facility] [place]) Carbon Dioxide Level 29 meq/L 21-32 Normal (applies to non-num [place]ette results) [facility] [place] Anion Gap 6 meq/L 8-16 Below low normal [facility] [place] Alt/SGPT 27 U/L 12-78 Normal (applies to non-numeric resul ts) [facility] ([facility] [place]) Ast/Sgot 22 U/L 7-37 Normal (applies to non-numeric resul ts) [facility] ([facility] [place]) Calcium Level 9.0 mg/dL 8.8-10.2 Normal (applies to non-numeric re sults) [facility] ([facility] [place]) Bilirubin,Total 0.3 mg/dL 0.2-1.0 Normal (applies to non-numeric results) [facility] ([facility] [place]) Alkaline Phosphatase 105 U/L 45-117 Normal (applies to non-num antonette results) [facility] ([facility] [place]) Total Protein 7.2 GM/DL 6.4-8.2 Normal (applies to non-numeric re sults) [facility] ([facility] [place]) Albumin/Globulin Ratio 0.9 Normal (applies to non-n umeric results) [facility] ([facility] [place]) Albumin 3.5 GM/DL 3.2-5.2 Normal (applies to non-numeric resul ts) [facility] ([facility] [place]) ID Date Data Source [id number] 03/16/2020 03:56:00 PM EST [facility] ([facility]) Name Value Range Interpretation Code Description Data Roseanne rce(s) Supporting Document(s) Erythrocyte sedimentation rate by Westergren method 30 mm/hr 0-20 Above high normal [facility] ([facility] [place]) ID Date Data Source [id number] 03/16/2020 03:56:00 PM EST [facility] ([facility]) Name Value Range Interpretation Code Description Data Roseanne rce(s) Supporting Document(s) White Blood Count 7.2 10 4.0-10.0 Normal (applies to non-numeri c results) [facility] ([facility] [place]) Red Blood Count 4.33 10 4.30-6.10 Normal (applies to non-numeric results) [facility] ([facility] [place]) Hemoglobin 14.1 g/dL 13.5-17.5 Normal (applies to non-numeric resul ts) [facility] ([facility] [place]) Hematocrit 43.6 % 42.0-52.0 Normal (applies to non-numeric resul ts) [facility] ([facility] [place]) Mean Corpuscular Volume 100.7 fl 80.0-96.0 Above high normal [facility] ([facility] [place]) Mean Corpuscular HGB Conc 32.3 g/dL 32.0-36.5 Normal (applies to non-numeric results) [facility] ([facility] [place]) Mean Corpuscular Hemoglobin 32.6 pg 27.0-33.0 Norm al (applies to non-numeric results) [facility] ([facility] [place]) Platelet Count, Automated 351 10 150-450 Normal (applies to non-numeric results) [facility] ([facility] [place]) Red Cell Distribution Width 13.7 % 11.5-14.5 Norm al (applies to non-numeric results) [facility] ([facility] [place]) Lymph % 27.9 % 24.0-44.0 Normal (applies to non-numeric resul ts) [facility] ([facility] [place]) Neutrophils % 59.8 % 36.0-66.0 Normal (applies to non-numeric re sults) [facility] [place] Eos % 1.7 % 0.0-3.0 Normal (applies to non-numeric resul ts) [facility] ([facility] [place]) Jones % 8.9 % 0.0-5.0 Above high normal [facility] ([facility] [place]) Baso % 1.0 % 0.0-1.0 Normal (applies to non-numeric resul ts) [facility] ([facility] [place]) Immature Granulocyte % 0.7 % 0-3.0 Normal (applies to non-n umeric results) [facility] ([facility] [place]) Nucleated Red Blood Cell % 0.0 % 0-0 Normal (applies to n on-numeric results) [facility] ([facility] [place]) Neutrophils # 4.3 10 1.5-8.5 Normal (applies to non-numeric re sults) [facility] ([facility] [place]) Jones # 0.6 10 0.0-0.8 Normal (applies to non-numeric resul ts) [facility] ([facility] [place]) Lymph # 2.0 10 1.5-5.0 Normal (applies to non-numeric resul ts) [facility] ([facility] [place]) Baso # 0.1 10 0.0-0.2 Normal (applies to non-numeric resul ts) [facility] ([facility] [place]) Eos # 0.1 10 0.0-0.5 Normal (applies to non-numeric resul ts) [facility] ([facility] [place]) ID Date Data Source [id number] 03/16/2020 03:56:00 PM EST [facility]) Name Value Range Interpretation Code Description Data Roseanne rce(s) Supporting Document(s) C reactive protein [Mass/volume] in Serum or Plasma by High sensitivity method 1.07 mg/dL 0.00-0.30 Above high normal [facility] ([facility] [place]) ID Date Data Source [id number] 03/16/2020 03:56:00 PM EST [facility] ([facility]) Name Value Range Interpretation Code Description Data Roseanne rce(s) Supporting Document(s) Glucose, Fasting 117 mg/dL 70-100 Above high normal [facility] [place] Creatinine For GFR 0.79 mg/dL 0.70-1.30 Normal (applies to non -numeric results) [facility] [place] Blood Urea Nitrogen 7 mg/dL 7-18 Normal (applies to non-nume eleno results) [facility] ([facility] [place]) Sodium Level 140 meq/L 136-145 Normal (applies to non-numeric res ults) [facility] ([facility] [place]) Glomerular Filtration Rate Laboratory test result Normal (applies to non- numeric results) [facility] ([facility] [place]) <content>Units are mL/min/1.73 m2</content>
<content></content>
<content>Chronic Kidney Disease Staging per NKF:</content>
<content></content>
<content>Stage I & II GFR >=60 Normal to Mildly Decreased</content>
<content>Stage III GFR 30- 59 Moderately Decreased</content>
<content>Stage IV GFR 15-29 Severely Decreased</content>
<content>Stage V GFR <15 Very Little GFR Left</content>
<content>ESRD GFR <15 on TECHNICAL BUSINESS ANALYST</content>
<content></content> Chloride Level 106 meq/L 98-107 Normal (applies to non-numeric r esults) [facility] ([facility] [place]) Potassium Serum 3.9 meq/L 3.5-5.1 Normal (applies to non-numeric results) [facility] ([facility] [place]) Anion Gap 5 meq/L 8-16 Below low normal [facility] ( [facility] [place]) Carbon Dioxide Level 29 meq/L 21-32 Normal (applies to non-num [place] results) [facility] ([facility] [place]) Calcium Level 9.0 mg/dL 8.8-10.2 Normal (applies to non-numeric re sults) [facility] ([facility] [place]) Ast/Sgot 27 U/L 7-37 Normal (applies to non-numeric resul ts) [facility] ([facility] [place]) Alt/SGPT 33 U/L 12-78 Normal (applies to non-numeric resul ts) [facility] ([facility] [place]) Alkaline Phosphatase 123 U/L 45-117 Above high normal [facility] ([facility] [place]) Bilirubin,Total 0.4 mg/dL 0.2-1.0 Normal (applies to non-numeric results) [facility] ([facility] [place]) Albumin 3.7 GM/DL 3.2-5.2 Normal (applies to non-numeric resul ts) [facility] ([facility] [place]) Total Protein 7.9 GM/DL 6.4-8.2 Normal (applies to non-numeric re sults) [facility] ([facility] [place]) Albumin/Globulin Ratio 0.9 Normal (applies to non-n umeric results) [facility] ([facility] [place]) Procedure Social History Code Duration Value Status Description Data Source(s ) Alcohol intake 11/30/2020 12:00:00 AM EDT Current drinker of al cohol (finding) completed Current drinker of alcohol (finding) [facility] Tobacco use and exposure 11/30/2020 12:00:00 AM EDT Never used co mpleted Never used [facility] Cigarette pack-years 11/30/2020 12:00:00 AM EDT [facility] Cigarettes smoked current (pack per day) - Reported 12/01/19 12:00:00 AM EDT [facility] Smoking 11/30/2020 12:00:00 AM EDT Former smoker completed Former smoker [facility] Smoking 11/11/2020 12:00:00 AM EDT - 09/30/2018 12:00:00 AM EDT Patient is a former smoker completed Patient is a former smoker [facility] ([facility]) Vital Signs ID Date Data Source UNK Name Value Range Interpretation Code Description Data Source(s) Systolic blood pressure 126 mm[Hg] 126 mm[Hg] [facility] [place] Body mass index (BMI) [Ratio] 26.8 kg/m2 26.8 k g/m2 [facility] ([facility] [place]) Heart rate 113 /min 113 /min [facility] ([facility] [place]) Respiratory rate 18 /min 18 /min [facility] ( [facility] [place]) Body temperature 99.1 [degF] 99.1 [degF] [facility] ([facility] [place]) Oxygen saturation in Arterial blood by Pulse oximetry 96 % 96 % [facility] ([facility] [place]) [place] body weight 172 [lb_av] 172 [lb_av] [facility] ([facility] [place]) Diastolic blood pressure 72 mm[Hg] 72 mm[Hg] [facility] ([facility] [place]) Body height 71.6 [in_i] 71.6 [in_i] [facility] ([facility]) 5'11.60" Body weight 195.38 [lb_av] 195.38 [lb_av] [facility] ([facility] [place]) Body temperature 97.8 [degF] 97.8 [degF] [facility] ([facility] [place]) Systolic blood pressure 130 mm[Hg] 130 mm[Hg] [facility] ([facility] [place]) Diastolic blood pressure 70 mm[Hg] 70 mm[Hg] [facility] ([facility] [place]) Body height 71.6 [in_i] 71.6 [in_i] [facility] ([facility]) 5'11.60" Body weight 201.00 [lb_av] 201.00 [lb_av] [facility] ([facility] [place]) Heart rate 83 /min 83 /min [facility] ([facility] [place]) Respiratory rate 14 /min 14 /min [facility] ( [facility] [place]) Oxygen saturation in Arterial blood by Pulse oximetry 97 % 97 % [facility] ([facility] [place]) [place] body weight 172 [lb_av] 172 [lb_av] [facility] ([facility] [place]) Body mass index (BMI) [Ratio] 27.6 kg/m2 27.6 k g/m2 [facility] ([facility] [place]) [place] body weight 172 [lb_av] 172 [lb_av] [facility] ([facility] [place]) Body temperature 96.5 [degF] 96.5 [degF] [facility] ([facility] [place]) Oxygen saturation in Arterial blood by Pulse oximetry 99 % 99 % [facility] ([facility] [place]) Systolic blood pressure 132 mm[Hg] 132 mm[Hg] M [facility] ([facility] [place]) Diastolic blood pressure 74 mm[Hg] 74 mm[Hg] [facility] ([facility] [place]) Body height 71.6 [in_i] 71.6 [in_i] [facility] ([facility]) 5'11.60" Body weight 216.12 [lb_av] 216.12 [lb_av] [facility] ([facility] [place]) Body mass index (BMI) [Ratio] 29.6 kg/m2 29.6 k g/m2 [facility] ([facility] [place]) Heart rate 95 /min 95 /min [facility] ([facility] [place]) Respiratory [facility] 20 /min 20 /min [facility] [place] Body weight 200.38 [lb_av] 200.38 [lb_av] [facility] ([facility] [place]) Body mass index (BMI) [Ratio] 27.5 kg/m2 27.5 k g/m2 [facility] ([facility] [place]) Respiratory rate 16 /min 16 /min [facility] [place] Body temperature 96.7 [degF] 96.7 [degF] [facility] ([facility] [place]) Oxygen saturation in Arterial blood by Pulse oximetry 97 % 97 % [facility] ([facility] [place]) [place] body weight 172 [lb_av] 172 [lb_av] [facility] ([facility] [place]) Systolic blood pressure 118 mm[Hg] 118 mm[Hg] M [facility] ([facility] [place]) Diastolic blood pressure 78 mm[Hg] 78 mm[Hg] [facility] ([facility] [place]) Body height 71.6 [in_i] 71.6 [in_i] [facility] ([facility]) 5'11.60" Heart rate 104 /min 104 /min [facility] ([facility] [place]) Patient Treatment Plan of Care Planned Activity Planned Date Details Description Data Source (s) Cefadroxil 500 MG Oral Capsule 11/30/2020 12:00:00 AM [facility] Cefadroxil 500 MG Oral Capsule 11/30/2020 12:00:00 AM [facility] Cefadroxil 500 MG Oral Capsule 11/30/2020 12:00:00 AM [facility] doxycycline hyclate 100 MG Oral Capsule 06/20/2019 12:00:00 AM [facility] Rifampin 300 MG Oral Capsule 02/08/2017 12:00:00 AM [facility]
== END 2021-02-27 13:43 | disposition left against medical advice (07) ==
LOC: M ED 11:34
DX: Z53.29 Procedure and treatment not carried out because of patient's decision for other reasons (principal)

== ENCOUNTER → 2021-03-23 | Outpatient (CLI) | payer MEDICARE, OTHER ==
[~2021-03-23] MED LIST changes: +ADDE30CA3 PO
[2021-03-23 15:52] LABS: BASO # 0.1 10^3/uL (0.0-0.2); BASO % 0.7 % (0.0-1.0); EOS # 0.2 10^3/uL (0.0-0.5); EOS % 2.9 % (0.0-3.0); HEMATOCRIT 45.7 % (42.0-52.0); LYMPH % 24.2 % (24.0-44.0); MEAN CORPUSCULAR HGB CONC 32.8 g/dl (32.0-36.5); MEAN CORPUSCULAR VOLUME 100.4 fl (80.0-96.0); MONO # 0.8 10^3/uL (0.0-0.8); MONO % 9.4 % (2.0-8.0); NEUTROPHILS # 5.1 10^3/uL (1.5-8.5); NEUTROPHILS % 62.4 % (36.0-66.0); PLATELET COUNT, AUTOMATED 333 10^3/uL (150-450); RED BLOOD COUNT 4.55 10^6/uL (4.30-6.10); WHITE BLOOD COUNT 8.2 10^3/uL (4.0-10.0)
[2021-03-23 16:17] LABS: ALBUMIN 3.8 GM/DL (3.2-5.2); ALT/SGPT 31 U/L (12-78); BILIRUBIN,TOTAL 0.5 MG/DL (0.2-1.0); BLOOD UREA NITROGEN 11 MG/DL (7-18); C REACTIVE PROTEIN QUANTITATIV 0.54 MG/DL (0.00-0.30); CALCIUM LEVEL 9.4 MG/DL (8.8-10.2); CARBON DIOXIDE LEVEL 31 MEQ/L (21-32); CHLORIDE LEVEL 103 MEQ/L (98-107); CREATININE FOR GFR 0.82 MG/DL (0.70-1.30); GLOMERULAR FILTRATION RATE > 60.0 (>49); GLUCOSE, FASTING 129 MG/DL (70-100); POTASSIUM SERUM 4.4 MEQ/L (3.5-5.1); SODIUM LEVEL 138 MEQ/L (136-145)
[2021-03-23 16:21] LABS: ERYTHROCYTE SEDIMENTATION RATE 17 mm/hr (0-20)
== END ==
LOC: M LAB 15:11
PROVIDERS: ATTEND Physician Assistant
DX: A49.01 Methicillin susceptible Staphylococcus aureus infection, unspecified site (principal); Z96.9 Presence of functional implant, unspecified

== ENCOUNTER → 2021-05-13 | Outpatient (CLI) | payer MEDICARE, OTHER ==
[2021-05-13 18:00] LABS: BASO # 0.1 10^3/uL (0.0-0.2); BASO % 0.6 % (0.0-1.0); EOS # 0.2 10^3/uL (0.0-0.5); EOS % 2.2 % (0.0-3.0); HEMATOCRIT 44.6 % (42.0-52.0); HEMOGLOBIN 14.7 g/dl (13.5-17.5); LYMPH # 2.8 10^3/uL (1.5-5.0); LYMPH % 27.6 % (24.0-44.0); MEAN CORPUSCULAR HEMOGLOBIN 32.8 pg (27.0-33.0); MEAN CORPUSCULAR VOLUME 99.6 fl (80.0-96.0); MONO # 0.9 10^3/uL (0.0-0.8); MONO % 9.4 % (2.0-8.0); NEUTROPHILS % 59.9 % (36.0-66.0); PLATELET COUNT, AUTOMATED 377 10^3/uL (150-450); RED BLOOD COUNT 4.48 10^6/uL (4.30-6.10)
[2021-05-13 18:35] LABS: ALBUMIN 3.8 GM/DL (3.2-5.2); ALT/SGPT 36 U/L (12-78); BILIRUBIN,TOTAL 0.5 MG/DL (0.2-1.0); BLOOD UREA NITROGEN 14 MG/DL (7-18); C REACTIVE PROTEIN QUANTITATIV 0.57 MG/DL (0.00-0.30); CALCIUM LEVEL 9.7 MG/DL (8.8-10.2); CARBON DIOXIDE LEVEL 33 MEQ/L (21-32); CHLORIDE LEVEL 101 MEQ/L (98-107); CREATININE FOR GFR 0.88 MG/DL (0.70-1.30); GLOMERULAR FILTRATION RATE > 60.0 (>49); GLUCOSE, FASTING 139 MG/DL (70-100); POTASSIUM SERUM 4.6 MEQ/L (3.5-5.1); SODIUM LEVEL 137 MEQ/L (136-145)
[2021-05-13 19:14] LABS: ERYTHROCYTE SEDIMENTATION RATE 32 mm/hr (0-20)
== END ==
LOC: M LAB 16:53
PROVIDERS: ATTEND Physician Assistant
DX: Z96.9 Presence of functional implant, unspecified (principal); A49.01 Methicillin susceptible Staphylococcus aureus infection, unspecified site

== ENCOUNTER → 2021-05-28 | Outpatient (CLI) | payer MEDICARE, OTHER | LOC: M LAB 16:20 | PROVIDERS: ATTEND Family Medicine | DX: A49.01 Methicillin susceptible Staphylococcus aureus infection, unspecified site (principal); A00-B99 Certain infectious and parasitic diseases ==

== ENCOUNTER 2021-07-28 16:11 | Emergency (ER) | payer MEDICARE, OTHER ==
[~2021-07-28] VITALS: Ht 190.5 cm; Wt 90.0 kg
[2021-07-28 16:12] VITALS: BP 117/84
[2021-07-28] MEDS ORDERED: MELO15TA28 (17:22)
[2021-07-29] MEDS ORDERED: BACT800T5 PO (12:56)
== END 2021-07-28 17:27 | disposition left against medical advice (07) ==
LOC: M ED 16:11
DX: Z53.29 Procedure and treatment not carried out because of patient's decision for other reasons (principal)

== ENCOUNTER 2021-07-29 07:04 | Emergency (ER) | payer MEDICARE, OTHER ==
[~2021-07-29] VITALS: Ht 188 cm; Wt 91.9 kg
[~2021-07-29 07:04] MED LIST changes: +MELO15TA28
[2021-07-29] MEDS ORDERED: NS 1,000 ML IV ONE (08:50)
[2021-07-29 08:52] LABS: BASO # 0.1 10^3/uL (0.0-0.2); BASO % 1.1 % (0.0-1.0); EOS # 0.4 10^3/uL (0.0-0.5); EOS % 4.1 % (0.0-3.0); HEMATOCRIT 37.7 % (42.0-52.0); HEMOGLOBIN 12.6 g/dl (13.5-17.5); LYMPH # 2.5 10^3/uL (1.5-5.0); LYMPH % 28.1 % (24.0-44.0); MEAN CORPUSCULAR HEMOGLOBIN 32.7 pg (27.0-33.0); MEAN CORPUSCULAR HGB CONC 33.4 g/dl (32.0-36.5); MEAN CORPUSCULAR VOLUME 97.9 fl (80.0-96.0); MONO # 1.1 10^3/uL (0.0-0.8); NEUTROPHILS # 4.7 10^3/uL (1.5-8.5); PLATELET COUNT, AUTOMATED 300 10^3/uL (150-450); RED BLOOD COUNT 3.85 10^6/uL (4.30-6.10); WHITE BLOOD COUNT 8.7 10^3/uL (4.0-10.0)
[2021-07-29 09:12] LABS: ERYTHROCYTE SEDIMENTATION RATE 46 mm/hr (0-20)
[2021-07-29 09:17] LABS: INR 0.99; PROTHROMBIN TIME 13.5 SECONDS (12.7-14.5)
[2021-07-29 09:18] LABS: PARTIAL THROMBOPLASTIN TIME 34.1 SECONDS (25.9-37.0)
[2021-07-29 09:25] LABS: ALBUMIN 3.1 GM/DL (3.2-5.2); ALT/SGPT 21 U/L (12-78); BILIRUBIN,DIRECT 0.1 MG/DL (0.0-0.2); BILIRUBIN,TOTAL 0.3 MG/DL (0.2-1.0); BLOOD UREA NITROGEN 11 MG/DL (7-18); C REACTIVE PROTEIN QUANTITATIV 2.92 MG/DL (0.00-0.30); CALCIUM LEVEL 8.6 MG/DL (8.8-10.2); CARBON DIOXIDE LEVEL 30 MEQ/L (21-32); CHLORIDE LEVEL 104 MEQ/L (98-107); CREATININE FOR GFR 0.84 MG/DL (0.70-1.30); GLOMERULAR FILTRATION RATE > 60.0 (>49); GLUCOSE, FASTING 133 MG/DL (70-100); SODIUM LEVEL 138 MEQ/L (136-145); TOTAL PROTEIN 7.3 GM/DL (6.4-8.2)
[2021-07-29] MEDS ORDERED: VANCOMYCIN HCL 1,750 MG in IV FLUID PLACE HOLDER 1 EA IV ONE (10:20)
[2021-07-29] MEDS ORDERED: VANCOMYCIN HCL 1,000 MG, VIAL MATE ADAPTER 1 EACH in NS 250 ML IV ONE (10:25)
[2021-07-29] MEDS ORDERED: VANCOMYCIN HCL 750 MG, VIAL MATE ADAPTER 1 EACH in NS 250 ML IV ONE (10:25)
[2021-07-29] MEDS ORDERED: BACT800T5 PO (12:56)
[2021-07-29 13:07] VITALS: BP 133/70
== END 2021-07-29 13:15 | disposition home or self-care (01) ==
LOC: M ED 07:04
DX: L03.116 Cellulitis of left lower limb (principal); L97.529 Non-pressure chronic ulcer of other part of left foot with unspecified severity; F41.9 Anxiety disorder, unspecified; M54.50 Low back pain, unspecified; Z77.098 Contact with and (suspected) exposure to other hazardous, chiefly nonmedicinal, chemicals; F12.20 Cannabis dependence, uncomplicated; Z79.899 Other long term (current) drug therapy
CPT/HCPCS: 73610; 73630; 80048; 80076; 83605; 85025; 85610; 85652; 85730; 86140; 87040; 96361; 96365; 96367; 99284; J3370

== ENCOUNTER → 2021-09-24 | Outpatient (CLI) | payer MEDICARE, OTHER ==
[~2021-09-24] MED LIST changes: +BACT800T5 PO
[2021-09-24 15:07] LABS: BASO # 0.1 10^3/uL (0.0-0.2); BASO % 0.9 % (0.0-1.0); EOS # 0.2 10^3/uL (0.0-0.5); HEMATOCRIT 42.4 % (42.0-52.0); HEMOGLOBIN 13.9 g/dl (13.5-17.5); LYMPH # 2.2 10^3/uL (1.5-5.0); LYMPH % 29.7 % (24.0-44.0); MEAN CORPUSCULAR HEMOGLOBIN 32.4 pg (27.0-33.0); MEAN CORPUSCULAR HGB CONC 32.8 g/dl (32.0-36.5); MEAN CORPUSCULAR VOLUME 98.8 fl (80.0-96.0); MONO # 0.6 10^3/uL (0.0-0.8); MONO % 8.5 % (2.0-8.0); NEUTROPHILS # 4.3 10^3/uL (1.5-8.5); NEUTROPHILS % 58.5 % (36.0-66.0); PLATELET COUNT, AUTOMATED 291 10^3/uL (150-450); RED BLOOD COUNT 4.29 10^6/uL (4.30-6.10); WHITE BLOOD COUNT 7.4 10^3/uL (4.0-10.0)
[2021-09-24 15:39] LABS: ALBUMIN 3.4 GM/DL (3.2-5.2); ALT/SGPT 23 U/L (12-78); BILIRUBIN,TOTAL 0.2 MG/DL (0.2-1.0); BLOOD UREA NITROGEN 13 MG/DL (7-18); CALCIUM LEVEL 9.4 MG/DL (8.8-10.2); CARBON DIOXIDE LEVEL 32 MEQ/L (21-32); CHLORIDE LEVEL 104 MEQ/L (98-107); CREATININE FOR GFR 0.83 MG/DL (0.70-1.30); GLOMERULAR FILTRATION RATE > 60.0 (>49); GLUCOSE, FASTING 134 MG/DL (70-100); POTASSIUM SERUM 3.9 MEQ/L (3.5-5.1); SODIUM LEVEL 139 MEQ/L (136-145); TOTAL PROTEIN 7.5 GM/DL (6.4-8.2)
[2021-09-24 16:22] LABS: ERYTHROCYTE SEDIMENTATION RATE 18 mm/hr (0-20)
== END ==
LOC: M LAB 14:27
PROVIDERS: ATTEND Physician Assistant
DX: M46.20 Osteomyelitis of vertebra, site unspecified (principal); Z98.1 Arthrodesis status; Z79.2 Long term (current) use of antibiotics

== ENCOUNTER 2022-01-12 21:30 | Emergency (ER) | payer MEDICARE, OTHER ==
[~2022-01-12] VITALS: Ht 190.5 cm; Wt 86.4 kg
[2022-01-12 21:31] VITALS: BP 132/74
== END 2022-01-13 01:39 | disposition left against medical advice (07) ==
LOC: M ED 21:30
DX: Z53.21 Procedure and treatment not carried out due to patient leaving prior to being seen by health care provider (principal)

== ENCOUNTER 2022-01-13 19:07 | Emergency (ER) | payer MEDICARE, OTHER ==
[~2022-01-13] VITALS: Ht 190.5 cm; Wt 86.4 kg
[2022-01-13 19:10] VITALS: BP 140/72
== END 2022-01-13 19:37 | disposition left against medical advice (07) ==
LOC: M ED 19:07
DX: Z53.21 Procedure and treatment not carried out due to patient leaving prior to being seen by health care provider (principal)

== ENCOUNTER 2022-01-17 16:02 | Emergency (ER) | payer MEDICARE, OTHER ==
[~2022-01-17] VITALS: Ht 190.5 cm; Wt 86.4 kg
[2022-01-17 19:26] LABS: BASO # 0.1 10^3/uL (0.0-0.2); BASO % 0.6 % (0.0-1.0); EOS # 0.1 10^3/uL (0.0-0.5); EOS % 0.9 % (0.0-3.0); HEMATOCRIT 44.5 % (42.0-52.0); HEMOGLOBIN 14.9 g/dl (13.5-17.5); MEAN CORPUSCULAR HEMOGLOBIN 32.5 pg (27.0-33.0); MEAN CORPUSCULAR HGB CONC 33.5 g/dl (32.0-36.5); MEAN CORPUSCULAR VOLUME 96.9 fl (80.0-96.0); MONO # 0.7 10^3/uL (0.0-0.8); MONO % 8.3 % (2.0-8.0); NEUTROPHILS # 5.6 10^3/uL (1.5-8.5); PLATELET COUNT, AUTOMATED 334 10^3/uL (150-450); RED BLOOD COUNT 4.59 10^6/uL (4.30-6.10); WHITE BLOOD COUNT 8.5 10^3/uL (4.0-10.0)
[2022-01-17 20:07] LABS: ALBUMIN 3.7 GM/DL (3.2-5.2); ALT/SGPT 33 U/L (12-78); BILIRUBIN,TOTAL 0.5 MG/DL (0.2-1.0); BLOOD UREA NITROGEN 15 MG/DL (7-18); CALCIUM LEVEL 9.6 MG/DL (8.8-10.2); CARBON DIOXIDE LEVEL 30 MEQ/L (21-32); CHLORIDE LEVEL 101 MEQ/L (98-107); GLOMERULAR FILTRATION RATE > 60.0 (>49); GLUCOSE, FASTING 104 MG/DL (70-100); POTASSIUM SERUM 4.6 MEQ/L (3.5-5.1); SODIUM LEVEL 135 MEQ/L (136-145); TOTAL PROTEIN 7.7 GM/DL (6.4-8.2)
[2022-01-17 20:15] VITALS: BP 121/68
== END 2022-01-17 22:20 | disposition home or self-care (01) ==
LOC: M ED 16:02
DX: Z04.89 Encounter for examination and observation for other specified reasons (principal); R53.1 Weakness

== ENCOUNTER 2022-03-07 07:38 | Emergency (ER) | payer MEDICARE, OTHER ==
[~2022-03-07] VITALS: Ht 190.5 cm; Wt 86.4 kg
[2022-03-07] MEDS ORDERED: BACITRACIN OINTMENT 30GM TUBE TOP ONE (08:10)
[2022-03-07] MEDS ORDERED: LIDOCAINE 2% 5ML JELLY UROJET TOP ONE (08:10)
[2022-03-07] MEDS ORDERED: FLOM0.4C39 PO (09:12)
[2022-03-07 09:18] VITALS: BP 119/58
== END 2022-03-07 09:42 | disposition home or self-care (01) ==
LOC: M ED 07:38
DX: T83.028A Displacement of other urinary catheter, initial encounter (principal); R33.9 Retention of urine, unspecified; F41.9 Anxiety disorder, unspecified; F90.9 Attention-deficit hyperactivity disorder, unspecified type; M54.9 Dorsalgia, unspecified; F17.200 Nicotine dependence, unspecified, uncomplicated; Z79.899 Other long term (current) drug therapy

== ENCOUNTER 2022-03-14 13:59 | Emergency (ER) | payer MEDICARE, OTHER ==
[~2022-03-14] VITALS: Ht 190.5 cm; Wt 86.4 kg
[~2022-03-14 13:59] MED LIST changes: +FLOM0.4C39 PO
[2022-03-14 14:18] VITALS: BP 116/70
== END 2022-03-14 15:03 | disposition home or self-care (01) ==
LOC: M ED 13:59 → EDBD 13:59 → M ED 15:03
DX: T83.098A Other mechanical complication of other urinary catheter, initial encounter (principal); M54.9 Dorsalgia, unspecified; F41.9 Anxiety disorder, unspecified; F17.200 Nicotine dependence, unspecified, uncomplicated; Z79.899 Other long term (current) drug therapy

== ENCOUNTER 2022-05-04 11:35 | Observation (INO) | payer MEDICARE, OTHER ==
[~2022-05-04] VITALS: Ht 190.5 cm; Wt 88.0 kg
[~2022-05-04 11:35] MED LIST changes: -MELO15TA28; +MELO15TA28 PO
[2022-05-04 14:37] LABS: BASO # 0.1 10^3/uL (0.0-0.2); BASO % 0.8 % (0.0-1.0); EOS # 0.3 10^3/uL (0.0-0.5); EOS % 3.2 % (0.0-3.0); HEMATOCRIT 40.6 % (42.0-52.0); HEMOGLOBIN 13.1 g/dl (13.5-17.5); LYMPH # 1.8 10^3/uL (1.5-5.0); MEAN CORPUSCULAR HEMOGLOBIN 31.1 pg (27.0-33.0); MEAN CORPUSCULAR HGB CONC 32.3 g/dl (32.0-36.5); MEAN CORPUSCULAR VOLUME 96.4 fl (80.0-96.0); MONO # 0.9 10^3/uL (0.0-0.8); MONO % 9.1 % (2.0-8.0); NEUTROPHILS # 6.7 10^3/uL (1.5-8.5); NEUTROPHILS % 68.3 % (36.0-66.0); PLATELET COUNT, AUTOMATED 357 10^3/uL (150-450); RED BLOOD COUNT 4.21 10^6/uL (4.30-6.10); WHITE BLOOD COUNT 9.9 10^3/uL (4.0-10.0)
[2022-05-04 15:05] LABS: ALBUMIN 3.4 G/DL (3.2-5.2); ALKALINE PHOSPHATASE 123 U/L (46-116); ALT/SGPT 19 U/L (7.0-40); AST/SGOT 20 U/L (<34); BILIRUBIN,DIRECT < 0.1 MG/DL (<0.4); BILIRUBIN,TOTAL 0.2 MG/DL (0.3-1.2); BLOOD UREA NITROGEN 18 MG/DL (9-23); CALCIUM LEVEL 9.1 MG/DL (8.3-10.6); CARBON DIOXIDE LEVEL 26 MMOL/L (20-31); CHLORIDE LEVEL 101 MMOL/L (98-107); GLOMERULAR FILTRATION RATE > 60.0 (>49); GLUCOSE, FASTING 113 MG/DL (74-106); POTASSIUM SERUM 4.6 MMOL/L (3.5-5.1); SODIUM LEVEL 139 MMOL/L (136-145); TOTAL PROTEIN 7.4 G/DL (5.7-8.2)
[2022-05-04 15:07] LABS: FREE T4 1.22 NG/DL (0.89-1.76); THYROID STIMULATING HORMONE 1.192 uIU/ML (0.55-4.78)
[2022-05-04] MEDS ORDERED: cefTRIAXone SOD 1 GM in D5W MINI-BAG PLUS 50 ML IV ONE (18:15)
[2022-05-04] MEDS ORDERED: ALPR1TAB3 PO (18:50)
[2022-05-04] MEDS ORDERED: ACET-907 PO (18:50)
[2022-05-04] MEDS ORDERED: TAMS1CAP17 PO (18:50)
[2022-05-04] MEDS ORDERED: LIDO1PAD TOP (18:52)
[2022-05-04] MEDS ORDERED: FENT1DIS14 TD (18:52)
[2022-05-04] MEDS ORDERED: HOME MED LIST COMPLETE! XX SCH (18:55)
[2022-05-04] MEDS ORDERED: FENTANYL REMOVAL DOCUMENTATION MISC XX SCH (19:05)
[2022-05-04] MEDS ORDERED: ACETAMINOPHEN TAB 650MG DOSE (2X325MG) PO PRN (19:05)
[2022-05-04 21:10] VITALS: BP 101/68
[2022-05-04 21:15] LABS: RSV AMPLIFICATION NEGATIVE (NEGATIVE)
[2022-05-04] MEDS: DOCUSATE SODIUM 100MG CAPSULE PO SCH (21:23)
[2022-05-04] MEDS: ALPRAZolam 0.5 MG TAB PO PRN (21:23)
[2022-05-04] MEDS ORDERED: NYSTATIN 100,000 UNITS/GM TOPICAL PWD 15GM TOP PRN (23:15)
[2022-05-05 05:29] VITALS: BP 102/63
[2022-05-05] MEDS: AMPHETAMINE/DEXTROAMPHETAMINE 5 MG *ER* CAPSULE (ADDERALL XR) PO SCH (09:00)
[2022-05-05] MEDS: TAMSULOSIN 0.4 MG CAP PO SCH (09:00)
[2022-05-05] MEDS: ENOXAPARIN 40MG/0.4ML SYRINGE (J1650 PER 10MG) SC SCH (09:00)
[2022-05-05] MEDS: MIRALAX *UNIT DOSE* 17GM PACKET PO SCH (09:00)
[2022-05-05] MEDS: ALPRAZolam 0.5 MG TAB PO PRN ×2 (09:28→21:09)
[2022-05-05] MEDS: MELOXICAM (MOBIC) 7.5 MG TAB PO SCH (09:28)
[2022-05-05] MEDS: DOCUSATE SODIUM 100MG CAPSULE PO SCH ×2 (09:28→21:00)
[2022-05-05] MEDS: LIDOCAINE 5% (LIDODERM) PATCH TOP PRN (09:49)
[2022-05-05] MEDS ORDERED: ISOVUE-370 76% 100ML VIAL As Ordered ONE (10:10)
[2022-05-05 14:00] VITALS: BP 108/66
[2022-05-05] MEDS ORDERED: MORPHINE 4 MG/ML 1ML VIAL IV PRN (15:30)
[2022-05-05] MEDS ORDERED: KETOROLAC 30 MG/ML 1ML VIAL IV PRN (18:20)
[2022-05-05] MEDS ORDERED: oxyCODONE 5MG TAB PO PRN (18:20)
[2022-05-05] MEDS ORDERED: MORPHINE 10 MG/ML 1ML VIAL IV PRN (18:20)
[2022-05-05] MEDS: ACETAMINOPHEN 500 MG TAB PO SCH (18:30)
[2022-05-05 19:58] VITALS: BP 111/67
[2022-05-05] MEDS: DICLOFENAC EPOLAMINE 1.3% PATCH TOP SCH (21:00)
[2022-05-06 05:38] VITALS: BP 115/69
[2022-05-06] MEDS: ACETAMINOPHEN 500 MG TAB PO SCH ×5 (05:42→23:52)
[2022-05-06 08:23] LABS: HEMATOCRIT 39.1 % (42.0-52.0); HEMOGLOBIN 12.2 g/dl (13.5-17.5); MEAN CORPUSCULAR HGB CONC 31.2 g/dl (32.0-36.5); MEAN CORPUSCULAR VOLUME 99.2 fl (80.0-96.0); PLATELET COUNT, AUTOMATED 301 10^3/uL (150-450); RED BLOOD COUNT 3.94 10^6/uL (4.30-6.10); WHITE BLOOD COUNT 7.6 10^3/uL (4.0-10.0)
[2022-05-06 08:52] LABS: BLOOD UREA NITROGEN 23 MG/DL (9-23); CALCIUM LEVEL 8.6 MG/DL (8.3-10.6); CARBON DIOXIDE LEVEL 30 MMOL/L (20-31); CHLORIDE LEVEL 105 MMOL/L (98-107); CREATININE FOR GFR 0.73 MG/DL (0.70-1.30); GLOMERULAR FILTRATION RATE > 60.0 (>49); GLUCOSE, FASTING 97 MG/DL (74-106); POTASSIUM SERUM 4.7 MMOL/L (3.5-5.1); SODIUM LEVEL 140 MMOL/L (136-145)
[2022-05-06] MEDS: TAMSULOSIN 0.4 MG CAP PO SCH (09:00)
[2022-05-06] MEDS: MIRALAX *UNIT DOSE* 17GM PACKET PO SCH (09:00)
[2022-05-06] MEDS ORDERED: fentaNYL 25 MCG/HR PATCH TD SCH (09:00)
[2022-05-06] MEDS: ENOXAPARIN 40MG/0.4ML SYRINGE (J1650 PER 10MG) SC SCH (09:00)
[2022-05-06] MEDS: AMPHETAMINE/DEXTROAMPHETAMINE 5 MG *ER* CAPSULE (ADDERALL XR) PO SCH (09:06)
[2022-05-06] MEDS: DOCUSATE SODIUM 100MG CAPSULE PO SCH ×2 (09:07→20:14)
[2022-05-06] MEDS: MELOXICAM (MOBIC) 7.5 MG TAB PO SCH (09:07)
[2022-05-06] MEDS: DICLOFENAC EPOLAMINE 1.3% PATCH TOP SCH ×2 (09:08→20:16)
[2022-05-06] MEDS ORDERED: FENTANYL REMOVAL DOCUMENTATION MISC XX SCH (12:30)
[2022-05-06 14:00] VITALS: BP 123/59
[2022-05-06] MEDS: ALPRAZolam 0.5 MG TAB PO PRN (20:16)
[2022-05-06 22:20] VITALS: BP 124/85
[2022-05-07 05:57] VITALS: BP 102/64
[2022-05-07] MEDS: ACETAMINOPHEN 500 MG TAB PO SCH ×4 (05:57→23:46)
[2022-05-07] MEDS: MIRALAX *UNIT DOSE* 17GM PACKET PO SCH (09:00)
[2022-05-07] MEDS: TAMSULOSIN 0.4 MG CAP PO SCH (09:00)
[2022-05-07] MEDS: DOCUSATE SODIUM 100MG CAPSULE PO SCH ×2 (09:48→20:30)
[2022-05-07] MEDS: MELOXICAM (MOBIC) 7.5 MG TAB PO SCH (09:48)
[2022-05-07] MEDS: ENOXAPARIN 40MG/0.4ML SYRINGE (J1650 PER 10MG) SC SCH (09:49)
[2022-05-07] MEDS: DICLOFENAC EPOLAMINE 1.3% PATCH TOP SCH ×2 (09:49→20:30)
[2022-05-07] MEDS: LIDOCAINE 5% (LIDODERM) PATCH TOP PRN (13:58)
[2022-05-07 14:00] VITALS: BP 115/67
[2022-05-07 19:36] VITALS: BP 114/68
[2022-05-07] MEDS: ALPRAZolam 0.5 MG TAB PO PRN (20:25)
[2022-05-08] MEDS: ACETAMINOPHEN 500 MG TAB PO SCH ×3 (05:11→17:20)
[2022-05-08 06:00] VITALS: BP 103/53
[2022-05-08] MEDS: TAMSULOSIN 0.4 MG CAP PO SCH (09:00)
[2022-05-08] MEDS: MIRALAX *UNIT DOSE* 17GM PACKET PO SCH (09:00)
[2022-05-08] MEDS: ENOXAPARIN 40MG/0.4ML SYRINGE (J1650 PER 10MG) SC SCH (09:00)
[2022-05-08] MEDS: DOCUSATE SODIUM 100MG CAPSULE PO SCH ×2 (09:53→20:04)
[2022-05-08] MEDS: DICLOFENAC EPOLAMINE 1.3% PATCH TOP SCH ×2 (09:53→20:05)
[2022-05-08] MEDS: MELOXICAM (MOBIC) 7.5 MG TAB PO SCH (09:53)
[2022-05-08 14:00] VITALS: BP 109/71
[2022-05-08 19:50] VITALS: BP 113/72
[2022-05-08] MEDS: ALPRAZolam 0.5 MG TAB PO PRN (20:01)
[2022-05-09] MEDS: ACETAMINOPHEN 500 MG TAB PO SCH ×3 (05:04→12:00)
[2022-05-09 06:30] VITALS: BP 98/56
[2022-05-09] MEDS: DOCUSATE SODIUM 100MG CAPSULE PO SCH (09:00)
[2022-05-09] MEDS ORDERED: fentaNYL 25 MCG/HR PATCH TOP SCH (09:00)
[2022-05-09] MEDS: TAMSULOSIN 0.4 MG CAP PO SCH (09:00)
[2022-05-09] MEDS: MIRALAX *UNIT DOSE* 17GM PACKET PO SCH (09:00)
[2022-05-09] MEDS: ENOXAPARIN 40MG/0.4ML SYRINGE (J1650 PER 10MG) SC SCH (09:00)
[2022-05-09] MEDS: DICLOFENAC EPOLAMINE 1.3% PATCH TOP SCH (10:00)
[2022-05-09] MEDS ORDERED: COLA100C5 PO (10:02)
[2022-05-09] MEDS ORDERED: NYST10006 TOP (10:02)
[2022-05-09] MEDS ORDERED: Ketorolac Tromethamine IV (10:02)
[2022-05-09] MEDS ORDERED: OXYC-517 PO (10:02)
[2022-05-09] MEDS ORDERED: [UNRECOGNIZED DRUG - REMARK] XX (10:02)
[2022-05-09] MEDS ORDERED: ACET-683 PO (10:02)
[2022-05-09] MEDS ORDERED: LOVE1INJ SC (10:02)
[2022-05-09] MEDS ORDERED: MIRA1POW3 PO (10:02)
[2022-05-09] MEDS ORDERED: DICL1PAT6 TOP (10:02)
[2022-05-09] MEDS: MELOXICAM (MOBIC) 7.5 MG TAB PO SCH (10:07)
== END 2022-05-09 14:00 ==
LOC: EDBD 11:35 → M ED 11:35 → M ED INP 19:03 → ENRESERV 20:20 → M MS5PR 20:54 → INTOOBSV 05-05 18:08 → OBSVTOIN 05-05 18:08
PROVIDERS: ADMIT Family Medicine; ATTEND Student in an Organized Health Care Education/Training Program
DX: M48.062 Spinal stenosis, lumbar region with neurogenic claudication (principal); N31.9 Neuromuscular dysfunction of bladder, unspecified; N32.0 Bladder-neck obstruction; N13.39 Other hydronephrosis; R26.2 Difficulty in walking, not elsewhere classified; N13.9 Obstructive and reflux uropathy, unspecified; Z96.0 Presence of urogenital implants; A49.8 Other bacterial infections of unspecified site; M54.2 Cervicalgia; G89.29 Other chronic pain; F32.A Depression, unspecified; F41.9 Anxiety disorder, unspecified; F90.9 Attention-deficit hyperactivity disorder, unspecified type; Z79.899 Other long term (current) drug therapy; F17.200 Nicotine dependence, unspecified, uncomplicated
CPT/HCPCS: 36415; 72132; 80048; 80076; 81000; 81015; 84439; 84443; 84484; 85025; 85027; 87088; 87186; 87631; 93005; 93041; 94760; 96365; 96372; 96375; 97161; 97165; 97530; 99285; G0378; J0696; J1650; J2270; Q9967

== ENCOUNTER 2022-05-09 10:58 | Inpatient (IN) | payer MEDICARE, OTHER ==
[~2022-05-09] VITALS: Ht 190.5 cm; Wt 86.0 kg
[~2022-05-09 10:58] MED LIST changes: +ACET-683 PO; +ACET-907 PO; +ALPR1TAB3 PO; +COLA100C5 PO; +DICL1PAT6 TOP; +FENT1DIS14 TD; +Ketorolac Tromethamine IV; +LIDO1PAD TOP; +LOVE1INJ SC; +MIRA1POW3 PO; +NYST10006 TOP; +OXYC-517 PO; +TAMS1CAP17 PO; +[UNRECOGNIZED DRUG - REMARK] XX
[2022-05-09 16:00] VITALS: BP 155/84
[2022-05-09] MEDS ORDERED: NALOXONE INJ 0.4MG/1ML VIAL IV PRN (16:45)
[2022-05-09] MEDS ORDERED: ONDANSETRON 4MG TAB PO PRN (16:45)
[2022-05-09] MEDS ORDERED: oxyCODONE 5MG TAB PO PRN (16:45)
[2022-05-09] MEDS: ALPRAZolam 0.5 MG TAB PO PRN (19:50)
[2022-05-09] MEDS: SENNA 8.6 MG TAB (SENOKOT) PO SCH (19:51)
[2022-05-09] MEDS: PANTOPRAZOLE 40MG TAB (PROTONIX) PO SCH (19:51)
[2022-05-09] MEDS: DICLOFENAC EPOLAMINE 1.3% PATCH TOP SCH (19:52)
[2022-05-09] MEDS: REMEDY PHYTOPLEX Z-GUARD PASTE 113GM TUBE (FROM STOREROOM PRODUCT) TOP SCH (19:52)
[2022-05-09 20:00] VITALS: BP 109/62
[2022-05-09] MEDS: DOCUSATE SODIUM 100MG CAPSULE PO SCH (20:02)
[2022-05-09] MEDS: ACETAMINOPHEN 500 MG TAB PO SCH (20:02)
[2022-05-10 06:00] VITALS: BP 93/51
[2022-05-10 06:50] LABS: BASO # 0.1 10^3/uL (0.0-0.2); BASO % 1.2 % (0.0-1.0); EOS # 0.3 10^3/uL (0.0-0.5); HEMOGLOBIN 13.2 g/dl (13.5-17.5); LYMPH # 1.9 10^3/uL (1.5-5.0); LYMPH % 27.5 % (24.0-44.0); MEAN CORPUSCULAR HEMOGLOBIN 30.9 pg (27.0-33.0); MEAN CORPUSCULAR HGB CONC 32.2 g/dl (32.0-36.5); MONO # 0.9 10^3/uL (0.0-0.8); MONO % 13.2 % (2.0-8.0); NEUTROPHILS # 3.7 10^3/uL (1.5-8.5); NEUTROPHILS % 53.8 % (36.0-66.0); PLATELET COUNT, AUTOMATED 289 10^3/uL (150-450); RED BLOOD COUNT 4.27 10^6/uL (4.30-6.10); WHITE BLOOD COUNT 6.8 10^3/uL (4.0-10.0)
[2022-05-10 07:18] LABS: ALBUMIN 3.1 G/DL (3.2-5.2); ALKALINE PHOSPHATASE 98 U/L (46-116); ALT/SGPT 13 U/L (7.0-40); AST/SGOT 23 U/L (<34); BILIRUBIN,TOTAL 0.3 MG/DL (0.3-1.2); BLOOD UREA NITROGEN 25 MG/DL (9-23); CALCIUM LEVEL 9.2 MG/DL (8.3-10.6); CARBON DIOXIDE LEVEL 28 MMOL/L (20-31); CHLORIDE LEVEL 102 MMOL/L (98-107); GLOMERULAR FILTRATION RATE > 60.0 (>49); GLUCOSE, FASTING 96 MG/DL (74-106); POTASSIUM SERUM 4.4 MMOL/L (3.5-5.1); SODIUM LEVEL 137 MMOL/L (136-145); TOTAL PROTEIN 7.1 G/DL (5.7-8.2)
[2022-05-10] MEDS: PANTOPRAZOLE 40MG TAB (PROTONIX) PO SCH ×2 (07:21→20:30)
[2022-05-10] MEDS: DOCUSATE SODIUM 100MG CAPSULE PO SCH ×2 (07:21→20:29)
[2022-05-10] MEDS: AMPHETAMINE/DEXTROAMPHETAMINE 5 MG *ER* CAPSULE (ADDERALL XR) PO SCH (07:21)
[2022-05-10] MEDS: DICLOFENAC EPOLAMINE 1.3% PATCH TOP SCH ×2 (07:21→20:30)
[2022-05-10] MEDS: MELOXICAM (MOBIC) 7.5 MG TAB PO SCH (07:21)
[2022-05-10] MEDS: LIDOCAINE 5% (LIDODERM) PATCH TD SCH (07:21)
[2022-05-10] MEDS: ACETAMINOPHEN 500 MG TAB PO SCH ×3 (07:22→20:31)
[2022-05-10] MEDS: ENOXAPARIN 40MG/0.4ML SYRINGE (J1650 PER 10MG) SC SCH (09:00)
[2022-05-10] MEDS: BISACODYL 5MG TAB PO SCH (09:00)
[2022-05-10] MEDS: TAMSULOSIN 0.4 MG CAP PO SCH (09:00)
[2022-05-10] MEDS: REMEDY PHYTOPLEX Z-GUARD PASTE 113GM TUBE (FROM STOREROOM PRODUCT) TOP SCH ×3 (09:00→20:31)
[2022-05-10 14:00] VITALS: BP 126/60
[2022-05-10 20:00] VITALS: BP 153/85
[2022-05-10] MEDS: SENNA 8.6 MG TAB (SENOKOT) PO SCH (20:30)
[2022-05-10] MEDS: ALPRAZolam 0.5 MG TAB PO PRN (20:31)
[2022-05-11 06:00] VITALS: BP 121/67
[2022-05-11 07:00] LABS: BASO # 0.1 10^3/uL (0.0-0.2); BASO % 1.3 % (0.0-1.0); EOS # 0.2 10^3/uL (0.0-0.5); EOS % 3.5 % (0.0-3.0); HEMATOCRIT 40.1 % (42.0-52.0); HEMOGLOBIN 12.9 g/dl (13.5-17.5); LYMPH # 1.5 10^3/uL (1.5-5.0); LYMPH % 23.9 % (24.0-44.0); MEAN CORPUSCULAR HEMOGLOBIN 30.7 pg (27.0-33.0); MEAN CORPUSCULAR HGB CONC 32.2 g/dl (32.0-36.5); MEAN CORPUSCULAR VOLUME 95.5 fl (80.0-96.0); MONO # 0.8 10^3/uL (0.0-0.8); MONO % 13.5 % (2.0-8.0); NEUTROPHILS # 3.6 10^3/uL (1.5-8.5); NEUTROPHILS % 57.5 % (36.0-66.0); PLATELET COUNT, AUTOMATED 262 10^3/uL (150-450); WHITE BLOOD COUNT 6.2 10^3/uL (4.0-10.0)
[2022-05-11 07:28] LABS: BLOOD UREA NITROGEN 26 MG/DL (9-23); CALCIUM LEVEL 8.9 MG/DL (8.3-10.6); CARBON DIOXIDE LEVEL 32 MMOL/L (20-31); CHLORIDE LEVEL 103 MMOL/L (98-107); CREATININE FOR GFR 0.77 MG/DL (0.70-1.30); GLOMERULAR FILTRATION RATE > 60.0 (>49); GLUCOSE, FASTING 108 MG/DL (74-106); POTASSIUM SERUM 4.7 MMOL/L (3.5-5.1); SODIUM LEVEL 139 MMOL/L (136-145)
[2022-05-11] MEDS: TAMSULOSIN 0.4 MG CAP PO SCH (09:00)
[2022-05-11] MEDS: BISACODYL 5MG TAB PO SCH (09:00)
[2022-05-11] MEDS: LIDOCAINE 5% (LIDODERM) PATCH TD SCH ×2 (09:00→17:21)
[2022-05-11] MEDS: REMEDY PHYTOPLEX Z-GUARD PASTE 113GM TUBE (FROM STOREROOM PRODUCT) TOP SCH ×3 (09:00→20:16)
[2022-05-11] MEDS: ENOXAPARIN 40MG/0.4ML SYRINGE (J1650 PER 10MG) SC SCH (09:00)
[2022-05-11] MEDS: DOCUSATE SODIUM 100MG CAPSULE PO SCH ×2 (09:05→20:16)
[2022-05-11] MEDS: AMPHETAMINE/DEXTROAMPHETAMINE 5 MG *ER* CAPSULE (ADDERALL XR) PO SCH (09:06)
[2022-05-11] MEDS: PANTOPRAZOLE 40MG TAB (PROTONIX) PO SCH ×2 (09:06→20:16)
[2022-05-11] MEDS: ACETAMINOPHEN 500 MG TAB PO SCH ×3 (09:06→20:15)
[2022-05-11] MEDS: MELOXICAM (MOBIC) 7.5 MG TAB PO SCH (09:07)
[2022-05-11] MEDS: DICLOFENAC EPOLAMINE 1.3% PATCH TOP SCH (11:07)
[2022-05-11 14:00] VITALS: BP 114/71
[2022-05-11 20:00] VITALS: BP 123/66
[2022-05-11] MEDS: ALPRAZolam 0.5 MG TAB PO PRN (20:15)
[2022-05-11] MEDS: BISACODYL 10MG SUPP PR SCH (20:16)
[2022-05-11] MEDS: SENNA 8.6 MG TAB (SENOKOT) PO SCH (20:16)
[2022-05-12 06:00] VITALS: BP 107/58
[2022-05-12] MEDS: AMPHETAMINE/DEXTROAMPHETAMINE 5 MG *ER* CAPSULE (ADDERALL XR) PO SCH (08:56)
[2022-05-12] MEDS: MELOXICAM (MOBIC) 7.5 MG TAB PO SCH (08:57)
[2022-05-12] MEDS: ACETAMINOPHEN 500 MG TAB PO SCH ×3 (08:57→20:51)
[2022-05-12] MEDS: PANTOPRAZOLE 40MG TAB (PROTONIX) PO SCH ×2 (08:58→21:00)
[2022-05-12] MEDS: ENOXAPARIN 40MG/0.4ML SYRINGE (J1650 PER 10MG) SC SCH (08:58)
[2022-05-12] MEDS: TAMSULOSIN 0.4 MG CAP PO SCH (08:58)
[2022-05-12] MEDS: DOCUSATE SODIUM 100MG CAPSULE PO SCH ×2 (08:58→21:00)
[2022-05-12] MEDS: fentaNYL 25 MCG/HR PATCH TOP SCH (09:00)
[2022-05-12] MEDS: REMEDY PHYTOPLEX Z-GUARD PASTE 113GM TUBE (FROM STOREROOM PRODUCT) TOP SCH ×3 (09:00→21:00)
[2022-05-12] MEDS ORDERED: FENTANYL REMOVAL DOCUMENTATION MISC XX SCH (09:00)
[2022-05-12] MEDS: LIDOCAINE 5% (LIDODERM) PATCH TD SCH (09:00)
[2022-05-12] MEDS: ALPRAZolam 0.5 MG TAB PO PRN ×2 (09:03→20:51)
[2022-05-12 14:00] VITALS: BP 131/82
[2022-05-12] MEDS: BISACODYL 10MG SUPP PR SCH (18:18)
[2022-05-12 20:00] VITALS: BP 148/88
[2022-05-12] MEDS: SENNA 8.6 MG TAB (SENOKOT) PO SCH (21:00)
[2022-05-12] MEDS: DICLOFENAC EPOLAMINE 1.3% PATCH TOP SCH (22:12)
[2022-05-13] MEDS ORDERED: ANALGESIC BALM CRM 3OZ TOP PRN (04:05)
[2022-05-13 06:24] LABS: BASO # 0.1 10^3/uL (0.0-0.2); BASO % 0.8 % (0.0-1.0); EOS # 0.2 10^3/uL (0.0-0.5); EOS % 3.3 % (0.0-3.0); HEMATOCRIT 38.5 % (42.0-52.0); HEMOGLOBIN 12.7 g/dl (13.5-17.5); LYMPH # 1.6 10^3/uL (1.5-5.0); LYMPH % 22.1 % (24.0-44.0); MEAN CORPUSCULAR HEMOGLOBIN 31.1 pg (27.0-33.0); MEAN CORPUSCULAR VOLUME 94.4 fl (80.0-96.0); MONO % 13.2 % (2.0-8.0); NEUTROPHILS # 4.4 10^3/uL (1.5-8.5); NEUTROPHILS % 60.3 % (36.0-66.0); PLATELET COUNT, AUTOMATED 266 10^3/uL (150-450); RED BLOOD COUNT 4.08 10^6/uL (4.30-6.10); WHITE BLOOD COUNT 7.3 10^3/uL (4.0-10.0)
[2022-05-13 06:51] LABS: BLOOD UREA NITROGEN 20 MG/DL (9-23); CALCIUM LEVEL 9.3 MG/DL (8.3-10.6); CARBON DIOXIDE LEVEL 29 MMOL/L (20-31); CHLORIDE LEVEL 104 MMOL/L (98-107); CREATININE FOR GFR 0.72 MG/DL (0.70-1.30); GLOMERULAR FILTRATION RATE > 60.0 (>49); GLUCOSE, FASTING 98 MG/DL (74-106); POTASSIUM SERUM 4.4 MMOL/L (3.5-5.1); SODIUM LEVEL 138 MMOL/L (136-145)
[2022-05-13] MEDS: ENOXAPARIN 40MG/0.4ML SYRINGE (J1650 PER 10MG) SC SCH (09:00)
[2022-05-13] MEDS: TAMSULOSIN 0.4 MG CAP PO SCH (09:00)
[2022-05-13] MEDS: REMEDY PHYTOPLEX Z-GUARD PASTE 113GM TUBE (FROM STOREROOM PRODUCT) TOP SCH ×3 (09:00→21:00)
[2022-05-13] MEDS: ACETAMINOPHEN 500 MG TAB PO SCH ×3 (09:00→21:07)
[2022-05-13] MEDS: AMPHETAMINE/DEXTROAMPHETAMINE 5 MG *ER* CAPSULE (ADDERALL XR) PO SCH (09:00)
[2022-05-13] MEDS: DICLOFENAC EPOLAMINE 1.3% PATCH TOP SCH ×4 (09:00→21:07)
[2022-05-13] MEDS: LIDOCAINE 5% (LIDODERM) PATCH TD SCH ×2 (09:00→14:17)
[2022-05-13] MEDS: DOCUSATE SODIUM 100MG CAPSULE PO SCH ×2 (09:00→21:08)
[2022-05-13] MEDS: MELOXICAM (MOBIC) 7.5 MG TAB PO SCH (09:00)
[2022-05-13] MEDS: PANTOPRAZOLE 40MG TAB (PROTONIX) PO SCH ×2 (09:00→21:06)
[2022-05-13] MEDS ORDERED: oxyCODONE 5MG TAB PO PRN (11:50)
[2022-05-13] MEDS ORDERED: RAMELTEON 8 MG TAB (ROZEREM) PO PRN (11:55)
[2022-05-13 14:00] VITALS: BP 131/91
[2022-05-13] MEDS: ALPRAZolam 0.5 MG TAB PO PRN (18:11)
[2022-05-13 20:00] VITALS: BP 132/78
[2022-05-13] MEDS: SENNA 8.6 MG TAB (SENOKOT) PO SCH (21:00)
[2022-05-13] MEDS: BISACODYL 10MG SUPP PR SCH (21:00)
[2022-05-13] MEDS: RAMELTEON 8 MG TAB (ROZEREM) PO SCH (21:06)
[2022-05-14 06:00] VITALS: BP 96/52
[2022-05-14] MEDS: MELOXICAM (MOBIC) 7.5 MG TAB PO SCH (08:22)
[2022-05-14] MEDS: ACETAMINOPHEN 500 MG TAB PO SCH ×3 (08:22→21:20)
[2022-05-14] MEDS: TAMSULOSIN 0.4 MG CAP PO SCH ×2 (08:22→09:00)
[2022-05-14] MEDS: PANTOPRAZOLE 40MG TAB (PROTONIX) PO SCH ×2 (08:22→21:00)
[2022-05-14] MEDS: ENOXAPARIN 40MG/0.4ML SYRINGE (J1650 PER 10MG) SC SCH ×2 (08:23→09:00)
[2022-05-14] MEDS: DOCUSATE SODIUM 100MG CAPSULE PO SCH ×3 (08:23→21:00)
[2022-05-14] MEDS: LIDOCAINE 5% (LIDODERM) PATCH TD SCH (08:24)
[2022-05-14] MEDS: DICLOFENAC EPOLAMINE 1.3% PATCH TOP SCH ×2 (08:25→21:21)
[2022-05-14] MEDS: REMEDY PHYTOPLEX Z-GUARD PASTE 113GM TUBE (FROM STOREROOM PRODUCT) TOP SCH ×3 (09:00→20:33)
[2022-05-14 14:00] VITALS: BP 116/60
[2022-05-14] MEDS: AMPHETAMINE/DEXTROAMPHETAMINE 5 MG *ER* CAPSULE (ADDERALL XR) PO PRN (14:23)
[2022-05-14] MEDS: BISACODYL 10MG SUPP PR SCH (17:01)
[2022-05-14 20:00] VITALS: BP 134/74
[2022-05-14] MEDS: SENNA 8.6 MG TAB (SENOKOT) PO SCH (20:34)
[2022-05-14] MEDS: RAMELTEON 8 MG TAB (ROZEREM) PO SCH (21:00)
[2022-05-14] MEDS: ALPRAZolam 0.5 MG TAB PO PRN (21:19)
[2022-05-15 06:00] VITALS: BP 121/69
[2022-05-15] MEDS: DICLOFENAC EPOLAMINE 1.3% PATCH TOP SCH (08:39)
[2022-05-15] MEDS: MELOXICAM (MOBIC) 7.5 MG TAB PO SCH (08:39)
[2022-05-15] MEDS: ACETAMINOPHEN 500 MG TAB PO SCH ×2 (08:39→16:00)
[2022-05-15] MEDS: fentaNYL 25 MCG/HR PATCH TOP SCH (08:40)
[2022-05-15] MEDS: LIDOCAINE 5% (LIDODERM) PATCH TD SCH (08:46)
[2022-05-15] MEDS: TAMSULOSIN 0.4 MG CAP PO SCH (08:46)
[2022-05-15] MEDS: PANTOPRAZOLE 40MG TAB (PROTONIX) PO SCH (08:46)
[2022-05-15] MEDS: ENOXAPARIN 40MG/0.4ML SYRINGE (J1650 PER 10MG) SC SCH (08:46)
[2022-05-15] MEDS: DOCUSATE SODIUM 100MG CAPSULE PO SCH (08:46)
[2022-05-15] MEDS: REMEDY PHYTOPLEX Z-GUARD PASTE 113GM TUBE (FROM STOREROOM PRODUCT) TOP SCH ×2 (08:47→16:00)
[2022-05-15] MEDS: AMPHETAMINE/DEXTROAMPHETAMINE 5 MG *ER* CAPSULE (ADDERALL XR) PO PRN (08:52)
[2022-05-15] MEDS: ALPRAZolam 0.5 MG TAB PO PRN (10:37)
[2022-05-15 14:00] VITALS: BP 137/92
== END 2022-05-15 18:10 | disposition left against medical advice (07) | DRG 552 ==
LOC: M PM&R 13:57
PROVIDERS: ADMIT Physical Medicine & Rehabilitation; ATTEND Physical Medicine & Rehabilitation
DX: M48.062 Spinal stenosis, lumbar region with neurogenic claudication (principal); N13.30 Unspecified hydronephrosis; M54.2 Cervicalgia; M54.50 Low back pain, unspecified; F90.9 Attention-deficit hyperactivity disorder, unspecified type; F41.9 Anxiety disorder, unspecified; R53.1 Weakness; G89.29 Other chronic pain; R26.2 Difficulty in walking, not elsewhere classified; F32.A Depression, unspecified; N13.9 Obstructive and reflux uropathy, unspecified; Z74.09 Other reduced mobility; Z74.1 Need for assistance with personal care; Z96.662 Presence of left artificial ankle joint; Z79.1 Long term (current) use of non-steroidal anti-inflammatories (NSAID); Z79.899 Other long term (current) drug therapy

== ENCOUNTER 2022-06-18 22:39 | Emergency (ER) | payer MEDICARE, OTHER ==
[2022-06-18 22:59] VITALS: BP 134/95
[2022-06-18] MEDS ORDERED: LIDOCAINE 2% 5ML JELLY UROJET TOP ONE (23:10)
== END 2022-06-19 00:04 | disposition home or self-care (01) ==
LOC: M ED 22:39
DX: T83.098A Other mechanical complication of other urinary catheter, initial encounter (principal); N40.0 Benign prostatic hyperplasia without lower urinary tract symptoms; F32.9 Major depressive disorder, single episode, unspecified; Z79.899 Other long term (current) drug therapy

== ENCOUNTER 2022-06-29 23:49 | Emergency (ER) | payer MEDICARE, OTHER ==
[~2022-06-29] VITALS: Ht 190.5 cm; Wt 86.0 kg
[2022-06-30 09:06] VITALS: BP 120/68
== END 2022-06-30 09:26 | disposition home or self-care (01) ==
LOC: M ED 23:49 → EDBD 23:49 → M ED 06-30 09:26
DX: T83.091A Other mechanical complication of indwelling urethral catheter, initial encounter (principal); R82.71 Bacteriuria; N13.30 Unspecified hydronephrosis; G89.29 Other chronic pain; M54.9 Dorsalgia, unspecified; F41.9 Anxiety disorder, unspecified; N40.0 Benign prostatic hyperplasia without lower urinary tract symptoms; F32.A Depression, unspecified; F17.200 Nicotine dependence, unspecified, uncomplicated; Z79.899 Other long term (current) drug therapy

== ENCOUNTER 2022-08-16 19:56 | Inpatient (IN) | payer MEDICARE, OTHER ==
[~2022-08-16] VITALS: Ht 190.5 cm; Wt 88.6 kg
[2022-08-16] MEDS ORDERED: LIDOCAINE 2% 5ML JELLY UROJET TOP ONE (23:55)
[2022-08-17 00:54] LABS: BASO # 0.1 10^3/uL (0.0-0.2); BASO % 0.7 % (0.0-1.0); EOS # 0.2 10^3/uL (0.0-0.5); EOS % 1.1 % (0.0-3.0); HEMATOCRIT 44.1 % (42.0-52.0); HEMOGLOBIN 14.5 g/dl (13.5-17.5); LYMPH % 6.6 % (24.0-44.0); MEAN CORPUSCULAR HEMOGLOBIN 30.2 pg (27.0-33.0); MEAN CORPUSCULAR HGB CONC 32.9 g/dl (32.0-36.5); MEAN CORPUSCULAR VOLUME 91.9 fl (80.0-96.0); MONO # 1.2 10^3/uL (0.0-0.8); MONO % 7.6 % (2.0-8.0); NEUTROPHILS # 12.6 10^3/uL (1.5-8.5); PLATELET COUNT, AUTOMATED 411 10^3/uL (150-450); WHITE BLOOD COUNT 15.3 10^3/uL (4.0-10.0)
[2022-08-17 01:15] LABS: BLOOD UREA NITROGEN 21 MG/DL (9-23); CALCIUM LEVEL 9.4 MG/DL (8.3-10.6); CARBON DIOXIDE LEVEL 25 MMOL/L (20-31); CHLORIDE LEVEL 102 MMOL/L (98-107); CREATININE FOR GFR 0.85 MG/DL (0.70-1.30); GLOMERULAR FILTRATION RATE > 60.0 (>49); GLUCOSE, FASTING 140 MG/DL (74-106); POTASSIUM SERUM 5.5 MMOL/L (3.5-5.1); SODIUM LEVEL 136 MMOL/L (136-145)
[2022-08-17] MEDS ORDERED: cefTRIAXone SOD 1 GM in D5W MINI-BAG PLUS 50 ML IV ONE (01:20)
[2022-08-17] MEDS ORDERED: NS 2,660 ML in IV 1 EA IV ONE (01:25)
[2022-08-17] MEDS ORDERED: ACETAMINOPHEN TAB 650MG DOSE (2X325MG) PO PRN (02:35)
[2022-08-17] MEDS ORDERED: MOM 30ML SUSPENSION UDC PO PRN (02:35)
[2022-08-17] MEDS ORDERED: MAALOX 30 ML SUSP *UDC PO PRN (02:35)
[2022-08-17] MEDS ORDERED: NS 1,000 ML IV ONE (03:20)
[2022-08-17] MEDS ORDERED: LORazepam 2 MG TAB PO PRN (03:30)
[2022-08-17 03:44] LABS: RSV AMPLIFICATION NEGATIVE (NEGATIVE)
[2022-08-17] MEDS ORDERED: SOD POLYSTYRENE SULFONATE SUSP 15GM 60ML UD PO ONE (04:00)
[2022-08-17] MEDS ORDERED: THIAMINE 100 MG TAB PO SCH (04:00)
[2022-08-17] MEDS: NS 1,000 ML IV SCH ×2 (04:18→08:01)
[2022-08-17] MEDS ORDERED: ADDE30TA PO (05:08)
[2022-08-17] MEDS ORDERED: DICL1GEL3 TOP (05:08)
[2022-08-17] MEDS ORDERED: FENT1PAT25 TD (05:08)
[2022-08-17] MEDS ORDERED: HOME MED LIST COMPLETE! XX SCH (05:10)
[2022-08-17 08:00] VITALS: BP 122/69
[2022-08-17] MEDS: HEPARIN SOD (PORCINE) 5000UNITS/ML 1ML VIAL/SYRINGE SC SCH ×2 (08:07→08:39)
[2022-08-17] MEDS ORDERED: MULTIVITAMINS/MINERALS THERAP 1 TAB PO SCH (09:00)
[2022-08-17] MEDS ORDERED: FOLIC ACID 1MG TAB PO SCH (09:00)
[2022-08-17 09:10] VITALS: BP 110/55
[2022-08-17 11:30] VITALS: BP 118/56
[2022-08-18] MEDS ORDERED: cefTRIAXone SOD 1 GM in D5W MINI-BAG PLUS 50 ML IV SCH (02:00)
== END 2022-08-17 12:30 | disposition left against medical advice (07) | DRG 698 ==
LOC: M ED 19:56 → M ED INP 08-17 01:39
PROVIDERS: ADMIT Family Medicine; ATTEND Family Medicine
DX: T83.511A Infection and inflammatory reaction due to indwelling urethral catheter, initial encounter (principal); A41.9 Sepsis, unspecified organism; L97.129 Non-pressure chronic ulcer of left thigh with unspecified severity; N39.0 Urinary tract infection, site not specified; F90.9 Attention-deficit hyperactivity disorder, unspecified type; F32.A Depression, unspecified; F41.1 Generalized anxiety disorder; E87.5 Hyperkalemia; E53.8 Deficiency of other specified B group vitamins; Z96.652 Presence of left artificial knee joint; Z90.49 Acquired absence of other specified parts of digestive tract; Z87.891 Personal history of nicotine dependence; F10.10 Alcohol abuse, uncomplicated; Z79.899 Other long term (current) drug therapy; Z20.822 Contact with and (suspected) exposure to COVID-19

== ENCOUNTER 2022-09-23 09:16 | Emergency (ER) | payer MEDICARE, OTHER ==
[~2022-09-23] VITALS: Ht 190.5 cm; Wt 87.3 kg
[~2022-09-23 09:16] MED LIST changes: +ADDE30TA PO; +DICL1GEL3 TOP; +FENT1PAT25 TD
[2022-09-23 09:18] VITALS: BP 113/72
[2022-09-23] MEDS ORDERED: LIDOCAINE 2% 5ML JELLY UROJET TOP ONE (10:10)
== END 2022-09-23 11:53 | disposition home or self-care (01) ==
LOC: M ED 09:16
DX: R33.9 Retention of urine, unspecified (principal); Z79.899 Other long term (current) drug therapy

== ENCOUNTER 2022-09-23 21:58 | Emergency (ER) | payer MEDICARE, OTHER ==
[2022-09-23 22:10] VITALS: BP 139/63
== END 2022-09-23 23:25 | disposition home or self-care (01) ==
LOC: EDBD 21:58 → M ED 21:58
DX: T83.091A Other mechanical complication of indwelling urethral catheter, initial encounter (principal); N40.0 Benign prostatic hyperplasia without lower urinary tract symptoms; M19.90 Unspecified osteoarthritis, unspecified site; Z79.899 Other long term (current) drug therapy

== ENCOUNTER 2022-09-28 13:43 | Inpatient (IN) | payer MEDICARE, OTHER ==
[~2022-09-28] VITALS: Ht 190.5 cm; Wt 91.3 kg
[2022-09-28] MEDS ORDERED: NS 1,000 ML IV ONE (15:25)
[2022-09-28 15:41] LABS: BASO % 0.5 % (0.0-1.0); EOS # 0.1 10^3/uL (0.0-0.5); EOS % 1.1 % (0.0-3.0); HEMATOCRIT 44.3 % (42.0-52.0); HEMOGLOBIN 14.3 g/dl (13.5-17.5); LYMPH # 1.1 10^3/uL (1.5-5.0); LYMPH % 12.6 % (24.0-44.0); MEAN CORPUSCULAR HGB CONC 32.3 g/dl (32.0-36.5); MEAN CORPUSCULAR VOLUME 93.1 fl (80.0-96.0); MONO # 0.8 10^3/uL (0.0-0.8); MONO % 9.5 % (2.0-8.0); NEUTROPHILS # 6.6 10^3/uL (1.5-8.5); NEUTROPHILS % 75.5 % (36.0-66.0); PLATELET COUNT, AUTOMATED 294 10^3/uL (150-450); RED BLOOD COUNT 4.76 10^6/uL (4.30-6.10); WHITE BLOOD COUNT 8.7 10^3/uL (4.0-10.0)
[2022-09-28 15:52] LABS: ERYTHROCYTE SEDIMENTATION RATE 112 mm/hr (0-20)
[2022-09-28 16:06] LABS: ETHYL ALCOHOL (ETHANOL) < 0.003 % (0.000-0.010)
[2022-09-28 16:07] LABS: ACETAMINOPHEN LEVEL < 2.0 UG/ML (10.0-20.0); SALICYLATE LEVEL 7.2 MG/DL (<30)
[2022-09-28 16:08] LABS: ALBUMIN 3.1 G/DL (3.2-5.2); ALKALINE PHOSPHATASE 144 U/L (46-116); ALT/SGPT 37 U/L (7.0-40); AST/SGOT 24 U/L (<34); BILIRUBIN,DIRECT 0.1 MG/DL (<0.4); BILIRUBIN,TOTAL 0.3 MG/DL (0.3-1.2); BLOOD UREA NITROGEN 32 MG/DL (9-23); CALCIUM LEVEL 9.1 MG/DL (8.3-10.6); CARBON DIOXIDE LEVEL 27 MMOL/L (20-31); CHLORIDE LEVEL 102 MMOL/L (98-107); GLOMERULAR FILTRATION RATE > 60.0 (>49); GLUCOSE, FASTING 113 MG/DL (74-106); POTASSIUM SERUM 4.5 MMOL/L (3.5-5.1); SODIUM LEVEL 138 MMOL/L (136-145); TOTAL PROTEIN 7.3 G/DL (5.7-8.2)
[2022-09-28 16:09] LABS: THYROID STIMULATING HORMONE 2.096 uIU/ML (0.55-4.78)
[2022-09-28 16:10] LABS: OSMOLALITY SERUM 298 MOSM/KG (280-301)
[2022-09-28 16:17] LABS: RSV AMPLIFICATION NEGATIVE (NEGATIVE)
[2022-09-28 17:33] LABS: BARBITURATES URINE NEGATIVE (NEGATIVE); COCAINE METABOLITE URINE NEGATIVE (NEGATIVE); METHADONE URINE NEGATIVE (NEGATIVE); OPIATES URINE NEGATIVE (NEGATIVE); PHENCYCLIDINE URINE NEGATIVE (NEGATIVE)
[2022-09-28 17:49] LABS: AMPHETAMINES LEVEL URINE POSITIVE (NEGATIVE); BENZODIAZEPINES URINE POSITIVE (NEGATIVE); CANNABINOIDS URINE POSITIVE (NEGATIVE)
[2022-09-28] MEDS ORDERED: cefTRIAXone SOD 1 GM in D5W MINI-BAG PLUS 50 ML IV ONE (17:55)
[2022-09-28] MEDS ORDERED: ACETAMINOPHEN TAB 650MG DOSE (2X325MG) PO PRN (19:30)
[2022-09-28] MEDS ORDERED: HOME MED LIST COMPLETE! XX SCH (19:40)
[2022-09-28] MEDS: NYSTATIN 100,000 UNITS/GM TOPICAL PWD 15GM TOP SCH (21:29)
[2022-09-28 21:45] VITALS: BP 114/56
[2022-09-28] MEDS ORDERED: fentaNYL 50 MCG/HR PATCH TD SCH (22:00)
[2022-09-28] MEDS ORDERED: FENTANYL REMOVAL DOCUMENTATION MISC XX SCH (22:00)
[2022-09-28] MEDS: ALPRAZolam 0.5 MG TAB PO PRN (22:10)
[2022-09-28] MEDS: DICLOFENAC EPOLAMINE 1.3% PATCH TOP SCH (22:11)
[2022-09-29 06:37] LABS: HEMATOCRIT 43.8 % (42.0-52.0); HEMOGLOBIN 14.2 g/dl (13.5-17.5); MEAN CORPUSCULAR HGB CONC 32.4 g/dl (32.0-36.5); MEAN CORPUSCULAR VOLUME 92.6 fl (80.0-96.0); PLATELET COUNT, AUTOMATED 310 10^3/uL (150-450); RED BLOOD COUNT 4.73 10^6/uL (4.30-6.10); WHITE BLOOD COUNT 7.9 10^3/uL (4.0-10.0)
[2022-09-29 06:50] LABS: INR 1.08; PROTHROMBIN TIME 14.2 SECONDS (12.5-14.5)
[2022-09-29 06:51] LABS: PARTIAL THROMBOPLASTIN TIME 33.3 SECONDS (24.8-34.2)
[2022-09-29 06:58] VITALS: BP 123/72
[2022-09-29 07:07] LABS: ALKALINE PHOSPHATASE 135 U/L (46-116); ALT/SGPT 32 U/L (7.0-40); AST/SGOT 25 U/L (<34); BILIRUBIN,TOTAL 0.2 MG/DL (0.3-1.2); BLOOD UREA NITROGEN 28 MG/DL (9-23); CALCIUM LEVEL 8.7 MG/DL (8.3-10.6); CARBON DIOXIDE LEVEL 28 MMOL/L (20-31); CHLORIDE LEVEL 104 MMOL/L (98-107); CREATININE FOR GFR 0.87 MG/DL (0.70-1.30); GLOMERULAR FILTRATION RATE > 60.0 (>49); GLUCOSE, FASTING 87 MG/DL (74-106); POTASSIUM SERUM 4.8 MMOL/L (3.5-5.1); SODIUM LEVEL 139 MMOL/L (136-145); TOTAL PROTEIN 7.2 G/DL (5.7-8.2)
[2022-09-29] MEDS ORDERED: cefTRIAXone SOD 1 GM in D5W MINI-BAG PLUS 50 ML IV SCH (09:00)
[2022-09-29] MEDS: DICLOFENAC EPOLAMINE 1.3% PATCH TOP SCH ×2 (09:00→21:00)
[2022-09-29] MEDS: ENOXAPARIN 40MG/0.4ML SYRINGE (J1650 PER 10MG) SC SCH (09:00)
[2022-09-29] MEDS: MELOXICAM (MOBIC) 7.5 MG TAB PO SCH (09:04)
[2022-09-29] MEDS: NYSTATIN 100,000 UNITS/GM TOPICAL PWD 15GM TOP SCH ×2 (09:04→21:11)
[2022-09-29] MEDS: ALPRAZolam 0.5 MG TAB PO PRN ×2 (15:33→23:38)
[2022-09-29 21:48] VITALS: BP 115/64
[2022-09-30 06:36] LABS: HEMOGLOBIN 13.3 g/dl (13.5-17.5); MEAN CORPUSCULAR HEMOGLOBIN 29.9 pg (27.0-33.0); MEAN CORPUSCULAR HGB CONC 31.7 g/dl (32.0-36.5); MEAN CORPUSCULAR VOLUME 94.4 fl (80.0-96.0); PLATELET COUNT, AUTOMATED 321 10^3/uL (150-450); RED BLOOD COUNT 4.45 10^6/uL (4.30-6.10); WHITE BLOOD COUNT 7.6 10^3/uL (4.0-10.0)
[2022-09-30 06:49] VITALS: BP 110/58
[2022-09-30 06:57] LABS: ALKALINE PHOSPHATASE 125 U/L (46-116); ALT/SGPT 26 U/L (7.0-40); AST/SGOT 18 U/L (<34); BILIRUBIN,TOTAL 0.3 MG/DL (0.3-1.2); BLOOD UREA NITROGEN 27 MG/DL (9-23); CALCIUM LEVEL 8.6 MG/DL (8.3-10.6); CARBON DIOXIDE LEVEL 28 MMOL/L (20-31); CHLORIDE LEVEL 102 MMOL/L (98-107); CREATININE FOR GFR 0.86 MG/DL (0.70-1.30); GLOMERULAR FILTRATION RATE > 60.0 (>49); GLUCOSE, FASTING 90 MG/DL (74-106); POTASSIUM SERUM 4.6 MMOL/L (3.5-5.1); SODIUM LEVEL 136 MMOL/L (136-145); TOTAL PROTEIN 6.9 G/DL (5.7-8.2)
[2022-09-30] MEDS: ENOXAPARIN 40MG/0.4ML SYRINGE (J1650 PER 10MG) SC SCH ×2 (09:00→09:32)
[2022-09-30] MEDS: DICLOFENAC EPOLAMINE 1.3% PATCH TOP SCH ×3 (09:00→23:03)
[2022-09-30] MEDS: NYSTATIN 100,000 UNITS/GM TOPICAL PWD 15GM TOP SCH ×2 (09:32→23:04)
[2022-09-30] MEDS: MELOXICAM (MOBIC) 7.5 MG TAB PO SCH (09:33)
[2022-09-30] MEDS: CEFDINIR 300 MG CAP (OMNICEF) PO SCH ×2 (09:33→23:03)
[2022-09-30] MEDS ORDERED: CEFD300CAP PO (13:29)
[2022-09-30 14:00] VITALS: BP 117/72
[2022-09-30] MEDS: ALPRAZolam 0.5 MG TAB PO PRN ×2 (14:29→23:03)
[2022-09-30 19:49] VITALS: BP 140/76
[2022-10-01 06:31] LABS: HEMATOCRIT 41.5 % (42.0-52.0); HEMOGLOBIN 13.4 g/dl (13.5-17.5); MEAN CORPUSCULAR HEMOGLOBIN 30.2 pg (27.0-33.0); MEAN CORPUSCULAR HGB CONC 32.3 g/dl (32.0-36.5); MEAN CORPUSCULAR VOLUME 93.5 fl (80.0-96.0); PLATELET COUNT, AUTOMATED 312 10^3/uL (150-450); RED BLOOD COUNT 4.44 10^6/uL (4.30-6.10)
[2022-10-01 06:56] VITALS: BP 114/65
[2022-10-01 07:04] LABS: ALKALINE PHOSPHATASE 117 U/L (46-116); ALT/SGPT 24 U/L (7.0-40); AST/SGOT 19 U/L (<34); BILIRUBIN,TOTAL 0.4 MG/DL (0.3-1.2); BLOOD UREA NITROGEN 24 MG/DL (9-23); CALCIUM LEVEL 8.5 MG/DL (8.3-10.6); CARBON DIOXIDE LEVEL 30 MMOL/L (20-31); CHLORIDE LEVEL 102 MMOL/L (98-107); CREATININE FOR GFR 0.76 MG/DL (0.70-1.30); GLOMERULAR FILTRATION RATE > 60.0 (>49); GLUCOSE, FASTING 101 MG/DL (74-106); POTASSIUM SERUM 4.9 MMOL/L (3.5-5.1); SODIUM LEVEL 136 MMOL/L (136-145); TOTAL PROTEIN 7.1 G/DL (5.7-8.2)
[2022-10-01] MEDS: DICLOFENAC EPOLAMINE 1.3% PATCH TOP SCH (09:00)
[2022-10-01] MEDS: ENOXAPARIN 40MG/0.4ML SYRINGE (J1650 PER 10MG) SC SCH ×3 (09:00→09:11)
[2022-10-01] MEDS: MELOXICAM (MOBIC) 7.5 MG TAB PO SCH (09:04)
[2022-10-01] MEDS: CEFDINIR 300 MG CAP (OMNICEF) PO SCH (09:04)
[2022-10-01] MEDS: NYSTATIN 100,000 UNITS/GM TOPICAL PWD 15GM TOP SCH (09:09)
[2022-10-01] MEDS ORDERED: ADDERALL 5 MG TAB PO PRN (10:00)
== END 2022-10-01 12:55 | disposition home health service (06) | DRG 698 ==
LOC: EDBD 13:43 → M ED 13:43 → M ED INP 19:30 → M MS5PR 20:44
PROVIDERS: ADMIT Internal Medicine; ATTEND Internal Medicine
DX: T83.511A Infection and inflammatory reaction due to indwelling urethral catheter, initial encounter (principal); G93.41 Metabolic encephalopathy; L89.223 Pressure ulcer of left hip, stage 3; L03.116 Cellulitis of left lower limb; L03.90 Cellulitis, unspecified; R53.1 Weakness; M54.2 Cervicalgia; F41.9 Anxiety disorder, unspecified; F32.A Depression, unspecified; G89.29 Other chronic pain; N40.0 Benign prostatic hyperplasia without lower urinary tract symptoms; M19.90 Unspecified osteoarthritis, unspecified site; F90.9 Attention-deficit hyperactivity disorder, unspecified type; Z96.652 Presence of left artificial knee joint; Z87.891 Personal history of nicotine dependence; Y84.6 Urinary catheterization as the cause of abnormal reaction of the patient, or of later complication, without mention of misadventure at the time of the procedure; Z79.1 Long term (current) use of non-steroidal anti-inflammatories (NSAID)

== ENCOUNTER 2022-10-26 21:29 | Emergency (ER) | payer MEDICARE, OTHER ==
[~2022-10-26] VITALS: Ht 190.5 cm; Wt 86.4 kg
[~2022-10-26 21:29] MED LIST changes: +CEFD300CAP PO
[2022-10-26 22:26] VITALS: TEMP 97.6
[2022-10-27 00:15] VITALS: O2SAT 96
[2022-10-27 00:16] VITALS: BP 143/84
== END 2022-10-27 01:06 | disposition home or self-care (01) ==
LOC: M ED 21:29
DX: T83.098A Other mechanical complication of other urinary catheter, initial encounter (principal); F90.9 Attention-deficit hyperactivity disorder, unspecified type; N40.0 Benign prostatic hyperplasia without lower urinary tract symptoms; Z79.899 Other long term (current) drug therapy

== ENCOUNTER 2022-11-04 12:44 | Emergency (ER) | payer MEDICARE, OTHER ==
[~2022-11-04] VITALS: Ht 190.5 cm; Wt 84.1 kg
[2022-11-04 14:37] LABS: APPEARANCE, URINE CLOUDY (CLEAR); BACTERIA, URINE AUTO 1+ (NEGATIVE); BILIRUBIN, URINE AUTO 2+ (NEGATIVE); BLOOD, URINE BLOOD NEGATIVE (NEGATIVE); COLOR, URINE AMBER (YELLOW); GLUCOSE, URINE (UA) AUTO NEGATIVE (NEGATIVE); KETONE, URINE AUTO 1+ mg/dL (NEGATIVE); LEUKOCYTE ESTERASE, URINE AUTO 3+ (NEGATIVE); MUCUS, URINE LARGE (NEGATIVE); NITRITE, URINE AUTO NEGATIVE (NEGATIVE); PROTEIN, URINE AUTO 3+ mg/dL (NEGATIVE); RBC, URINE AUTO 5 /HPF (0-3); SPECIFIC GRAVITY URINE AUTO 1.024 (1.002-1.035); SQUAMOUS EPITHELIAL CELL UR AU 0 /HPF (0-6); TRIPLE PHOSPHATE CRYSTALS SMALL; WBC, URINE AUTO 17 /HPF (0-3)
[2022-11-04] MEDS ORDERED: NS 1,000 ML IV ONE (15:00)
[2022-11-04 15:22] LABS: BASO # 0.1 10^3/uL (0.0-0.2); BASO % 0.8 % (0.0-1.0); EOS # 0.1 10^3/uL (0.0-0.5); EOS % 1.6 % (0.0-3.0); HEMOGLOBIN 14.9 g/dl (13.5-17.5); LYMPH # 1.3 10^3/uL (1.5-5.0); LYMPH % 21.3 % (24.0-44.0); MEAN CORPUSCULAR HEMOGLOBIN 30.7 pg (27.0-33.0); MEAN CORPUSCULAR HGB CONC 32.4 g/dl (32.0-36.5); MEAN CORPUSCULAR VOLUME 94.7 fl (80.0-96.0); MONO # 0.8 10^3/uL (0.0-0.8); MONO % 12.9 % (2.0-8.0); NEUTROPHILS # 3.9 10^3/uL (1.5-8.5); NEUTROPHILS % 63.1 % (36.0-66.0); PLATELET COUNT, AUTOMATED 348 10^3/uL (150-450); RED BLOOD COUNT 4.86 10^6/uL (4.30-6.10); WHITE BLOOD COUNT 6.1 10^3/uL (4.0-10.0)
[2022-11-04 15:47] LABS: ALBUMIN 3.5 G/DL (3.2-5.2); BILIRUBIN,DIRECT 0.2 MG/DL (<0.4); BILIRUBIN,TOTAL 0.7 MG/DL (0.3-1.2); TOTAL PROTEIN 7.7 G/DL (5.7-8.2)
[2022-11-04] MEDS ORDERED: cefTRIAXone SOD 1 GM in D5W MINI-BAG PLUS 50 ML IV ONE (16:10)
[2022-11-04 18:42] VITALS: O2SAT 97
[2022-11-04 19:30] VITALS: BP 118/80; TEMP 98.7
== END 2022-11-04 19:32 | disposition home or self-care (01) ==
LOC: EDBD 12:44 → M ED 12:44
DX: R78.81 Bacteremia (principal); R53.83 Other fatigue; M51.36 Other intervertebral disc degeneration, lumbar region; F41.9 Anxiety disorder, unspecified; F32.A Depression, unspecified; Z87.891 Personal history of nicotine dependence; Z79.899 Other long term (current) drug therapy
CPT/HCPCS: 80047; 80076; 81001; 82140; 83605; 85025; 87040; 96365; 99284; J0696

== ENCOUNTER → 2023-03-29 | Outpatient (CLI) | payer MEDICARE, OTHER ==
[~2023-03-29] MED LIST changes: +DICL100G10 TOP; -DICL1GEL3 TOP
== END ==
LOC: M SOG 07:57
PROVIDERS: ATTEND Orthopaedic Surgery
DX: M25.561 Pain in right knee (principal); Z53.9 Procedure and treatment not carried out, unspecified reason

== ENCOUNTER → 2023-04-11 | Outpatient (CLI) | payer MEDICARE, OTHER | LOC: M SOG 14:30 | PROVIDERS: ATTEND Orthopaedic Surgery | DX: M25.561 Pain in right knee (principal); M17.11 Unilateral primary osteoarthritis, right knee ==